=== PATIENT | male | born 1950 | race Caucasian/White ===

== ENCOUNTER 2019-04-26 11:48 | Inpatient (IN) | payer MEDICARE, SELFPAY ==
[2019-04-26] VITALS (19 sets, daily range): BP systolic 118–150; BP diastolic 65–88; PULSE 68–120; RESP 20–46; TEMP 36.3–36.8; O2SAT 95–100; BMI 23.3
--- NOTE | 2019-04-26 | ECHO_ITS ---
Patient Info Name: Gee Fan Age: 68 years : 1950 Gender: Male Ht: 71 in Wt: 170 lbs BSA: 1.97 m2 HR: 92 bpm BP: 138 / 82 mmHg Heart Rhythm: Sinus Rhythm Technical Quality: Good Exam Date: 04/26/2019 4:02 PM Exam Location: [facility] Patient Status: Inpatient Admit Date: 04/26/2019 Staff Ordering Physician: Wayne Miles MD Vinyl Hanger: Lavelle Faith RDCS Attending Provider: Erin Ibarra MD Exam Type: CA echo dop color flow w con Study Info Indications I50.9 - Heart failure, unspecified Complete two-dimensional, color flow and Doppler transthoracic echocardiogram is performed with contrast to opacify the left ventrical and to improve the deliniation of the left ventrical endocarial boarders. Contrast/Agitated Saline Contrast/Ag. Saline: Definity Amount: 2.00 ml Administered By: Nikki Orozco RN Existing IV Access: Yes History/Risk Factors Sepsis; ARF w/hypoxia, COPD exacerbation, SOB, PNA, elevated trops, CHF w/ BNP 5220. Summary 1. Left ventricular chamber dimension is severely enlarged. 2. Definity contrast administered improved wall motion interpretation. 3. Left ventricular systolic function is severely reduced, estimated at 15-20%. 4. There is mildly increased left ventricular wall thickness. 5. The left ventricular diastolic function is grade I diastolic dysfunction. 6. E/e' 8 is minimally elevated. 7. Left atrial chamber dimension is mildly enlarged. 8. There is trace mitral valve regurgitation. 9. Dilated inferior vena cava with >50% collapse upon inspiration consistent with elevated right atrial pressure, 10 mmHg. Left Ventricle E/e' 8 is minimally elevated. Definity contrast administered improved wall motion interpretation. Left ventricular chamber dimension is severely enlarged. Left ventricular systolic function is severely reduced, estimated at 15-20%. There is mildly increased left ventricular wall thickness. The left ventricular diastolic function is grade I diastolic dysfunction. Right Ventricle Right ventricular chamber dimension is not well visualized. Left Atria Left atrial chamber dimension is mildly enlarged. Right Atria Right atrial chamber dimension is normal. Aortic Valve The aortic valve is probable trileaflet. There is no aortic valve stenosis. There is no aortic valve regurgitation. Pulmonic Valve There is no pulmonic regurgitation. Mitral Valve There is no mitral valve stenosis. There is trace mitral valve regurgitation. Tricuspid Valve There is no tricuspid valve regurgitation. Pericardium/Pleural There is no pericardial effusion. Inferior Vena Cava Dilated inferior vena cava with >50% collapse upon inspiration consistent with elevated right atrial pressure, 10 mmHg. Aorta The aortic root size at the sinus of Valsalva is normal. Left Ventricular Outflow Tract Name Value Normal LVOT 2D LVOT Diameter 2.21 cm LVOT Doppler LVOT Peak Gradient 3 mmHg LVOT Mean Gradient 2 mmHg LVOT VTI
--- NOTE | ~2019-04-26 | XR_ITS ---
EXAMINATION: XR chest 1V portable DATE: 05/01/2019 05:51 INDICATION: Respiratory failure. TECHNIQUE: A single frontal view of the chest was obtained. COMPARISON: Chest single view 04/30/2019 FINDINGS: The lungs are hyperexpanded with a diffuse interstitial pattern, consistent with emphysema. No pleural effusion or pneumothorax. The heart size is normal. IMPRESSION: 1. Emphysema. Reviewed, dictated and finalized at location A. DUPLICATOR IMPRESSION: 1. Emphysema.
--- NOTE | ~2019-04-26 | XR_ITS ---
EXAMINATION: XR chest 1V portable DATE: 04/27/2019 05:27 INDICATION: Respiratory failure. TECHNIQUE: A single frontal view of the chest was obtained. COMPARISON: Chest single view 04/26/2019, chest 2 views 04/12/2015 FINDINGS: There is a diffuse reticulonodular pattern in the lungs. No pleural effusion or pneumothora x. The heart size is normal. IMPRESSION: 1. Stable diffuse reticulonodular pattern in the lungs, consistent with pulmonary edema versus pneumo gerson. Reviewed, dictated and finalized at location A. IVING CLERK IMPRESSION: 1. Stable diffuse reticulonodular pattern in the lungs, consistent with pulmona ry edema versus pneumonia.
--- NOTE | ~2019-04-26 | US_ITS ---
EXAMINATION: US arterial duplex LE RT DATE: 05/03/2019 14:15 INDICATION: Right inguinal bruit postcardiac catheterization TECHNIQUE: Multiple grayscale and Doppler ultrasound images of the region of concern at the right brittany in were obtained. COMPARISON: None FINDINGS: Multiphasic arterial waveforms in the right common femoral, superficial femoral and profunda femoral arteries. Normal venous waveforms in the right common femoral, profunda femoral and superficial femor al veins. No arterialization to suggest fistula formation. No hematoma or pseudoaneurysm. There is at herosclerotic plaque at the right common femoral artery with visually approximately 40% stenosis on g rayscale imaging. IMPRESSION: 1. No hematoma or pseudoaneurysm. The bruit may be related to atherosclerotic plaque with visually ap proximately 40% stenosis at the right common femoral artery. Reviewed, dictated and finalized at location A. STANT FINANCIAL ACCOUNTANT IMPRESSION: 1. No hematoma or pseudoaneurysm. The bruit may be related to atherosclerotic p laque with visually approximately 40% stenosis at the right common femoral ze ry.
--- NOTE | ~2019-04-26 | XR_ITS ---
EXAMINATION: XR chest 1V portable DATE: 04/28/2019 05:33 INDICATION: Respiratory failure. TECHNIQUE: A single frontal view of the chest was obtained on 2 radiographs. COMPARISON: Chest single view 04/27/2019 FINDINGS: There is a diffuse reticulonodular pattern in the lungs. No pleural effusion or pneumothora x. The heart size is normal. IMPRESSION: 1. Stable diffuse reticulonodular pattern in the lungs, consistent with pulmonary edema versus pneumo gerson. Reviewed, dictated and finalized at location A. ICATIONS TESTER IMPRESSION: 1. Stable diffuse reticulonodular pattern in the lungs, consistent with pulmona ry edema versus pneumonia.
--- NOTE | ~2019-04-26 | XR_ITS ---
EXAMINATION: XR chest 1V portable DATE: 04/29/2019 05:48 INDICATION: Respiratory failure. TECHNIQUE: A single frontal view of the chest was obtained on 2 radiographs. COMPARISON: Chest single view 04/28/2019 FINDINGS: There is a diffuse reticulonodular pattern in the lungs. No pleural effusion or pneumothora x. The heart size is normal. IMPRESSION: 1. Stable diffuse reticulonodular pattern in the lungs, consistent with pulmonary edema versus pneumo gerson. Reviewed, dictated and finalized at location A. ETING AUTOMATION MANAGER IMPRESSION: 1. Stable diffuse reticulonodular pattern in the lungs, consistent with pulmona ry edema versus pneumonia.
--- NOTE | ~2019-04-26 | CT_ITS ---
EXAMINATION: CTA chest PE protocol EXAM DATE: 05/04/2019 15:57 INDICATION: Hypoxia. TECHNIQUE: Spiral CTA of the chest (pulmonary arteries) was performed with 100 cc Omnipaque 350 intr avenous contrast injection. Images were acquired during the pulmonary arterial phase. Coronal maxi mum intensity projection 3D-reconstructions were created by the technologist on dedicated workstation . Axial, coronal and sagittal reformatted images were reviewed. The dose-length product (DLP) for t his examination was 328.44 mGy-cm. The exposure was tailored according to patient size (auto mA exp osure control), and iterative reconstruction (ASIR) was used as additional dose reduction technique. There is no prior study for comparison. FINDINGS: There are no pulmonary emboli in the 1st through 3rd order (central and interlobar) pulmon chetan arteries. Some loss of attenuation in the left basilar segmental pulmonary arteries due to respi ratory motion, but no intraluminal filling defects suspected. No thoracic aortic dissection. There is moderate emphysema. There is by basilar subsegmental atelectasis, more in the right lung base. Th ere are extensive punctate peripheral tree-in-bud distribution nodules likely infectious or postinfec tious. No confluent consolidation. There are no pleural or pericardial effusions. Tracheobronchial tree is patent. There is no mediastinal, hilar or axillary lymphadenopathy. There is no pneumoth orax. Heart normal in size. There is mild coronary arterial calcification, arterial sclerosis. 2 small left liver lobe cysts, measuring up to 9 mm. Left adrenal hyperplasia versus adenomas. There is mild to moderate thoracic spondylosis without osteoblastic or osteolytic lesions identified. IMPRESSION: 1. No pulmonary emboli suspected. 2. Extensive tree-in-bud distribution punctate nodules, likely infectious or postinfectious process. No confluent consolidation. 3. Bibasilar subsegmental atelectasis. 4. Moderate emphysema. Reviewed, dictated and finalized at location A. R PRODUCT CUTTING MACHINE OPERATOR IMPRESSION: 1. No pulmonary emboli suspected. 2. Extensive tree-in-bud distribution punctate nodules, likely infectious or p ostinfectious process. No confluent consolidation. 3. Bibasilar subsegmental atelectasis. 4. Moderate emphysema.
--- NOTE | ~2019-04-26 | XR_ITS ---
EXAMINATION: XR chest 2V 05/04/2019 14:19 INDICATION: Hypoxia. Pneumonia. Shortness of breath with cough. Fever. PROCEDURE: 2 view chest COMPARISON: Comparison to multiple prior studies sequentially, with oldest reviewed study dated 04/28. FINDINGS: The lungs are clear. The cardiomediastinal silhouette is within normal limits. There are no pleural effusions. There is no pneumothorax suspected. IMPRESSION: 1: NO ACUTE CARDIOPULMONARY DISEASE. Reviewed, dictated and finalized at location B. MOVER
--- NOTE | ~2019-04-26 | XR_ITS ---
EXAMINATION: XR chest 1V portable DATE: 04/30/2019 05:49 INDICATION: Respiratory failure. TECHNIQUE: A single frontal view of the chest was obtained on 2 radiographs. COMPARISON: Chest single view 04/29/2019 FINDINGS: There is mild atelectasis in the lower lung zones. No pleural effusion or pneumothorax. The heart size is normal. IMPRESSION: 1. Mild atelectasis in the lower lung zones. Reviewed, dictated and finalized at location A. SS MANAGER
--- NOTE | ~2019-04-26 | XR_ITS ---
EXAMINATION: XR chest 1V portable INDICATION: Shortness of breath TECHNIQUE: Portable AP chest at 1212 hours COMPARISON: 02/10/2016 FINDINGS: There are patchy bilateral reticular nodular and airspace opacities, left greater than righ t. No pleural effusion or pneumothorax is identified. The cardiomediastinal silhouette is normal for technique. IMPRESSION: 1. Patchy bilateral opacities, left greater than right, likely pneumonia. Reviewed, dictated and finalized at location A. IGURATION MANAGER
--- NOTE | 2019-04-26 11:54 | ECG_ITS ---
Measurements Intervals [place] Rate: 119 P: 71 OR: 138 QRS: -59 QRSD: 174 T: 120 QT: 363 QTc: 511 Interpretive Statements SINUS TACHYCARDIA LEFT ATRIAL ENLARGEMENT LEFT AXIS DEVIATION LEFT BUNDLE BRANCH BLOCK BASELINE ARTIFACT- V2, V5-V6 ABNORMAL ECG Electronically Signed On 04-26-2019 12:08:37 FOOD SERVICE ATTENDANT by Juan Villafana D.O.
--- NOTE | 2019-04-26 12:02 | ED.SOB ---
HPI - SOB/Dyspnea General Chief Complaint: Shortness of Breath/Dyspnea Stated Complaint: people up front know about it Time Seen by Provider: 04/26/19 11:58 Source: patient and family Mode of arrival: ambulatory Limitations: no limitations History of Present Illness HPI Narrative: A 68 y/o male pt presents to the ED, with c/o SOB that began Thursday (4 days ago) with a gradual onset and is worsening. Family at bedside states that pt was seen at his doctor's office this AM and his O2 SAT was 65% on RA. Pt has a Hx of COPD and has had pneumonia in the past and states that his Sx are similar to previous episodes. Family states that the pt had a subjective fever on Thursday and Thursday and has had a cough and congestion, but denies swelling to BLE, CP, heart palpitations, or N/V/D. Pt's O2 SAT is 100% on 15L of O2 via non-rebreather in the ED bed. MD elicited complaint: shortness of breath and cough Pertinent past history: COPD and pneumonia Onset (ago): day(s) (4) Timing: progressively worsening Severity: similar to previous episodes Known history of: COPD Associated symptoms: fever (subjective), cough and other (congestion) Related Data Home Medications Medication Instructions Recorded Confirmed No Home Medications 04/26/19 04/26/19 Allergies Allergy/AdvReac Type Severity Reaction Status Date / Time BEE STINGS Allergy Unknown TROUBLE Uncoded 04/26/19 12:23 BREATHING Review of Systems Review of Systems: All systems reviewed & are unremarkable except as noted in HPI and below Constitutional: Constitutional: Reports fever(s) (subjective) Cardiovascular: Cardiovascular: Denies chest pain, Denies pedal edema and Denies palpitations Respiratory: Respiratory: Reports chest congestion, Reports cough and Reports dyspnea Gastrointestinal: Gastrointestinal: Denies diarrhea, Denies nausea and Denies vomiting COUNT INCLUDES THE [facility] Past Medical History Medical History (Updated 04/26/19 @ 13:25 by Emiliano Romero MD) COPD (chronic obstructive pulmonary disease) Pneumonia Surgical History Surgical History (Updated 04/26/19 @ 12:51 by ERIC Mitchell) History of tonsillectomy Social History Social History (Updated 04/26/19 @ 12:52 by ERIC Mitchell) Smoking status: Smoker, status unknown Gender identity (if verbalized by the patient): Male Exam Const: General: in distress moderate, ill appearing acutely and other (Elderly) Nutritional Appearance: well nourished HENMT: Mouth: Yes lip normal and Yes moist mucous membranes Eyes: Conjunctivae: conjunctivae normal Pupils: Equal, round and reactive pupils present Resp: Effort & Inspection: tachypneic Auscultation: wheezes (diffuse) Cardio: Rate: tachycardic Rhythm: regular rhythm Heart sounds: no murmurs GI: GI Palp: Yes Soft to palpation and No Tenderness to palpation present (GI) Auscultation: normal bowel sounds Back/Spine/Pelvis: Other: Full ROM Skin: General skin exam: normal color, dry skin and other (warm) Neuro: General: patient oriented x3 (alert) Speech: normal speech Extrem: General: full ROM Psych: Mental Status: mental status grossly normal Affect: normal affect Course Consultations Consultation #1: Discussed case with Dr. Miles, the street openings inspector. Accepts transfer to ICU. Date: 04/26/19 Time: 12:55 Consultation #2: Discussed case with RAMSES Gambino for the hospitalist, Dr. Ibarra. Accepts admission. Date: 04/26/19 Time: 13:05 Vital Signs Vital signs: Vital Signs Temperature 36.4 C 04/26/19 12:14 Pulse Rate 118 H 04/26/19 12:14 Respiratory Rate 46 H 04/26/19 12:14 Blood Pressure 142/85 H 04/26/19 12:14 Pulse Oximetry 98 04/26/19 12:14 Temperature 36.4 C 04/26/19 12:14 Pulse Rate 113 H 04/26/19 12:37 Respiratory Rate 36 H 04/26/19 12:37 Blood Pressure 142/85 H 04/26/19 12:14 Pulse Oximetry 100 04/26/19 12:37 MDM - SOB/Dyspnea Differential Diagnosis Differential diagnosis: Like
[2019-04-26 12:21] LABS: Basophils Percent Auto 0.1 % (0.2-1.2); Hematocrit 46.6 % (42.0-52.0); Hemoglobin 15.4 g/dL (14.0-18.0); Immature Granulocyte Percent A 0.7 % (0-0.5); Lymphocytes Percent Auto 9.2 % (18.3-44.2); Mean Corpuscular Hemoglobin 31.2 pg (26-34); Mean Corpuscular Volume 94.5 fl (80-100); Mean Platelet Volume 10.9 fl (7.4-10.4); Monocytes Absolute Auto 2.3 K/mm3 (0.1-0.6); Monocytes Percent Auto 16.6 % (2.6-8.5); Neutrophils Absolute Auto 10.4 K/mm3 (1.3-6.7); Neutrophils Percent Auto 73.4 % (45.5-73.1); Platelet Count Result 390 k/mm3 (150-375); Red Blood Count 4.93 M/mm3 (4.6-6.20); Red Cell Distribution Width 12.4 % (11.5-14.5); White Blood Count 14.1 K/mm3 (4.5-10.0)
[2019-04-26] MEDS: IPRATROPIUM BR 0.02% INH SOLN 0.5 MG/2.5 ML VIAL INHALATION ×3 (12:21→20:37)
[2019-04-26] MEDS: ALBUTEROL SULFATE NEB 2.5 MG/0.5 ML INH 5 MG INHALATION ×3 (12:21→20:37)
[2019-04-26 12:29] LABS: Base Excess ABG 0.8 mEq/l (+/-2.0); Fractional Inspired Oxygen 100 %; HCO3 ABG 32.7 mEq/l (22.0-26.0); Oxygen Content ABG 21.8 %vol (16.0-22.0); Oxygen Saturation ABG 99.3 % (95.0-100.0); Oxyhemoglobin 95.9 % THb (90.0-100.0); PO2 ABG 242.1 mmHg (80.0-100.0); PO2 FiO2 Ratio Arterial Blood 2.42 %; Total Hemoglobin 15.8 g/dL (12.0-18.0)
[2019-04-26] MEDS: SODIUM CHLORIDE 0.9% IV 1,000 ML 999 ML IV CONT ×2 (12:29→14:23)
[2019-04-26 12:31] LABS: Device NON-REBREATHER MASK; Modified Allen's Test Pass; PCO2 ABG 90.9 mmHg (35.0-45.0); Site Drawn RIGHT RADIAL; pH ABG 7.174 (7.350-7.450)
[2019-04-26 12:32] LABS: INR 1.3; Prothrombin Time 15.4 Seconds (11.1-14.7)
[2019-04-26 12:33] LABS: Partial Thromboplastin Time 27.8 SECONDS (22.3-36.8)
[2019-04-26 12:35] LABS: Alanine Aminotransferase 38 U/L (4-50); Albumin Level 4.1 g/dL (3.5-5.1); Alkaline Phosphatase 77 U/L (38-126); Aspartate Amino Transferase 49 U/L (17-59); Bilirubin,Total 0.5 mg/dL (0.2-1.3); Blood Urea Nitrogen 19 mg/dL (9-20); Calcium 8.9 mg/dL (8.4-10.2); Carbon Dioxide 29 mmol/L (22-30); Chloride 90 mmol/L (98-107); Estimated CRCL calculation 91 ml/min; Estimated Glomerular Filt Rate > 60; Glucose 336 mg/dL (75-110); Sodium 137 mmol/L (137-145)
[2019-04-26 12:43] LABS: Lactic Acid Reflex 4.2 mmol/L (0.7-2.1)
[2019-04-26 12:48] LABS: NT Pro B Type Natriuretic Pept 5220 PG/ML (5-100); Troponin I 0.082 ng/mL (0.000-0.034)
--- NOTE | 2019-04-26 13:30 | PM.IMHP ---
H&P: HPI History of Present Illness Chief complaint: Shortness breath. Narrative: Gee Fan is a 68-year-old male smoker with COPD who presented to the emergency department earlier this afternoon via private vehicle from home for evaluation of shortness of breath. He notes a gradual onset of progressive dyspnea on lesser and lesser exertion since Thursday. He is also had a cough, but he goes on to state that he does typically have a smoker's cough, and has had some sinus congestion which is also not unusual for him. He reports a subjective fever and cold sweats for the last 2 days as well. This morning he was seen by Dr. Recinos and patient notes that his SPO2 at that time was 65% on room air and the hospital service was contacted to directly admit the patient for further treatment and evaluation. It was felt that the patient would be best served being evaluated through the emergency department, and on arrival his SPO2 ranged between 54 and 65% on room air. Chest x-ray showed findings of pneumonia and blood gas revealed CO2 retention with a PCO2 of 90.9. He has been started on BiPAP and reports feeling much improvement in his work of breathing. He denies headache, chest pain, pleuritic pain, palpitations, orthopnea, PND, lower extremity edema, nausea, vomiting, diarrhea, and history of heart disease. No dysphagia or concerns for aspiration. Review of Systems Review of Systems: All systems reviewed & are unremarkable except as noted in HPI and below PMFSH Past Medical History Medical History (Updated 04/26/19 @ 20:22 by Haley Navarro PA-C) COPD (chronic obstructive pulmonary disease) Tobacco dependence Surgical History Surgical History (Updated 04/26/19 @ 20:16 by Haley Navarro PA-C) Status post Mohs surgery Skin cancer from nose. Status post tonsillectomy and adenoidectomy Family History Family History Mother Myocardial infarct Cerebrovascular accident Dementia Father Myocardial infarct Diabetes mellitus Sibling Prostate carcinoma Social History Social History (Updated 04/26/19 @ 20:17 by Haley Navarro PA-C) Social History: The patient is and lives with his in [place]. They have 3 children. He designates his , Erica, as his surrogate decision maker and he wishes to be a full code. 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 He has smoked 1 pack of cigarettes per day for nearly 50 years, is now down to less than 0.5 pack a day. He denies alcohol and drug abuse. Smoking packs per day: 0.5 Smoking cigarettes per day: 10.0 Years smoked: 49 Smoking pack-years: 24.50 Smoking status: Current every day smoker Tobacco type: cigarettes Second hand tobacco smoke exposure: Yes Alcohol intake: never Substance use: never Gender identity (if verbalized by the patient): Male Spiritual care concerns: No Agree to blood products: Yes Meds Home Medications and Allergies Home Medications Medication Instructions Recorded Confirmed Type No Home Medications 04/26/19 04/26/19 History Allergies Allergy/AdvReac Type Severity Reaction Status Date / Time BEE STINGS Allergy Severe Anaphylaxis Uncoded 04/26/19 15:22 Vital Signs Vital Signs - 24 hr 04/26/19 12:14 04/26/19 12:24 04/26/19 12:35 Temperature 97.6 F Pulse Rate 118 H 120 H 107 H Respiratory Rate 46 H 40 H 36 H Blood Pressure 142/85 H Pulse Oximetry 98 04/26/19 12:37 04/26/19 13:49 Temperature Pulse Rate 113 H 105 H Respiratory Rate 36 H 39 H Blood Pressure Pulse Oximetry 100 Exam Narrative: Exam Narrative: General: Well-developed, well-nourished mildly ill-appearing male sitting up in bed on the BiPAP in no acute distress. He is able to speak. He is able to speak in 5 to 6 word sentences through the mask. Nontoxic in appearance. HEENT: Normocephalic, atraumatic. PERRL, EOMI. Sclerae anicteric
--- NOTE | 2019-04-26 13:40 | WPDCNINT ---
Assessment and Plan Assessment and plan (1) Acute respiratory failure with hypoxia and hypercapnia: Code(s): J96.01 - Acute respiratory failure with hypoxia; J96.02 - Acute respiratory failure with hypercapnia Status: Acute Assessment and Plan: patient has acute respiratory failure with hypoxia and hypercapnia secondary to acute exacerbation of COPD and community-acquired pneumonia rule out influenza patient placed on BiPAP for respiratory support. repeat ABG ordered if patient does not improve then he may need intubation and mechanical ventilation IV Solu-Medrol, DuoNebs (2) Sepsis due to pneumonia: Code(s): J18.9 - Pneumonia, unspecified organism; A41.9 - Sepsis, unspecified organism Status: Acute Assessment and Plan: patient was given 1 L saline bolus in the ER due to concerns of elevated BNP will give 1 more L of saline and then maintenance IV fluids monitor lactic acid level BP adequate at this time sputum and blood culture urine Legionella empiric broad-spectrum antibiotic check influenza (3) Community acquired bacterial pneumonia: Code(s): J15.9 - Unspecified bacterial pneumonia Status: Acute Assessment and Plan: see above (4) COPD exacerbation: Code(s): J44.1 - Chronic obstructive pulmonary disease with (acute) exacerbation Status: Acute Assessment and Plan: patient likely has undiagnosed COPD as evident from wheezing, long history of smoking and hyperinflated lungs on chest x-ray (5) Hyperglycemia: Code(s): R73.9 - Hyperglycemia, unspecified Status: Acute Assessment and Plan: undiagnosed diabetes mellitus versus stress response check HbA1c sliding scale insulin may need Lantus (6) Elevated brain natriuretic peptide (BNP) level: Code(s): R79.89 - Other specified abnormal findings of blood chemistry Status: Acute Assessment and Plan: BNP elevated patient not in any fluid overload. no edema. could be cor pulmonale check echo (7) Elevated troponin: Code(s): R79.89 - Other specified abnormal findings of blood chemistry Status: Acute Assessment and Plan: likely secondary to demand mediated ischemia from sepsis and respiratory failure EKG reviewed serial troponin aspirin echo Additional Plan DVT prophylaxis with Lovenox patient is full code which I confirmed with both patient and his Total Critical Care Time - 35 minutes Due to a high probability of clinically significant, life threatening deterioration, the patient required my highest level of preparedness to intervene emergently and I personally spent this critical care time directly and personally managing the patient. This critical care time included obtaining a history; examining the patient; pulse oximetry; ordering and review of studies; arranging urgent treatment with development of a management plan; evaluation of patient's response to treatment; frequent reassessment; and discussions with other providers. It was exclusive of separately billable procedures and treating other patients and teaching time. Please see Assessment and Plan section and the rest of the note for further information on patient assessment and treatment Automotive Upholsterer Consult Note Consult date: 04/26/19 Time Seen: 13:00 HPI: Gee Fan is a 68 year old male With past medical history of pneumonia was sent from his doctor's office to ER with chief complaint of shortness of breath. patient is on BiPAP and history was obtained from patient's . patient started feeling sick on Thursday with shortness of breath cough. patient's cough was associated with james sputum. shortness of breath was continuous. worse on exertion and no orthopnea or PND. patient had no sick contact. patient also reported fever. he denied any chest pain nausea or vomiting. At doctor's offices saturation was 65%. In ED patient was found to be in r
[2019-04-26 13:42] LABS: Alveolar/Arterial O2 Gradient 153.7 mmHg; Base Excess ABG 0.6 mEq/l (+/-2.0); Fractional Inspired Oxygen 50 %; HCO3 ABG 30.2 mEq/l (22.0-26.0); Oxygen Content ABG 19.8 %vol (16.0-22.0); Oxygen Saturation ABG 97.6 % (95.0-100.0); Oxyhemoglobin 94.9 % THb (90.0-100.0); PO2 ABG 121.1 mmHg (80.0-100.0); PO2 FiO2 Ratio Arterial Blood 2.42 %; Total Hemoglobin 14.7 g/dL (12.0-18.0)
[2019-04-26 13:43] LABS: Device NON-INVASIVE VENT; Modified Allen's Test Pass; Non-Invasive Expiratory Pressure 7 CMH2O; Non-Invasive Inspiratory Pressure 14 CMH2O; Non-Invasive Vent Rate 4 /MIN; PCO2 ABG 72.6 mmHg (35.0-45.0); Site Drawn RIGHT RADIAL; pH ABG 7.237 (7.350-7.450)
[2019-04-26] MEDS: methylPREDNISolone SOD SUCC 125 MG VIAL IV PUSH (14:01)
[2019-04-26] MEDS: ASPIRIN 325 MG TABLET PO (14:07)
[2019-04-26] MEDS: SODIUM CHLORIDE 0.9% IV 1,000 ML 125 ML IV CONT (15:21)
[2019-04-26 15:25] LABS: Reflex Lactic Acid Yes or No Add Lactic
[2019-04-26 15:27] LABS: Hematocrit 43.4 % (42.0-52.0); Hemoglobin 14.1 g/dL (14.0-18.0); Mean Corpuscular HGB Conc 32.5 g/dl (32-36); Mean Corpuscular Hemoglobin 30.8 pg (26-34); Mean Corpuscular Volume 94.8 fl (80-100); Mean Platelet Volume 10.2 fl (7.4-10.4); Platelet Count Result 298 k/mm3 (150-375); Red Blood Count 4.58 M/mm3 (4.6-6.20); Red Cell Distribution Width 12.4 % (11.5-14.5); White Blood Count 8.6 K/mm3 (4.5-10.0)
--- NOTE | 2019-04-26 15:37 | ADMGEN ---
This patient, Gee Fan, was admitted to Intensive Care Unit-3 on 04-26-2019 at 1450. Patient/family oriented to hospital policies and general routines including ID bracelet, bed and alarms, visiting hours, pain management, procedures, bathroom and other care routines, personal items, smoking policy, room service/diet, and visiting hours. Valuables list has been completed. Information on how to activate the Rapid Response Team has been discussed. Patient/Family are encouraged to report perceived risks to care and to ask questions if they do not understand what they are told or what they should do.
[2019-04-26 15:38] LABS: Lactic Acid 1.5 mmol/L (0.7-2.1)
[2019-04-26 15:52] LABS: Band Neutrophils Percent 39 % (0-6); Lymphocytes Absolute Manual 1.03 K/mm3 (1.1-4.5); Monocytes Absolute Manual 0.94 K/mm3 (0.1-0.90); Monocytes Percent Manual 11 % (3-9); Neutrophils Absolute Manual 6.62 K/mm3 (1.3-6.7); Neutrophils Percent Manual 38 % (46-73); Total Cells Counted 100
[2019-04-26 15:53] LABS: Platelet Estimate Adequate (Adequate); Troponin I 0.559 ng/mL (0.000-0.034)
[2019-04-26] MEDS: PERFLUTREN LIPID MICROSPHERES 1.5 ML VIAL DILUTED TO 10 ML TOTAL VOLUME IV PUSH (16:37)
[2019-04-26 17:36] LABS: Glucose Point of Care 175 (65-105)
[2019-04-26 22:32] LABS: Alveolar/Arterial O2 Gradient 94.6 mmHg; Base Excess ABG 4.4 mEq/l (+/-2.0); Carboxyhemoglobin 0.5 % THb (0-2.0); Fractional Inspired Oxygen 30 %; HCO3 ABG 31.5 mEq/l (22.0-26.0); Methemoglobin ABG 0.4 %THb (0-1.5); Oxyhemoglobin 85.8 % THb (90.0-100.0); PCO2 ABG 57.6 mmHg (35.0-45.0); PO2 ABG 51.6 mmHg (80.0-100.0); PO2 FiO2 Ratio Arterial Blood 1.72 %; Reduced Hemoglobin 13.3 %THb (0-5.0); Total Hemoglobin 14.1 g/dL (12.0-18.0)
[2019-04-26 22:38] LABS: Device NON-INVASIVE VENT; Modified Allen's Test Pass; Oxygen Saturation ABG 84.3 % (95.0-100.0); Site Drawn RIGHT RADIAL
[2019-04-26 22:39] LABS: Non-Invasive Expiratory Pressure 7 CMH2O; Non-Invasive Inspiratory Pressure 14 CMH2O; Non-Invasive Vent Rate 4 /MIN
[2019-04-26 23:03] LABS: Alveolar/Arterial O2 Gradient 73.9 mmHg; Carboxyhemoglobin 0.6 % THb (0-2.0); Fractional Inspired Oxygen 30 %; HCO3 ABG 29.1 mEq/l (22.0-26.0); Methemoglobin ABG 0.3 %THb (0-1.5); Oxygen Content ABG 19.1 %vol (16.0-22.0); Oxyhemoglobin 93.4 % THb (90.0-100.0); PCO2 ABG 55.4 mmHg (35.0-45.0); PO2 ABG 74.9 mmHg (80.0-100.0); Reduced Hemoglobin 5.7 %THb (0-5.0); Total Hemoglobin 14.5 g/dL (12.0-18.0); pH ABG 7.338 (7.350-7.450)
[2019-04-26 23:04] LABS: Device NON-INVASIVE VENT; Modified Allen's Test Pass; Non-Invasive Expiratory Pressure 7 CMH2O; Non-Invasive Inspiratory Pressure 14 CMH2O; Non-Invasive Vent Rate 4 /MIN; Site Drawn RIGHT RADIAL
--- NOTE | 2019-04-26 23:28 | PM.EVENT ---
Event Note Event Note Event Note: I received a phone call from the patient's nurse, Klarissa, I received a phone call from the patient's nurse, Klarissa, at 22:20 with reports of a critically high troponin. Troponin trend as follows: 0.082 --> 0.559 --> 4.080. EKG done arrival to the emergency department was reviewed which showed left axis deviation and left bundle branch block. Uncertain if the bundle branch block was new as we do not have any previous EKGs in our systems. The patient was not having any chest pain on presentation nor has he had any since admission. Repeat EKG this evening again demonstrates a left bundle branch block with T-wave inversions in inferior lateral leads. I came to reassess the patient, and he is very comfortable on BiPAP and is sleeping. We did discuss the echocardiogram findings showing ejection fraction of 15 to 20% as elevated troponin level and changes in EKG. Again, the patient reiterates that he has not had any chest pain whatsoever today nor continue remember time when he ever had exertional chest pain. He has not noticed lightheadedness, orthopnea, or lower extremity edema. No nausea, vomiting, or sweats. Discussed plans for cardiology consult and I updated the nurse on the plan of care. Will start Lovenox 1 milligram/kilogram and discontinue IV fluids.
--- NOTE | 2019-04-26 23:33 | PCRCNOTE ---
abgs drawn late not aware of order mixed sample so redrawn
[2019-04-27] VITALS (24 sets, daily range): BP systolic 102–133; BP diastolic 60–76; PULSE 58–107; RESP 18–34; TEMP 36.4–36.6; O2SAT 88–100
[2019-04-27 00:04] LABS: Glucose Point of Care 189 (65-105)
[2019-04-27] MEDS: ENOXAPARIN 80 MG/0.8 ML SYRINGE 75 MG SUB-Q ×2 (00:54→11:34)
[2019-04-27] MEDS: ALBUTEROL SULFATE NEB 2.5 MG/0.5 ML INH 5 MG INHALATION ×4 (02:16→20:13)
[2019-04-27] MEDS: IPRATROPIUM BR 0.02% INH SOLN 0.5 MG/2.5 ML VIAL INHALATION ×4 (02:16→20:13)
[2019-04-27 04:48] LABS: Basophils Absolute Auto 0.1 K/mm3 (0.0-0.1); Basophils Percent Auto 0.9 % (0.2-1.2); Hemoglobin 12.6 g/dL (14.0-18.0); Immature Granulocyte Absolute 0.07 K/mm3 (0.00-0.031); Immature Granulocyte Percent A 0.7 % (0-0.5); Lymphocytes Absolute Auto 1.32 K/mm3 (0.9-3.2); Lymphocytes Percent Auto 13.1 % (18.3-44.2); Mean Corpuscular HGB Conc 32.3 g/dl (32-36); Mean Corpuscular Hemoglobin 30.7 pg (26-34); Mean Corpuscular Volume 94.9 fl (80-100); Mean Platelet Volume 10.4 fl (7.4-10.4); Monocytes Absolute Auto 1.1 K/mm3 (0.1-0.6); Monocytes Percent Auto 10.9 % (2.6-8.5); Neutrophils Absolute Auto 7.5 K/mm3 (1.3-6.7); Neutrophils Percent Auto 74.4 % (45.5-73.1); Platelet Count Result 274 k/mm3 (150-375); Red Blood Count 4.11 M/mm3 (4.6-6.20); Red Cell Distribution Width 12.5 % (11.5-14.5); White Blood Count 10.1 K/mm3 (4.5-10.0)
[2019-04-27 05:03] LABS: Alanine Aminotransferase 46 U/L (4-50); Albumin Level 3.1 g/dL (3.5-5.1); Alkaline Phosphatase 62 U/L (38-126); Aspartate Amino Transferase 59 U/L (17-59); Bilirubin,Total 0.2 mg/dL (0.2-1.3); Blood Urea Nitrogen 16 mg/dL (9-20); Calcium 8.7 mg/dL (8.4-10.2); Carbon Dioxide 34 mmol/L (22-30); Chloride 95 mmol/L (98-107); Cholesterol 77 mg/dL (0-200); Estimated CRCL calculation 91 ml/min; Estimated Glomerular Filt Rate > 60; Glucose 187 mg/dL (75-110); HDL Direct 18 mg/dL; Magnesium 2.1 mg/dL (1.6-2.3); Potassium 4.2 mmol/L (3.4-5.0); Sodium 137 mmol/L (137-145); Triglycerides 74 mg/dL (<150)
[2019-04-27 05:04] LABS: Carboxyhemoglobin 0.4 % THb (0-2.0); Fractional Inspired Oxygen 40 %; HCO3 ABG 32.8 mEq/l (22.0-26.0); Methemoglobin ABG 0.3 %THb (0-1.5); Oxygen Content ABG 18.8 %vol (16.0-22.0); Oxygen Saturation ABG 96.2 % (95.0-100.0); Oxyhemoglobin 95.7 % THb (90.0-100.0); PO2 ABG 90.5 mmHg (80.0-100.0); PO2 FiO2 Ratio Arterial Blood 2.26 %; Reduced Hemoglobin 3.6 %THb (0-5.0); Total Hemoglobin 13.9 g/dL (12.0-18.0); pH ABG 7.333 (7.350-7.450)
[2019-04-27 05:05] LABS: Device NON-INVASIVE VENT; Modified Allen's Test Pass; PCO2 ABG 63.2 mmHg (35.0-45.0); Site Drawn RIGHT RADIAL
[2019-04-27 05:06] LABS: Non-Invasive Expiratory Pressure 7 CMH2O; Non-Invasive Inspiratory Pressure 14 CMH2O; Non-Invasive Vent Rate 4 /MIN
[2019-04-27 05:14] LABS: LDL Cholesterol Direct 44 mg/dL
[2019-04-27 06:07] LABS: Glucose Point of Care 130 (65-105)
[2019-04-27] MEDS: methylPREDNISolone SOD SUCC 125 MG VIAL 60 MG IV PUSH ×2 (06:11→18:07)
--- NOTE | 2019-04-27 07:45 | WPDINTPN ---
Progress Note: A&P Assessment and Plan (1) Acute respiratory failure with hypoxia and hypercapnia: Code(s): J96.01 - Acute respiratory failure with hypoxia; J96.02 - Acute respiratory failure with hypercapnia Status: Acute Assessment and Plan: patient has acute respiratory failure with hypoxia and hypercapnia secondary to acute exacerbation of COPD and community-acquired pneumonia negative influenza patient placed on BiPAP for respiratory support. repeat ABG reviewed will try to give him a break from BiPAP and monitor continue IV Solu-Medrol, DuoNebs (2) Sepsis due to pneumonia: Code(s): J18.9 - Pneumonia, unspecified organism; A41.9 - Sepsis, unspecified organism Status: Acute Assessment and Plan: patient was given 2 L saline bolus on admission Later IV fluid were discontinued due to concerns of CHF lactate has normalized and patient is hemodynamically stable sputum and blood culture sent and pending urine Legionella pending continue empiric broad-spectrum antibiotic negative influenza (3) Community acquired bacterial pneumonia: Code(s): J15.9 - Unspecified bacterial pneumonia Status: Acute Assessment and Plan: see above (4) COPD exacerbation: Code(s): J44.1 - Chronic obstructive pulmonary disease with (acute) exacerbation Status: Acute Assessment and Plan: patient likely has undiagnosed COPD as evident from wheezing, long history of smoking and hyperinflated lungs on chest x-ray continue steroid and DuoNeb (5) NSTEMI (non-ST elevated myocardial infarction): Code(s): I21.4 - Non-ST elevation (NSTEMI) myocardial infarction Status: Acute Assessment and Plan: troponin increased overnight likely secondary to demand mediated ischemia from sepsis and respiratory failure. Patient denies any chest pain EKG reviewed continue aspirin Lovenox started echo reviewed cardiology consulted (6) CHF (congestive heart failure): Code(s): I50.9 - Heart failure, unspecified Status: Acute Assessment and Plan: ECHO Showed Left ventricular chamber dimension is severely enlarged. Left ventricular systolic function is severely reduced, estimated at 15-20%. The left ventricular diastolic function is grade I diastolic dysfunction. Trace mitral valve regurgitation. Dilated inferior vena cava with >50% collapse upon inspiration consistent with elevated right atrial pressure, 10 mmHg. IV fluids discontinued and Lasix 40 mg IV x1 (7) Hyperglycemia: Code(s): R73.9 - Hyperglycemia, unspecified Status: Acute Assessment and Plan: undiagnosed diabetes mellitus versus stress response check HbA1c sliding scale insulin may need Lantus Additional Plan DVT prophylaxis with Lovenox patient is full code which I confirmed with both patient and his on admission Total Critical Care Time - 32 minutes Due to a high probability of clinically significant, life threatening deterioration, the patient required my highest level of preparedness to intervene emergently and I personally spent this critical care time directly and personally managing the patient. This critical care time included obtaining a history; examining the patient; pulse oximetry; ordering and review of studies; arranging urgent treatment with development of a management plan; evaluation of patient's response to treatment; frequent reassessment; and discussions with other providers. It was exclusive of separately billable procedures and treating other patients and teaching time. Please see Assessment and Plan section and the rest of the note for further information on patient assessment and treatment Subjective Date/time seen: 04/27/19 0745 Interval history: Date of Service: 04/27/2019. Admitted with acute respiratory failure, sepsis, pneumonia. Patient is awake on BiPAP. he feels much better today and slept we
[2019-04-27 07:46] LABS: pH ABG 7.356 (7.350-7.450)
[2019-04-27] MEDS: FUROSEMIDE INJ 40 MG/4 ML VIAL IV PUSH (07:54)
--- NOTE | 2019-04-27 07:56 | PM.IMPN ---
Progress Note: A&P Assessment and Plan (1) Acute respiratory failure with hypoxia and hypercapnia: Code(s): J96.01 - Acute respiratory failure with hypoxia; J96.02 - Acute respiratory failure with hypercapnia Status: Acute Assessment and Plan: Result of pneumonia and COPD exacerbation. Discussed with manager banquet this morning. Plan to wean off BiPAP as tolerates. Will continue IV azithromycin, ceftriaxone and vancomycin. Continue nebulizer treatments. Continue IV steroids and Symbicort. Will monitor closely. (2) Sepsis: Qualifiers: Sepsis type: sepsis due to unspecified organism Sepsis acute organ dysfunction status: with acute organ dysfunction Severe sepsis acute organ dysfunction type: acute respiratory failure Acute respiratory failure type: with hypoxia Severe sepsis shock status: without septic shock Qualified Code(s): A41.9 - Sepsis, unspecified organism; R65.20 - Severe sepsis without septic shock; J96.01 - Acute respiratory failure with hypoxia Code(s): A41.9 - Sepsis, unspecified organism Status: Acute Assessment and Plan: Criteria met on admission. Result of pneumonia. Will continue IV antibiotics as noted above. Blood cultures and MRSA nasal cultures pending. Continue to monitor. (3) Community acquired pneumonia: Qualifiers: Laterality: unspecified laterality Qualified Code(s): J18.9 - Pneumonia, unspecified organism Code(s): J18.9 - Pneumonia, unspecified organism Status: Acute Assessment and Plan: Imaging with diffuse reticulonodular pattern. Continue IV antibiotics and respiratory treatments as noted above. Influenza screen negative. (4) NSTEMI (non-ST elevated myocardial infarction): Code(s): I21.4 - Non-ST elevation (NSTEMI) myocardial infarction Status: Acute Assessment and Plan: Troponin level increased to peak of 4.0. Echocardiogram also obtained with EF 15-20% and grade 1 diastolic dysfunction. Cardiology consulted and appreciate input. IV Lasix today. Now on Coreg and Entresto. Coronary angiography during this hospitalization when respiratory status improved. Telemetry reviewed on 04/27/2019 with heart rate controlled at this time. On therapeutic Lovenox. (5) CHF (congestive heart failure): Qualifiers: Heart failure type: combined systolic and diastolic Heart failure chronicity: acute on chronic Qualified Code(s): I50.43 - Acute on chronic combined systolic (congestive) and diastolic (congestive) heart failure Code(s): I50.9 - Heart failure, unspecified Status: Acute Assessment and Plan: Echocardiogram results as noted above. Continue Coreg and Entresto. Will monitor. (6) COPD exacerbation: Code(s): J44.1 - Chronic obstructive pulmonary disease with (acute) exacerbation Status: Acute Assessment and Plan: Continue respiratory treatments as noted above. (7) Tobacco dependence: Code(s): F17.200 - Nicotine dependence, unspecified, uncomplicated Status: Acute Assessment and Plan: Counseled on smoking cessation by admitting provider. (8) DVT prophylaxis: Code(s): Z29.9 - Encounter for prophylactic measures, unspecified Status: Acute Assessment and Plan: Therapeutic Lovenox. Time Spent With Patient Time with patient: 15 - 25 minutes Subjective Date/time seen: 04/27/19 07:56 Interval history: Date of Service: 04/27/2019. Admitted with acute respiratory failure, sepsis, pneumonia. Patient is awake on BiPAP. No shortness of breath on BiPAP. No chest pain. Slight cough. No headache. No abdominal pain, nausea or vomiting. Review of Systems Constitutional: Constitutional: Denies chills and Denies fever(s) Cardiovascular: Cardiovascular: Denies chest pain Respiratory: Respiratory: Reports cough and Denies dyspnea Gastrointestinal: Gastrointestinal: Denies abdominal pain, Denies nausea and De
--- NOTE | 2019-04-27 08:11 | PCRCNOTE ---
UNABLE TO GIVE SYMBICORT AT THIS TIME. PT. IS ON CONT. BIPAP.
--- NOTE | 2019-04-27 09:10 | PM.CNCAR ---
Assessment and Plan Additional Plan 68-year-old patient with: Newly diagnosed severe left ventricular systolic dysfunction and left bundle branch block noted on echo. Troponin was elevated now to over 4.0 but no symptoms of chest pain. This is likely a type 2 myocardial infarction related to respiratory difficulty in a patient with underlying severe LV dysfunction that we are now 1st identifying. A given his smoking and diabetes the overwhelming probability is that this is an ischemic cardiomyopathy. 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 I will initiate treatment with low-dose carvedilol and Entresto along with the diuresis that has already been initiated by the ICU staff. Would favor adding spironolactone in the near future. During this hospitalization he should undergo coronary angiography to delineate his coronary anatomy and hopefully this can be done when his respiratory status is better than it is this morning. In addition to this he certainly has underlying COPD which appears to be significant by exam and by chest x-ray related to longstanding tobacco use. The Primary team will be of course initiating treatment for this as well. Prognosis is guarded given his severely depressed left ventricular function Bruce Rodriguez MD [facility] History of Present Illness History of Present Illness Consult date/time: Date of service: 04/27/19 09:10 Consult reason: congestive heart failure Reason For Visit: Shortness breath. Narrative: This is a 68-year-old patient that I am seeing at the request of the hospitalist because of severe shortness of breath prompting admission and echocardiographic evidence of severe cardiomyopathy. The patient apparently prior to this hospitalization did not really have much in the way of known medical problems and other than chronic smoking was in relatively good health at least he thought he was. He was developing symptoms of severe shortness of breath over the last couple of weeks and went to his family physician who found him to be in significant respiratory distress and had oxygen saturations below 70%. He was felt to be having a severe COPD exacerbation was brought to the emergency room evaluated treated and admitted to the hospital. Because of his respiratory difficulty see was admitted to the ICU and has been treated as a COPD exacerbation. His electrocardiogram demonstrates a sinus mechanism with left bundle branch block. There are no old ECGs available for comparison. An echocardiogram was done and was given to Dr. Villafana for interpretation and the report indicates the patient has significant left ventricular dilatation with severe systolic dysfunction with an ejection fraction of reported to be in the 20s. There was apparently no serious primary valvular disease. Because of these findings we have been asked to see him in consultation. He is currently in ICU room 3. Relatively comfortable according to what he tells me but is still on a BiPAP device and still has conversational dyspnea. He can't recall ever having any significant chest pain he denies any symptoms of palpitations syncope orthopnea PND or edema. The patient states that he smoked since he was in his 20s. He presented also with the respiratory distress and his blood glucose on admission was very high I think around 380. If the patient clearly has diabetes but he does not seem to want to accept that reality at least at the time of this discussion. Review of Systems Constitutional: Constitutional: Reports lethargy Eyes: Eyes: Reports no additional eye complaints ENT: Reports system reviewed and no additional complaints, except as documented Cardiovascular: Cardiovascular: Reports no additional cardiovascular complaints Respiratory: Respiratory: Reports as per HPI and Reports dyspnea Gastrointestinal: Gastr
[2019-04-27] MEDS: SACUBITRIL/VALSARTAN 24-26 MG TABLET 1 TAB PO ×2 (11:33→20:09)
[2019-04-27] MEDS: carvediloL 3.125 MG TABLET PO ×2 (11:33→20:09)
[2019-04-27] MEDS: ASPIRIN 325 MG TABLET PO (11:33)
[2019-04-27 11:40] LABS: Glucose Point of Care 184 (65-105)
[2019-04-27 17:12] LABS: Glucose Point of Care 139 (65-105)
[2019-04-28] VITALS (26 sets, daily range): BP systolic 85–144; BP diastolic 60–70; PULSE 52–103; RESP 14–28; TEMP 36.3–36.8; O2SAT 83–99
[2019-04-28] MEDS: ENOXAPARIN 80 MG/0.8 ML SYRINGE 75 MG SUB-Q ×2 (00:03→11:33)
[2019-04-28 00:11] LABS: Glucose Point of Care 168 (65-105)
[2019-04-28 02:01] LABS: Vancomycin Trough 10.3 ug/mL (10.0-20.0)
[2019-04-28] MEDS: ALBUTEROL SULFATE NEB 2.5 MG/0.5 ML INH 5 MG INHALATION ×4 (02:41→20:56)
[2019-04-28] MEDS: IPRATROPIUM BR 0.02% INH SOLN 0.5 MG/2.5 ML VIAL INHALATION ×4 (02:41→20:56)
[2019-04-28 04:11] LABS: Alveolar/Arterial O2 Gradient 84.3 mmHg; Base Excess ABG 7.8 mEq/l (+/-2.0); Carboxyhemoglobin 0.3 % THb (0-2.0); Fractional Inspired Oxygen 30 %; HCO3 ABG 33.8 mEq/l (22.0-26.0); Methemoglobin ABG 0.4 %THb (0-1.5); Oxygen Content ABG 19.9 %vol (16.0-22.0); Oxygen Saturation ABG 93.9 % (95.0-100.0); Oxyhemoglobin 92.6 % THb (90.0-100.0); PCO2 ABG 52.1 mmHg (35.0-45.0); PO2 ABG 68.4 mmHg (80.0-100.0); PO2 FiO2 Ratio Arterial Blood 2.28 %; Reduced Hemoglobin 6.7 %THb (0-5.0); Total Hemoglobin 15.3 g/dL (12.0-18.0)
[2019-04-28 04:12] LABS: Device NON-INVASIVE VENT; Modified Allen's Test Pass; Non-Invasive Inspiratory Pressure 14 CMH2O; Non-Invasive Vent Rate 4 /MIN; Site Drawn LEFT RADIAL
[2019-04-28 04:13] LABS: Non-Invasive Expiratory Pressure 7 CMH2O
[2019-04-28 04:56] LABS: Basophils Absolute Auto 0.1 K/mm3 (0.0-0.1); Basophils Percent Auto 0.4 % (0.2-1.2); Hematocrit 43.5 % (42.0-52.0); Hemoglobin 14.4 g/dL (14.0-18.0); Immature Granulocyte Absolute 0.23 K/mm3 (0.00-0.031); Immature Granulocyte Percent A 1.4 % (0-0.5); Lymphocytes Absolute Auto 2.24 K/mm3 (0.9-3.2); Lymphocytes Percent Auto 13.8 % (18.3-44.2); Mean Corpuscular HGB Conc 33.1 g/dl (32-36); Mean Corpuscular Hemoglobin 30.9 pg (26-34); Mean Corpuscular Volume 93.3 fl (80-100); Mean Platelet Volume 9.9 fl (7.4-10.4); Monocytes Absolute Auto 1.2 K/mm3 (0.1-0.6); Monocytes Percent Auto 7.4 % (2.6-8.5); Neutrophils Absolute Auto 12.5 K/mm3 (1.3-6.7); Platelet Count Result 381 k/mm3 (150-375); Red Blood Count 4.66 M/mm3 (4.6-6.20); Red Cell Distribution Width 12.3 % (11.5-14.5); White Blood Count 16.3 K/mm3 (4.5-10.0)
[2019-04-28 05:13] LABS: Alanine Aminotransferase 90 U/L (4-50); Alkaline Phosphatase 68 U/L (38-126); Aspartate Amino Transferase 64 U/L (17-59); Bilirubin,Total 0.3 mg/dL (0.2-1.3); Blood Urea Nitrogen 22 mg/dL (9-20); Calcium 8.3 mg/dL (8.4-10.2); Carbon Dioxide 37 mmol/L (22-30); Chloride 93 mmol/L (98-107); Estimated CRCL calculation 81 ml/min; Estimated Glomerular Filt Rate > 60; Glucose 175 mg/dL (75-110); Magnesium 2.3 mg/dL (1.6-2.3); Potassium 4.1 mmol/L (3.4-5.0); Sodium 136 mmol/L (137-145)
[2019-04-28] MEDS: methylPREDNISolone SOD SUCC 125 MG VIAL 60 MG IV PUSH ×2 (06:13→17:29)
--- NOTE | 2019-04-28 07:00 | WPDINTPN ---
Progress Note: A&P Assessment and Plan (1) Acute respiratory failure with hypoxia and hypercapnia: Code(s): J96.01 - Acute respiratory failure with hypoxia; J96.02 - Acute respiratory failure with hypercapnia Status: Acute Assessment and Plan: patient has acute respiratory failure with hypoxia and hypercapnia secondary to acute exacerbation of COPD and community-acquired pneumonia Negative influenza He tolerated nasal cannula all day yesterday without any distress Continue BiPAP for respiratory support at night and on p.r.n. basis. will decrease pressure to 10/ 5 to improve compliance. Repeat ABG reviewed continue IV Solu-Medrol, DuoNebs (2) Sepsis due to pneumonia: Code(s): J18.9 - Pneumonia, unspecified organism; A41.9 - Sepsis, unspecified organism Status: Acute Assessment and Plan: patient was given 2 L saline bolus on admission Later IV fluid were discontinued due to concerns of CHF lactate has normalized and patient is hemodynamically stable sputum and blood culture sent and negative till now urine Legionella pending continue empiric broad-spectrum antibiotic negative influenza (3) Community acquired bacterial pneumonia: Code(s): J15.9 - Unspecified bacterial pneumonia Status: Acute Assessment and Plan: see above (4) COPD exacerbation: Code(s): J44.1 - Chronic obstructive pulmonary disease with (acute) exacerbation Status: Acute Assessment and Plan: patient likely has undiagnosed COPD as evident from wheezing, long history of smoking and hyperinflated lungs on chest x-ray continue steroid and DuoNeb (5) NSTEMI (non-ST elevated myocardial infarction): Code(s): I21.4 - Non-ST elevation (NSTEMI) myocardial infarction Status: Acute Assessment and Plan: troponin increased overnight likely secondary to demand mediated ischemia from sepsis and respiratory failure. Patient denies any chest pain EKG reviewed, Continue aspirin, lovenox, Coreg, ARB echo reviewed cardiology consulted and plan for cardiac catheterization once respiratory status improved (6) CHF (congestive heart failure): Qualifiers: Heart failure type: combined systolic and diastolic Heart failure chronicity: acute on chronic Qualified Code(s): I50.43 - Acute on chronic combined systolic (congestive) and diastolic (congestive) heart failure Code(s): I50.9 - Heart failure, unspecified Status: Acute Assessment and Plan: ECHO Showed Left ventricular chamber dimension is severely enlarged. Left ventricular systolic function is severely reduced, estimated at 15-20%. The left ventricular diastolic function is grade I diastolic dysfunction. Trace mitral valve regurgitation. Dilated inferior vena cava with >50% collapse upon inspiration consistent with elevated right atrial pressure, 10 mmHg. today IV fluids discontinued and repeat Lasix 40 mg IV x1 (7) Hyperglycemia: Code(s): R73.9 - Hyperglycemia, unspecified Status: Acute Assessment and Plan: undiagnosed diabetes mellitus versus stress response HbA1c is 6 continue sliding scale insulin Additional Plan DVT prophylaxis with Lovenox patient is full code which I confirmed with both patient and his on admission patient is doing better from respiratory standpoint and has been hemodynamically stable. will transfer out of ICU today Subjective Date/time seen: 04/28/19 07:00 Interval history: Date of Service: 04/27/2019. Admitted with acute respiratory failure, sepsis, pneumonia. He feels much better today and didnt sleep well last night. [place] Bipap pressure was too high Continues to have cough but is dry Review of Systems Constitutional: Constitutional: Reports no additional constitutional complaints Eyes: Eyes: Reports no additional eye complaints ENT: Reports system reviewed and no additional complai
[2019-04-28] MEDS: ASPIRIN 325 MG TABLET PO (08:59)
[2019-04-28] MEDS: SACUBITRIL/VALSARTAN 24-26 MG TABLET 1 TAB PO ×2 (08:59→19:52)
[2019-04-28] MEDS: FUROSEMIDE INJ 40 MG/4 ML VIAL IV PUSH (08:59)
[2019-04-28] MEDS: carvediloL 3.125 MG TABLET PO ×2 (08:59→19:52)
--- NOTE | 2019-04-28 10:10 | PM.IMPN ---
Progress Note: A&P Assessment and Plan (1) Acute respiratory failure with hypoxia and hypercapnia: Code(s): J96.01 - Acute respiratory failure with hypoxia; J96.02 - Acute respiratory failure with hypercapnia Status: Acute Assessment and Plan: Result of pneumonia and COPD exacerbation. Only using BiPAP at night at this point. Will continue IV azithromycin, ceftriaxone and vancomycin. Continue nebulizer treatments. Will continue IV steroids and Symbicort. Will add Pulmozyme. will transfer to IMU as stable. (2) Sepsis: Qualifiers: Acute respiratory failure type: with hypoxia Sepsis acute organ dysfunction status: with acute organ dysfunction Sepsis type: sepsis due to unspecified organism Severe sepsis acute organ dysfunction type: acute respiratory failure Severe sepsis shock status: without septic shock Qualified Code(s): A41.9 - Sepsis, unspecified organism; R65.20 - Severe sepsis without septic shock; J96.01 - Acute respiratory failure with hypoxia Code(s): A41.9 - Sepsis, unspecified organism Status: Acute Assessment and Plan: Criteria met on admission. Result of pneumonia. Will continue IV antibiotics as noted above. Blood cultures negative thus far. MRSA nasal culture negative. Continue to monitor. (3) Community acquired pneumonia: Qualifiers: Laterality: unspecified laterality Qualified Code(s): J18.9 - Pneumonia, unspecified organism Code(s): J18.9 - Pneumonia, unspecified organism Status: Acute Assessment and Plan: Chest xray today with stable diffuse reticulonodular pattern. Continue IV antibiotics and respiratory treatments as noted above. Influenza screen negative. (4) NSTEMI (non-ST elevated myocardial infarction): Code(s): I21.4 - Non-ST elevation (NSTEMI) myocardial infarction Status: Acute Assessment and Plan: Troponin level increased to peak of 4.0. Echocardiogram also obtained with EF 15-20% and grade 1 diastolic dysfunction. Cardiology consulted and appreciate input. Received IV Lasix yesterday. Now on Coreg and Entresto. Coronary angiography during this hospitalization when respiratory status improved. Telemetry reviewed on 04/28/2019 with heart rate controlled at this time. Continue therapeutic Lovenox. (5) CHF (congestive heart failure): Qualifiers: Heart failure chronicity: acute on chronic Heart failure type: combined systolic and diastolic Qualified Code(s): I50.43 - Acute on chronic combined systolic (congestive) and diastolic (congestive) heart failure Code(s): I50.9 - Heart failure, unspecified Status: Acute Assessment and Plan: Echocardiogram results as noted above. Continue Coreg and Entresto. Will monitor. (6) COPD exacerbation: Code(s): J44.1 - Chronic obstructive pulmonary disease with (acute) exacerbation Status: Acute Assessment and Plan: Continue respiratory treatments as noted above. (7) Tobacco dependence: Code(s): F17.200 - Nicotine dependence, unspecified, uncomplicated Status: Acute Assessment and Plan: Counseled on smoking cessation by admitting provider. (8) DVT prophylaxis: Code(s): Z29.9 - Encounter for prophylactic measures, unspecified Status: Acute Assessment and Plan: Therapeutic Lovenox. Time Spent With Patient Time with patient: 15 - 25 minutes Subjective Date/time seen: 04/28/19 10:10 Interval history: Date of Service: 04/28/2019. Admitted with acute respiratory failure, sepsis, pneumonia. Still has cough. No shortness of breath at rest. No chest pain or chest pressure. No abdominal pain. No nausea or vomiting. Review of Systems Constitutional: Constitutional: Denies chills and Denies fever(s) ENT: Reports system reviewed and no additional complaints, except as documented Cardiovascular: Cardiovascular: Denies chest pain Respiratory: Respiratory: Rep
--- NOTE | 2019-04-28 11:25 | PM.PNCARD ---
Progress Note: A&P Assessment and Plan (1) NSTEMI (non-ST elevated myocardial infarction): Code(s): I21.4 - Non-ST elevation (NSTEMI) myocardial infarction Status: Acute Assessment and Plan: Possibly type 2 infarction. Continue aspirin, beta-malcom, Entresto, and enoxaparin. Will add atorvastatin 20 mg p.o. daily. Patient still the extensively wheezy. Possibly could perform coronary angiogram tomorrow but more likely early next week. (2) CHF (congestive heart failure): Qualifiers: Heart failure type: combined systolic and diastolic Heart failure chronicity: acute on chronic Qualified Code(s): I50.43 - Acute on chronic combined systolic (congestive) and diastolic (congestive) heart failure Code(s): I50.9 - Heart failure, unspecified Status: Acute Assessment and Plan: Continue furosemide, Entresto, beta-malcom. 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 (4) Acute respiratory failure with hypoxia and hypercapnia: Code(s): J96.01 - Acute respiratory failure with hypoxia; J96.02 - Acute respiratory failure with hypercapnia Status: Acute Assessment and Plan: On antibiotics and nebulizers/steroids (5) Cardiomyopathy: Code(s): I42.9 - Cardiomyopathy, unspecified Status: Acute Assessment and Plan: Ischemic versus left bundle branch block versus other Subjective Date/time seen: 04/28/19 11:25 Interval history: Reason for admission: Shortness of breath, positive troponins respiratory failure Date of service 04/28/2019: The patient is still short of breath. Still coughing. No chest pain, edema Review of Systems Constitutional: Constitutional: Reports lethargy Eyes: Eyes: Reports no additional eye complaints ENT: Reports system reviewed and no additional complaints, except as documented Cardiovascular: Cardiovascular: Reports no additional cardiovascular complaints and Reports dyspnea Respiratory: Respiratory: Reports as per HPI and Reports dyspnea Gastrointestinal: Gastrointestinal: Reports no additional gastrointestinal complaints Musculoskeletal: Musculoskeletal: Reports no additional musculoskeletal complaints Integumentary/Breasts: Skin/Breast: Reports system reviewed and no additional complaints, except as docu Neurologic: Reports system reviewed and no additional complaints, except as documented Psychiatric: Psychiatric: Denies anxiety Endocrine: Endocrine: Reports no additional endocrine complaints Hematologic/Lymphatic: Hematologic/Lymphatic: Denies easy bleeding Allergic/Immunologic: Allergic/Immunologic: Reports no additional allergic/immunologic complaints Exam Const: General: uncomfortable Other: White male appearing about his stated age is still has cough HENMT: Mouth: Yes dry mucous membranes Eyes: Sclera: sclerae normal Pupils: Equal, round and reactive pupils present Neck: Neck: supple Thyroid: thyroid normal Other: Carotid pulses are intact and are without bruits Resp: Auscultation: wheezes Other: Extensive expiratory wheezing is noted throughout both lung tucker Cardio: Rate: regular rate Rhythm: regular rhythm Heart sounds: Gallop heart sound present S3 gallop GI: Auscultation: normal bowel sounds Skin: General skin exam: normal color Neuro: Cranial nerves: Yes Equal, round and reactive pupils present Cognition (Neuro): normal cognition Extrem: General: normal to inspection Other: Patient has no perceptible peripheral edema Objective Data Vital Signs Vital Signs: Vital Signs - 24 hr 04/27/19 12:00 04/27/19 13:35 04/27/19 13:36 Temperature 36.5 C Pulse Rate 58 L 84 Respiratory Rate 26 H 34 H Blood Pressure 124/61 Pulse Oximetry 93 93 04/27/19 13:49 04/27/19 14:00 04/27
[2019-04-28 11:34] LABS: Glucose Point of Care 92 (65-105)
[2019-04-28] MEDS: ATORVASTATIN 20 MG TABLET PO (12:04)
[2019-04-28] MEDS: SPIRONOLACTONE 12.5 MG TABLET PO (12:04)
[2019-04-28 16:46] LABS: Legionella pneumophila Ag Ur Not Detected (Not Detected)
--- NOTE | 2019-04-28 17:25 | PC.NURSE ---
This patient, Gee Fan, was transferred to [facility] on 04/28/19 at 1712. Personal belongings sent with patient. Report given to Marlen OWEN. Appropriate documentation sent with patient.
--- NOTE | 2019-04-28 17:25 | PC.NURSE ---
This patient, Gee Fan, was received from [ ICU 3] on 04/28/19 at 1725. Personal belongings list checked and signed. Patient/family oriented to unit policies and routines
[2019-04-28 17:36] LABS: Glucose Point of Care 114 (65-105)
[2019-04-28 20:14] LABS: Glucose Point of Care 169 (65-105)
[2019-04-28] MEDS: DORNASE ALFA INH SOLN 1 MG/ML 2.5 ML AMP 2.5 MG INHALATION (20:56)
[2019-04-29] VITALS (30 sets, daily range): BP systolic 110–140; BP diastolic 58–86; PULSE 65–107; RESP 16–32; TEMP 35.9–36.4; O2SAT 84–100
[2019-04-29] MEDS: ENOXAPARIN 80 MG/0.8 ML SYRINGE 75 MG SUB-Q ×2 (01:02→11:22)
[2019-04-29] MEDS: IPRATROPIUM BR 0.02% INH SOLN 0.5 MG/2.5 ML VIAL INHALATION ×4 (02:05→20:35)
[2019-04-29] MEDS: ALBUTEROL SULFATE NEB 2.5 MG/0.5 ML INH 5 MG INHALATION ×4 (02:05→20:34)
[2019-04-29 04:53] LABS: Basophils Absolute Auto 0.1 K/mm3 (0.0-0.1); Basophils Percent Auto 0.6 % (0.2-1.2); Eosinophils Percent Auto 0.1 % (0-4.4); Hematocrit 47.4 % (42.0-52.0); Hemoglobin 15.6 g/dL (14.0-18.0); Immature Granulocyte Absolute 0.47 K/mm3 (0.00-0.031); Immature Granulocyte Percent A 2.7 % (0-0.5); Lymphocytes Absolute Auto 2.75 K/mm3 (0.9-3.2); Lymphocytes Percent Auto 15.7 % (18.3-44.2); Mean Corpuscular HGB Conc 32.9 g/dl (32-36); Mean Corpuscular Hemoglobin 30.6 pg (26-34); Mean Corpuscular Volume 93.1 fl (80-100); Monocytes Absolute Auto 1.1 K/mm3 (0.1-0.6); Monocytes Percent Auto 6.3 % (2.6-8.5); Neutrophils Absolute Auto 13.1 K/mm3 (1.3-6.7); Neutrophils Percent Auto 74.6 % (45.5-73.1); Platelet Count Result 439 k/mm3 (150-375); Red Blood Count 5.09 M/mm3 (4.6-6.20); Red Cell Distribution Width 12.3 % (11.5-14.5); White Blood Count 17.6 K/mm3 (4.5-10.0)
[2019-04-29] MEDS: methylPREDNISolone SOD SUCC 125 MG VIAL 60 MG IV PUSH ×2 (05:16→16:36)
[2019-04-29 05:20] LABS: Alanine Aminotransferase 80 U/L (4-50); Albumin Level 3.2 g/dL (3.5-5.1); Alkaline Phosphatase 74 U/L (38-126); Aspartate Amino Transferase 35 U/L (17-59); Bilirubin,Total 0.3 mg/dL (0.2-1.3); Blood Urea Nitrogen 25 mg/dL (9-20); Calcium 8.4 mg/dL (8.4-10.2); Carbon Dioxide > 40 mmol/L (22-30); Chloride 91 mmol/L (98-107); Estimated CRCL calculation 72 ml/min; Estimated Glomerular Filt Rate > 60; Glucose 171 mg/dL (75-110); Magnesium 2.4 mg/dL (1.6-2.3); Potassium 4.1 mmol/L (3.4-5.0); Sodium 137 mmol/L (137-145)
[2019-04-29] MEDS: SPIRONOLACTONE 12.5 MG TABLET PO (07:52)
[2019-04-29] MEDS: ATORVASTATIN 20 MG TABLET PO (07:52)
[2019-04-29] MEDS: ASPIRIN 325 MG TABLET PO (07:52)
[2019-04-29] MEDS: carvediloL 3.125 MG TABLET PO ×2 (07:52→21:11)
[2019-04-29] MEDS: SACUBITRIL/VALSARTAN 24-26 MG TABLET 1 TAB PO ×2 (07:52→21:11)
[2019-04-29] MEDS: DORNASE ALFA INH SOLN 1 MG/ML 2.5 ML AMP 2.5 MG INHALATION ×2 (08:49→20:35)
--- NOTE | 2019-04-29 10:32 | PM.IMPN ---
Progress Note: A&P Assessment and Plan (1) Acute respiratory failure with hypoxia and hypercapnia: Code(s): J96.01 - Acute respiratory failure with hypoxia; J96.02 - Acute respiratory failure with hypercapnia Status: Acute Assessment and Plan: Result of pneumonia and COPD exacerbation. Still using BiPAP at night. On oxygen by nasal cannula at 2 L this morning. Continue IV steroids, Pulmozyme, nebulizer treatments and Symbicort. Will also continue IV azithromycin and ceftriaxone. With MRSA nasal culture negative, will discontinue IV vancomycin. Will continue to monitor. (2) Sepsis: Qualifiers: Sepsis type: sepsis due to unspecified organism Sepsis acute organ dysfunction status: with acute organ dysfunction Severe sepsis acute organ dysfunction type: acute respiratory failure Acute respiratory failure type: with hypoxia Severe sepsis shock status: without septic shock Qualified Code(s): A41.9 - Sepsis, unspecified organism; R65.20 - Severe sepsis without septic shock; J96.01 - Acute respiratory failure with hypoxia Code(s): A41.9 - Sepsis, unspecified organism Status: Acute Assessment and Plan: Criteria met on admission. Result of pneumonia. Blood cultures remain negative. MRSA nasal culture negative. Adjustment IV antibiotics as noted above. Will monitor. (3) Community acquired pneumonia: Qualifiers: Laterality: unspecified laterality Qualified Code(s): J18.9 - Pneumonia, unspecified organism Code(s): J18.9 - Pneumonia, unspecified organism Status: Acute Assessment and Plan: Chest xray again today personally reviewed with stable diffuse reticulonodular pattern. Continue IV antibiotics and respiratory treatments as noted above. Influenza screen negative. (4) NSTEMI (non-ST elevated myocardial infarction): Code(s): I21.4 - Non-ST elevation (NSTEMI) myocardial infarction Status: Acute Assessment and Plan: Troponin level increased to peak of 4.0. Echocardiogram also obtained with EF 15-20% and grade 1 diastolic dysfunction. Cardiology consulted and appreciate input. Remains on Coreg, Entresto, ASA and therapeutic Lovenox. Now also on atorvastatin started on 04/28/2019. Telemetry reviewed on 04/29/2019 with heart rate remaining controlled. Plan for eventual coronary angiography during this hospitalization. Will continue to monitor. (5) CHF (congestive heart failure): Qualifiers: Heart failure type: combined systolic and diastolic Heart failure chronicity: acute on chronic Qualified Code(s): I50.43 - Acute on chronic combined systolic (congestive) and diastolic (congestive) heart failure Code(s): I50.9 - Heart failure, unspecified Status: Acute Assessment and Plan: Echocardiogram results as noted above. Received dose of IV Lasix on 04/27/2019. Will continue Coreg and Entresto. Now also on oral spironolactone. Electrolytes and kidney function remain stable. Will monitor. (6) COPD exacerbation: Code(s): J44.1 - Chronic obstructive pulmonary disease with (acute) exacerbation Status: Acute Assessment and Plan: Continue respiratory treatments as noted above. Will leave IV steroids in place today. Eventual transition to tapering prednisone. (7) Tobacco dependence: Code(s): F17.200 - Nicotine dependence, unspecified, uncomplicated Status: Acute Assessment and Plan: Counseled on smoking cessation by admitting provider. (8) DVT prophylaxis: Code(s): Z29.9 - Encounter for prophylactic measures, unspecified Status: Acute Assessment and Plan: Therapeutic Lovenox. Time Spent With Patient Time with patient: 15 - 25 minutes Subjective Date/time seen: 04/29/19 10:32 Interval history: Date of Service: 04/29/2019. Admitted with acute respiratory failure, sepsis, pneumonia. Sitting on side of bed. Cough still present. No shortness of
--- NOTE | 2019-04-29 13:45 | PM.PNCARD ---
Progress Note: A&P Assessment and Plan (1) NSTEMI (non-ST elevated myocardial infarction): Code(s): I21.4 - Non-ST elevation (NSTEMI) myocardial infarction Status: Acute Assessment and Plan: Possibly type 2 infarction. Possibly could perform angiography early next week. Explained that it is not emergent. Continue aspirin and atorvastatin (2) CHF (congestive heart failure): Qualifiers: Heart failure chronicity: acute on chronic Heart failure type: combined systolic and diastolic Qualified Code(s): I50.43 - Acute on chronic combined systolic (congestive) and diastolic (congestive) heart failure Code(s): I50.9 - Heart failure, unspecified Status: Acute Assessment and Plan: Echocardiogram demonstrated LV systolic function estimated 15-20%. Continue entresto, carvedilol and spironolactone. Monitor renal function and electrolytes daily while hospitalized. (3) Left bundle branch block: Code(s): I44.7 - Left bundle-branch block, unspecified Status: Acute Assessment and Plan: May eventually need resynchronization/[employer] D (4) Acute respiratory failure with hypoxia and hypercapnia: Code(s): J96.01 - Acute respiratory failure with hypoxia; J96.02 - Acute respiratory failure with hypercapnia Status: Acute Assessment and Plan: On antibiotics and nebulizers/steroids (5) Cardiomyopathy: Code(s): I42.9 - Cardiomyopathy, unspecified Status: Acute Assessment and Plan: Ischemic versus left bundle branch block versus other See above. Additional Plan Plan discussed with Dr. Jennifer Sheriff 04/29/2019 Subjective Date/time seen: 04/29/19 13:45 Interval history: Follow-up for: Shortness of breath, non-STEMI, CHF, cardiomyopathy, respiratory failure Date of service: 04/29/2019 Subjective: Denied chest discomfort. Only discomfort that he has was at his right wrist IV site during some type of infusion. Shortness of breath with exertional activity. Believes that his breathing is better. Continues to have cough that is nonproductive.. Review of Systems Constitutional: Constitutional: Reports lethargy Eyes: Eyes: Denies blurry vision ENT: Reports Normal hearing present Cardiovascular: Cardiovascular: Denies chest pain, Reports dyspnea on exertion and Reports orthopnea Respiratory: Respiratory: Reports cough and Reports dyspnea on exertion Gastrointestinal: Gastrointestinal: Denies nausea and Denies vomiting Musculoskeletal: Musculoskeletal: Denies arthralgias Integumentary/Breasts: Skin/Breast: Denies erythema and Denies rash Psychiatric: Psychiatric: Denies anxiety Endocrine: Endocrine: Reports no additional endocrine complaints Hematologic/Lymphatic: Hematologic/Lymphatic: Denies easy bleeding Allergic/Immunologic: Allergic/Immunologic: Reports no additional allergic/immunologic complaints Exam Const: General: cooperative and ill appearing Nutritional Appearance: average body habitus Orientation/consciousness: patient oriented x3 HENMT: Mouth: Yes moist mucous membranes Eyes: Sclera: sclerae normal Pupils: Equal, round and reactive pupils present Neck: Neck: supple Other: Carotid pulses are intact and are without bruits Resp: Auscultation: wheezes (Inspiratory and expiratory right worse than left) Cardio: Rate: regular rate Rhythm: regular rhythm Heart sounds: Gallop heart sound present S3 gallop GI: Auscultation: normal bowel sounds Skin: General skin exam: normal color Neuro: Cranial nerves: Yes Equal, round and reactive pupils present Cognition (Neuro): normal cognition Extrem: General: normal to inspection Right lower extremity: no cyanosis and no edema Left lower extremity: no cyanosis and no edema Objective Data Vital Signs Vital Signs: Vit
[2019-04-30] VITALS (30 sets, daily range): BP systolic 110–140; BP diastolic 59–74; PULSE 60–94; RESP 10–30; TEMP 35.3–36.4; O2SAT 85–97
[2019-04-30] MEDS: ENOXAPARIN 80 MG/0.8 ML SYRINGE 75 MG SUB-Q ×3 (00:49→20:02)
[2019-04-30] MEDS: IPRATROPIUM BR 0.02% INH SOLN 0.5 MG/2.5 ML VIAL INHALATION ×4 (01:51→19:36)
[2019-04-30] MEDS: ALBUTEROL SULFATE NEB 2.5 MG/0.5 ML INH 5 MG INHALATION ×4 (01:51→19:36)
[2019-04-30 05:25] LABS: Alanine Aminotransferase 57 U/L (4-50); Albumin Level 2.9 g/dL (3.5-5.1); Alkaline Phosphatase 63 U/L (38-126); Aspartate Amino Transferase 24 U/L (17-59); Bilirubin,Total 0.2 mg/dL (0.2-1.3); Blood Urea Nitrogen 22 mg/dL (9-20); Calcium 8.1 mg/dL (8.4-10.2); Carbon Dioxide 37 mmol/L (22-30); Chloride 95 mmol/L (98-107); Estimated CRCL calculation 81 ml/min; Estimated Glomerular Filt Rate > 60; Glucose 151 mg/dL (75-110); Magnesium 2.4 mg/dL (1.6-2.3); Potassium 4.2 mmol/L (3.4-5.0); Sodium 136 mmol/L (137-145)
[2019-04-30] MEDS: methylPREDNISolone SOD SUCC 125 MG VIAL 60 MG IV PUSH ×2 (06:47→17:41)
[2019-04-30] MEDS: DORNASE ALFA INH SOLN 1 MG/ML 2.5 ML AMP 2.5 MG INHALATION ×2 (08:24→19:36)
[2019-04-30] MEDS: SACUBITRIL/VALSARTAN 24-26 MG TABLET 1 TAB PO ×2 (08:30→20:02)
[2019-04-30] MEDS: SPIRONOLACTONE 12.5 MG TABLET PO (08:30)
[2019-04-30] MEDS: ATORVASTATIN 20 MG TABLET PO (08:31)
[2019-04-30] MEDS: carvediloL 3.125 MG TABLET PO ×2 (08:31→20:02)
[2019-04-30] MEDS: ASPIRIN 325 MG TABLET PO (08:32)
--- NOTE | 2019-04-30 10:00 | PM.PNCARD ---
Progress Note: A&P Additional Plan 68-year-old gentleman with history of relatively severe COPD with longstanding smoking and new diagnosis of severe systolic left ventricular dysfunction and left bundle branch block. Patient's COPD is considerably better than it was several days ago in terms of her physical exam and chest x-ray appearance. I believe it will likely be quite reasonable to proceed with coronary angiography on Thursday morning. This was discussed again in detail with the patient and he is in agreement. Subjective Date/time seen: Date of service: 04/30/19 10:00 Interval history: Follow-up visit for severe ischemic cardiomyopathy, left bundle branch block in patient with multiple risk factors for CAD Also with severe COPD Patient reports to be feeling better day by day. Shortness of breath seems to be significantly improved compared to several days ago upon admission. No chest pain Exam Const: General: comfortable and no acute distress HENMT: Mouth: Yes moist mucous membranes Eyes: Sclera: sclerae normal Pupils: Equal, round and reactive pupils present Neck: Neck: supple and no JVD Thyroid: thyroid normal Resp: Effort & Inspection: normal respiratory effort Other: Breath sounds are markedly diminished with some rhonchorous breath sounds but much better air movement then there was several days ago upon my 1st examination. Cardio: Rate: regular rate Rhythm: regular rhythm Other: PMI laterally displaced and enlarged GI: Auscultation: normal bowel sounds Skin: General skin exam: normal color Neuro: Cognition (Neuro): normal cognition Extrem: General: normal to inspection Objective Data Vital Signs Vital Signs: Vital Signs - 24 hr 04/29/19 10:11 04/29/19 12:00 04/29/19 12:22 Temperature 35.9 C L Pulse Rate 81 82 Respiratory Rate 20 Blood Pressure 111/58 L Pulse Oximetry 97 93 04/29/19 13:59 04/29/19 14:29 04/29/19 14:30 Temperature Pulse Rate 82 107 H Respiratory Rate 18 Blood Pressure Pulse Oximetry 97 04/29/19 16:00 04/29/19 16:52 04/29/19 18:00 Temperature 36.1 C L Pulse Rate 67 77 98 Respiratory Rate 20 Blood Pressure 114/67 Pulse Oximetry 94 04/29/19 19:26 04/29/19 20:00 04/29/19 20:35 Temperature 36.3 C L Pulse Rate 98 80 85 Respiratory Rate 22 H 18 Blood Pressure 140/86 Pulse Oximetry 90 04/29/19 20:42 04/29/19 20:45 04/29/19 21:11 Temperature Pulse Rate 75 87 Respiratory Rate 18 Blood Pressure Pulse Oximetry 93 04/29/19 22:00 04/29/19 22:30 04/30/19 00:00 Temperature Pulse Rate 93 65 60 Respiratory Rate 22 H Blood Pressure Pulse Oximetry 96 04/30/19 00:25 04/30/19 01:51 04/30/19 01:52 Temperature 36.1 C L Pulse Rate 87 66 69 Respiratory Rate 25 H 20 Blood Pressure 136/70 Pulse Oximetry 96 04/30/19 01:55 04/30/19 02:03 04/30/19 04:00 Temperature Pulse Rate 68 68 67 Respiratory Rate 21 H 18 Blood Pressure Pulse Oximetry 93 04/30/19 04:50 04/30/19 05:24 04/30/19 08:00 Temperature 36.2 C L 35.3 C L Pulse Rate 85 77 84 Respiratory Rate 24 H 16 Blood Pressure 124/73 115/59 L Pulse Oximetry 97 85 L 04/30/19 08:24 04/30/19 08:30 04/30/19 08:31 Temperature Pulse Rate 75 78 78 Respiratory Rate 20 20 Blood Pressure Pulse Oximetry 90 04/30/19 09:26 Temperature Pulse Rate 73 Respiratory Rate 10 L Blood Pressure Pulse Oximetry 96 Intake/Output Intake/Output: Intake & Output 04/27/19 04/28/19 04/29/19 04/30/19 23:59 23:59 23:59 23:59 Intake Total 2315 2120 1270 665 Output Total 2600 2550 575 400 Balance -285 -430 695 265 Meds/Results Medications: Active Medications Generic Name Dose Route Start Last Admin Trade Name Freq PRN Reason Stop Dose Admin Albuterol 5 mg 04/26/19 14:00 04/30/19 08:19 Albuterol Sulf Neb 2.5mg/0.5ml INHALATION 5 mg Q6HRT POLLY Administration Aspirin 325 mg 04/26/19 13:55
--- NOTE | 2019-04-30 18:06 | PM.IMPN ---
Progress Note: A&P Assessment and Plan (1) Acute respiratory failure with hypoxia and hypercapnia: Code(s): J96.01 - Acute respiratory failure with hypoxia; J96.02 - Acute respiratory failure with hypercapnia Status: Acute Assessment and Plan: Result of pneumonia and COPD exacerbation. Still using BiPAP at night. On oxygen by nasal cannula at 2 L this morning. Continue IV steroids, Pulmozyme, nebulizer treatments and Symbicort. Will also continue IV azithromycin and ceftriaxone. With MRSA nasal culture negative, will discontinue IV vancomycin. Will continue to monitor. 04/30/19 18:06 Patient is 78-year-old male history of his COPD and continuing smoking presented with shortness of breath is found to exacerbation of COPD is being treated with Solu-Medrol updraft and antibiotics, as well as patient has severe systolic dysfunction with ejection fraction of 15-20% his seen by Cardiology to further evaluate patient will cardiac catheterization on Thursday, at present time patient is feeling much better compared to when he arrived he denies any chest pain shortness of breath palpitation fever or chills (2) Sepsis: Qualifiers: Sepsis type: sepsis due to unspecified organism Sepsis acute organ dysfunction status: with acute organ dysfunction Severe sepsis acute organ dysfunction type: acute respiratory failure Acute respiratory failure type: with hypoxia Severe sepsis shock status: without septic shock Qualified Code(s): A41.9 - Sepsis, unspecified organism; R65.20 - Severe sepsis without septic shock; J96.01 - Acute respiratory failure with hypoxia Code(s): A41.9 - Sepsis, unspecified organism Status: Acute Assessment and Plan: Criteria met on admission. Result of pneumonia. Blood cultures remain negative. MRSA nasal culture negative. Adjustment IV antibiotics as noted above. Will monitor. (3) Community acquired pneumonia: Qualifiers: Laterality: unspecified laterality Qualified Code(s): J18.9 - Pneumonia, unspecified organism Code(s): J18.9 - Pneumonia, unspecified organism Status: Acute Assessment and Plan: Chest xray again today personally reviewed with stable diffuse reticulonodular pattern. Continue IV antibiotics and respiratory treatments as noted above. Influenza screen negative. (4) NSTEMI (non-ST elevated myocardial infarction): Code(s): I21.4 - Non-ST elevation (NSTEMI) myocardial infarction Status: Acute Assessment and Plan: Troponin level increased to peak of 4.0. Echocardiogram also obtained with EF 15-20% and grade 1 diastolic dysfunction. Cardiology consulted and appreciate input. Remains on Coreg, Entresto, ASA and therapeutic Lovenox. Now also on atorvastatin started on 04/28/2019. Telemetry reviewed on 04/29/2019 with heart rate remaining controlled. Plan for eventual coronary angiography during this hospitalization. Will continue to monitor. (5) CHF (congestive heart failure): Qualifiers: Heart failure type: combined systolic and diastolic Heart failure chronicity: acute on chronic Qualified Code(s): I50.43 - Acute on chronic combined systolic (congestive) and diastolic (congestive) heart failure Code(s): I50.9 - Heart failure, unspecified Status: Acute Assessment and Plan: Echocardiogram results as noted above. Received dose of IV Lasix on 04/27/2019. Will continue Coreg and Entresto. Now also on oral spironolactone. Electrolytes and kidney function remain stable. Will monitor. (6) COPD exacerbation: Code(s): J44.1 - Chronic obstructive pulmonary disease with (acute) exacerbation Status: Acute Assessment and Plan: Continue respiratory treatments as noted above. Will leave IV steroids in place today. Eventual transition to tapering prednisone. (7) Tobacco dependence: Code(s): F17.200 - Nicotine dependence, unspecified, uncomplicated Statu
[2019-05-01] VITALS (28 sets, daily range): BP systolic 100–122; BP diastolic 54–65; PULSE 66–95; RESP 16–20; TEMP 36.3–36.8; O2SAT 90–99
[2019-05-01] MEDS: IPRATROPIUM BR 0.02% INH SOLN 0.5 MG/2.5 ML VIAL INHALATION ×4 (02:51→20:57)
[2019-05-01] MEDS: ALBUTEROL SULFATE NEB 2.5 MG/0.5 ML INH 5 MG INHALATION ×4 (02:51→20:57)
[2019-05-01 05:36] LABS: Alanine Aminotransferase 59 U/L (4-50); Alkaline Phosphatase 66 U/L (38-126); Aspartate Amino Transferase 32 U/L (17-59); Bilirubin,Total 0.4 mg/dL (0.2-1.3); Blood Urea Nitrogen 21 mg/dL (9-20); Calcium 8.2 mg/dL (8.4-10.2); Carbon Dioxide 36 mmol/L (22-30); Chloride 93 mmol/L (98-107); Estimated CRCL calculation 81 ml/min; Estimated Glomerular Filt Rate > 60; Glucose 152 mg/dL (75-110); Magnesium 2.4 mg/dL (1.6-2.3); Potassium 4.5 mmol/L (3.4-5.0); Sodium 137 mmol/L (137-145)
[2019-05-01] MEDS: methylPREDNISolone SOD SUCC 125 MG VIAL 60 MG IV PUSH (06:13)
[2019-05-01] MEDS: SPIRONOLACTONE 12.5 MG TABLET PO (08:11)
[2019-05-01] MEDS: ENOXAPARIN 80 MG/0.8 ML SYRINGE 75 MG SUB-Q ×2 (08:12→20:32)
[2019-05-01] MEDS: carvediloL 3.125 MG TABLET PO ×2 (08:12→20:32)
[2019-05-01] MEDS: SACUBITRIL/VALSARTAN 24-26 MG TABLET 1 TAB PO ×2 (08:12→20:33)
[2019-05-01] MEDS: ASPIRIN 325 MG TABLET PO (08:12)
[2019-05-01] MEDS: ATORVASTATIN 20 MG TABLET PO (08:13)
[2019-05-01] MEDS: DORNASE ALFA INH SOLN 1 MG/ML 2.5 ML AMP 2.5 MG INHALATION ×2 (08:49→21:02)
--- NOTE | 2019-05-01 09:09 | PM.IMPN ---
Progress Note: A&P Assessment and Plan (1) Acute respiratory failure with hypoxia and hypercapnia: Code(s): J96.01 - Acute respiratory failure with hypoxia; J96.02 - Acute respiratory failure with hypercapnia Status: Acute Assessment and Plan: Result of pneumonia and COPD exacerbation. Clinically improving. Using BiPAP at night. 4 L of oxygen by nasal cannula. Will continue nebulizer treatments, Pulmozyme and Symbicort. On oxygen by nasal cannula at 2 L this morning. Continue IV steroids, Pulmozyme, nebulizer treatments and Symbicort. Transition to oral tapering prednisone in a.m.. Continue IV azithromycin and ceftriaxone today but will discontinue IV azithromycin after today's dose. Will continue to monitor. (2) Sepsis: Qualifiers: Sepsis type: sepsis due to unspecified organism Sepsis acute organ dysfunction status: with acute organ dysfunction Severe sepsis acute organ dysfunction type: acute respiratory failure Acute respiratory failure type: with hypoxia Severe sepsis shock status: without septic shock Qualified Code(s): A41.9 - Sepsis, unspecified organism; R65.20 - Severe sepsis without septic shock; J96.01 - Acute respiratory failure with hypoxia Code(s): A41.9 - Sepsis, unspecified organism Status: Acute Assessment and Plan: Criteria met on admission. Result of pneumonia. Blood cultures remain negative. MRSA nasal culture negative. Continue IV antibiotics as noted above. Anticipate transition to oral antibiotics. (3) Community acquired pneumonia: Qualifiers: Laterality: unspecified laterality Qualified Code(s): J18.9 - Pneumonia, unspecified organism Code(s): J18.9 - Pneumonia, unspecified organism Status: Acute Assessment and Plan: Chest xray today personally reviewed with diffuse interstitial pattern consistent with emphysema. Will continue IV antibiotics as noted above. Continue other respiratory treatments as noted. (4) NSTEMI (non-ST elevated myocardial infarction): Code(s): I21.4 - Non-ST elevation (NSTEMI) myocardial infarction Status: Acute Assessment and Plan: Troponin level increased to peak of 4.0. Echocardiogram also obtained with EF 15-20% and grade 1 diastolic dysfunction. Cardiology consulted and appreciate input. Remains on Coreg, Entresto, ASA and therapeutic Lovenox. Also remains on atorvastatin. Telemetry reviewed on 05/01/2019 with heart rate controlled. Plan for probable cardiac catheterization tomorrow. Will continue to monitor. (5) CHF (congestive heart failure): Qualifiers: Heart failure type: combined systolic and diastolic Heart failure chronicity: acute on chronic Qualified Code(s): I50.43 - Acute on chronic combined systolic (congestive) and diastolic (congestive) heart failure Code(s): I50.9 - Heart failure, unspecified Status: Acute Assessment and Plan: Echocardiogram results as noted above. Received dose of IV Lasix on 04/27/2019. Will continue Coreg, Entresto and spironolactone. Electrolytes and kidney function remains stable. Will monitor. (6) COPD exacerbation: Code(s): J44.1 - Chronic obstructive pulmonary disease with (acute) exacerbation Status: Acute Assessment and Plan: Continue respiratory treatments as noted above. Improved. Transition to tapering prednisone tomorrow. (7) Tobacco dependence: Code(s): F17.200 - Nicotine dependence, unspecified, uncomplicated Status: Acute Assessment and Plan: Counseled on smoking cessation by admitting provider. (8) DVT prophylaxis: Code(s): Z29.9 - Encounter for prophylactic measures, unspecified Status: Acute Assessment and Plan: Therapeutic Lovenox. Time Spent With Patient Time with patient: 15 - 25 minutes Subjective Date/time seen: 05/01/19 09:09 Interval history: Date of Service: 05/01/2019. Admitted with acute respirato
--- NOTE | 2019-05-01 10:20 | PM.PNCARD ---
Progress Note: A&P Additional Plan 68-year-old gentleman with Newly recognized systolic dysfunction and left bundle branch block earlier in this hospitalization as detailed in previous notes. The COPD exacerbation is improving day by day. Patient now appears to be a reasonable candidate for angiography. Will plan on coronary angiogram tomorrow. Further recommendations of course to be forthcoming after those results Time Spent With Patient Time with patient: 15 - 25 minutes Subjective Date/time seen: Date of service: 05/01/19 10:20 Interval history: Follow-up visit for significant left ventricular dysfunction, left bundle branch block. Patient with shortness of breath and severe COPD as well. Evidence of non ST elevation NM on admission Patient appears to be comfortable this morning lying flat in bed with nasal cannula oxygen in place. Recurrent discussion about plans for coronary angiography tomorrow patient understands and is agreeable Exam Const: General: comfortable and no acute distress HENMT: Mouth: Yes moist mucous membranes Eyes: Sclera: sclerae normal Pupils: Equal, round and reactive pupils present Neck: Neck: supple and no JVD Thyroid: thyroid normal Resp: Effort & Inspection: normal respiratory effort Auscultation: diminished lung sounds Cardio: Rate: regular rate Rhythm: regular rhythm GI: Auscultation: normal bowel sounds Skin: General skin exam: normal color Neuro: Cognition (Neuro): normal cognition Extrem: General: normal to inspection Objective Data Vital Signs Vital Signs: Vital Signs - 24 hr 04/30/19 12:00 04/30/19 12:59 04/30/19 13:31 Temperature 36.3 C L Pulse Rate 76 88 Respiratory Rate 20 20 Blood Pressure 113/59 L Pulse Oximetry 89 L 89 L 04/30/19 13:46 04/30/19 14:38 04/30/19 16:00 Temperature 36.4 C L Pulse Rate 86 71 80 Respiratory Rate 20 16 Blood Pressure 122/61 Pulse Oximetry 91 04/30/19 18:00 04/30/19 19:37 04/30/19 19:55 Temperature 36.1 C L Pulse Rate 88 82 77 Respiratory Rate 18 18 Blood Pressure 140/72 Pulse Oximetry 91 04/30/19 19:58 04/30/19 20:00 04/30/19 20:02 Temperature Pulse Rate 83 83 71 Respiratory Rate 20 Blood Pressure Pulse Oximetry 04/30/19 21:39 04/30/19 23:19 04/30/19 23:31 Temperature 36.1 C L Pulse Rate 79 70 73 Respiratory Rate 18 30 H Blood Pressure 110/74 Pulse Oximetry 92 93 05/01/19 00:00 05/01/19 01:43 05/01/19 02:52 Temperature Pulse Rate 73 66 78 Respiratory Rate 18 Blood Pressure Pulse Oximetry 05/01/19 02:57 05/01/19 02:58 05/01/19 03:01 Temperature Pulse Rate 77 79 Respiratory Rate 18 18 Blood Pressure Pulse Oximetry 93 92 05/01/19 04:00 05/01/19 04:20 05/01/19 05:52 Temperature 36.6 C Pulse Rate 66 73 74 Respiratory Rate 16 Blood Pressure 115/65 Pulse Oximetry 94 05/01/19 08:00 05/01/19 08:12 05/01/19 10:01 Temperature 36.4 C L Pulse Rate 85 83 72 Respiratory Rate 16 Blood Pressure 117/55 L Pulse Oximetry 94 Intake/Output Intake/Output: Intake & Output 04/28/19 04/29/19 04/30/19 05/01/19 23:59 23:59 23:59 23:59 Intake Total 2120 1270 2015 807 Output Total 2550 575 400 Balance -131 665 2953 807 Meds/Results Medications: Active Medications Generic Name Dose Route Start Last Admin Trade Name Freq PRN Reason Stop Dose Admin Albuterol 5 mg 04/26/19 14:00 05/01/19 08:47 Albuterol Sulf Neb 2.5mg/0.5ml INHALATION 5 mg Q6HRT POLLY Administration Aspirin 325 mg 04/26/19 13:55 05/01/19 08:12 Aspirin PO 325 mg DAILY@0800 POLLY Administration Atorvastatin Calcium 20 mg 04/28/19 09:00 05/01/19 08:13 Lipitor PO 20 mg DAILY POLLY Administration Budesonide/Formoterol Fumarate 2 puff 04/26/19 20:00 05/01/19 08:48 Symbicort 160-4.5 Mcg (*Sp) Inhaler INHALATION 2 puff Q12HRT POLLY Administration Carvedilol 3.125 mg 04/27/19 09:10 05/01/19 08:12 C
[2019-05-02] VITALS (38 sets, daily range): BP systolic 90–138; BP diastolic 46–76; PULSE 61–94; RESP 12–26; TEMP 36.1–37.3; O2SAT 90–99
[2019-05-02] MEDS: ALBUTEROL SULFATE NEB 2.5 MG/0.5 ML INH 5 MG INHALATION ×3 (03:11→21:23)
[2019-05-02] MEDS: IPRATROPIUM BR 0.02% INH SOLN 0.5 MG/2.5 ML VIAL INHALATION ×3 (03:11→21:23)
[2019-05-02 05:03] LABS: Hematocrit 45.6 % (42.0-52.0); Hemoglobin 14.9 g/dL (14.0-18.0); Mean Corpuscular HGB Conc 32.7 g/dl (32-36); Mean Corpuscular Hemoglobin 30.6 pg (26-34); Mean Corpuscular Volume 93.6 fl (80-100); Mean Platelet Volume 9.5 fl (7.4-10.4); Platelet Count Result 360 k/mm3 (150-375); Red Blood Count 4.87 M/mm3 (4.6-6.20); Red Cell Distribution Width 12.4 % (11.5-14.5); White Blood Count 13.2 K/mm3 (4.5-10.0)
[2019-05-02 05:21] LABS: Blood Urea Nitrogen 20 mg/dL (9-20); Carbon Dioxide 37 mmol/L (22-30); Chloride 97 mmol/L (98-107); Estimated CRCL calculation 72 ml/min; Estimated Glomerular Filt Rate > 60; Glucose 99 mg/dL (75-110); Potassium 4.2 mmol/L (3.4-5.0); Sodium 135 mmol/L (137-145)
--- NOTE | 2019-05-02 09:44 | P.SEDATION_ITS ---
Moderate Sedation Note-Pt Data Patient Data Diagnosis: Left ventricular systolic dysfunction, left bundle branch block COPD Present Complaint: coughing, shortness of breath Procedure to be performed/Plan: coronary angiography Allergies Allergy/AdvReac Type Severity Reaction Status Date / Time BEE STINGS Allergy Severe Anaphylaxis Uncoded 04/26/19 15:22 Home Medications Medication Instructions Recorded Confirmed Type No Home Medications 04/26/19 04/26/19 History Current Medications: Active Medications Albuterol (Albuterol Sulf Neb 2.5mg/0.5ml) 5 mg INHALATION Q6HRT [facility] Last Admin: 05/02/19 09:08 Dose: Not Given Documented by: Aspirin (Aspirin) 325 mg PO DAILY@0800 [facility] Last Admin: 05/01/19 08:12 Dose: 325 mg Documented by: Atorvastatin Calcium (Lipitor) 20 mg PO DAILY [facility] Last Admin: 05/01/19 08:13 Dose: 20 mg Documented by: Budesonide/Formoterol Fumarate (Symbicort 160-4.5 Mcg (*Sp) Inhaler) 2 puff INHALATION Q12HRT [facility] Last Admin: 05/02/19 09:08 Dose: Not Given Documented by: Carvedilol (Coreg) 3.125 mg PO Q12HR [facility] Last Admin: 05/01/19 20:32 Dose: 3.125 mg Documented by: Dornase Suman (Pulmozyme) 2.5 mg INHALATION Q12HRT [facility] Last Admin: 05/02/19 09:09 Dose: Not Given Documented by: Enoxaparin Sodium (Lovenox) 75 mg SUB-Q Q12HR [facility] Last Admin: 05/01/19 20:32 Dose: 75 mg Documented by: Guaifenesin (Mucinex 12 Hr Tab) 1,200 mg PO Q12HR [facility] Last Admin: 05/01/19 20:33 Dose: 1,200 mg Documented by: Ceftriaxone Sodium/Dextrose (Rocephin 1 Gm/D5w 50 Ml) 1 gm in 50 mls @ 100 mls/hr IVPB Q24H [facility] Last Infusion: 05/01/19 12:29 Dose: Infused Documented by: Ipratropium [place] (Atrovent Neb) 0.5 mg INHALATION Q6HRT [facility] Last Admin: 05/02/19 09:09 Dose: Not Given Documented by: Prednisone (Prednisone) 40 mg PO DAILY [facility]; Taper Stop: 05/14/19 08:59 Sacubitril/Valsartan (Entresto 24 Mg-26 Mg Tablet) 1 tab PO Q12HR [facility] Last Admin: 05/01/19 20:33 Dose: 1 tab Documented by: Spironolactone (Aldactone) 12.5 mg PO QAM [facility] Last Admin: 05/01/19 08:11 Dose: 12.5 mg Documented by: Sedation/Anesthesia: No previous sedation/anesthesia problems (including family history). [facility] Past Medical History Medical History (Updated 04/28/19 @ 11:27 by Nils Florian MD) Cardiomyopathy COPD (chronic obstructive pulmonary disease) Left bundle branch block Tobacco dependence Surgical History Surgical History (Updated 04/26/19 @ 20:16 by Haley Navarro PA-C) Status post Mohs surgery Skin cancer from nose. Status post tonsillectomy and adenoidectomy Family History Family History Mother Myocardial infarct Cerebrovascular accident Dementia Father Myocardial infarct Diabetes mellitus Sibling Prostate carcinoma Social History Social History (Updated 04/26/19 @ 20:17 by Haley Navarro PA-C) Social History: The patient is and lives with his in [place]. They have 3 children. He designates his , Erica, as his surrogate de cision maker and he wishes to be a full code. 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 He has smoked 1 pack of cigarettes per day for nearly 50 years, is now down to less than 0.5 pack a day. He denies alcohol and drug abuse. Smoking packs per day: 0.5 Smoking cigarettes per day: 10.0
--- NOTE | 2019-05-02 09:44 | WPDMODSED ---
Moderate Sedation Note-Pt Data Patient Data Diagnosis: Left ventricular systolic dysfunction, left bundle branch block COPD Present Complaint: coughing, shortness of breath Procedure to be performed/Plan: coronary angiography Allergies Allergy/AdvReac Type Severity Reaction Status Date / Time BEE STINGS Allergy Severe Anaphylaxis Uncoded 04/26/19 15:22 Home Medications Medication Instructions Recorded Confirmed Type No Home Medications 04/26/19 04/26/19 History Current Medications: Active Medications Albuterol (Albuterol Sulf Neb 2.5mg/0.5ml) 5 mg INHALATION Q6HRT [facility] Last Admin: 05/02/19 09:08 Dose: Not Given Documented by: Aspirin (Aspirin) 325 mg PO DAILY@0800 [facility] Last Admin: 05/01/19 08:12 Dose: 325 mg Documented by: Atorvastatin Calcium (Lipitor) 20 mg PO DAILY [facility] Last Admin: 05/01/19 08:13 Dose: 20 mg Documented by: Budesonide/Formoterol Fumarate (Symbicort 160-4.5 Mcg (*Sp) Inhaler) 2 puff INHALATION Q12HRT [facility] Last Admin: 05/02/19 09:08 Dose: Not Given Documented by: Carvedilol (Coreg) 3.125 mg PO Q12HR [facility] Last Admin: 05/01/19 20:32 Dose: 3.125 mg Documented by: Dornase Suman (Pulmozyme) 2.5 mg INHALATION Q12HRT [facility] Last Admin: 05/02/19 09:09 Dose: Not Given Documented by: Enoxaparin Sodium (Lovenox) 75 mg SUB-Q Q12HR [facility] Last Admin: 05/01/19 20:32 Dose: 75 mg Documented by: Guaifenesin (Mucinex 12 Hr Tab) 1,200 mg PO Q12HR [facility] Last Admin: 05/01/19 20:33 Dose: 1,200 mg Documented by: Ceftriaxone Sodium/Dextrose (Rocephin 1 Gm/D5w 50 Ml) 1 gm in 50 mls @ 100 mls/hr IVPB Q24H [facility] Last Infusion: 05/01/19 12:29 Dose: Infused Documented by: Ipratropium [place] (Atrovent Neb) 0.5 mg INHALATION Q6HRT [facility] Last Admin: 05/02/19 09:09 Dose: Not Given Documented by: Prednisone (Prednisone) 40 mg PO DAILY [facility]; Taper Stop: 05/14/19 08:59 Sacubitril/Valsartan (Entresto 24 Mg-26 Mg Tablet) 1 tab PO Q12HR [facility] Last Admin: 05/01/19 20:33 Dose: 1 tab Documented by: Spironolactone (Aldactone) 12.5 mg PO QAM [facility] Last Admin: 05/01/19 08:11 Dose: 12.5 mg Documented by: Sedation/Anesthesia: No previous sedation/anesthesia problems (including family history). [facility] Past Medical History Medical History (Updated 04/28/19 @ 11:27 by Nils Florian MD) Cardiomyopathy COPD (chronic obstructive pulmonary disease) Left bundle branch block Tobacco dependence Surgical History Surgical History (Updated 04/26/19 @ 20:16 by Haley Navarro PA-C) Status post Mohs surgery Skin cancer from nose. Status post tonsillectomy and adenoidectomy Family History Family History Mother Myocardial infarct Cerebrovascular accident Dementia Father Myocardial infarct Diabetes mellitus Sibling Prostate carcinoma Social History Social History (Updated 04/26/19 @ 20:17 by Haley Navarro PA-C) Social History: The patient is and lives with his in [place]. They have 3 children. He designates his , Erica, as his surrogate decision maker and he wishes to be a full code. 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 He has smoked 1 pack of cigarettes per day for nearly 50 years, is now down to less than 0.5 pack a day. He denies alcohol and drug abuse. Smoking packs per day: 0.5 Smoking cigarettes per day: 10.0 Years smoked: 49 Smoking pack-years: 24.50 Smoking status: Current every day smoker Tobacco type: cigarettes Second hand tobacco smoke exposure: Yes Alcohol intake: never Substance use: never Gender identity (if verbalized by the patient): Male Spiritual care concerns: No Agree to blood products: Yes Mod Sed Physical Exam Physical Exam Pre Procedural Exam: Normal: Neck, Throat, Airway, Heart Rate, Heart Rhythm, Neuro Exam and Extremities and Variation: Appearance ( ill-appearing gentleman with coughing), Lungs ( central rhonchi and diminished b
--- NOTE | 2019-05-02 09:45 | PM.IMPN ---
Progress Note: A&P Assessment and Plan (1) Acute respiratory failure with hypoxia and hypercapnia: Code(s): J96.01 - Acute respiratory failure with hypoxia; J96.02 - Acute respiratory failure with hypercapnia Status: Acute Assessment and Plan: Result of pneumonia and COPD exacerbation. Still using BiPAP at night. Still requiring 4 L of oxygen by nasal cannula during the day. Lung exam has improved. Will continue nebulizer treatments including Pulmozyme as well as Symbicort. Transitioned to oral tapering prednisone today. Has now completed course of IV azithromycin. Will transition from IV ceftriaxone (has completed 5 days) to oral cefdinir. Continue to monitor. Wean oxygen as tolerated. May need home oxygen evaluation if unable to wean off oxygen by discharge. (2) Sepsis: Qualifiers: Acute respiratory failure type: with hypoxia Sepsis acute organ dysfunction status: with acute organ dysfunction Sepsis type: sepsis due to unspecified organism Severe sepsis acute organ dysfunction type: acute respiratory failure Severe sepsis shock status: without septic shock Qualified Code(s): A41.9 - Sepsis, unspecified organism; R65.20 - Severe sepsis without septic shock; J96.01 - Acute respiratory failure with hypoxia Code(s): A41.9 - Sepsis, unspecified organism Status: Acute Assessment and Plan: Criteria met on admission. Result of pneumonia. Blood cultures remain negative. MRSA nasal culture negative. Has completed IV azithromycin as noted. Transition to oral cefdinir as noted above. (3) Community acquired pneumonia: Qualifiers: Laterality: unspecified laterality Qualified Code(s): J18.9 - Pneumonia, unspecified organism Code(s): J18.9 - Pneumonia, unspecified organism Status: Acute Assessment and Plan: Chest xray on 05/01/2019 reviewed with diffuse interstitial pattern consistent with emphysema. WBC down to 13.2. Still requiring oxygen as noted above. Transitioning to oral cefdinir as noted. (4) NSTEMI (non-ST elevated myocardial infarction): Code(s): I21.4 - Non-ST elevation (NSTEMI) myocardial infarction Status: Acute Assessment and Plan: Troponin level increased to peak of 4.0. Echocardiogram also obtained with EF 15-20% and grade 1 diastolic dysfunction. Cardiology consulted and appreciate input. Remains on Coreg, Entresto, ASA and therapeutic Lovenox. Also remains on atorvastatin. Telemetry reviewed on 05/02/2019 with heart rate controlled. Plan for cardiac catheterization this morning. Await further recommendations from Cardiology. Will continue to monitor. (5) CHF (congestive heart failure): Qualifiers: Heart failure chronicity: acute on chronic Heart failure type: combined systolic and diastolic Qualified Code(s): I50.43 - Acute on chronic combined systolic (congestive) and diastolic (congestive) heart failure Code(s): I50.9 - Heart failure, unspecified Status: Acute Assessment and Plan: Echocardiogram results as noted above. Received dose of IV Lasix on 04/27/2019. Will continue Coreg, Entresto and spironolactone. Electrolytes and kidney function remains stable. Will monitor. (6) COPD exacerbation: Code(s): J44.1 - Chronic obstructive pulmonary disease with (acute) exacerbation Status: Acute Assessment and Plan: Continue respiratory treatments as noted above. Improved. Now on tapering prednisone. May need oxygen at home when ready for discharge. (7) Tobacco dependence: Code(s): F17.200 - Nicotine dependence, unspecified, uncomplicated Status: Acute Assessment and Plan: Counseled on smoking cessation by admitting provider. (8) DVT prophylaxis: Code(s): Z29.9 - Encounter for prophylactic measures, unspecified Status: Acute Assessment and Plan: Therapeutic Lovenox. Time Spent With Patient Time with patient: 15 - 25 m
--- NOTE | 2019-05-02 10:05 | P.PCNCC_ITS ---
Cardiac Cath Procedure Note Date of procedure:: 05/02/19 Performing physician:: Bruce Rodriguez MD Indication:: newly diagnosed cardiomyopathy with left bundle-branch block Brief clinical history:: this is a 68-year-old patient who presented last week with shortness of breath appear to be having a COPD exacerbation. Patient was found to have left bundle branch block and an echocardiogram was done demonstra ting evidence of severe left ventricular systolic dysfunction. Catheterization was recommended for further workup of his newly diagnosed cardiomyopathy. Procedure Procedure performed:: Coronary angiography left ventriculography Sedation/Medication given:: patient received no sedation because of marginal respiratory status Access site:: right femoral artery Estimated blood loss:: 15-20 cc Procedure note:: patient was brought to the cardiac catheterization lab in the postabsorptive state he is on face mask oxygen and the right femoral triangle was prepared and draped in the usual fashion. Anesthesia was provided with 1% lidocaine infiltrated locally. Using the modified Seldinger technique a 5 [place] sheath was placed into the right femoral artery after this left heart catheterization took place. A 5 [place] FR4 catheter was used to engage inject the right coronary artery. A 5 [place] JL4 catheter was used to engage and inject the left coronary artery. A 5 [place] angle pigtail catheter was used to perform left ventriculography in the [place] projection and to demonstrate left- sided hemodynamics. Following this the case was terminated. He was taken to the holding area for manual sheath removal there were no signs of any procedural complications. 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 Findings:: Central aortic pressure was 104/54 left ventricle 104 over 7 end- diastolic pressure of 15 there was no gradient on pullback across the aortic valve. The left ventricle is severely dilated there is global systolic dysfunction in all segments with an estimated ejection fraction of 25% the left main coronary artery is medium in caliber and widely patent the LAD is a medium caliber vessel extending down to around the apex the LAD its septal and diagonal branches are a smooth and angiographically normal circumflex is a medium caliber vessel giving rise to the marginal branches which is free of significant disease. There is minimal atherosclerotic plaquing representing no more than 20-30% stenosis in the mid circumflex. Right coronary artery is medium in caliber and dominant to the posterior circulation the RCA is smooth and angiographically normal in appearance Conclusion:: right coronary dominant circulation with no significant coronary artery disease left ventricular dilation with severe global systolic dysfunction obviously a nonischemic process based on these findings
--- NOTE | 2019-05-02 10:24 | SUR.PHASEII ---
1015-pt presents to the [facility] after an LHC. Pt is on BiPAP after found to be SOB and having low O2 SAT on the floor. Appears much better at this point, breathing much less labored. 5F sheath in place. Groin soft and non-tender. No evidence of bleeding or hematoma noted. Will continue to monitor.
--- NOTE | 2019-05-02 10:41 | SUR.PHASEII ---
1027-Sheath pulled intact by Hazel Montez RN. Hard pressure remains in place. Will continue to monitor.
--- NOTE | 2019-05-02 11:48 | SUR.PHASEII ---
1145 REPORT CALLED TO LEXIE MATHIS IN IMU.
[2019-05-02] MEDS: carvediloL 3.125 MG TABLET PO ×2 (12:35→20:36)
[2019-05-02] MEDS: ATORVASTATIN 20 MG TABLET PO (12:36)
[2019-05-02] MEDS: SACUBITRIL/VALSARTAN 24-26 MG TABLET 1 TAB PO ×2 (12:36→20:37)
[2019-05-02] MEDS: predniSONE 10 MG TABLET 30 MG PO (12:37)
--- NOTE | 2019-05-02 13:59 | SUR.PHASEII ---
1200 Report called to LEXIE Chapa in IMU. Pt taken back on stretcher.
--- NOTE | 2019-05-02 14:13 | PCPTNOTE ---
The PT treatment was unable to be completed today. Patient on bedrest until 17:00 following procedure. Will continue per Plan of Care frequency and duration.
[2019-05-02] MEDS: CEFDINIR 300 MG CAPSULE PO ×2 (15:08→20:36)
[2019-05-02] MEDS: ASPIRIN 325 MG TABLET PO (15:08)
[2019-05-02] MEDS: SPIRONOLACTONE 12.5 MG TABLET PO (15:08)
[2019-05-02] MEDS: SODIUM CHLORIDE 0.9% IV 1,000 ML 125 ML IV CONT (15:15)
[2019-05-02] MEDS: ENOXAPARIN 80 MG/0.8 ML SYRINGE 75 MG SUB-Q (20:36)
[2019-05-02] MEDS: DORNASE ALFA INH SOLN 1 MG/ML 2.5 ML AMP 2.5 MG INHALATION (21:23)
[2019-05-03] VITALS (27 sets, daily range): BP systolic 105–118; BP diastolic 46–64; PULSE 61–90; RESP 16–24; TEMP 35.8–36.8; O2SAT 91–98
[2019-05-03] MEDS: ALBUTEROL SULFATE NEB 2.5 MG/0.5 ML INH 5 MG INHALATION ×4 (01:54→20:53)
[2019-05-03] MEDS: IPRATROPIUM BR 0.02% INH SOLN 0.5 MG/2.5 ML VIAL INHALATION ×4 (01:54→20:54)
[2019-05-03 04:57] LABS: Hemoglobin 14.2 g/dL (14.0-18.0); Mean Corpuscular Hemoglobin 30.9 pg (26-34); Mean Corpuscular Volume 93.5 fl (80-100); Mean Platelet Volume 9.7 fl (7.4-10.4); Platelet Count Result 336 k/mm3 (150-375); Red Cell Distribution Width 12.5 % (11.5-14.5); White Blood Count 13.2 K/mm3 (4.5-10.0)
[2019-05-03 05:19] LABS: Blood Urea Nitrogen 19 mg/dL (9-20); Calcium 7.6 mg/dL (8.4-10.2); Carbon Dioxide 33 mmol/L (22-30); Chloride 94 mmol/L (98-107); Estimated CRCL calculation 81 ml/min; Estimated Glomerular Filt Rate > 60; Glucose 118 mg/dL (75-110); Magnesium 2.3 mg/dL (1.6-2.3); Potassium 4.3 mmol/L (3.4-5.0); Sodium 134 mmol/L (137-145)
[2019-05-03] MEDS: SPIRONOLACTONE 12.5 MG TABLET PO (08:37)
[2019-05-03] MEDS: CEFDINIR 300 MG CAPSULE PO ×2 (08:37→20:41)
[2019-05-03] MEDS: predniSONE 10 MG TABLET 30 MG PO (08:37)
[2019-05-03] MEDS: carvediloL 3.125 MG TABLET PO ×2 (08:37→20:41)
[2019-05-03] MEDS: ASPIRIN 325 MG TABLET PO (08:37)
[2019-05-03] MEDS: SACUBITRIL/VALSARTAN 24-26 MG TABLET 1 TAB PO ×2 (08:37→20:41)
[2019-05-03] MEDS: ATORVASTATIN 20 MG TABLET PO (08:38)
[2019-05-03] MEDS: ENOXAPARIN 80 MG/0.8 ML SYRINGE 75 MG SUB-Q (08:40)
--- NOTE | 2019-05-03 13:16 | PM.PNCARD ---
Progress Note: A&P Assessment and Plan (1) NSTEMI (non-ST elevated myocardial infarction): Code(s): I21.4 - Non-ST elevation (NSTEMI) myocardial infarction Status: Acute Assessment and Plan: Possibly type 2 infarction. Cardiac catheterization 05/02/2019 with the findings of no coronary artery disease. Aspirin and atorvastatin discontinued. (2) CHF (congestive heart failure): Qualifiers: Heart failure chronicity: acute on chronic Heart failure type: combined systolic and diastolic Qualified Code(s): I50.43 - Acute on chronic combined systolic (congestive) and diastolic (congestive) heart failure Code(s): I50.9 - Heart failure, unspecified Status: Acute Assessment and Plan: Echocardiogram demonstrated LV systolic function estimated 15-20%. EF on cardiac catheterization 25%. Dr Rodriguez feels that this is chronic. Greater than 30 minutes and in counseling during this visit. Long discussion regarding what cardiomyopathy is, findings on his cardiac catheterization, treatment for cardiomyopathy including Entresto, carvedilol and spironolactone. Continue entresto, carvedilol and spironolactone. Monitor renal function and electrolytes daily while hospitalized. Will monitor renal function and electrolytes an outpatient. (3) Left bundle branch block: Code(s): I44.7 - Left bundle-branch block, unspecified Status: Acute Assessment and Plan: May eventually need resynchronization/CRM MARKETING MANAGER D (4) Acute respiratory failure with hypoxia and hypercapnia: Code(s): J96.01 - Acute respiratory failure with hypoxia; J96.02 - Acute respiratory failure with hypercapnia Status: Acute Assessment and Plan: On antibiotics and nebulizers/steroids Treatment per hospitalist. (5) Cardiomyopathy: Code(s): I42.9 - Cardiomyopathy, unspecified Status: Acute Assessment and Plan: Nonischemic. Additional Plan Right femoral bruit post cardiac catheterization. No pseudoaneurysm on ultrasound. From a cardiac perspective can be discharged. See discharge instructions for follow-up. Plan discussed with Dr. Rodriguez 1445 05/03/2019 Subjective Date/time seen: 05/03/19 13:16 Interval history: Follow-up for: Cardiomyopathy. Elevated troponin with no coronary artery disease found on cardiac catheterization 05/02/2019 Date of service: 05/03/2019 Subjective: No complaints of any chest discomfort. Short of breath with exertional activities continues to improve. Has not been able to sleep very well with the CPAP as the mask does not fit properly. No lightheadedness or palpitations. Review of Systems Constitutional: Constitutional: Denies chills and Denies fever(s) Eyes: Eyes: Denies blurry vision ENT: Reports Normal hearing present Cardiovascular: Cardiovascular: Denies chest pain, Reports dyspnea on exertion (Improving) and Reports orthopnea (Improved) Respiratory: Respiratory: Reports cough and Reports dyspnea on exertion (Improved) Gastrointestinal: Gastrointestinal: Denies nausea and Denies vomiting Musculoskeletal: Musculoskeletal: Denies arthralgias Integumentary/Breasts: Skin/Breast: Denies erythema and Denies rash Neurologic: Reports Normal hearing present Psychiatric: Psychiatric: Denies anxiety Endocrine: Endocrine: Reports no additional endocrine complaints Hematologic/Lymphatic: Hematologic/Lymphatic: Denies easy bleeding Allergic/Immunologic: Allergic/Immunologic: Reports no additional allergic/immunologic complaints Exam Const: General: cooperative, comfortable, no acute distress and ill appearing Nutritional Appearance: average body habitus Orientation/consciousness: patient oriented x3 HENMT: Mouth: Yes moist mucous membranes Eyes: Sclera: sclerae normal Pupils: Equal, round an
--- NOTE | 2019-05-03 13:40 | PCDIET ---
Nutrition LOS screen complete: Pt current nutrition is Heart Healthy . Nutrition recommendation: Agree Last recorded weight is 76.1 kg. Bowel Motility: No BM noted Labs Reviewed:Na 134, Ca 7.6, Glucose 118 Meds Noted:Albuterol, Omnicef, Prednisone Additional Notes: Seeing pt today due to LOS. He is eating 100% of all meals. Cardiac cath yesterday. Pt on Bipap at night. Pt states he is getting enough food off trays, feels full, and finding foods he enjoys. He did not have any questions or desire education regarding the heart healthy diet today. We will continue to monitor every seven days.
--- NOTE | 2019-05-03 17:30 | PM.IMPN ---
Progress Note: A&P Assessment and Plan (1) Acute respiratory failure with hypoxia and hypercapnia: Code(s): J96.01 - Acute respiratory failure with hypoxia; J96.02 - Acute respiratory failure with hypercapnia Status: Acute Assessment and Plan: Result of pneumonia and COPD exacerbation. Still using BiPAP at night. Down to 2L O2 nasal cannula during the day. Continue nebulizer treatments including Pulmozyme as well as Symbicort. Transitioned to oral tapering prednisone to oral cefdinir. Continue to monitor. Wean oxygen as tolerated. May need home oxygen evaluation if unable to wean off oxygen by discharge. Add CPT. Home O2 evelautation tomorrow. (2) Sepsis: Qualifiers: Acute respiratory failure type: with hypoxia Sepsis acute organ dysfunction status: with acute organ dysfunction Sepsis type: sepsis due to unspecified organism Severe sepsis acute organ dysfunction type: acute respiratory failure Severe sepsis shock status: without septic shock Qualified Code(s): A41.9 - Sepsis, unspecified organism; R65.20 - Severe sepsis without septic shock; J96.01 - Acute respiratory failure with hypoxia Code(s): A41.9 - Sepsis, unspecified organism Status: Acute Assessment and Plan: Criteria met on admission. Result of pneumonia. Blood cultures remain negative. MRSA nasal culture negative. Has completed IV azithromycin as noted. Transition to oral cefdinir as noted above. (3) Community acquired pneumonia: Qualifiers: Laterality: unspecified laterality Qualified Code(s): J18.9 - Pneumonia, unspecified organism Code(s): J18.9 - Pneumonia, unspecified organism Status: Acute Assessment and Plan: Chest xray on 05/01/2019 reviewed with diffuse interstitial pattern consistent with emphysema. WBC stable at 13. Still requiring oxygen as noted above. Transitioned to oral cefdinir as noted. (4) NSTEMI (non-ST elevated myocardial infarction): Code(s): I21.4 - Non-ST elevation (NSTEMI) myocardial infarction Status: Acute Assessment and Plan: Troponin level peaked of 4.0. Echo with EF 15-20% and grade 1 diastolic dysfunction. LHC showing clean coronaries with EF 25%. Suspect Type II PR related to the sever NICMP. Continue Coreg, Entresto, and spironolactone. ASA and Lipitor stopped. Therapeutic Lovenox stopped as well. (5) CHF (congestive heart failure): Qualifiers: Heart failure chronicity: acute on chronic Heart failure type: combined systolic and diastolic Qualified Code(s): I50.43 - Acute on chronic combined systolic (congestive) and diastolic (congestive) heart failure Code(s): I50.9 - Heart failure, unspecified Status: Acute Assessment and Plan: Echo with EF 15-20% and Grade 1 diastolic dysfunction. Received dose of IV Lasix on 04/27/2019 with excellent UOP for 2 days. Will continue Coreg, Entresto and spironolactone. Electrolytes and kidney function remains stable. Will monitor. (6) Cardiomyopathy: Qualifiers: Cardiomyopathy type: unspecified Qualified Code(s): I42.9 - Cardiomyopathy, unspecified Code(s): I42.9 - Cardiomyopathy, unspecified Status: Acute Assessment and Plan: Nonischemic CMP. (7) COPD exacerbation: Code(s): J44.1 - Chronic obstructive pulmonary disease with (acute) exacerbation Status: Acute Assessment and Plan: Stable. Continue respiratory treatments as noted above. Continue tapering prednisone. May need oxygen at home when ready for discharge. (8) Tobacco dependence: Code(s): F17.200 - Nicotine dependence, unspecified, uncomplicated Status: Acute Assessment and Plan: Counseled on smoking cessation by admitting provider. (9) DVT prophylaxis: Code(s): Z29.9 - Encounter for prophylactic measures, unspecified Status: Acute Assessment and Plan: Therapeutic
[2019-05-03] MEDS: DORNASE ALFA INH SOLN 1 MG/ML 2.5 ML AMP 2.5 MG INHALATION (20:54)
[2019-05-04] VITALS (32 sets, daily range): BP systolic 97–110; BP diastolic 54–65; PULSE 66–108; RESP 16–22; TEMP 36–36.8; O2SAT 84–97
[2019-05-04] MEDS: ALBUTEROL SULFATE NEB 2.5 MG/0.5 ML INH 5 MG INHALATION ×4 (02:52→20:46)
[2019-05-04] MEDS: IPRATROPIUM BR 0.02% INH SOLN 0.5 MG/2.5 ML VIAL INHALATION ×4 (02:52→20:47)
[2019-05-04] MEDS: DORNASE ALFA INH SOLN 1 MG/ML 2.5 ML AMP 2.5 MG INHALATION ×2 (08:29→20:58)
[2019-05-04] MEDS: SACUBITRIL/VALSARTAN 24-26 MG TABLET 1 TAB PO ×2 (09:08→21:35)
[2019-05-04] MEDS: predniSONE 10 MG TABLET 30 MG PO (09:09)
[2019-05-04] MEDS: carvediloL 3.125 MG TABLET PO ×2 (09:09→21:35)
[2019-05-04] MEDS: CEFDINIR 300 MG CAPSULE PO ×2 (09:09→21:35)
[2019-05-04] MEDS: SPIRONOLACTONE 12.5 MG TABLET PO (09:10)
--- NOTE | 2019-05-04 10:40 | HOMEO2EVAL ---
Home Oxygen Evaluation RC: Home Oxygen (O2) Evaluation Start: 05/03/19 22:58 Freq: ONCE Status: Active Protocol: RPE Activity Type Activity Date Activity User E-Sign Co-Sign Detail Recorded Client Recorded Date Recorded By Document 05/04/19 09:30 [email or web address] [email or web address] 05/04/19 10:39 DJO Document 05/04/19 09:35 [email or web address] [email or web address] 05/04/19 10:39 DJO Document 05/04/19 09:40 [email or web address] [email or web address] 05/04/19 10:39 DJO Document 05/04/19 09:45 [email or web address] [email or web address] 05/04/19 10:39 DJO Document 05/04/19 09:50 [email or web address] [email or web address] 05/04/19 10:39 DJO Document 05/04/19 09:55 [email or web address] [email or web address] 05/04/19 10:39 DJO Document 05/04/19 10:00 [email or web address] [email or web address] 05/04/19 10:39 DJO Document 05/04/19 10:05 [email or web address] [email or web address] 05/04/19 10:39 DJO Document 05/04/19 10:15 [email or web address] [email or web address] 05/04/19 10:39 DJO 05/04/19 05/04/19 05/04/19 09:30 09:35 09:40 Home O2 Evaluation Test Phase Resting Resting Exercise Oxygen Delivery Room Air Nasal Cannula Nasal Cannula Oxygen Flow Rate (L/min) 1 2 Pulse Oximetry (90-100 %) 84 L 85 L 86 L Pulse Rate (60-100 beats/min) 82 81 84 Rating of Perceived Dyspnea (PD) Ambulation Distance (feet) Treatment Charges 05/04/19 05/04/19 05/04/19 09:45 09:50 09:55 Home O2 Evaluation Test Phase Exercise Resting Exercise Oxygen Delivery Nasal Cannula Nasal Cannula Nasal Cannula Oxygen Flow Rate (L/min) 3 4 4 Pulse Oximetry (90-100 %) 87 L 90 86 L Pulse Rate (60-100 beats/min) 80 79 104 H Rating of Perceived Dyspnea (PD) Ambulation Distance (feet) Treatment Charges 05/04/19 05/04/19 05/04/19 10:00 10:05 10:15 Home O2 Evaluation Test Phase Exercise Exercise Resting Oxygen Delivery Nasal Cannula Nasal Cannula Nasal Cannula Oxygen Flow Rate (L/min) 5 6 4 Pulse Oximetry (90-100 %) 87 L 90 90 Pulse Rate (60-100 beats/min) 106 H 108 H 80 Rating of Perceived Dyspnea (PD) +2 Mild, Some Difficulty, Noticeable to the Observer Ambulation Distance (feet) 1,000 Treatment Charges O2 Evaluation
--- NOTE | 2019-05-04 15:11 | PM.PNCARD ---
Progress Note: A&P Assessment and Plan (1) NSTEMI (non-ST elevated myocardial infarction): Code(s): I21.4 - Non-ST elevation (NSTEMI) myocardial infarction Status: Acute Assessment and Plan: Possibly type 2 infarction. Cardiac catheterization 05/02/2019 with the findings of no coronary artery disease. Bruit noted on exam yesterday. No pseudoaneurysm right femoral artery. (2) CHF (congestive heart failure): Qualifiers: Heart failure type: combined systolic and diastolic Heart failure chronicity: acute on chronic Qualified Code(s): I50.43 - Acute on chronic combined systolic (congestive) and diastolic (congestive) heart failure Code(s): I50.9 - Heart failure, unspecified Status: Acute Assessment and Plan: Echocardiogram demonstrated LV systolic function estimated 15-20%. EF on cardiac catheterization 25%. Dr Rodriguez feels that this is chronic. Another 20 minutes in counseling during this visit. Questions regarding trying to understand what ejection fraction is and how medications help that. Continue entresto, carvedilol and spironolactone. Monitor renal function and electrolytes daily while hospitalized. Will monitor renal function and electrolytes an outpatient. 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 (5) Cardiomyopathy: Qualifiers: Cardiomyopathy type: unspecified Qualified Code(s): I42.9 - Cardiomyopathy, unspecified Code(s): I42.9 - Cardiomyopathy, unspecified Status: Acute Assessment and Plan: Nonischemic. Additional Plan Home O2 eval with need for 4 L of oxygen at rest and 6 L with ambulation. Repeat chest x-ray no acute cardiopulmonary disease. Further diagnostic testing per Dr Prabhakar No further cardiac recommendations Plan discussed with Dr Rodriguez 1515 05/04/2019 Subjective Date/time seen: 05/04/19 15:11 Interval history: Follow-up for: Cardiomyopathy. Elevated troponin with no coronary artery disease found on cardiac catheterization 05/02/2019 Date of service: 05/04/2019 Subjective: No chest discomfort. Short of breath with exertional activities but does not feel that he is gasping for air. Slept better with just oxygen per nasal cannula. Able to lay more flat last night. But no abdominal bloating. No lightheadedness. Review of Systems Constitutional: Constitutional: Denies chills and Denies fever(s) Eyes: Eyes: Denies blurry vision ENT: Reports Normal hearing present Cardiovascular: Cardiovascular: Denies chest pain, Reports dyspnea on exertion (Improved) and Denies orthopnea Respiratory: Respiratory: Reports cough and Reports dyspnea on exertion (Improved) Gastrointestinal: Gastrointestinal: Denies nausea and Denies vomiting Musculoskeletal: Musculoskeletal: Denies arthralgias Integumentary/Breasts: Skin/Breast: Denies erythema and Denies rash Neurologic: Reports Normal hearing present Psychiatric: Psychiatric: Denies anxiety Endocrine: Endocrine: Reports no additional endocrine complaints Hematologic/Lymphatic: Hematologic/Lymphatic: Denies easy bleeding Allergic/Immunologic: Allergic/Immunologic: Reports no additional allergic/immunologic complaints Exam Const: General: cooperative, comfortable, no acute distress and ill appearing Nutritional Appearance: average body habitus Orientation/cons
--- NOTE | 2019-05-04 15:23 | PM.IMPN ---
Progress Note: A&P Assessment and Plan (1) Acute respiratory failure with hypoxia and hypercapnia: Code(s): J96.01 - Acute respiratory failure with hypoxia; J96.02 - Acute respiratory failure with hypercapnia Status: Acute Assessment and Plan: Result of pneumonia and COPD exacerbation. Refused BiPAP last night. Down to 2L O2 nasal cannula during the day yesterday ut now on 4L. Currently on nebulizer treatments, Pulmozyme and Symbicort. Transitioned to oral tapering prednisone and to cefdinir. CTA showing no PE but moderate emphysema and extensive tree-in-bud distribution punctate nodules most likely infectious. Wean oxygen as tolerated. Home tomorrow with home oxygen. (2) Sepsis: Qualifiers: Acute respiratory failure type: with hypoxia Sepsis acute organ dysfunction status: with acute organ dysfunction Sepsis type: sepsis due to unspecified organism Severe sepsis acute organ dysfunction type: acute respiratory failure Severe sepsis shock status: without septic shock Qualified Code(s): A41.9 - Sepsis, unspecified organism; R65.20 - Severe sepsis without septic shock; J96.01 - Acute respiratory failure with hypoxia Code(s): A41.9 - Sepsis, unspecified organism Status: Acute Assessment and Plan: Criteria met on admission. Result of pneumonia. Blood cultures negative. MRSA nasal culture negative. Has completed IV azithromycin as noted. Transition to oral cefdinir as noted above. (3) Community acquired pneumonia: Qualifiers: Laterality: unspecified laterality Qualified Code(s): J18.9 - Pneumonia, unspecified organism Code(s): J18.9 - Pneumonia, unspecified organism Status: Acute Assessment and Plan: Chest xray on 05/01/2019 reviewed with diffuse interstitial pattern consistent with emphysema. Still requiring oxygen as noted above. Repeat CXR is clear today. Transitioned to oral cefdinir as noted. (4) NSTEMI (non-ST elevated myocardial infarction): Code(s): I21.4 - Non-ST elevation (NSTEMI) myocardial infarction Status: Acute Assessment and Plan: Troponin level peaked of 4.0. Echo with EF 15-20% and grade 1 diastolic dysfunction. LHC showing clean coronaries with EF 25%. Suspect Type II PA related to the sever NICMP. Continue Coreg, Entresto, and spironolactone. ASA and Lipitor stopped. Therapeutic Lovenox stopped as well. Appreciate cardiology input. (5) CHF (congestive heart failure): Qualifiers: Heart failure chronicity: acute on chronic Heart failure type: combined systolic and diastolic Qualified Code(s): I50.43 - Acute on chronic combined systolic (congestive) and diastolic (congestive) heart failure Code(s): I50.9 - Heart failure, unspecified Status: Acute Assessment and Plan: Echo with EF 15-20% and Grade 1 diastolic dysfunction. Received dose of IV Lasix on 04/27/2019 with excellent UOP for 2 days. CX clear today. Will continue Coreg, Entresto and spironolactone. Electrolytes and kidney function remains stable. Will monitor. (6) Cardiomyopathy: Qualifiers: Cardiomyopathy type: unspecified Qualified Code(s): I42.9 - Cardiomyopathy, unspecified Code(s): I42.9 - Cardiomyopathy, unspecified Status: Acute Assessment and Plan: Nonischemic CMP. As above. (7) COPD exacerbation: Code(s): J44.1 - Chronic obstructive pulmonary disease with (acute) exacerbation Status: Acute Assessment and Plan: Stable. Continue respiratory treatments as noted above. Continue tapering prednisone. Needs home oxygen. (8) Tobacco dependence: Code(s): F17.200 - Nicotine dependence, unspecified, uncomplicated Status: Acute Assessment and Plan: Counseled on smoking cessation by admitting provider. (9) DVT prophylaxis: Code(s): Z29.9 - Encounter for prophylactic measures, unspecified
[2019-05-05] VITALS (15 sets, daily range): BP systolic 101–121; BP diastolic 51–61; PULSE 65–98; RESP 18–20; TEMP 36.2–36.5; O2SAT 93–100
[2019-05-05] MEDS: ALBUTEROL SULFATE NEB 2.5 MG/0.5 ML INH 5 MG INHALATION ×2 (03:16→08:28)
[2019-05-05] MEDS: IPRATROPIUM BR 0.02% INH SOLN 0.5 MG/2.5 ML VIAL INHALATION ×2 (03:16→08:28)
[2019-05-05] MEDS: CEFDINIR 300 MG CAPSULE PO (08:37)
[2019-05-05] MEDS: SACUBITRIL/VALSARTAN 24-26 MG TABLET 1 TAB PO (08:37)
[2019-05-05] MEDS: carvediloL 3.125 MG TABLET PO (08:37)
[2019-05-05] MEDS: SPIRONOLACTONE 12.5 MG TABLET PO (08:37)
[2019-05-05] MEDS: DORNASE ALFA INH SOLN 1 MG/ML 2.5 ML AMP 2.5 MG INHALATION (08:39)
--- NOTE | 2019-05-05 11:45 | PM.DS ---
DS: Diagnosis Admitting Diagnosis Admitting Diagnosis: Acute respiratory failure with hypoxia Discharge Diagnosis (1) Acute respiratory failure with hypoxia and hypercapnia: Code(s): J96.01 - Acute respiratory failure with hypoxia; J96.02 - Acute respiratory failure with hypercapnia Status: Acute Assessment and Plan: Result of pneumonia and COPD exacerbation. Wore BiPAP at night but now refusing BiPAP. Treated with nebulizer treatments, Pulmozyme and Symbicort. Transitioned to oral tapering prednisone and to cefdinir. Patient qualifies for home O2. Home with home oxygen. (2) Sepsis: Qualifiers: Acute respiratory failure type: with hypoxia Sepsis acute organ dysfunction status: with acute organ dysfunction Sepsis type: sepsis due to unspecified organism Severe sepsis acute organ dysfunction type: acute respiratory failure Severe sepsis shock status: without septic shock Qualified Code(s): A41.9 - Sepsis, unspecified organism; R65.20 - Severe sepsis without septic shock; J96.01 - Acute respiratory failure with hypoxia Code(s): A41.9 - Sepsis, unspecified organism Status: Acute Assessment and Plan: Criteria met on admission. Result of pneumonia. Blood cultures negative. MRSA nasal culture negative. Has completed IV azithromycin as noted. Transition to oral cefdinir. (3) Community acquired pneumonia: Qualifiers: Laterality: unspecified laterality Qualified Code(s): J18.9 - Pneumonia, unspecified organism Code(s): J18.9 - Pneumonia, unspecified organism Status: Acute Assessment and Plan: Chest xray on 05/01/2019 reviewed with diffuse interstitial pattern consistent with emphysema. Still requiring oxygen as noted above. CTA 05/04/19 showing extensive tree-in-bud distribution punctate nodules, likely infectious or postinfectious process. Transitioned to oral cefdinir. (4) NSTEMI (non-ST elevated myocardial infarction): Code(s): I21.4 - Non-ST elevation (NSTEMI) myocardial infarction Status: Acute Assessment and Plan: Troponin level peaked of 4.0. Echo with EF 15-20% and grade 1 diastolic dysfunction. LHC showing clean coronaries with EF 25%. Suspect Type II [place] related to the severe NICMP. Treated with coreg, Entresto, and spironolactone. ASA and Lipitor stopped. Therapeutic Lovenox stopped as well. Appreciate cardiology input. (5) CHF (congestive heart failure): Qualifiers: Heart failure chronicity: acute on chronic Heart failure type: combined systolic and diastolic Qualified Code(s): I50.43 - Acute on chronic combined systolic (congestive) and diastolic (congestive) heart failure Code(s): I50.9 - Heart failure, unspecified Status: Acute Assessment and Plan: Echo with EF 15-20% and Grade 1 diastolic dysfunction. Received dose of IV Lasix on 04/27/19 with excellent UOP for 2 days. CX clear on 05/04/19. Treated with Coreg, Entresto and spironolactone. Electrolytes and kidney function remained stable. (6) Cardiomyopathy: Qualifiers: Cardiomyopathy type: unspecified Qualified Code(s): I42.9 - Cardiomyopathy, unspecified Code(s): I42.9 - Cardiomyopathy, unspecified Status: Acute Assessment and Plan: Nonischemic CMP. As above. (7) COPD exacerbation: Code(s): J44.1 - Chronic obstructive pulmonary disease with (acute) exacerbation Status: Acute Assessment and Plan: Stable. Treated with respiratory treatments, abx and steroids. Home with home O2. (8) Tobacco dependence: Code(s): F17.200 - Nicotine dependence, unspecified, uncomplicated Status: Acute Assessment and Plan: Patietn was ounseled on smoking cessation. Educated about risks of smoking around open oxygen DS: Summary Hospital Course Reason for hospitalization: 68yo male here for SOB and cough. Please see HnP for details. Mao
--- NOTE | 2019-05-05 12:53 | PM.PNCARD ---
Progress Note: A&P Assessment and Plan (1) NSTEMI (non-ST elevated myocardial infarction): Code(s): I21.4 - Non-ST elevation (NSTEMI) myocardial infarction Status: Acute Assessment and Plan: Possibly type 2 infarction. Cardiac catheterization 05/02/2019 with the findings of no coronary artery disease. (2) CHF (congestive heart failure): Qualifiers: Heart failure type: combined systolic and diastolic Heart failure chronicity: acute on chronic Qualified Code(s): I50.43 - Acute on chronic combined systolic (congestive) and diastolic (congestive) heart failure Code(s): I50.9 - Heart failure, unspecified Status: Acute Assessment and Plan: Echocardiogram demonstrated LV systolic function estimated 15-20%. EF on cardiac catheterization 25%. Dr Rodriguez feels that this is chronic. Continue entresto, carvedilol and spironolactone. Renal function has been stable on current dose. Renal function and electrolytes will be monitored as an outpatient when his medications can be up titrated. 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 (5) Cardiomyopathy: Qualifiers: Cardiomyopathy type: unspecified Qualified Code(s): I42.9 - Cardiomyopathy, unspecified Code(s): I42.9 - Cardiomyopathy, unspecified Status: Acute Assessment and Plan: Nonischemic. Additional Plan OK to discharge from cardiac standpoint See discharge instructions for follow-up Plan discussed with Dr Sheila Renee 05/05/2019 Subjective Date/time seen: 05/05/19 12:53 Interval history: Follow-up for: Cardiomyopathy. Elevated troponin with no coronary artery disease found on cardiac catheterization 05/02/2019 Date of service: 05/05/2019 Subjective: No chest discomfort. Denied shortness of breath with the minimal amount of exertional activities that he is doing. Slept better again last night with just the oxygen. No lightheadedness or palpitations. Review of Systems Constitutional: Constitutional: Denies chills and Denies fever(s) Eyes: Eyes: Denies blurry vision ENT: Reports Normal hearing present Cardiovascular: Cardiovascular: Denies chest pain, Denies dyspnea on exertion and Denies orthopnea Respiratory: Respiratory: Reports cough and Denies dyspnea on exertion Gastrointestinal: Gastrointestinal: Denies nausea and Denies vomiting Musculoskeletal: Musculoskeletal: Denies arthralgias Integumentary/Breasts: Skin/Breast: Denies erythema and Denies rash Neurologic: Reports Normal hearing present Psychiatric: Psychiatric: Denies anxiety Endocrine: Endocrine: Reports no additional endocrine complaints Hematologic/Lymphatic: Hematologic/Lymphatic: Denies easy bleeding Allergic/Immunologic: Allergic/Immunologic: Reports no additional allergic/immunologic complaints Exam Const: General: cooperative, comfortable, no acute distress and ill appearing Nutritional Appearance: average body habitus Orientation/consciousness: patient oriented x3 HENMT: Mouth: Yes moist mucous membranes Eyes: Sclera: sclerae normal Pupils: Equal, round and reactive pupils present Neck: Neck: supple and no JVD Thyroid: thyroid normal Resp: Effort & Inspection: normal respiratory effort and able to speak in complete sentences Auscultation: crackles bilateral at the base and no wheezes Cardio: Rate: regula
== END 2019-05-05 14:38 | disposition home or self-care (01) | DRG 871 ==
LOC: ANHED 13:25 → ANHICU 13:57 → ANHIMU 04-28 21:28 → ANHICU 05-06 08:30 → ANHIMU 05-06 08:30
PROVIDERS: Emergency Medicine; Hospitalist; Internal Medicine; Physician Assistant; Specialist; Admitting Provider Family Medicine; Emergency Provider Emergency Medicine; PCP Family Medicine Adolescent Medicine; Visit Provider Family Medicine
PROC: 4A023N7 Measurement of Cardiac Sampling and Pressure, Left Heart, Percutaneous Approach (ICD-10-PCS; CPT 93452; principal; 2019-05-02 09:00)
DX: A41.9 Sepsis, unspecified organism (principal); J18.9 Pneumonia, unspecified organism; J96.01 Acute respiratory failure with hypoxia; J96.02 Acute respiratory failure with hypercapnia; I50.43 Acute on chronic combined systolic (congestive) and diastolic (congestive) heart failure; I21.A1 Myocardial infarction type 2; J44.1 Chronic obstructive pulmonary disease with (acute) exacerbation; J44.0 Chronic obstructive pulmonary disease with (acute) lower respiratory infection; I42.8 Other cardiomyopathies; R65.20 Severe sepsis without septic shock; E11.65 Type 2 diabetes mellitus with hyperglycemia; I44.7 Left bundle-branch block, unspecified; Z85.828 Personal history of other malignant neoplasm of skin; Z87.891 Personal history of nicotine dependence
CPT/HCPCS: 36415; 36600; 71045; 71046; 71275; 80048; 80053; 80061; 80202; 82375; 82805; 83036; 83050; 83605; 83735; 83880; 84484; 85025; 85027; 85610; 85730; 87040; 87081; 87449; 87804; 93005; 93458; 93926; 94003; 94618; 94640; 94667; 96365; 96366; 96368; 96375; 97110; 97116; 97161; 99291; A9270; C1887; C1894; C8929; J0456; J0696; J1644; J1650; J1940; J2250; J2930; J3010; J3370; J7030; J7040; J7512; Q9957; Q9967

== ENCOUNTER 2019-12-08 07:30 | Outpatient (RCR) | payer MEDICARE, SELFPAY ==
--- NOTE | 2019-09-16 09:27 | PCCPR ---
Ellis had an emergency admit for respiratory failure in Apr. He had a very elevated CO2 in 90 s and PO2 in the 50's. He continues to smoke and seemed SOB panting type breaths today during his orientation wearing a mask. 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
[2019-09-16 09:31] VITALS: BP 120/72; PULSE 65; RESP 20; TEMP 36.7; O2SAT 97
== END 2019-12-08 18:42 | disposition home or self-care (01) ==
LOC: ANHCPREHAB 07:30
PROVIDERS: PCP Family Medicine Adolescent Medicine; Visit Provider Specialist
DX: I50.89 Other heart failure (principal)
CPT/HCPCS: 93798

== ENCOUNTER 2020-12-28 13:33 | Outpatient (CLI) | payer MEDICARE, SELFPAY ==
--- NOTE | ~2020-12-28 | XR_ITS ---
EXAMINATION: XR chest 2V 12/28/2020 14:01 INDICATION: Shortness of breath PROCEDURE: 2 view chest COMPARISON: 05/04/2019 FINDINGS: The lungs are clear. The lungs are hyperinflated which is consistent with, but not diagnost ic of chronic obstructive pulmonary disease. The cardiomediastinal silhouette is within normal limit s. There are no pleural effusions. There is no pneumothorax suspected. IMPRESSION: 1: NO ACUTE CARDIOPULMONARY DISEASE. Reviewed, dictated and finalized at location A.
[2020-12-28 14:13] LABS: Basophils Absolute Auto 0.1 K/mm3 (0.0-0.1); Basophils Percent Auto 0.7 % (0.2-1.2); Eosinophils Absolute Auto 0.4 K/mm3 (0-0.3); Hemoglobin 15.6 g/dL (14.0-18.0); Immature Granulocyte Absolute 0.02 K/mm3 (0.00-0.031); Immature Granulocyte Percent A 0.2 % (0-0.5); Lymphocytes Absolute Auto 2.05 K/mm3 (0.9-3.2); Lymphocytes Percent Auto 19.7 % (18.3-44.2); Mean Corpuscular HGB Conc 33.2 g/dl (32-36); Mean Corpuscular Hemoglobin 31.1 pg (26-34); Mean Corpuscular Volume 93.6 fl (80-100); Mean Platelet Volume 10.3 fl (7.4-10.4); Monocytes Absolute Auto 0.8 K/mm3 (0.1-0.6); Monocytes Percent Auto 7.4 % (2.6-8.5); Neutrophils Absolute Auto 7.1 K/mm3 (1.3-6.7); Platelet Count Result 301 k/mm3 (150-375); Red Blood Count 5.02 M/mm3 (4.6-6.20); Red Cell Distribution Width 11.9 % (11.5-14.5); White Blood Count 10.4 K/mm3 (4.5-10.0)
[2020-12-28 16:57] LABS: Alanine Aminotransferase 14 U/L (4-50); Albumin Level 4.2 g/dL (3.5-5.1); Alkaline Phosphatase 64 U/L (38-126); Anion Gap 5 mmol/L (8-16); Aspartate Amino Transferase 24 U/L (17-59); Bilirubin,Total 0.4 mg/dL (0.2-1.3); Blood Urea Nitrogen 20 mg/dL (9-20); Calcium 9.2 mg/dL (8.4-10.2); Carbon Dioxide 36 mmol/L (22-30); Chloride 100 mmol/L (98-107); Estimated Glomerular Filt Rate > 60; Glucose 93 mg/dL (65-110); Potassium 4.5 mmol/L (3.4-5.0); Sodium 141 mmol/L (137-145)
[2020-12-28 17:06] LABS: NT Pro B Type Natriuretic Pept 97 pg/mL (5-100)
== END 2020-12-28 13:34 | disposition home or self-care (01) ==
PROVIDERS: PCP Family Medicine Adolescent Medicine; Visit Provider Nurse Practitioner Adult Health
DX: R06.02 Shortness of breath (principal)
CPT/HCPCS: 36415; 71046; 80053; 83880; 85025

== ENCOUNTER 2021-02-07 05:48 | Inpatient (IN) | payer MEDICARE, SELFPAY ==
[2021-02-07] VITALS (23 sets, daily range): BP systolic 100–158; BP diastolic 52–90; PULSE 74–110; RESP 12–24; TEMP 36.1–36.9; O2SAT 85–99; BMI 24.0
--- NOTE | ~2021-02-07 | CT_ITS ---
EXAMINATION: CTA chest PE protocol DATE: 02/08/2021 00:35 INDICATION: Hypoxia. TECHNIQUE: Computed tomography angiography (CTA) of the chest was performed with 100 mL Omnipaque-350 intravenous contrast timed to evaluate the pulmonary arteries. Coronal maximum intensity projection 3D-reconstructions were created by the technologist. Automated exposure control and iterative reconst ruction technique were employed. The dose-length product was 482.28 mGy-cm. COMPARISON: Chest CT 05/04/2019 FINDINGS: There is moderate emphysema. There is bronchial wall thickening and mild bronchiectasis in the inferior lungs. There are airspace opacities with volume loss in the lower lobes, right worse magdiel n left. There are small centrilobular nodules in the upper lobes and lower lobes. No pleural effusion . The heart size is normal. There are coronary artery calcifications. No pericardial effusion. There is mild bilateral hilar lymphadenopathy. There is no pulmonary embolus. There is chronic thickening o f the adrenal glands, likely benign. There are cysts in the liver measuring up to 9 mm. There is jann re thoracic spondylosis. IMPRESSION: 1. No pulmonary embolus. 2. Moderate emphysema. 3. Centrilobular nodules in the upper lobes and lower lobes, consistent with chronic versus recurrent infection. 4. Mild bilateral hilar lymphadenopathy, likely reactive. Reviewed, dictated and finalized at location A. TMENT MAINTENANCE WORKER IMPRESSION: 1. No pulmonary embolus. 2. Moderate emphysema. 3. Centrilobular nodules in the upper lobes and lower lobes, consistent with ch ronic versus recurrent infection. 4. Mild bilateral hilar lymphadenopathy, likely reactive.
--- NOTE | ~2021-02-07 | XR_ITS ---
EXAMINATION: XR chest 1V portable DATE: 02/07/2021 06:46 INDICATION: Shortness of breath. Hypoxia. TECHNIQUE: A single frontal view of the chest was obtained. COMPARISON: Chest 2 views 12/28/2020, chest CT 05/04/2019 FINDINGS: The lungs are hyperexpanded with lucencies, consistent with emphysema. There is mild scarri ng at the lung apices. There is mild atelectasis in the lower lung zones. No pleural effusion or pneu mothorax. The heart size is normal. IMPRESSION: 1. Mild scarring at the lung apices and mild atelectasis in the lower lung zones. 2. Emphysema. Reviewed, dictated and finalized at location A. TERER SPRAY GUN IMPRESSION: 1. Mild scarring at the lung apices and mild atelectasis in the lower lung zone s. 2. Emphysema.
--- NOTE | 2021-02-07 06:15 | ECG_ITS ---
Measurements Intervals Carrier Rate: 94 P: 82 TX: 140 QRS: -12 QRSD: 158 T: 105 QT: 403 QTc: 506 Interpretive Statements SINUS RHYTHM LEFT BUNDLE BRANCH BLOCK BASELINE ARTIFACT- V4-V6 ABNORMAL ECG Electronically Signed On 02-07-2021 8:23:36 INFORMATION SECURITY OFFICER by Juan Villafana D.O.
--- NOTE | 2021-02-07 06:33 | ED.SOB ---
HPI - SOB/Dyspnea General Chief Complaint: Shortness of Breath/Dyspnea Stated Complaint: dyspnea Time Seen by Provider: 02/07/21 05:55 Source: patient and EMS Mode of arrival: EMS Limitations: no limitations History of Present Illness HPI Narrative: This is a 70 year old male with history of CHF, hypertension, and COPD who presents for evaluation of shortness of breath. He has been having shortness of breath for 1 month. He was evaluated by his demand manager and his primary care provider. He states he was told everything was okay. His PCP started him on a new inhaler for COPD but he states this has not helped. His shortness of breath got worse this morning. He states he feels like he can not get full breath. EMS found patient to have oxygen saturation of 91% on room air and he was found to be 88% on room air in ER. He reports minimal cough and he denies chest pain, fever, chills, nausea, vomiting or diarrhea. He has been having runny nose and congestion. EMS gave patient and breathing treatment. He has not received COVID vaccination. Stunt Performer is Dr. Rodriguez and his primary care provider is Dr. Recinos. Related Data Home Medications Medication Instructions Recorded Confirmed carvedilol [Coreg] 6.25 mg PO Q12HR 09/16/19 09/16/19 [id number] 1 inh INHALATION DAILY 09/16/19 09/16/19 [Trelegy Ellipta] Allergies Allergy/AdvReac Type Severity Reaction Status Date / Time BEE STINGS Allergy Severe Anaphylaxis Uncoded 04/26/19 15:22 Review of Systems Review of Systems: All systems reviewed & are unremarkable except as noted in HPI and below Constitutional: Constitutional: Denies chills and Denies fever(s) Cardiovascular: Cardiovascular: Denies chest pain Respiratory: Respiratory: Reports cough, Reports dyspnea and Reports wheezing Gastrointestinal: Gastrointestinal: Denies abdominal pain, Denies diarrhea, Denies nausea and Denies vomiting PMFSH Past Medical History Medical History Cardiomyopathy COPD (chronic obstructive pulmonary disease) Left bundle branch block Tobacco dependence Surgical History Surgical History (Updated 04/26/19 @ 20:16 by Haley Navarro PA-C) Status post Mohs surgery Skin cancer from nose. Status post tonsillectomy and adenoidectomy Family History Family History Mother Myocardial infarct Cerebrovascular accident Dementia Father Myocardial infarct Diabetes mellitus Sibling Prostate carcinoma Social History Social History (Updated 04/26/19 @ 20:17 by Haley Navarro PA-C) Social History: The patient is and lives with his in [place]. They have 3 children. He designates his , Erica, as his surrogate decision maker and he wishes to be a full code. 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 He has smoked 1 pack of cigarettes per day for nearly 50 years, is now down to less than 0.5 pack a day. He denies alcohol and drug abuse. Smoking packs per day: 1 Smoking cigarettes per day: 20.0 Years smoked: 49 Smoking pack-years: 49.00 Smoking status: Heavy tobacco smoker Tobacco type: cigarettes Second hand tobacco smoke exposure: Yes Alcohol intake: never Substance use: never Gender identity (if verbalized by the patient): Male Spiritual care concerns: No Agree to blood products: Yes Exam Const: General: alert and ill appearing Orientation/consciousness: patient oriented x3 Eyes: EOM: EOMs intact bilaterally Chest: Chest palpation & inspection: normal inspection of the chest Resp: Effort & Inspection: tachypneic (mild) Auscultation: crackles diffuse and rhonchi Cardio: Rate: regular rate Rhythm: regular rhythm Heart sounds: no murmurs GI: GI Palp: Yes Soft to palpation, No Tenderness to palpation present (GI) and No Guarding due to palpation present (GI
[2021-02-07 06:45] LABS: Alveolar/Arterial O2 Gradient 136.1 mmHg; Base Excess ABG 4.8 mEq/l (+/-2.0); Carboxyhemoglobin 0.8 % THb (0-2.0); Fractional Inspired Oxygen 36 %; HCO3 ABG 31.6 mEq/l (22.0-26.0); Methemoglobin ABG 0.3 %THb (0-1.5); Oxygen Content ABG 19.7 %vol (16.0-22.0); Oxygen Saturation ABG 88.5 % (95.0-100.0); PCO2 ABG 54.9 mmHg (35.0-45.0); PO2 ABG 56.9 mmHg (80.0-100.0); PO2 FiO2 Ratio Arterial Blood 1.58 %; Reduced Hemoglobin 11.2 %THb (0-5.0); pH ABG 7.378 (7.350-7.450)
[2021-02-07 06:47] LABS: Device NASAL CANNULA; Modified Allen's Test Pass; Oxyhemoglobin 87.7 % THb (90.0-100.0); Site Drawn RIGHT RADIAL
[2021-02-07 06:53] LABS: Alanine Aminotransferase 16 U/L (4-50); Alkaline Phosphatase 66 U/L (38-126); Anion Gap 8 mmol/L (8-16); Aspartate Amino Transferase 23 U/L (17-59); Bilirubin,Total 0.5 mg/dL (0.2-1.3); Blood Urea Nitrogen 14 mg/dL (9-20); Calcium 8.6 mg/dL (8.4-10.2); Carbon Dioxide 33 mmol/L (22-30); Chloride 100 mmol/L (98-107); Estimated CRCL calculation 79 ml/min; Estimated Glomerular Filt Rate > 60; Glucose 118 mg/dL (65-110); Potassium 4.2 mmol/L (3.4-5.0); Sodium 141 mmol/L (137-145)
[2021-02-07 06:54] LABS: Prothrombin Time 13.1 Seconds (11.1-14.7)
[2021-02-07] MEDS: methylPREDNISolone SOD SUCC 125 MG VIAL IV PUSH (07:01)
[2021-02-07 07:05] LABS: NT Pro B Type Natriuretic Pept 122 pg/mL (5-100); Troponin I < 0.012 ng/mL (0.000-0.034)
[2021-02-07 07:07] LABS: Basophils Absolute Auto 0.1 K/mm3 (0.0-0.1); Basophils Percent Auto 0.5 % (0.2-1.2); Eosinophils Absolute Auto 0.4 K/mm3 (0-0.3); Eosinophils Percent Auto 3.8 % (0-4.4); Hematocrit 47.9 % (42.0-52.0); Hemoglobin 15.8 g/dL (14.0-18.0); Immature Granulocyte Absolute 0.02 K/mm3 (0.00-0.031); Immature Granulocyte Percent A 0.2 % (0-0.5); Lymphocytes Absolute Auto 1.47 K/mm3 (0.9-3.2); Lymphocytes Percent Auto 13.9 % (18.3-44.2); Mean Corpuscular Hemoglobin 31.5 pg (26-34); Mean Corpuscular Volume 95.6 fl (80-100); Mean Platelet Volume 11.1 fl (7.4-10.4); Monocytes Absolute Auto 0.9 K/mm3 (0.1-0.6); Monocytes Percent Auto 8.5 % (2.6-8.5); Neutrophils Absolute Auto 7.7 K/mm3 (1.3-6.7); Neutrophils Percent Auto 73.1 % (45.5-73.1); Platelet Count Result 215 k/mm3 (150-375); Red Blood Count 5.01 M/mm3 (4.6-6.20); Red Cell Distribution Width 12.4 % (11.5-14.5); White Blood Count 10.6 K/mm3 (4.5-10.0)
[2021-02-07] MEDS: IPRATROPIUM BR 0.02% INH SOLN 0.5 MG/2.5 ML VIAL 1 MG INHALATION (07:28)
[2021-02-07] MEDS: ALBUTEROL SULFATE NEB 2.5 MG/0.5 ML INH 10 MG INHALATION (07:28)
--- NOTE | 2021-02-07 10:14 | PCRCNOTE ---
patient had a 1 hour continuous nebulizer treatment at 0730
[2021-02-07 10:40] LABS: EDCOVIDSCREEN Negative (Negative)
[2021-02-07] MEDS: methylPREDNISolone SOD SUCC 125 MG VIAL 60 MG IV PUSH ×3 (12:28→23:02)
--- NOTE | 2021-02-07 12:37 | PC.NURSE ---
ordered lunch tray
[2021-02-07] MEDS: ALBUTEROL SULFATE NEB 2.5 MG/0.5 ML INH 5 MG INHALATION ×2 (12:38→21:40)
[2021-02-07] MEDS: IPRATROPIUM BR 0.02% INH SOLN 0.5 MG/2.5 ML VIAL INHALATION ×2 (12:39→21:40)
--- NOTE | 2021-02-07 14:45 | PM.IMHP ---
H&P: HPI History of Present Illness Date/Time: 02/07/21 14:45 Chief Complaint: Shortness of breath. Narrative: This is a 70-year-old male with history of tobacco abuse (quit in September 2020), chronic obstructive pulmonary disease, and nonischemic cardiomyopathy with an EF of 15-20% on echocardiogram in 04/2019 and a estimated EF of 25% on cardiac catheterization in May 2019 who presented to the emergency department earlier today via EMS from home for evaluation of shortness of breath. The patient is known to myself and the hospitalist service with admission in April 2019 at which time he presented with respiratory failure and sepsis secondary to pneumonia. At that time he was also diagnosed with the cardiomyopathy as detailed above and he was discharged home on oxygen, 4 L at rest and 6 L with exertion. He weaned himself off of oxygen within several months though he remains diligent about checking his SpO2 daily. It is not unusual for him to wake with oxygen saturations in the mid to upper 80s though that improves quite easily with deep breaths and he is able to go about his day. Per patient report, he is able to do chores about the home although he does admit that he gets winded easily and has to take frequent breaks. Over the last month or so he seems to be more short of breath and he was apparently evaluated by his primary care provider and broadloom weaver and he was told his labs and imaging were okay. He was started on a new inhaler for his COPD however that reportedly has not helped much. When he woke this morning he was much more short of breath than usual and his called 911 as he seemed to be using accessory muscles to help him breathe. At the time my evaluation he is on 15 L high-flow with SpO2 in the upper 90s and he reports feeling much better. Aside from a cough rarely productive of clear phlegm and slight rhinorrhea, he has no other complaints. He specifically denies fever, chills, sweats, nausea, vomiting, diarrhea, pleuritic pain, and sick contacts. He also denies orthopnea, PND, and lower extremity edema. Review of Systems Review of Systems: Twelve systems were reviewed. He does not think he has gained much weight. Appetite has been okay. No anosmia or dysgeusia. Except as documented, all other systems were reviewed and are negative. [facility] Past Medical History Medical History (Updated 02/07/21 @ 21:06 by Haley Navarro PA-C) Benign prostatic hyperplasia Left bundle branch block Nonischemic cardiomyopathy Ejection fraction visually estimated 25% on cardiac catheterization in May 2019. Tobacco dependence Quit in September 2020. Surgical History Surgical History (Updated 02/07/21 @ 20:58 by Haley Navarro PA-C) History of cardiac catheterization (05/2019) Status post Mohs surgery Skin cancer from nose. Status post tonsillectomy and adenoidectomy Family History Family History Mother Myocardial infarct Cerebrovascular accident Dementia Father Myocardial infarct Diabetes mellitus Sibling Prostate carcinoma Social History Social History (Updated 02/07/21 @ 20:59 by Haley Navarro PA-C) Social History: The patient is and lives with his in [place]. They have 3 children. 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 He smoked a pack of cigarettes a day for 50+ years and quit in September 2020. No alcohol or illicit substance abuse. He designates his , Erica, as his surrogate decision maker and he wishes to be a full code. Meds Home Medications and Allergies Home Medications Medication Instructions Recorded Confirmed Type spironolactone 12.5 mg PO QAM #30 tablet 05/03/19 02/07/21 Rx nebulizers #1 each 05/05/19 02/07/21 Rx carvedilol [Coreg] 6.25 mg PO Q12HR 09/16/19 02/07/21 History fcrdabkdt-SMF-AC-acetaminophen ea PO 02/07/21 History [Vicks NyQuil] sacubitril-valsartan [Entresto] 0.5 tablet PO Q12HR 02/07/21
--- NOTE | 2021-02-07 18:06 | ADMGEN ---
This patient, Gee Fan, was admitted to 3 [facility] Surg Room 331-01. Patient/family oriented to hospital policies and general routines including ID bracelet, bed and alarms, visiting hours, pain management, procedures, bathroom and other care routines, personal items, smoking policy, room service/diet, and visiting hours. Information on how to activate the Rapid Response Team has been discussed. Patient/Family are encouraged to report perceived risks to care and to ask questions if they do not understand what they are told or what they should do.
[2021-02-07] MEDS: SACUBITRIL/VALSARTAN 12-13 MG TABLET 1 TAB PO (23:01)
[2021-02-07] MEDS: carvediloL 6.25 MG TABLET PO (23:01)
[2021-02-08] VITALS (21 sets, daily range): BP systolic 123–130; BP diastolic 62–69; PULSE 71–94; RESP 16–22; TEMP 35.9–36.5; O2SAT 91–95
[2021-02-08] MEDS: IPRATROPIUM BR 0.02% INH SOLN 0.5 MG/2.5 ML VIAL INHALATION ×3 (03:02→14:44)
[2021-02-08] MEDS: ALBUTEROL SULFATE NEB 2.5 MG/0.5 ML INH 5 MG INHALATION (03:02)
[2021-02-08] MEDS: methylPREDNISolone SOD SUCC 125 MG VIAL 60 MG IV PUSH (05:48)
[2021-02-08] MEDS: ALBUTEROL SULFATE NEB 2.5 MG/0.5 ML INH INHALATION ×2 (08:55→14:44)
[2021-02-08] MEDS: ENOXAPARIN 40 MG/0.4 ML SYRINGE SUB-Q (09:13)
[2021-02-08] MEDS: SPIRONOLACTONE 12.5 MG TABLET PO (09:13)
[2021-02-08] MEDS: carvediloL 6.25 MG TABLET PO ×2 (09:13→21:49)
[2021-02-08] MEDS: SACUBITRIL/VALSARTAN 12-13 MG TABLET 1 TAB PO ×2 (09:13→21:49)
--- NOTE | 2021-02-08 10:52 | PM.CNPUL ---
Assessment and Plan Assessment and plan (1) COPD exacerbation: Code(s): J44.1 - Chronic obstructive pulmonary disease with (acute) exacerbation Status: Acute Assessment and Plan: 70-year-old male with a history of tobacco use (quit 09/2020), COPD with apical predominant centrilobular emphysema on CT scan from 05/04/2019, no PFTs available, hypoxemic respiratory failure requiring 4 L nasal cannula oxygen at rest and 6 L with ambulation in 05/20/19 after an admission which he had acute hypercarbic and hypoxemic respiratory failure from COPD exacerbation, pneumonia and fluid overload requiring BiPAP in the hospital. Of note patient refused BiPAP at the end of his hospitalization. patient has had no hospitalizations since 05/2019. Patient tells me he self weaned himself from his supplemental oxygen and he states that when he wakes up he checks his pulse oximeter and it ranges 85-90%. He then performs his grooming does not albuterol nebulizer and his saturations imprecise to 93-95% on room air. Currently the patient has worsening hypoxemia with increased cough and no change in his for phlegm production. There is some mild bibasilar infiltrates on a CT scan with a white blood cell count of 10.6. He has no evidence of congestive heart failure fluid overload, no PE, negative influenza and COVID tests. I will treat him for COPD exacerbation With Solu-Medrol 40 mg IV q.6 hours, albuterol and ipratropium nebulizers q.6 standing and given bibasilar infiltrates on CT scan will treat for community-acquired pneumonia and will restart his ceftriaxone and azithromycin for now. Discussed with Helene Contreras. Will follow with you (2) Respiratory failure with hypoxia: Code(s): J96.91 - Respiratory failure, unspecified with hypoxia Status: Acute Assessment and Plan: Patient with a history of hypoxemic respiratory failure requiring 4 L at rest and 6 with ambulation in May of 2019. He has some evidence of hypoxemia at home when he measures his own pulse oximeter. I will continue supplemental oxygen at this time with a goal of sat saturation 90-94%. Once he is more stable I will repeat a blood gas to determine if he has continued hypercarbic respiratory failure. Of note he was familiar with BiPAP and said that he had a very difficult time with BiPAP when he was admitted to the hospital in May of 2019. He said he would be willing to try CPAP or BiPAP mask in the future. History of Present Illness History of Present Illness Consult date: 02/08/21 Requesting physician: Helene Contreras PA-C Reason for consult: COPD and hypoxemia Chief complaint: copd exacerbation,acute respiratory failure with h Narrative: 02/08/2021: This is a new pulmonary consult for COPD exacerbation and hypoxemia 70-year-old male with a history of tobacco use (quit 09/2020), COPD with apical predominant centrilobular emphysema on CT scan from 05/04/2019, nonischemic cardiomyopathy with an EF of 15-25%, hypoxemic respiratory failure requiring 4 L nasal cannula oxygen at rest and 6 L with ambulation in 05/20/19 after an admission which he had acute hypercarbic and hypoxemic respiratory failure from COPD exacerbation, pneumonia and fluid overload requiring BiPAP in the hospital. Of note patient refused BiPAP at the end of his hospitalization. patient has had no hospitalizations since 05/2019. at baseline patient states he has good days and bad days and on a good day he states he can walk 2-3 blocks. On a bad day he says he can walk 1/2 a block. he is able to do dishes, vac his house but is difficult for him to carry laundry up and down the steps. He can no longer cut his grass with a push mower and uses a riding mower. He does get shortness of breath with dressing and dressing. He had never has rest shortness of breath. Patient smoked cigarettes from [id number] and then from 2011 to September of 2020 for total of 40 pack years. Mirna
[2021-02-08] MEDS: methylPREDNISolone SOD SUCC 40 MG VIAL IV PUSH ×2 (11:57→17:04)
--- NOTE | 2021-02-08 15:27 | PM.IMPN ---
Progress Note: A&P Assessment and Plan (1) Acute respiratory failure with hypoxia: Code(s): J96.01 - Acute respiratory failure with hypoxia Status: Acute Assessment and Plan: Likely due to acute COPD exacerbation and chronic heart failure -patient required oxygen in the wean himself off and has not had it in about a year and a half -will need home O2 evaluation at discharge -he has tried oral antibiotics outpatient. No further antibiotics needed. Will continue IV steroids at this time -CTA of the chest showed no PE, moderate emphysema and central lobular nodules with mild bilateral hilar lymphadenopathy -will check echo, BNP is normal. No signs of acute CHF exacerbation -pulmonology consulted, I spoke with him about the plan of care (2) COPD exacerbation: Code(s): J44.1 - Chronic obstructive pulmonary disease with (acute) exacerbation Status: Acute Assessment and Plan: Continue scheduled nebulizers and Solu-Medrol -patient takes trilogy at home (3) Person under investigation for COVID-19: Code(s): Z20.822 - Contact with and (suspected) exposure to COVID-19 Status: Acute Assessment and Plan: Point of care is negative, PCR still pending. I do not suspect COVID at this time (4) Nonischemic cardiomyopathy: Code(s): I42.8 - Other cardiomyopathies Status: Acute Assessment and Plan: He appears clinically compensated at this time -Continue carvedilol and Entresto -echo ordered -[facility] Time Spent With Patient Time with patient: 25 - 35 minutes Subjective Date/time seen: 02/08/21 15:27 Interval history: Pt is a 70-year-old male here for COPD exacerbation. Patient was seen today and states he feels so much better compared to yesterday but still not great. He said he has been feeling short of breath on and off for weeks. He does not have much of a cough. He has no shortness of breath at rest currently and he is able to walk to the bathroom without issue. No chest pain. He is eating and drinking well with no nausea or vomiting. Review of Systems Review of Systems: All systems reviewed & are unremarkable except as noted in HPI and below Exam Narrative: General: Well developed well nourished patient in NAD HEENT: normocephalic Neck: supple Neuro: Alert and oriented x4 CV:RRR with mildly decreased heart sounds. tele shows PVC no further abnormalities Resp:decreased breath sounds bilaterally, no wheezing, crackles or conversational dyspnea. on high flow Abd: Soft, non distended. No pain to palpation. Positive bowel sounds Extremities: No swelling, erythema, or pain to palpation. Objective Data Vital Signs Vital Signs: Vital Signs - 24 hr 02/07/21 16:40 02/07/21 17:39 02/07/21 18:11 Temperature Pulse Rate 101 H 91 110 H Respiratory Rate 12 12 Blood Pressure 115/63 100/75 Pulse Oximetry 98 98 94 02/07/21 20:00 02/07/21 21:39 02/07/21 22:00 Temperature 96.9 F L Pulse Rate 88 84 86 Respiratory Rate 22 H 18 Blood Pressure 103/61 Pulse Oximetry 94 94 02/07/21 23:01 02/08/21 00:00 02/08/21 03:03 Temperature Pulse Rate 74 74 80 Respiratory Rate 22 H Blood Pressure Pulse Oximetry 02/08/21 03:14 02/08/21 04:00 02/08/21 06:00 Temperature 96.7 F L Pulse Rate 84 83 82 Respiratory Rate 18 Blood Pressure 123/63 Pulse Oximetry 95 02/08/21 07:50 02/08/21 07:57 02/08/21 08:00 Temperature Pulse Rate 80 Respiratory Rate Blood Pressure Pulse Oximetry 94 93 94 02/08/21 09:11 02/08/21 09:13 02/08/21 09:20 Temperature Pulse Rate 75 83 Respiratory Rate 20 Blood Pressure Pulse Oximetry 94 02/08/21 09:25 02/08/21 12:00 02/08/21 14:40 Temperature Pulse Rate 88 76 71 Respiratory Rate 20 Blood Pressure Pulse Oximetry 02/08/21 14:49 Temperature Pulse Rate 74 Respiratory Rate Blood Pressure Pulse O
[2021-02-08 19:26] LABS: SARS-CoV-2 RNA PCR Negative
--- NOTE | 2021-02-08 23:27 | PCRCNOTE ---
therapist in code yellow ed
[2021-02-09] VITALS (17 sets, daily range): BP systolic 109–126; BP diastolic 52–71; PULSE 63–78; RESP 18–20; TEMP 36.5–37.6; O2SAT 90–95
[2021-02-09] MEDS: IPRATROPIUM BR 0.02% INH SOLN 0.5 MG/2.5 ML VIAL INHALATION ×2 (02:37→15:34)
[2021-02-09] MEDS: ALBUTEROL SULFATE NEB 2.5 MG/0.5 ML INH INHALATION ×2 (02:37→15:34)
[2021-02-09] MEDS: methylPREDNISolone SOD SUCC 40 MG VIAL IV PUSH (04:59)
[2021-02-09 07:34] LABS: Hematocrit 45.4 % (42.0-52.0); Hemoglobin 15.2 g/dL (14.0-18.0); Mean Corpuscular HGB Conc 33.5 g/dl (32-36); Mean Corpuscular Hemoglobin 31.1 pg (26-34); Mean Corpuscular Volume 92.8 fl (80-100); Mean Platelet Volume 10.7 fl (7.4-10.4); Platelet Count Result 253 k/mm3 (150-375); Red Blood Count 4.89 M/mm3 (4.6-6.20); Red Cell Distribution Width 12.5 % (11.5-14.5); White Blood Count 15.9 K/mm3 (4.5-10.0)
--- NOTE | 2021-02-09 07:38 | PM.PNPUL ---
Progress Note: A&P Assessment and Plan (1) COPD exacerbation: Code(s): J44.1 - Chronic obstructive pulmonary disease with (acute) exacerbation Status: Acute Assessment and Plan: 70-year-old male with a history of tobacco use (quit 09/2020), COPD with apical predominant centrilobular emphysema on CT scan from 05/04/2019, no PFTs available, hypoxemic respiratory failure requiring 4 L nasal cannula oxygen at rest and 6 L with ambulation in 05/20/19 after an admission which he had acute hypercarbic and hypoxemic respiratory failure from COPD exacerbation, pneumonia and fluid overload requiring BiPAP in the hospital. Of note patient refused BiPAP at the end of his hospitalization. patient has had no hospitalizations since 05/2019. Patient tells me he self weaned himself from his supplemental oxygen and he states that when he wakes up he checks his pulse oximeter and it ranges 85-90%. He then performs his grooming does not albuterol nebulizer and his saturations imprecise to 93-95% on room air. 02/08 Currently the patient has worsening hypoxemia with increased cough and no change in his for phlegm production. There is some mild bibasilar infiltrates on a CT scan with a white blood cell count of 10.6. He has no evidence of congestive heart failure fluid overload, no PE, negative influenza and COVID tests. I will treat him for COPD exacerbation With Solu-Medrol 40 mg IV q.6 hours, albuterol and ipratropium nebulizers q.6 standing and given bibasilar infiltrates on CT scan will treat for community-acquired pneumonia and will restart his ceftriaxone and azithromycin for now. 02/09/2021. Patient tells me he continues to improve. He says his breathing is better. He denies phlegm production or hemoptysis. No wheezes on exam. White blood cell count 15.9, he is afebrile. I will switch him to prednisone 40 mg p.o. q.day. If he continues to improve anticipate DC on 02/10 on these pulmonary medications. levofloxacin 750 mg p.o. q.day times 5 days Prednisone 40 mg PO X 4 days Trelegy 200/62.5.25 at 1 puff q.day rescue albuterol inhaler and nebulizers q.4 hours p.r.n. shortness of breath and wheezing oxygen per formal home O2 study done on 02/10 oxygen at night per overnight oximetry. Will follow with you (2) Respiratory failure with hypoxia: Code(s): J96.91 - Respiratory failure, unspecified with hypoxia Status: Acute Assessment and Plan: Patient with a history of hypoxemic respiratory failure requiring 4 L at rest and 6 with ambulation in May of 2019. He has some evidence of hypoxemia at home when he measures his own pulse oximeter. I will continue supplemental oxygen at this time with a goal of sat saturation 90-94%. Once he is more stable I will repeat a blood gas to determine if he has continued hypercarbic respiratory failure. Of note he was familiar with BiPAP and said that he had a very difficult time with BiPAP when he was admitted to the hospital in May of 2019. He said he would be willing to try CPAP or BiPAP mask in the future. 02/09 patient's oxygenation has improved and although the computer says 8 L high-flow nasal cannula he is currently on 7 L high-flow nasal cannula with saturation 95%. Will order an overnight oximetry on 6 L to night to determine if this is adequate. He will need a formal home O2 assessment prior to discharge to determine his oxygen requirements at rest and with ambulation. (3) Multiple nodules of lung: Code(s): R91.8 - Other nonspecific abnormal finding of lung field Status: Acute Assessment and Plan: Patient with multiple small centrilobular nodules throughout both lungs that were present on 05/04/2019. He has no complaints of connective tissue disease such as arthritis, pleurisy, swollen joints or rashes. He has no night sweats or chronic weight loss or hemoptysis. He has no recent exposure to new pets such as birds. He has no chr
[2021-02-09 07:49] LABS: Anion Gap 4 mmol/L (8-16); Blood Urea Nitrogen 19 mg/dL (9-20); Calcium 8.8 mg/dL (8.4-10.2); Carbon Dioxide 35 mmol/L (22-30); Chloride 96 mmol/L (98-107); Estimated CRCL calculation 102 ml/min; Estimated Glomerular Filt Rate > 60; Glucose 136 mg/dL (65-110); Potassium 4.3 mmol/L (3.4-5.0); Sodium 135 mmol/L (137-145)
[2021-02-09] MEDS: ENOXAPARIN 40 MG/0.4 ML SYRINGE SUB-Q (09:07)
[2021-02-09] MEDS: SPIRONOLACTONE 12.5 MG TABLET PO (09:08)
[2021-02-09] MEDS: SACUBITRIL/VALSARTAN 12-13 MG TABLET 1 TAB PO ×2 (09:08→21:22)
[2021-02-09] MEDS: carvediloL 6.25 MG TABLET PO ×2 (09:09→21:22)
[2021-02-09] MEDS: predniSONE 20 MG TABLET 40 MG PO (09:19)
[2021-02-09 10:08] LABS: Rheumatoid Factor 18.8 IU/ML (<12)
--- NOTE | 2021-02-09 10:42 | PCRCNOTE ---
Window of time for administration has passed. See next scheduled administration.
--- NOTE | 2021-02-09 12:23 | PM.IMPN ---
Progress Note: A&P Assessment and Plan (1) Acute respiratory failure with hypoxia: Code(s): J96.01 - Acute respiratory failure with hypoxia Status: Acute Assessment and Plan: Likely due to acute COPD exacerbation and chronic heart failure -patient required oxygen in the past but weaned himself off and has not had it in about a year and a half -will need home O2 evaluation at discharge -he has tried oral antibiotics outpatient. No further antibiotics needed. Will continue steroids at this time -CTA of the chest showed no PE, moderate emphysema and central lobular nodules with mild bilateral hilar lymphadenopathy -await echo, BNP is normal. No signs of acute CHF exacerbation -pulmonology consulted (2) COPD exacerbation: Code(s): J44.1 - Chronic obstructive pulmonary disease with (acute) exacerbation Status: Acute Assessment and Plan: Continue scheduled nebulizers and prednisone -patient takes trilogy at home (3) Nonischemic cardiomyopathy: Code(s): I42.8 - Other cardiomyopathies Status: Acute Assessment and Plan: He appears clinically compensated at this time -Continue carvedilol and Entresto -echo ordered -[facility] Subjective Date/time seen: 02/09/21 12:23 Interval history: Pt is a 70-year-old male here for COPD exacerbation. Patient was seen today and states he feels okay. He continues to have SOB and slight cough but this is dry. he denies hemoptysis, chest pain, nausea, vomiting, fevers, chills, or abdominal pain. Exam Narrative: General: Well developed well nourished patient in NAD HEENT: normocephalic Neck: supple Neuro: Alert and oriented x4 CV:RRR with mildly decreased heart sounds. tele shows PVC no further abnormalities Resp:decreased breath sounds bilaterally, no wheezing, crackles or conversational dyspnea. on 10L and transitioned to 8L while I was in the room. Abd: Soft, non distended. No pain to palpation. Positive bowel sounds Extremities: No swelling, erythema, or pain to palpation. Objective Data Vital Signs Vital Signs: Vital Signs - 24 hr 02/08/21 14:00 02/08/21 14:40 02/08/21 14:49 Temperature 97.1 F L Pulse Rate 79 71 74 Respiratory Rate 16 20 Blood Pressure 130/62 Pulse Oximetry 94 02/08/21 15:35 02/08/21 16:00 02/08/21 20:00 Temperature Pulse Rate 81 89 Respiratory Rate Blood Pressure Pulse Oximetry 94 94 02/08/21 21:49 02/08/21 22:00 02/09/21 00:00 Temperature 97.7 F Pulse Rate 94 84 72 Respiratory Rate 18 Blood Pressure 130/69 Pulse Oximetry 91 95 02/09/21 02:40 02/09/21 02:41 02/09/21 02:48 Temperature Pulse Rate 75 78 Respiratory Rate 18 18 Blood Pressure Pulse Oximetry 92 02/09/21 04:00 02/09/21 05:45 02/09/21 08:00 Temperature 98.1 F Pulse Rate 63 65 Respiratory Rate 18 Blood Pressure 126/52 L Pulse Oximetry 95 95 92 02/09/21 09:09 Temperature Pulse Rate 67 Respiratory Rate Blood Pressure Pulse Oximetry Intake/Output Intake/Output: Intake & Output 02/06/21 02/07/21 02/08/21 02/09/21 23:59 23:59 23:59 23:59 Intake Total 300 1636 240 Output Total 0 Balance 300 1636 240 Meds/Results Medications: Active Medications Generic Name Dose Route Start Last Admin Trade Name Freq PRN Reason Stop Dose Admin Acetaminophen 650 mg 02/07/21 21:14 Acetaminophen 325 Mg Tablet PO Q6H PRN Mild Pain (1-3) or Fever Albuterol 2.5 mg 02/08/21 08:00 02/09/21 10:42 Albuterol Sulfate Neb 2.5 Mg/0.5 Ml Inh INHALATION Not Given Q6HRT POLLY Carvedilol 6.25 mg 02/07/21 21:00 02/09/21 09:09 Carvedilol 6.25 Mg Tablet PO 6.25 mg Q12HR POLLY Administration Enoxaparin Sodium 40 mg 02/08/21 09:00 02/09/21 09:07 Enoxaparin 40 Mg/0.4 Ml Syringe SUB-Q 40 mg DAILY POLLY Administration Azithromycin 250 mg/ Dextrose 250 mls @ 250 mls/hr 02/08/21 12:00 02/08/21
--- NOTE | 2021-02-09 21:11 | ECHO_ITS ---
Patient Info Name: Gee Fan Age: 70 years : 1950 Gender: Male Ht: 71 in Wt: 168 lbs BSA: 1.96 m2 HR: 89 bpm Heart Rhythm: Sinus Rhythm Technical Quality: Poor Exam Date: 02/09/2021 9:42 AM Exam Location: [facility] Pul[facility] Patient Status: Inpatient Admit Date: 02/08/2021 Staff Ordering Physician: Haley Navarro PA-C Sharepoint Application Architect: Mahogany Melendez RDCS Attending Provider: Helene Contreras PA-C Referring Physician: Melanie GALVAN; Exam Type: CA echo dop color flow w con Study Info Indications R06.00 - Dyspnea, unspecified R06.02 - Shortness of breath Complete two-dimensional, color flow and Doppler transthoracic echocardiogram is performed with contrast to opacify the left ventricle and to improve the deliniation of the left ventricle endocardial borders. Contrast/Agitated Saline Contrast/Ag. Saline: Definity Amount: 4.00 ml Summary 1. Definity contrast injected to improve visualization. 2. Mild left ventricular hypertrophy normal systolic function and septal wall motion abnormality due to bundle branch block. 3. No significant valvular abnormality. 4. Compared to echo from last year there has been dramatic improvement in LV systolic function. Left Ventricle Left ventricular systolic function is normal, estimated at 55-60%. There is mild concentric increased left ventricular wall thickness. Left ventricular septal wall motion is abnormal with septal motion related to bundle branch block. The left ventricular diastolic function is grade I diastolic dysfunction. Right Ventricle Right ventricular chamber dimension is normal. Left Atria Left atrial chamber dimension is mildly enlarged. Right Atria Right atrial chamber dimension is normal. Aortic Valve The aortic valve is trileaflet. There is mild aortic valve sclerosis. Pulmonic Valve The pulmonic valve is not well visualized. Mitral Valve The mitral valve has normal leaflets. Tricuspid Valve The tricuspid valve leaflets are normal. Pericardium/Pleural The pericardium appears normal. Aorta The aortic root size at the sinus of Valsalva is normal. Left Ventricular Outflow Tract Name Value Normal LVOT 2D LVOT Diameter 2.12 cm LVOT Doppler LVOT Peak Gradient 7 mmHg LVOT Mean Gradient 3 mmHg LVOT VTI 23.34 cm LVOT VTI/AV VTI Ratio 0.99 LVOT Stroke Volume 82.71 ml LVOT CO 7.22 l/min LVOT CI 3.69 L/min/m2 Pulmonic Valve Name Value Normal PV Doppler PV Peak Gradient 3 mmHg Mitral Valve Name Value N
--- NOTE | 2021-02-09 22:54 | PCRCNOTE ---
Window of time for administration has passed. See next scheduled administration.
[2021-02-10] VITALS (10 sets, daily range): BP systolic 113–119; BP diastolic 62–68; PULSE 65–85; RESP 16–20; TEMP 36.4–36.9; O2SAT 90–95
[2021-02-10 07:28] LABS: Hematocrit 42.1 % (42.0-52.0); Hemoglobin 14.1 g/dL (14.0-18.0); Mean Corpuscular HGB Conc 33.5 g/dl (32-36); Mean Corpuscular Hemoglobin 30.9 pg (26-34); Mean Corpuscular Volume 92.3 fl (80-100); Mean Platelet Volume 10.7 fl (7.4-10.4); Platelet Count Result 236 k/mm3 (150-375); Red Blood Count 4.56 M/mm3 (4.6-6.20); Red Cell Distribution Width 12.4 % (11.5-14.5); White Blood Count 11.1 K/mm3 (4.5-10.0)
[2021-02-10 07:46] LABS: Anion Gap 2 mmol/L (8-16); Blood Urea Nitrogen 18 mg/dL (9-20); CRP < 0.5 mg/dL (<1.0); Calcium 8.5 mg/dL (8.4-10.2); Carbon Dioxide 34 mmol/L (22-30); Chloride 94 mmol/L (98-107); Estimated CRCL calculation 102 ml/min; Estimated Glomerular Filt Rate > 60; Glucose 104 mg/dL (65-110); Potassium 3.9 mmol/L (3.4-5.0); Sodium 130 mmol/L (137-145)
[2021-02-10] MEDS: carvediloL 6.25 MG TABLET PO ×2 (09:20→22:07)
[2021-02-10] MEDS: SPIRONOLACTONE 12.5 MG TABLET PO (09:20)
[2021-02-10] MEDS: predniSONE 20 MG TABLET 40 MG PO (09:20)
[2021-02-10] MEDS: SACUBITRIL/VALSARTAN 12-13 MG TABLET 1 TAB PO ×2 (09:20→22:08)
[2021-02-10] MEDS: ENOXAPARIN 40 MG/0.4 ML SYRINGE SUB-Q (09:21)
[2021-02-10] MEDS: IPRATROPIUM BR 0.02% INH SOLN 0.5 MG/2.5 ML VIAL INHALATION ×2 (09:32→16:21)
[2021-02-10] MEDS: ALBUTEROL SULFATE NEB 2.5 MG/0.5 ML INH INHALATION ×2 (09:32→16:20)
--- NOTE | 2021-02-10 12:57 | PM.PNPUL ---
Progress Note: A&P Assessment and Plan (1) COPD exacerbation: Code(s): J44.1 - Chronic obstructive pulmonary disease with (acute) exacerbation Status: Acute Assessment and Plan: 70-year-old male with a history of tobacco use (quit 09/2020), COPD with apical predominant centrilobular emphysema on CT scan from 05/04/2019, no PFTs available, hypoxemic respiratory failure requiring 4 L nasal cannula oxygen at rest and 6 L with ambulation in 05/20/19 after an admission which he had acute hypercarbic and hypoxemic respiratory failure from COPD exacerbation, pneumonia and fluid overload requiring BiPAP in the hospital. Of note patient refused BiPAP at the end of his hospitalization. patient has had no hospitalizations since 05/2019. Patient tells me he self weaned himself from his supplemental oxygen and he states that when he wakes up he checks his pulse oximeter and it ranges 85-90%. He then performs his grooming does not albuterol nebulizer and his saturations imprecise to 93-95% on room air. 02/08 Currently the patient has worsening hypoxemia with increased cough and no change in his for phlegm production. There is some mild bibasilar infiltrates on a CT scan with a white blood cell count of 10.6. He has no evidence of congestive heart failure fluid overload, no PE, negative influenza and COVID tests. I will treat him for COPD exacerbation With Solu-Medrol 40 mg IV q.6 hours, albuterol and ipratropium nebulizers q.6 standing and given bibasilar infiltrates on CT scan will treat for community-acquired pneumonia and will restart his ceftriaxone and azithromycin for now. 02/09/2021. Patient tells me he continues to improve. He says his breathing is better. He denies phlegm production or hemoptysis. No wheezes on exam. White blood cell count 15.9, he is afebrile. I will switch him to prednisone 40 mg p.o. q.day. If he continues to improve anticipate DC on 02/10 on these pulmonary medications. 02/09/2021. Patient tells me he has continues to improve and is ready for discharge. He had an overnight oximetry on 7 L high-flow nasal cannula with average saturation 95%, lowest saturation 83%, time with saturation less than or equal to 88% was 7 minutes or 2% of the monitored time. Currently on 5 L nasal cannula oxygen with saturations 92%. Luis 875-125 BID for total of 7 days antibiotics Prednisone 40 mg PO X 4 days Belinda 200/62.5.25 at 1 puff q.day rescue albuterol inhaler and nebulizers q.4 hours p.r.n. shortness of breath and wheezing oxygen per formal home O2 study done on 02/10 7 L NC oxygen at night. Follow up in Pulmonary Clinic in 4 weeks. I gave the patient our business card. I informed our joint filler. Discussed with Helene Contreras (2) Respiratory failure with hypoxia: Code(s): J96.91 - Respiratory failure, unspecified with hypoxia Status: Acute Assessment and Plan: Patient with a history of hypoxemic respiratory failure requiring 4 L at rest and 6 with ambulation in May of 2019. He has some evidence of hypoxemia at home when he measures his own pulse oximeter. I will continue supplemental oxygen at this time with a goal of sat saturation 90-94%. Once he is more stable I will repeat a blood gas to determine if he has continued hypercarbic respiratory failure. Of note he was familiar with BiPAP and said that he had a very difficult time with BiPAP when he was admitted to the hospital in May of 2019. He said he would be willing to try CPAP or BiPAP mask in the future. 02/09 patient's oxygenation has improved and although the computer says 8 L high-flow nasal cannula he is currently on 7 L high-flow nasal cannula with saturation 95%. Will order an overnight oximetry on 6 L to night to determine if this is adequate. He will need a formal home O2 assessment prior to discharge to determine his oxygen requirements at rest and with ambulation. 02/10 Currently on 5 L n
--- NOTE | 2021-02-10 13:00 | PM.IMPN ---
Progress Note: A&P Assessment and Plan (1) Discharge planning issues: Code(s): Z02.9 - Encounter for administrative examinations, unspecified Status: Acute Assessment and Plan: discharge delay due to inability to perform home oxygen evaluation. he will be discharged 02/11/2021 after this is complete. (2) Acute respiratory failure with hypoxia: Code(s): J96.01 - Acute respiratory failure with hypoxia Status: Acute Assessment and Plan: Likely due to acute COPD exacerbation and chronic heart failure -patient required oxygen in the past but weaned himself off and has not had it in about a year and a half - await home O2 eval - will go home on Augmentin -CTA of the chest showed no PE, moderate emphysema and central lobular nodules with mild bilateral hilar lymphadenopathy -await echo, BNP is normal. No signs of acute CHF exacerbation -pulmonology consulted (3) COPD exacerbation: Code(s): J44.1 - Chronic obstructive pulmonary disease with (acute) exacerbation Status: Acute Assessment and Plan: Continue scheduled nebulizers and prednisone -patient takes trilogy at home (4) Nonischemic cardiomyopathy: Code(s): I42.8 - Other cardiomyopathies Status: Acute Assessment and Plan: He appears clinically compensated at this time -Continue carvedilol and Entresto -echo shows improvement of his EF at 55% -[facility] (5) Rheumatoid factor positive: Code(s): R76.8 - Other specified abnormal immunological findings in serum Status: Acute Assessment and Plan: will need to follow up with Rheumatology. I do not suspect this is the cause of his lung disease but will need to have a further workup by grain blender Subjective Date/time seen: late entry 02/10/21 1300 Interval history: Pt is a 70-year-old male here for COPD exacerbation. Patient was seen today and states he feels ready to go home. He continues to have SOB and slight cough but this is dry. He denies hemoptysis, chest pain, nausea, vomiting, fevers, chills, or abdominal pain. Exam Narrative: General: Well developed well nourished patient in NAD HEENT: normocephalic Neck: supple Neuro: Alert and oriented x4 CV:RRR with mildly decreased heart sounds. Resp:decreased breath sounds bilaterally, no wheezing, crackles or conversational dyspnea. on 10L and transitioned to 5L while I was in the room. Abd: Soft, non distended. No pain to palpation. Positive bowel sounds Extremities: No swelling, erythema, or pain to palpation. Objective Data Vital Signs Vital Signs: Vital Signs - 24 hr 02/10/21 08:00 02/10/21 09:20 02/10/21 09:32 Temperature Pulse Rate 82 82 Respiratory Rate 18 Blood Pressure Pulse Oximetry 91 02/10/21 09:42 02/10/21 14:00 02/10/21 20:00 Temperature 97.5 F L Pulse Rate 85 77 Respiratory Rate 18 20 Blood Pressure 113/62 Pulse Oximetry 91 95 02/10/21 21:37 02/10/21 22:07 02/11/21 02:12 Temperature 98.5 F Pulse Rate 74 74 65 Respiratory Rate 18 Blood Pressure 119/64 Pulse Oximetry 90 92 02/11/21 02:19 02/11/21 05:53 Temperature 97.0 F L Pulse Rate 67 70 Respiratory Rate 18 Blood Pressure 132/72 Pulse Oximetry 94 Intake/Output Intake/Output: Intake & Output 02/08/21 02/09/21 02/10/21 02/11/21 23:59 23:59 23:59 23:59 Intake Total 1636 2130 2270 750 Output Total 0 1200 600 Balance 1636 2130 1070 150 Meds/Results Medications: Active Medications Generic Name Dose Route Start Last Admin Trade Name Freq PRN Reason Stop Dose Admin Acetaminophen 650 mg 02/07/21 21:14 Acetaminophen 325 Mg Tablet PO Q6H PRN Mild Pain (1-3) or Fever Albuterol 2.5 mg 02/08/21 08:00 02/11/21 02:17 Albuterol Sulfate Neb 2.5 Mg/0.5 Ml Inh INHALATION Not Given Q6HRT [facility] Carvedilol 6.25 mg 02/07/21 21:00 02/10/21 22:07 Carvedilol 6.25
--- NOTE | 2021-02-10 15:36 | PCRCNOTE ---
UNABLE TO DO HOME OXYGEN EVALUATION DR. COLBERT AWARE. WILL BE DONE TOMORROW A.M.
--- NOTE | 2021-02-10 16:21 | PCRCNOTE ---
Window of time for administration has passed. See next scheduled administration.
[2021-02-11] VITALS (18 sets, daily range): BP systolic 110–132; BP diastolic 62–72; PULSE 65–92; RESP 18–24; TEMP 36.1–36.3; O2SAT 85–99
[2021-02-11] MEDS: ALBUTEROL SULFATE NEB 2.5 MG/0.5 ML INH INHALATION ×4 (02:11→13:19)
[2021-02-11] MEDS: IPRATROPIUM BR 0.02% INH SOLN 0.5 MG/2.5 ML VIAL INHALATION ×3 (02:11→13:18)
[2021-02-11 07:02] LABS: Anion Gap 2 mmol/L (8-16); Blood Urea Nitrogen 17 mg/dL (9-20); Calcium 8.6 mg/dL (8.4-10.2); Carbon Dioxide 38 mmol/L (22-30); Chloride 95 mmol/L (98-107); Estimated CRCL calculation 76 ml/min; Estimated Glomerular Filt Rate > 60; Glucose 96 mg/dL (65-110); Potassium 4.5 mmol/L (3.4-5.0); Sodium 135 mmol/L (137-145)
[2021-02-11] MEDS: ENOXAPARIN 40 MG/0.4 ML SYRINGE SUB-Q (08:33)
[2021-02-11] MEDS: predniSONE 20 MG TABLET 40 MG PO (08:33)
[2021-02-11] MEDS: SACUBITRIL/VALSARTAN 12-13 MG TABLET 1 TAB PO (08:33)
[2021-02-11] MEDS: SPIRONOLACTONE 12.5 MG TABLET PO (08:33)
[2021-02-11] MEDS: carvediloL 6.25 MG TABLET PO (08:33)
--- NOTE | 2021-02-11 12:01 | PM.DS ---
DS: Admitting Diagnosis Discharge Date 02/11/21 Admitting Diagnosis copd exacerbation DS: Discharge Diagnosis Discharge Diagnosis (1) Discharge planning issues: Code(s): Z02.9 - Encounter for administrative examinations, unspecified Status: Acute Assessment and Plan: discharge was delayed one day due to inability to perform home oxygen evaluation and obtain equipment. (2) Acute respiratory failure with hypoxia: Code(s): J96.01 - Acute respiratory failure with hypoxia Status: Acute Assessment and Plan: Likely due to acute COPD exacerbation and chronic heart failure -patient required oxygen in the past but weaned himself off and has not had it in about a year and a half -home o2 shows he needs 5L at rest and with acitivty and 7 at night -sent home on Augmentin for possible bacterial cause -CTA of the chest showed no PE, moderate emphysema and central lobular nodules with mild bilateral hilar lymphadenopathy -echo shows improvement of his EF now 55-60%. No signs of acute CHF exacerbation -pulmonology consulted and helped with plan of care. f/u outpt (3) COPD exacerbation: Code(s): J44.1 - Chronic obstructive pulmonary disease with (acute) exacerbation Status: Acute Assessment and Plan: Continue scheduled nebulizers and prednisone -patient takes trilogy at home (4) Nonischemic cardiomyopathy: Code(s): I42.8 - Other cardiomyopathies Status: Acute Assessment and Plan: He appears clinically compensated at this time -Continue carvedilol and Entresto -echo shows improvement of his EF at 55% -[facility] sees [facility] (5) Rheumatoid factor positive: Code(s): R76.8 - Other specified abnormal immunological findings in serum Status: Acute Assessment and Plan: will need to follow up with Rheumatology. I do not suspect this is the cause of his lung disease but will need to have a further workup by rivet passer. Further w/u from pulm still pending (ANCA, KAMRAN etc) DS: Summary Hospital Course Hospital Course: DOS 02/11/21 Patient is a 70-year-old male who presented emergency room on 02/08/2020 wine for shortness of breath that was ongoing for awhile. Vitals in the ER was temp 98.5, pulse 97, RR 24, bp 158/90, pulse ox 88 on RA. WBC 10.6, hgb 15.8, hct 47.9, platelets 215. bmp relatively normal. Influenza negative. CXR showed mild scarring of the lung apices with emphysema. Patient was placed on oxygen, steroids and antibiotics and admitted to the hospitalist service. Further workup was done which showed a negative CRP and CTA with no PE, moderate emphysema, centrilobular nodules in the upper lobes and lower lobes consistent with chronic versus recurrent infection and mild bilateral hilar lymphadenopathy. Pulmonology was consulted and adjusted his medications. It is unclear if the patient was acutely infected as this might be a more chronic process. His CRP was normal but he did improve with antibiotics and steroids. Echo was performed to assess heart function which showed a normal EF of 55% which is a big improvement since his last 1. The patient was was to be on chronic oxygen but had weaned himself off of it. Pulmonology did a small autoimmune workup in his rheumatoid factor was positive and other labs were still pending. I recommended that he see a rivet passer and follow-up with the metal machine operator outpatient for such. Home oxygen evaluation showed the patient needed 5 L of oxygen with rest and activity and 7 L with sleep. Overall, the patient was feeling much better and ready to go home. He was educated about the worrisome signs and symptoms to come back to emergency room for and was discharged in stable condition to follow-up with Rheumatology and pulmonology. Status at Discharge Functional status at discharge: independent ambulation Overall status at discharge: patient is progressing back to baseline Time Spent
--- NOTE | 2021-02-11 12:11 | HOMEO2EVAL ---
Evaluation was performed at [facility] Home Oxygen Evaluation RC: Home Oxygen (O2) Evaluation Start: 02/10/21 09:00 Freq: ONCE Status: Active Protocol: RPE Activity Type Activity Date Activity User E-Sign Co-Sign Detail Recorded Client Recorded Date Recorded By Document 02/11/21 11:00 [email or web address] [email or web address] 02/11/21 12:08 OLY Document 02/11/21 11:01 OLY [email or web address] 02/11/21 12:08 OLY Document 02/11/21 11:02 OLY [email or web address] 02/11/21 12:08 OLY Document 02/11/21 11:03 OLY [email or web address] 02/11/21 12:08 OLY Document 02/11/21 11:04 OLY [email or web address] 02/11/21 12:08 OLY Document 02/11/21 11:05 OLY [email or web address] 02/11/21 12:08 OLY Document 02/11/21 11:20 OLY [email or web address] 02/11/21 12:08 OLY 02/11/21 02/11/21 02/11/21 11:00 11:01 11:02 Home O2 Evaluation Test Phase Resting Resting Resting Oxygen Delivery Room Air High Flow Nasal High Flow Nasal Cannula Cannula Oxygen Flow Rate (L/min) 2 3 Pulse Oximetry (90-100 %) 85 L 86 L 86 L Home Oxygen Evaluation Comments Treatment Charges O2 Evaluation - Inpatient 02/11/21 02/11/21 02/11/21 11:03 11:04 11:05 Home O2 Evaluation Test Phase Resting Resting Exercise Oxygen Delivery High Flow Nasal High Flow Nasal Oxymizer Cannula Cannula Oxygen Flow Rate (L/min) 4 5 5 Pulse Oximetry (90-100 %) 87 L 90 89 L Home Oxygen Evaluation Comments PT REQUIRES 5 L HIGH FLOW CANNULA AT REST AND SWITCH TO OXYMIXER AT 5 L WITH ACTIVITY Treatment Charges 02/11/21 11:20 Home O2 Evaluation Test Phase Resting Oxygen Delivery High Flow Nasal Cannula Oxygen Flow Rate (L/min) 5 Pulse Oximetry (90-100 %) 92 Home Oxygen Evaluation Comments Treatment Charges
--- NOTE | 2021-02-11 13:46 | PCRCNOTE ---
HOME O2 SET UP COMPLETE. [facility], CONTACT NAME JENNI. PHONE # [phone]. WILL BE HERE WITH TANK D/C HOME AT APPROX 1430. 5L HFNC REST 5L OXYMIZER ACTIVITY 7L HFNC WITH SLEEP.
[2021-02-13 23:02] LABS: ANCA Screen Negative (Negative)
[2021-02-14 08:00] LABS: ANA Cascade Screen Negative (Negative)
== END 2021-02-11 14:54 | disposition home or self-care (01) | DRG 190 ==
LOC: ANHED 07:46 → ANH3MEDSUR 08:48
PROVIDERS: Internal Medicine Pulmonary Disease; Physician Assistant; Admitting Provider Internal Medicine; Emergency Provider General Practice; PCP Family Medicine Adolescent Medicine; Visit Provider Family Medicine
DX: J43.9 Emphysema, unspecified (principal); J96.01 Acute respiratory failure with hypoxia; I42.8 Other cardiomyopathies; Z20.822 Contact with and (suspected) exposure to COVID-19; I11.0 Hypertensive heart disease with heart failure; I50.9 Heart failure, unspecified; R76.8 Other specified abnormal immunological findings in serum; N40.0 Benign prostatic hyperplasia without lower urinary tract symptoms; R91.8 Other nonspecific abnormal finding of lung field; I44.7 Left bundle-branch block, unspecified; Z87.891 Personal history of nicotine dependence; Z85.828 Personal history of other malignant neoplasm of skin
CPT/HCPCS: 36415; 36600; 71045; 71275; 80048; 80053; 82375; 82805; 83050; 83880; 84484; 85025; 85027; 85610; 85730; 86021; 86038; 86140; 86200; 86331; 86430; 86606; 86609; 87040; 87426; 87804; 93005; 94618; 94640; 94762; 96365; 96368; 96372; 96375; 96376; 99285; A9270; C8929; C9803; G0378; J0456; J0696; J1650; J2920; J2930; J7060; J7512; Q9957; Q9967; U0003; U0005

== ENCOUNTER 2021-04-11 15:41 | Outpatient (CLI) | payer MEDICARE, SELFPAY ==
[2021-04-15 14:17] LABS: NIL 0.02 IU/mL; Quantiferon TB Plus, 1T NEGATIVE (NEGATIVE); TB1-NIL 0.01 IU/mL; TB2-NIL 0.01 IU/mL
[2021-04-16 12:10] LABS: Anti Cyclic Citrullinated Pept <16 Units (<20)
== END 2021-04-11 15:42 | disposition home or self-care (01) ==
LOC: ANHLAB 15:46
PROVIDERS: PCP Family Medicine Adolescent Medicine; Visit Provider Internal Medicine Pulmonary Disease
DX: R76.8 Other specified abnormal immunological findings in serum (principal); R91.8 Other nonspecific abnormal finding of lung field
CPT/HCPCS: 36415; 86200; 86480

== ENCOUNTER 2021-04-29 07:59 | Outpatient (CLI) | payer MEDICARE, SELFPAY ==
[2021-04-29 08:38] VITALS: PULSE 74; O2SAT 94
[2021-04-29 08:40] VITALS: PULSE 72; O2SAT 92
[2021-04-29 08:42] VITALS: PULSE 76; O2SAT 87
[2021-04-29 08:44] VITALS: PULSE 78; O2SAT 89
[2021-04-29 08:46] VITALS: PULSE 78; O2SAT 92
--- NOTE | 2021-04-29 10:13 | HOMEO2EVAL ---
Evaluation was performed at [facility] Home Oxygen Evaluation RC: Home Oxygen (O2) Evaluation Start: 04/29/21 10:10 Freq: Status: Active Protocol: RPE Activity Type Activity Date Activity User E-Sign Co-Sign Detail Recorded Client Recorded Date Recorded By Document 04/29/21 08:38 KRM [email or web address] 04/29/21 10:12 KRM Document 04/29/21 08:40 KRM [email or web address] 04/29/21 10:12 KRM Document 04/29/21 08:42 KRM [email or web address] 04/29/21 10:12 KRM Document 04/29/21 08:44 KRM [email or web address] 04/29/21 10:12 KRM Document 04/29/21 08:46 KRM [email or web address] 04/29/21 10:12 KRM 04/29/21 04/29/21 04/29/21 08:38 08:40 08:42 Home O2 Evaluation Test Phase Resting Exercise Exercise Oxygen Delivery Room Air Room Air Room Air Oxygen Flow Rate (L/min) Pulse Oximetry (90-100 %) 94 92 87 L Pulse Rate (60-100 beats/min) 74 72 76 Activity Tolerance Good Good Ambulation Distance (feet) Ambulation Distance (meters) Treatment Charges 04/29/21 04/29/21 08:44 08:46 Home O2 Evaluation Test Phase Exercise Exercise Oxygen Delivery Nasal Cannula Nasal Cannula Oxygen Flow Rate (L/min) 1 2 Pulse Oximetry (90-100 %) 89 L 92 Pulse Rate (60-100 beats/min) 78 78 Activity Tolerance Good Good Ambulation Distance (feet) 500 Ambulation Distance (meters) 152.39 Treatment Charges O2 Evaluation - Outpatient
--- NOTE | 2021-04-29 13:16 | P.PCNPFT_ITS ---
PFT Procedure Performed PFT Procedure Performed Spirometry with Pre/Post Bronchodilator Plethysmography (Lung Vol) Diffusing Cap (DLCO) Flow Vol Loop PFT Interpretation Lung volumes were measured with the body plethysmography method. The elevated FRC and RV are indicative of air trapping. Spirometry showed diminished exp iratory flow rates and a diminished FEV1 to FVC ratio 46%, indicative of obstructive airway disease. Following administration of a bronchodilator there was significant increase in the forced vital capacity. Lung diffusion capacity is severely reduced at 46% predicted. The flow volume loop is consistent with emphysema. Impression: Severe obstructive airway disease with significant response to bronchodilators on this testing, and evidence of air trapping. Severely reduced lung diffusion capacity.
== END 2021-04-29 08:00 | disposition home or self-care (01) ==
PROVIDERS: PCP Family Medicine Adolescent Medicine; Visit Provider Internal Medicine Pulmonary Disease
DX: J44.9 Chronic obstructive pulmonary disease, unspecified (principal); R06.00 Dyspnea, unspecified; R94.2 Abnormal results of pulmonary function studies
CPT/HCPCS: 94060; 94618; 94726; 94729

== ENCOUNTER 2021-08-09 07:28 | Outpatient (CLI) | payer MEDICARE, SELFPAY ==
--- NOTE | ~2021-08-09 | CT_ITS ---
EXAMINATION: CT diagnostic chest wo con DATE: 08/09/2021 07:44 INDICATION: Pulmonary nodule follow-up. Shortness of breath. COPD. TECHNIQUE: Computed tomography (CT) of the chest was performed without intravenous contrast. The dose -length product was 89.48 mGy-cm. Automated exposure control and iterative reconstruction technique w ere employed. COMPARISON: CT dated 02/08/2021 and 05/04/2019 FINDINGS: Heart size is normal. No significant pleural or pericardial effusion. There is nonspecific thickening of the adrenal glands, likely adrenal hyperplasia. No thoracic lymphadenopathy. There is e mphysema. No endobronchial lesions. There are improved areas of reticular nodularity and interlobular septal thickening, likely resolving infectious/inflammatory process. There are several tiny nodules of the mid and upper lungs measuring 2 mm or less, likely postinfectious. Stable 7 mm left fissural n odule, likely lymph node. Stable right upper lobe scarring. Moderate thoracic spondylosis. There is a therosclerosis of the aorta and coronary arteries. IMPRESSION: 1. No significant change to small bilateral nodules measuring 2 mm or less. Improved interstitial den sities bilaterally, likely resolving infectious process. 2: Emphysema Reviewed, dictated and finalized at location D. IMPRESSION: 1. No significant change to small bilateral nodules measuring 2 mm or less. Imp roved interstitial densities bilaterally, likely resolving infectious process. 2: Emphysema
== END 2021-08-09 07:29 | disposition home or self-care (01) ==
PROVIDERS: PCP Family Medicine Adolescent Medicine; Visit Provider Internal Medicine Pulmonary Disease
DX: R91.8 Other nonspecific abnormal finding of lung field (principal); J43.9 Emphysema, unspecified
CPT/HCPCS: 71250

== ENCOUNTER 2022-02-04 19:13 | Inpatient (IN) | payer MEDICARE, SELFPAY ==
[2022-02-04] VITALS (9 sets, daily range): BP systolic 124; BP diastolic 60; PULSE 75–90; RESP 18–24; TEMP 37; O2SAT 85–95
--- NOTE | ~2022-02-04 | XR_ITS ---
EXAMINATION: XR chest 2V Exam Date/Time: 02/04/2022 19:58 PRODUCT INSPECTION SUPERVISOR HISTORY: SOB Comparison: 02/07/2021 and CTPA 02/08/2021. RESULT: Lines, tubes, and devices: None. Lungs and pleura: Worsening diffuse reticulonodular and likely tree-in-bud opacities. Senescent and emphysematous change. No lobar consolidation. Chronic costophrenic angle blunting. Cardiomediastinal silhouette: Stable. Other: No acute osseous or upper abdominal finding. IMPRESSION: Pulmonary opacities may represent bronchiolitis, as can be seen with atypical infection, asthma, aspi ration, and small airways disease. Reviewed, dictated and finalized at location K. UCT INSPECTION SUPERVISOR IMPRESSION: Pulmonary opacities may represent bronchiolitis, as can be seen with atypical i nfection, asthma, aspiration, and small airways disease.
--- NOTE | ~2022-02-04 | XR_ITS ---
XR chest 1V portable 02/07/2022 10:46 Indication: Covid pneumonia Procedure: AP portable chest Comparison: Comparison to multiple prior studies sequentially, with oldest reviewed study dated 10/2020. Findings: Bilateral infiltrates of the mid and lower lungs are unchanged. No pleural effusion. No pne umothorax. No acute osseous abnormality. There is atherosclerosis of the aorta. No acute osseous abno rmality. Impression: 1: Bilateral infiltrates of the mid and lower lungs, compatible with pneumonia, stable. Reviewed, dictated and finalized at location A. COM ASSISTANT Impression: 1: Bilateral infiltrates of the mid and lower lungs, compatible with pneumonia, stable.
--- NOTE | ~2022-02-04 | XR_ITS ---
EXAMINATION: XR chest 1V portable DATE: 02/17/2022 11:41 INDICATION: Pneumonia. TECHNIQUE: A single frontal view of the chest was obtained. COMPARISON: Chest view 02/10/2022, chest CT 02/06/2022 FINDINGS: There is a reticulonodular pattern in the lower lung zones. There are lucencies in the lung s, consistent with emphysema. No pleural effusion or pneumothorax. The heart size is normal. IMPRESSION: 1. Stable reticular nodular pattern in the lower lung zones, consistent with pneumonia. 2. Emphysema. Reviewed, dictated and finalized at location A. GHT SEPARATOR IMPRESSION: 1. Stable reticular nodular pattern in the lower lung zones, consistent with pn eumonia. 2. Emphysema.
--- NOTE | ~2022-02-04 | CT_ITS ---
EXAMINATION: CTA chest PE protocol DATE: 02/06/2022 17:17 AIR BRUSH OPERATOR INDICATION: Suspect pulmonary embolism. Covid positive. TECHNIQUE: Computed tomographic angiography (CTA) of the chest was performed with 100 mL Omnipaque-35 0 intravenous contrast. The dose-length product was 320.30 mGy-cm. Maximum intensity projection 3D-re constructions of the aorta and other arteries were constructed by the technologist on a separate work station. Automated exposure control and iterative reconstruction technique were employed. COMPARISON: CT dated 08/09/2021 FINDINGS: There is mediastinal and bilateral hilar lymphadenopathy. Heart size is normal. No signific ant pleural or pericardial effusion. Study is technically adequate without evidence for pulmonary emb olism. There is mild atherosclerosis of the aorta. No evidence for aortic aneurysm or dissection. The re is nodular bilateral adrenal thickening. There is a small low-density lesion left hepatic lobe halle suring 1 cm, compatible with a cyst. Gallbladder is present. There is widespread groundglass opacification as well as diffuse reticulonodular densities more preva lent in the lower lobes, consistent with pneumonia. There is emphysema. There is bronchiectasis with bronchial wall thickening in the lower lobes. IMPRESSION: 1. Patchy interlobular septal thickening, reticular nodularity with areas of tree-in-bud configuratio n and areas of groundglass opacification. There is bronchial wall thickening and mild bronchiectasis in the lower lobes with areas of mucous plugging, consistent with bronchitis with pneumonia. 2: No evidence for pulmonary embolism. 3: Mediastinal and bilateral hilar lymphadenopathy, likely reactive. Reviewed, dictated and finalized at location A. BRUSH OPERATOR IMPRESSION: 1. Patchy interlobular septal thickening, reticular nodularity with areas of tr ee-in-bud configuration and areas of groundglass opacification. There is bronch ial wall thickening and mild bronchiectasis in the lower lobes with areas of mu cous plugging, consistent with bronchitis with pneumonia. 2: No evidence for pulmonary embolism. 3: Mediastinal and bilateral hilar lymphadenopathy, likely reactive.
--- NOTE | ~2022-02-04 | XR_ITS ---
EXAMINATION: XR chest 1V portable DATE: 02/10/2022 06:38 INDICATION: COVID-19 pneumonia. TECHNIQUE: A single frontal view of the chest was obtained on 2 radiographs. COMPARISON: Chest single view 02/07/2022, chest CT 02/06/2022 FINDINGS: There is a diffuse reticulonodular pattern in the lungs. No pleural effusion or pneumothora x. The heart size is normal. IMPRESSION: 1. Stable diffuse reticulonodular pattern in the lungs, consistent with pneumonia. Reviewed, dictated and finalized at location A. CONSULTANT IMPRESSION: 1. Stable diffuse reticulonodular pattern in the lungs, consistent with pneumon ia.
--- NOTE | 2022-02-04 19:36 | ECG_ITS ---
Measurements Intervals [place] Rate: 88 P: 82 NM: 156 QRS: -43 QRSD: 149 T: 111 QT: 405 QTc: 491 Interpretive Statements SINUS RHYTHM LEFT BUNDLE BRANCH BLOCK [120+ ms QRS DURATION, 80+ ms Q/S IN V1/V2, 85+ ms R IN I/aVL/V5/V6] COMPARED TO ECG 02/07/2021 06:06:35 NO SIGNIFICANT CHANGES Electronically Signed On 02-05-2022 14:56:56 MEDICAL OFFICE WORKER by Lou Morrison M.D.
[2022-02-04 20:10] LABS: Basophils Absolute Auto 0.1 K/mm3 (0.0-0.1); Basophils Percent Auto 0.5 % (0.2-1.2); Eosinophils Percent Auto 0.2 % (0-4.4); Hematocrit 41.3 % (42.0-52.0); Hemoglobin 13.8 g/dL (14.0-18.0); Immature Granulocyte Absolute 0.05 K/mm3 (0.00-0.031); Immature Granulocyte Percent A 0.4 % (0-0.5); Lymphocytes Absolute Auto 0.79 K/mm3 (0.9-3.2); Lymphocytes Percent Auto 6.5 % (18.3-44.2); Mean Corpuscular HGB Conc 33.4 g/dl (32-36); Mean Corpuscular Hemoglobin 30.9 pg (26-34); Mean Corpuscular Volume 92.6 fl (80-100); Mean Platelet Volume 9.9 fl (7.4-10.4); Monocytes Absolute Auto 1.6 K/mm3 (0.1-0.6); Neutrophils Absolute Auto 9.6 K/mm3 (1.3-6.7); Neutrophils Percent Auto 79.4 % (45.5-73.1); Platelet Count Result 379 k/mm3 (150-375); Red Blood Count 4.46 M/mm3 (4.6-6.20); Red Cell Distribution Width 12.3 % (11.5-14.5); White Blood Count 12.1 K/mm3 (4.5-10.0)
[2022-02-04 20:16] LABS: Alanine Aminotransferase 37 U/L (6-50); Albumin Level 3.7 g/dL (3.5-5.1); Alkaline Phosphatase 81 U/L (38-126); Anion Gap 5 mmol/L (8-16); Aspartate Amino Transferase 32 U/L (17-59); Bilirubin,Total 0.7 mg/dL (0.2-1.3); Blood Urea Nitrogen 23 mg/dL (9-20); Calcium 8.1 mg/dL (8.4-10.2); Carbon Dioxide 32 mmol/L (22-30); Chloride 102 mmol/L (98-107); Estimated Glomerular Filt Rate > 60; Glucose 159 mg/dL (65-110); Potassium 3.8 mmol/L (3.4-5.0); Sodium 139 mmol/L (137-145)
[2022-02-04] MEDS: methylPREDNISolone SOD SUCC 125 MG VIAL IV PUSH (20:21)
[2022-02-04 20:23] LABS: Magnesium 2.1 mg/dL (1.6-2.3)
[2022-02-04] MEDS: IPRATROPIUM BR 0.02% INH SOLN 0.5 MG/2.5 ML VIAL INHALATION (20:26)
[2022-02-04] MEDS: ALBUTEROL SULFATE NEB 2.5 MG/3 ML INH 5 MG INHALATION (20:26)
[2022-02-04 20:35] LABS: NT Pro B Type Natriuretic Pept 267 pg/mL (5-100); Troponin I < 0.012 ng/mL (0.000-0.034)
[2022-02-04 20:51] LABS: Lactic Acid Reflex 1.3 mmol/L (0.7-2.0)
[2022-02-04 21:00] LABS: INR 1.3; Partial Thromboplastin Time 33.7 SECONDS (22.3-36.8); Prothrombin Time 15.7 Seconds (11.1-14.7)
[2022-02-04 21:19] LABS: Influenza A QL RT-PCR Negative (Negative); Influenza B QL RT-PCR Negative (Negative); RSV RNA, RT-PCR Negative (Negative); SARS-CoV-2 RNA PCR Positive
[2022-02-04 21:33] LABS: Procalcitonin 0.2 ng/mL
--- NOTE | 2022-02-04 21:47 | ED.GENADULT ---
HPI - General Adult General Chief complaint: Shortness of Breath/Dyspnea Stated complaint: cough, sob Time Seen by Provider: 02/04/22 19:55 History of Present Illness HPI narrative: Patient 59-year-old gentleman who presents emerged from with chief complaint of shortness of breath. The patient reports he has history of COPD and wears 2 L of oxygen at night on an as-needed basis. Patient reports over the last several days has been having increasing shortness of breath and has had to use his oxygen during the daytime instead of just at night. Patient denies fever reports has had a nonproductive cough Related Data Home Medications Medication Instructions Recorded Confirmed carvedilol 3.125 mg tablet (Coreg) 6.25 mg PO Q12HR 09/16/19 01/13/22 sacubitril 24 mg-valsartan 26 mg 0.5 tablet PO Q12HR 02/07/21 01/13/22 tablet (Entresto) Allergies Allergy/AdvReac Type Severity Reaction Status Date / Time BEE STINGS Allergy Severe Anaphylaxis Uncoded 02/04/22 20:00 Review of Systems Review of Systems: A 10 system review of systems was completed on the patient and is negative except for what is stated in the HPI. Nursing and ancillary documentation was reviewed. [facility] Past Medical History Medical History Acute respiratory failure with hypoxia Benign prostatic hyperplasia Community acquired pneumonia COPD exacerbation Elevated troponin Left bundle branch block Nonischemic cardiomyopathy Ejection fraction visually estimated 25% on cardiac catheterization in May 2019, improved to 55-60% 2020. Sepsis Tobacco dependence Quit in September 2020. Surgical History Surgical History History of cardiac catheterization (05/2019) Status post Mohs surgery Skin cancer from nose. Status post tonsillectomy and adenoidectomy Family History Family History Mother Myocardial infarct Cerebrovascular accident Dementia Father Myocardial infarct Diabetes mellitus Sibling Prostate carcinoma Social History Social History Social History: The patient is and lives with his in [place]. They have 3 children. 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 He smoked a pack of cigarettes a day for 50+ years and quit in September 2020. No alcohol or illicit substance abuse. He designates his , Erica, as his surrogate decision maker and he wishes to be a full code. Smoking status: Current every day smoker Exam Narrative: GENERAL: Well-appearing, well-nourished, and in no acute distress. HEAD: Normocephalic, atraumatic. EYES: PERRLA and EOMI. ENT: Nares clear, no rhinorrhea or epistaxis. Mucous membranes moist. NECK: Supple. CHEST: Clear to auscultation. Increased respiratory drive. HEART: Regular rate and rhythm. No murmur heard. Normal peripheral pulses. ABDOMEN: Soft, nontender, nondistended, normal active bowel sounds. EXTREMITIES: Normal range of motion. No edema. SKIN: Warm, dry, no rash. NEURO: No focal deficits. Alert and oriented x3. PSYCH: Normal mood and affect. Course Vital Signs Vital signs: Vital Signs Temperature 37.0 C 02/04/22 19:21 Pulse Rate 90 02/04/22 19:21 Respiratory Rate 20 02/04/22 19:21 Blood Pressure 124/60 02/04/22 19:21 Pulse Oximetry 85 L 02/04/22 19:21 Oxygen Delivery Nasal Cannula 02/04/22 19:21 Oxygen Flow Rate 2 02/04/22 19:21 Temperature 37.0 C 02/04/22 19:21 Pulse Rate 88 02/04/22 20:50 Respiratory Rate 24 H 02/04/22 20:50 Blood Pressure 124/60 02/04/22 19:21 Pulse Oximetry 92 02/04/22 20:37 Oxygen Delivery Nasal Cannula 02/04/22 20:37 Oxygen Flow Rate 6 02/04/22 20:37 Medical Decision Making Vital Signs Vital Signs: Vital Signs Temperature 37.0 C 02/04/22 19:21 Pul
--- NOTE | 2022-02-04 22:45 | PM.IMHP ---
H&P: HPI History of Present Illness Date/Time: 02/04/22 22:45 Chief Complaint: shortness of breath Narrative: This is a 71-year-old male with past medical history significant for COPD/emphysema, nonischemic cardiomyopathy, tobacco dependence,Obstructive sleep apnea on oxygen 2 L by nasal cannula. Presents to the emergency room after 4 days of worsening shortness of breath that forced him to wear his oxygen during the daytime, having spells of dry cough, poor appetite, no fevers, no rigors, no chills, no body aches or pains, decreased stamina, No nausea, no vomiting, no diarrhea, no abdominal pain, No chest pain, no leg swelling, no lightheadedness, no syncope or near syncope. patient require supplemental oxygen the emergency room by nasal cannulae after found to have an oxygen saturation 91% on room air. patient states that he felt almost immediate relieve with prednisone after getting Solu-Medrol IV. Preliminary workup was significant for patient tested positive for COVID. A chest x-ray was reported as; IMPRESSION: Pulmonary opacities may represent bronchiolitis, as can be seen with atypical infection, asthma, aspiration, and small airways disease. Review of Systems Review of Systems: worsening shortness of breath, poor appetite Constitutional: Constitutional: Denies body ache(s), Denies chills, Reports fatigue, Denies fever(s), Reports lethargy, Reports malaise, Denies night sweats, Reports poor appetite and Reports weakness Eyes: Eyes: Denies change in vision ENT: Denies dysphagia, Reports nasal congestion, Reports nasal discharge and Denies odynophagia Cardiovascular: Cardiovascular: Denies chest pain, Denies leg edema, Denies lightheadedness and Denies palpitations Respiratory: Respiratory: Reports chest congestion, Reports cough, Reports dyspnea and Reports dyspnea on exertion Gastrointestinal: Gastrointestinal: Denies abdominal pain, Denies dyspepsia, Denies heartburn, Denies nausea and Denies vomiting Genitourinary: Genitourinary: Denies dysuria Musculoskeletal: Musculoskeletal: Denies abnormal gait, Denies back pain, Denies myalgias, Denies joint swelling and Reports muscle weakness Integumentary/Breasts: Skin/Breast: Denies rash Neurologic: Denies focal weakness and Denies Sensory deficit (Neuro) Psychiatric: Psychiatric: Reports no additional psychiatric complaints and Reports as per HPI Endocrine: Endocrine: Denies cold intolerance, Denies flushing, Denies heat intolerance, Denies polyphagia, Denies polydipsia and Denies palpitations Hematologic/Lymphatic: Hematologic/Lymphatic: Reports no additional hematologic/lymphatic complaints and Reports as per HPI Allergic/Immunologic: Allergic/Immunologic: Reports no additional allergic/immunologic complaints and Reports as per HPI PMFSH Past Medical History Medical History Acute respiratory failure with hypoxia Benign prostatic hyperplasia Community acquired pneumonia COPD exacerbation Elevated troponin Left bundle branch block Nonischemic cardiomyopathy Ejection fraction visually estimated 25% on cardiac catheterization in May 2019, improved to 55-60% 2020. Sepsis Tobacco dependence Quit in September 2020. Surgical History Surgical History History of cardiac catheterization (05/2019) Status post Mohs surgery Skin cancer from nose. Status post tonsillectomy and adenoidectomy Family History Family History Mother Myocardial infarct Cerebrovascular accident Dementia Father Myocardial infarct Diabetes mellitus Sibling Prostate carcinoma Social History Social History Social History: The patient is and lives with his in [place]. They have 3 children. 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
[2022-02-04 23:44] LABS: Troponin I < 0.012 ng/mL (0.000-0.034)
[2022-02-05] VITALS (54 sets, daily range): BP systolic 94–134; BP diastolic 44–86; PULSE 57–97; RESP 16–35; TEMP 36.4–36.7; O2SAT 82–100; BMI 23.2
--- NOTE | 2022-02-05 | ECHO_ITS ---
Patient Info Name: Gee Fan Age: 71 years : 1950 Gender: Male Ht: 70 in Wt: 164 lbs BSA: 1.92 m2 HR: 70 bpm BP: 115 / 51 mmHg Heart Rhythm: Sinus Rhythm Exam Date: 02/05/2022 4:45 PM Exam Location: [facility] Patient Status: Inpatient Admit Date: 02/04/2022 Staff Ordering Physician: Arnaldo Angel Tractor Expert: Esequiel Nicole RDCS Attending Provider: Moon Brown MD Referring Physician: Stanley SAUCEDO; Exam Type: CA echo dop color flow w con Study Info Indications R06.02 - Shortness of breath Complete two-dimensional, color flow and Doppler transthoracic echocardiogram is performed with contrast to opacify the left ventricle and to improve the deliniation of the left ventricle endocardial borders. Contrast/Agitated Saline Contrast/Ag. Saline: Definity Amount: 2.00 ml Administered By: Esequiel Nicole RDCS Existing IV Access: Yes IV Access Condition: patent with no signs of infiltration Summary 1. Technically difficult study with limited views despite definity echo contrast enhancement. Regional wall motion assessment limited due to poor endomyocardial border definition in several views. 2. Left ventricular chamber dimension is normal. 3. Left ventricular systolic function is normal, estimated at 65-70%. 4. There is mildly increased left ventricular wall thickness. 5. The left ventricular diastolic function is grade I diastolic dysfunction. Left Ventricle Left ventricular chamber dimension is normal. Left ventricular systolic function is normal, estimated at 65-70%. There is mildly increased left ventricular wall thickness. The left ventricular diastolic function is grade I diastolic dysfunction. Technically difficult study with limited views despite definity echo contrast enhancement. Regional wall motion assessment limited due to poor endomyocardial border definition in several views. Right Ventricle Right ventricular chamber dimension is not well visualized. Right ventricular systolic function is normal based upon TAPSE 2.0. Left Atria Left atrial chamber dimension is not well visualized. Right Atria Right atrial chamber dimension is not well visualized. Aortic Valve The aortic valve is not well visualized. Pulmonic Valve The pulmonic valve is not well visualized. Mitral Valve The mitral valve has normal leaflets. There is no mitral valve regurgitation. Tricuspid Valve The tricuspid valve leaflets are not well visualized. Unable to estimate PA systolic pressure due to poor spectral resolution of tricuspid regurgitant jet velocity. Pericardium/Pleural The pericardium appears not well visualized. There is trivial pericardial effusion. Inferior Vena Cava Normal inferior vena cava with >50% collapse upon inspiration consistent with normal right atrial pressure, 5 mmHg. Aorta The aortic root size at the sinus of Valsalva is normal. There is mild aortic atherosclerosis. Left Ventricular Outflow Tract Name Value Normal LVOT 2D LVOT Diameter 1.99 cm Mitral Valve Name Value Nor
[2022-02-05 00:13] LABS: INR 1.2; Prothrombin Time 15.1 Seconds (11.1-14.7)
[2022-02-05 00:23] LABS: Alanine Aminotransferase 35 U/L (6-50); Estimated Glomerular Filt Rate > 60
[2022-02-05] MEDS: REMDESIVIR 200 MG/NS 250 ML 200 MG/250 ML BAG 250 MG IVPB (00:52)
[2022-02-05] MEDS: ALBUTEROL SULFATE NEB 2.5 MG/3 ML INH 5 MG INHALATION ×3 (02:05→15:18)
[2022-02-05] MEDS: IPRATROPIUM BR 0.02% INH SOLN 0.5 MG/2.5 ML VIAL INHALATION ×3 (02:05→15:18)
[2022-02-05 05:59] LABS: Alanine Aminotransferase 34 U/L (6-50); Estimated Glomerular Filt Rate > 60
[2022-02-05 06:01] LABS: INR 1.2; Prothrombin Time 15.1 Seconds (11.1-14.7)
[2022-02-05 06:18] LABS: Appearance Urine Cloudy (Clear); Bilirubin Urine 1+ (Negative); Blood Urine 2+ (Negative); Color Urine Amber (Yellow); Glucose Urine UA Negative (Negative); Ketones Urine Negative (Negative); Leukocyte Esterase Ur Negative LEU/UL (Negative); Nitrate Urine Negative (Negative); Protein Urine 2+ mg/dL (Negative); Specific Grav Ur >= 1.030 (1.001-1.035); pH Urine 5.5 (5.0-9.0)
[2022-02-05 06:31] LABS: Bacteria Urine Trace /hpf; Mucus Urine Heavy /lpf; RBC Urine 21-50 /hpf (0-2)
[2022-02-05 06:32] LABS: Add Urine Microscopic? YES
--- NOTE | 2022-02-05 07:10 | PC.NURSE ---
Report given To LEXIE Milner.
--- NOTE | 2022-02-05 07:33 | PC.NURSE ---
Pt moved in to hospital bed
--- NOTE | 2022-02-05 07:43 | PC.NURSE ---
breakfast tray ordered
--- NOTE | 2022-02-05 08:00 | PC.NURSE ---
pt received breakfast tray
--- NOTE | 2022-02-05 10:05 | PC.NURSE ---
This patient, Gee Fan, was admitted to [facility] Surg Room 326-01. Patient/family oriented to hospital policies and general routines including ID bracelet, bed and alarms, visiting hours, pain management, procedures, bathroom and other care routines, personal items, smoking policy, room service/diet, and visiting hours. Information on how to activate the Rapid Response Team has been discussed. Patient/Family are encouraged to report perceived risks to care and to ask questions if they do not understand what they are told or what they should do.
[2022-02-05] MEDS: SPIRONOLACTONE 12.5 MG TABLET PO (10:12)
--- NOTE | 2022-02-05 11:15 | PM.IMPN ---
Progress Note: A&P Assessment and Plan (1) COVID-19: Code(s): U07.1 - COVID-19 Status: Acute Assessment and Plan: COVID positive as of 02/04/2022 Not vaccinated Continue remdesivir and dexamethasone Trend inflammatory markers including CRP, ferritin, and D-dimer Chest x-ray shows pulmonary opacities possible atypical infection, asthma, aspiration Neb treatments BNP 267 consider pulmonology if not improvements noted Add azithromycin and ceftriaxone for possible atypical PNA Consider CTA Echo doppler Give one time Tocilizumab (2) Acute exacerbation of chronic obstructive pulmonary disease: Code(s): J44.1 - Chronic obstructive pulmonary disease with (acute) exacerbation Status: Acute Assessment and Plan: scheduled breathing treatments systemic steroids Supplemental oxygen to maintain saturation >90% Could be in acute exacerbation with increased wheezes, shortness of breath Continue to trend respiratory status this is secondary to covid (3) Chronic respiratory failure with hypoxia: Code(s): J96.11 - Chronic respiratory failure with hypoxia Status: Acute Assessment and Plan: continue supplemental oxygen by nasal cannula (4) Acute and chronic respiratory failure: Code(s): J96.20 - Acute and chronic respiratory failure, unspecified whether with hypoxia or hypercapnia Status: Acute Assessment and Plan: Normally on 2 L at night Came in due to shortness of breath, tripoding, unable to complete sentences with worsening shortness of breath Currently on 10 L high-flow cannula, got to the floor on 13 L high-flow cannula Continue trend saturation Maintain saturation above 90% (5) Heart failure: Code(s): I50.9 - Heart failure, unspecified Status: Acute Assessment and Plan: Less echo of 2019 showed an EF of 55-60% Appears to be heart failure with preserved EF Chronic diastolic heart failure not in acute exacerbation Daily weights Strict I&Os Stable at this time Time Spent With Patient Time with patient: Greater than 35 minutes Subjective Date/time seen: 02/05/22 11:15 Interval history: 02/05/22 1115 patient is laying in bed reading the paper. He was on 13L of oxygen. Saturations were roughly around 93-94%. Oxygen was weaned down to 10L NC. He does have a significant cough. He denies any chest pain, nausea, vomiting, diarrhea, constipation. He is not sure that he would be able to get get and walk to the bathroom. He did also stated that he feels that his appetite has returned. He was given IS and cornet, with proper education. He does have a pretty significant cough, but seems to be non productive. 02/04/22? 22:45 ?This is a 71-year-old male with past medical history significant for COPD/emphysema, nonischemic cardiomyopathy, tobacco dependence,Obstructive sleep apnea on oxygen 2 L by nasal cannula.? Presents to the emergency room after 4 days of worsening shortness of breath that forced him to wear his oxygen during the daytime, having spells of dry cough, poor appetite, no fevers, no rigors, no chills, no body aches or pains, decreased stamina,? No nausea, no vomiting, no diarrhea, no abdominal pain,? No chest pain, no leg swelling, no? lightheadedness, no syncope or near syncope. patient require supplemental oxygen the emergency room by nasal cannulae after found to have an oxygen saturation 91% on room air. patient states that he felt almost immediate relieve with prednisone ? after getting Solu-Medrol IV. Preliminary workup was significant for patient tested positive for COVID. Review of Systems Review of Systems: All systems reviewed & are unremarkable except as noted in HPI and below Exam Narrative: General: well-nourished, well-appearing 71-year-old male, laying in bed, comfortable, NARD Neuro: awake, alert and oriente
--- NOTE | 2022-02-05 11:15 | P.PNIM_ITS ---
Progress Note: A&P Assessment and Plan (1) COVID-19: Code(s): U07.1 - COVID-19 Status: Acute Assessment and Plan: * COVID positive as of 02/04/2022 * Not vaccinated * Continue remdesivir and dexamethasone * Trend inflammatory markers including CRP, ferritin, and D-dimer * Chest x-ray shows pulmonary opacities possible atypical infection, asthma, aspiration * Neb treatments * BNP 267 * consider pulmonology if not improvements noted * Add azithromycin and ceftriaxone for possible atypical PNA * Consider CTA * Echo doppler * Give one time Tocilizumab (2) Acute exacerbation of chronic obstructive pulmonary disease: Code(s): J44.1 - Chronic obstructive pulmonary disease with (acute) exacerbation Status: Acute Assessment and Plan: * scheduled breathing treatments * systemic steroids * Supplemental oxygen to maintain saturation >90% * Could be in acute exacerbation with increased wheezes, shortness of breath * Continue to trend respiratory status * this is secondary to covid (3) Chronic respiratory failure with hypoxia: Code(s): J96.11 - Chronic respiratory failure with hypoxia Status: Acute Assessment and Plan: continue supplemental oxygen by nasal cannula (4) Acute and chronic respiratory failure: Code(s): J96.20 - Acute and chronic respiratory failure, unspecified whether with hypoxia or hypercapnia Status: Acute Assessment and Plan: * Normally on 2 L at night * Came in due to shortness of breath, tripoding, unable to complete sentences with worsening shortness of breath * Currently on 10 L high-flow cannula, got to the floor on 13 L high-flow cannula * Continue trend saturation * Maintain saturation above 90% (5) Heart failure: Code(s): I50.9 - Heart failure, unspecified Status: Acute Assessment and Plan: * Less echo of 2019 showed an EF of 55-60% * Appears to be heart failure with preserved EF * Chronic diastolic heart failure not in acute exacerbation * Daily weights * Strict I&Os * Stable at this time Time Spent With Patient Time with patient: Greater than 35 minutes Subjective Date/time seen: 02/05/22 11:15 Interval history: 02/05/22 1115 patient is laying in bed reading the paper. He was on 13L of oxygen. Saturations were roughly around 93-94%. Oxygen was weaned down to 10L NC. He does have a significant cough. He denies any chest pain, nausea, vomiting, diarrhea, constipation. He is not sure that he would be able to get get and walk to the bathroom. He did also stated that he feels that his appetite has returned. He was given IS and cornet, with proper education. He does have a pretty significant cough, but seems to be non productive. 02/04/22? 22:45 ?This is a 71-year-old male with past medical history significant for COPD/emphysema, nonischemic cardiomyopathy, tobacco dependence,Obstructive sleep apnea on oxygen 2 L by nasal cannula.? Presents to the emergency room after 4 days of worsening shortness of breath that forced him to wear his oxygen during the daytime, having spells of dry cough, poor appetite, no fevers, no rigors, no chills, no body aches or pains, decreased stamina,? No nausea, no vomiting, no diarrhea, no abdominal pain,? No chest pain, no leg swelling, no? lightheadedness, no syncope or near syncope. patient require supplemental oxygen the emergency r
[2022-02-05] MEDS: carvediloL 6.25 MG TABLET PO ×2 (14:09→21:01)
[2022-02-05] MEDS: ENOXAPARIN 40 MG/0.4 ML SYRINGE SUB-Q (14:10)
[2022-02-05] MEDS: WATER FOR IRRIGATION, STERILE 1,000 ML BOTTLE 1000 ML (14:10)
[2022-02-05] MEDS: SACUBITRIL/VALSARTAN 12-13 MG TABLET 1 TAB PO ×2 (14:11→21:01)
[2022-02-05] MEDS: PERFLUTREN LIPID MICROSPHERES 1.5 ML VIAL DILUTED TO 10 ML TOTAL VOLUME IV PUSH (16:54)
--- NOTE | 2022-02-05 16:54 | IVDEFINITY ---
Prior to administration of IV Definity the patient was educated on the risks and benefits of the imaging enhancing agent including potential adverse side effects. The patient verbalized understanding. Allergies were verified. No exclusion criteria were identified and at least one of the following inclusion criteria were met: 1) physician request, 2) patient technically difficult to image (per the [place] [employer] guidelines of two or more segments not discernable within the apical view), or 3) questionable left ventricular function. ?
[2022-02-05] MEDS: REMDESIVIR 100 MG/NS 250 ML 100 MG/250 ML BAG 250 MG IVPB (21:04)
[2022-02-06] VITALS (17 sets, daily range): BP systolic 95–130; BP diastolic 38–60; PULSE 63–88; RESP 14–24; TEMP 36.3–37; O2SAT 90–99
--- NOTE | 2022-02-06 00:02 | PCRCNOTE ---
window of time for administration has passed. see next available administration.
[2022-02-06] MEDS: ALBUTEROL SULFATE NEB 2.5 MG/3 ML INH 5 MG INHALATION ×4 (02:05→20:55)
[2022-02-06] MEDS: IPRATROPIUM BR 0.02% INH SOLN 0.5 MG/2.5 ML VIAL INHALATION ×4 (02:05→20:55)
[2022-02-06 07:08] LABS: Alanine Aminotransferase 31 U/L (6-50); Albumin Level 3.1 g/dL (3.5-5.1); Alkaline Phosphatase 57 U/L (38-126); Anion Gap 1 mmol/L (8-16); Aspartate Amino Transferase 23 U/L (17-59); Bilirubin,Total 0.3 mg/dL (0.2-1.3); Blood Urea Nitrogen 24 mg/dL (9-20); Carbon Dioxide 37 mmol/L (22-30); Chloride 100 mmol/L (98-107); Estimated CRCL calculation 76 ml/min; Estimated Glomerular Filt Rate > 60; Glucose 133 mg/dL (65-110); Magnesium 2.3 mg/dL (1.6-2.3); Potassium 4.2 mmol/L (3.4-5.0); Sodium 138 mmol/L (137-145)
[2022-02-06 07:10] LABS: INR 1.3; Prothrombin Time 15.5 Seconds (11.1-14.7)
[2022-02-06 07:11] LABS: Basophils Percent Auto 0.2 % (0.2-1.2); Hematocrit 40.1 % (42.0-52.0); Hemoglobin 13.1 g/dL (14.0-18.0); Immature Granulocyte Absolute 0.05 K/mm3 (0.00-0.031); Immature Granulocyte Percent A 0.6 % (0-0.5); Lymphocytes Absolute Auto 1.47 K/mm3 (0.9-3.2); Lymphocytes Percent Auto 16.3 % (18.3-44.2); Mean Corpuscular HGB Conc 32.7 g/dl (32-36); Mean Corpuscular Hemoglobin 30.3 pg (26-34); Mean Corpuscular Volume 92.8 fl (80-100); Monocytes Absolute Auto 1.4 K/mm3 (0.1-0.6); Monocytes Percent Auto 15.6 % (2.6-8.5); Neutrophils Absolute Auto 6.1 K/mm3 (1.3-6.7); Neutrophils Percent Auto 67.3 % (45.5-73.1); Platelet Count Result 376 k/mm3 (150-375); Red Blood Count 4.32 M/mm3 (4.6-6.20); Red Cell Distribution Width 12.3 % (11.5-14.5)
[2022-02-06] MEDS: SACUBITRIL/VALSARTAN 12-13 MG TABLET 1 TAB PO ×2 (08:51→20:58)
[2022-02-06] MEDS: carvediloL 6.25 MG TABLET PO ×2 (08:51→20:58)
[2022-02-06] MEDS: SPIRONOLACTONE 12.5 MG TABLET PO (08:51)
[2022-02-06] MEDS: ENOXAPARIN 40 MG/0.4 ML SYRINGE SUB-Q (08:52)
[2022-02-06] MEDS: UMECLIDINIUM/VILANTEROL 62.5-25 MCG ELLIPTA 1 PUFF INHALATION (10:26)
--- NOTE | 2022-02-06 14:00 | P.PNIM_ITS ---
Progress Note: A&P Assessment and Plan (1) COVID-19: Code(s): U07.1 - COVID-19 Status: Acute Assessment and Plan: * COVID positive as of 02/04/2022 * Not vaccinated * Continue remdesivir and dexamethasone * Trend inflammatory markers including CRP, ferritin, and D-dimer * Chest x-ray shows pulmonary opacities possible atypical infection, asthma, aspiration * Neb treatments * BNP 267 * consider pulmonology if not improvements noted * Add azithromycin and ceftriaxone for possible atypical PNA * Consider CTA * Echo doppler * Give one time Tocilizumab 02/06/2022 interval history: patient with COVID-19 being treated with remdesivir 05/04 and dexamethasone 05/09 patient is sitting in the bed, He was on 13L of oxygen. requiring 13 L per nasal cannula states gets short-winded with any exertion, He does have a significant cough. He denies any chest pain, nausea, vomiting, diarrhea, constipation. He is not sure that he would be able to get get and walk to the bathroom. He did also stated that he feels that his appetite has returned. He was given IS and cornet, with proper education. He does have a pretty significant cough, but seems to be non productive. patient had a cardiac echo showed preserved LV function with EF 65-70 and grade 1 diastolic dysfunction. will gently diurese the patient Lasix 40 mg IV q.day, today will increase Rocephin to 2 g q.day will do CTA of the chest to rule out pulmonary emboli will continue to monitor, (2) Acute exacerbation of chronic obstructive pulmonary disease: Code(s): J44.1 - Chronic obstructive pulmonary disease with (acute) exacerbation Status: Acute Assessment and Plan: * scheduled breathing treatments * systemic steroids * Supplemental oxygen to maintain saturation >90% * Could be in acute exacerbation with increased wheezes, shortness of breath * Continue to trend respiratory status * this is secondary to covid (3) Chronic respiratory failure with hypoxia: Code(s): J96.11 - Chronic respiratory failure with hypoxia Status: Acute Assessment and Plan: continue supplemental oxygen by nasal cannula (4) Acute and chronic respiratory failure: Code(s): J96.20 - Acute and chronic respiratory failure, unspecified whether with hypoxia or hypercapnia Status: Acute Assessment and Plan: * Normally on 2 L at night * Came in due to shortness of breath, tripoding, unable to complete sentences with worsening shortness of breath * Currently on 10 L high-flow cannula, got to the floor on 13 L high-flow cannula * Continue trend saturation * Maintain saturation above 90% (5) Heart failure: Code(s): I50.9 - Heart failure, unspecified Status: Acute Assessment and Plan: * Less echo of 2019 showed an EF of 55-60% * Appears to be heart failure with preserved EF * Chronic diastolic heart failure not in acute exacerbation * Daily weights * Strict I&Os * Stable at this time Subjective Date/time seen: 02/06/22 14:00 Interval history: 02/06/22 1115 02/06/2022 interval history: patient with COVID-19 being treated with remdesivir 05/04 and dexamethasone 05/09 patient is sitting in the bed, He was on 13L of oxygen. requiring 13 L per nasal cannula states gets short-winded with any exertion, He does have a significant cough. He denies any chest pain, nausea, vomiting, diarrhea, constipation. He is not sure that he would be able to get
--- NOTE | 2022-02-06 14:00 | PM.IMPN ---
Progress Note: A&P Assessment and Plan (1) COVID-19: Code(s): U07.1 - COVID-19 Status: Acute Assessment and Plan: COVID positive as of 02/04/2022 Not vaccinated Continue remdesivir and dexamethasone Trend inflammatory markers including CRP, ferritin, and D-dimer Chest x-ray shows pulmonary opacities possible atypical infection, asthma, aspiration Neb treatments BNP 267 consider pulmonology if not improvements noted Add azithromycin and ceftriaxone for possible atypical PNA Consider CTA Echo doppler Give one time Tocilizumab 02/06/2022 interval history: patient with COVID-19 being treated with remdesivir 05/04 and dexamethasone 05/09 patient is sitting in the bed, He was on 13L of oxygen. requiring 13 L per nasal cannula states gets short-winded with any exertion, He does have a significant cough. He denies any chest pain, nausea, vomiting, diarrhea, constipation. He is not sure that he would be able to get get and walk to the bathroom. He did also stated that he feels that his appetite has returned. He was given IS and cornet, with proper education. He does have a pretty significant cough, but seems to be non productive. patient had a cardiac echo showed preserved LV function with EF 65-70 and grade 1 diastolic dysfunction. will gently diurese the patient Lasix 40 mg IV q.day, today will increase Rocephin to 2 g q.day will do CTA of the chest to rule out pulmonary emboli will continue to monitor, (2) Acute exacerbation of chronic obstructive pulmonary disease: Code(s): J44.1 - Chronic obstructive pulmonary disease with (acute) exacerbation Status: Acute Assessment and Plan: scheduled breathing treatments systemic steroids Supplemental oxygen to maintain saturation >90% Could be in acute exacerbation with increased wheezes, shortness of breath Continue to trend respiratory status this is secondary to covid (3) Chronic respiratory failure with hypoxia: Code(s): J96.11 - Chronic respiratory failure with hypoxia Status: Acute Assessment and Plan: continue supplemental oxygen by nasal cannula (4) Acute and chronic respiratory failure: Code(s): J96.20 - Acute and chronic respiratory failure, unspecified whether with hypoxia or hypercapnia Status: Acute Assessment and Plan: Normally on 2 L at night Came in due to shortness of breath, tripoding, unable to complete sentences with worsening shortness of breath Currently on 10 L high-flow cannula, got to the floor on 13 L high-flow cannula Continue trend saturation Maintain saturation above 90% (5) Heart failure: Code(s): I50.9 - Heart failure, unspecified Status: Acute Assessment and Plan: Less echo of 2019 showed an EF of 55-60% Appears to be heart failure with preserved EF Chronic diastolic heart failure not in acute exacerbation Daily weights Strict I&Os Stable at this time Subjective Date/time seen: 02/06/22 14:00 Interval history: 02/06/22 1115 02/06/2022 interval history: patient with COVID-19 being treated with remdesivir 05/04 and dexamethasone 05/09 patient is sitting in the bed, He was on 13L of oxygen. requiring 13 L per nasal cannula states gets short-winded with any exertion, He does have a significant cough. He denies any chest pain, nausea, vomiting, diarrhea, constipation. He is not sure that he would be able to get get and walk to the bathroom. He did also stated that he feels that his appetite has returned. He was given IS and cornet, with proper education. He does have a pretty significant cough, but seems to be non productive. patient had a cardiac echo showed preserved LV function with EF 65-70 and grade 1 diastolic dysfunction. will gently diurese the patient Lasix 40 mg IV q.day, today will increase Rocephin to 2 g q.day will do CTA of the chest to rule out pulmonary embol
[2022-02-06] MEDS: cefTRIAXone 2 GM in SODIUM CHLORIDE 0.9% IV 100 ML 200 ML IVPB (16:30)
[2022-02-06] MEDS: REMDESIVIR 100 MG/NS 250 ML 100 MG/250 ML BAG 250 MG IVPB (20:58)
[2022-02-07] VITALS (20 sets, daily range): BP systolic 119–137; BP diastolic 57–73; PULSE 57–94; RESP 16–33; TEMP 35.8–37; O2SAT 85–99
[2022-02-07] MEDS: IPRATROPIUM BR 0.02% INH SOLN 0.5 MG/2.5 ML VIAL INHALATION ×3 (03:34→20:53)
[2022-02-07] MEDS: ALBUTEROL SULFATE NEB 2.5 MG/3 ML INH 5 MG INHALATION (03:34)
[2022-02-07 07:15] LABS: INR 1.3; Prothrombin Time 15.6 Seconds (11.1-14.7)
[2022-02-07 07:19] LABS: Alanine Aminotransferase 28 U/L (6-50); Estimated CRCL calculation 86 ml/min; Estimated Glomerular Filt Rate > 60
[2022-02-07] MEDS: SACUBITRIL/VALSARTAN 12-13 MG TABLET 1 TAB PO ×2 (08:14→21:45)
[2022-02-07] MEDS: ENOXAPARIN 40 MG/0.4 ML SYRINGE SUB-Q (08:14)
[2022-02-07] MEDS: SPIRONOLACTONE 12.5 MG TABLET PO (08:15)
[2022-02-07 08:37] LABS: Alveolar/Arterial O2 Gradient 511.9 mmHg; Base Excess ABG 11.8 mEq/l (+/-2.0); Fractional Inspired Oxygen 95 %; HCO3 ABG 39.7 mEq/l (22.0-26.0); Oxygen Content ABG 19.8 %vol (16.0-22.0); Oxygen Saturation ABG 97.3 % (95.0-100.0); Oxyhemoglobin 96.5 % THb (90.0-100.0); PO2 ABG 99.1 mmHg (80.0-100.0); PO2 FiO2 Ratio Arterial Blood 1.04 %; Total Hemoglobin 14.5 g/dL (12.0-18.0)
[2022-02-07 08:40] LABS: Device HIGH FLOW THERAPY; PCO2 ABG 65.5 mmHg (35.0-45.0); Site Drawn LEFT BRACHIAL
--- NOTE | 2022-02-07 10:24 | PCRCNOTE ---
Window of time for administration has passed. See next scheduled administration.
--- NOTE | 2022-02-07 10:38 | PM.CNPUL ---
Assessment and Plan Assessment and plan (1) COVID-19: Code(s): U07.1 - COVID-19 Status: Acute Assessment and Plan: Patient tested positive for COVID-19 on 02/04/2022 and started on remdesivir, dexamethasone on 02/04 and given tocilizumab on 02/05. Emperically started on ceftriaxone and azithromycin on 02/05. Negative influenza and RSV RT-PCR studies. Remdesivir for 10 days unless he should recover and baseline home O2 requirements with rest and ambulation and while sleeping. - Dexamethasone 6 mg IV for 10 days - Continuous pulse oximetry - Prone positioning as tolerated. - Avoid any fluid overload. - emperic azihtromycin and ceftraixone for CAP. - Albuterol and ipratroprium nebs Q 4 for now, no wheezes. Keep saturations are 90-94% with Airvo high flow nasal cannula. If fails Airvo then NIV with AVAPS mode and if fails NIV then intubation. Will follow with you Discussed with Dr. Ibarra. (2) Acute on chronic respiratory failure with hypoxia and hypercapnia: Code(s): J96.21 - Acute and chronic respiratory failure with hypoxia; J96.22 - Acute and chronic respiratory failure with hypercapnia Status: Acute Assessment and Plan: Etiology of acute hypoxic respiratory failure is likely COVID pneumonia. of note he does have COPD with chronic hypoxemic respiratory failure his last home O2 assessment on 04/29/2021 demonstrated he needed no oxygen with rest and [address] angiogram is negative for PE. He had a history of nonischemic cardiomyopathy but this had improved on echocardiogram previously and his current echocardiogram shows an EF of 60-70%, grade 1 diastolic dysfunction and normal RV function. Unable to obtain a PASP. 02/04 20:30 6 L NC with sats 92%. 02/05 08:00 6 L NC with sats 90%. 02/05 10:15 13 L NC with sats 91%. 02/05 20:00 13 L NC with sats 94% 02/06 08:00 Airvo 60 L 80% sats 94% (3) COPD (chronic obstructive pulmonary disease): Code(s): J44.9 - Chronic obstructive pulmonary disease, unspecified Status: Acute Assessment and Plan: History of 40 pack years tobacco use, quit on 01/30/2022, currently exposed to secondhand smoke from his who smokes mostly outside until recently,PFTs 04/29/2021 demonstrated a severe obstructive abnormality (FEV1 1.36 L, 42% predicted), with a bronchodilator response, air trapping, hyperinflation and moderately decreased DLCO. CT angiogram on 02/06/2022 demonstrates severe apical predominant centrilobular emphysema. Last home O2 assessment M and on 04/29/2021 was rest room air, 2 L with activity and he wears 2 L at night. his M MRC grade was 0, his CAT score was 8 and he is maintained on Anoro Ellipta. He did have chronic hypercarbic respiratory failure but was unable to tolerate BiPAP in the hospital on 02/07/2021.? he had been unwilling to receive COVID or influenza vaccines. 02/07/2022 The current hospitalization appears to be related to COVID pneumonia rather than a COPD exacerbation. Nonetheless he is receiving dexamethasone 6 mg IV q.day. I will continue albuterol 2.5 mg nebs q.4 hours and ipratropium 0.5 mg nebs q.4 hours. He has no wheezing on exam today. History of Present Illness History of Present Illness Consult date: 02/07/22 Chief complaint: COVID 19,Hypoxia,COPD Narrative: 02/07/2022: This is a new pulmonary consult for gold grade 3 group C COPD with chronic hypoxemic and hypercarbic respiratory failure now with COVID pneumonia. 71-year-old man with a history of COPD and nonischemic cardiomyopathy with improved EF to 55-60% on last Echcardiogram 02/09/2021 who i s followed in pulmoanry clinic and last seen 01/13/2022. History of 40 pack years tobacco use, quit on 01/30/2022, currently exposed to secondhand smoke from his who smokes mostly outside until recently,PFTs 04/29/2021 demonstrated a severe obstructive abnormality (FEV1 1.36 L, 42% predicted), with a bronchodilator response, air trapping, hyperinflatio
--- NOTE | 2022-02-07 11:29 | PC.NURSE ---
During AM rounds, patient O2 saturations found to be in the 70s/80s on 13L HFNC. Pt. stated they had just returned from the bedside commode. After 5 mins. patient recovered to 90%. Due to prolonged recovery time and patient work of breathing, provider notified. Provider and primary RN in agreement that due to prolonged recovery time and increasing oxygen needs, that the patient be transferred to a higher level of care. Respiratory notified and patient was placed on Airvo 60L 90%. An ABG was then obtained and FiO2 on Airvo decreased to 80%. Consulting crm campaign manager came to bedside and recommended BiPAP (settings in note). Pt. to be transferred once bed is available.
--- NOTE | 2022-02-07 12:25 | PC.NURSE ---
This patient, Gee Fan, was received from [facility] on 02/07/22 at 1225. Patient/family oriented to unit policies and routines.
[2022-02-07] MEDS: ALBUTEROL SULFATE NEB 2.5 MG/3 ML INH INHALATION ×2 (13:00→20:53)
--- NOTE | 2022-02-07 13:14 | PC.NURSE ---
This patient, Gee Fan, was transferred to [facility] on 02/07/22 at 1245. Personal belongings sent with patient. Report given to LEXIE Strange. Appropriate documentation sent with patient.
[2022-02-07 14:10] LABS: NT Pro B Type Natriuretic Pept 143 pg/mL (5-100)
--- NOTE | 2022-02-07 17:36 | P.PNIM_ITS ---
Progress Note: A&P Assessment and Plan (1) COVID-19: Code(s): U07.1 - COVID-19 Status: Acute Assessment and Plan: * COVID positive as of 02/04/2022 * Not vaccinated * Continue remdesivir and dexamethasone * Trend inflammatory markers including CRP, ferritin, and D-dimer * Chest x-ray shows pulmonary opacities possible atypical infection, asthma, aspiration * Neb treatments * BNP 267 * consider pulmonology if not improvements noted * Add azithromycin and ceftriaxone for possible atypical PNA * Consider CTA * Echo doppler * Give one time Tocilizumab 02/07/2022 interval history: patient with COVID-19 being treated with remdesivir 06/04 and dexamethasone 06/09 today patient became more hypoxic and requiring 13 L of oxygen, patient was seen by pulmonology and agreed with plan is started the patient on BiPAP, in the past patient had difficulty with the BiPAP currently is tolerating, patient is sitting in the bed, He was on 13L of oxygen. requiring 13 L per nasal cannula states gets short-winded with any exertion, He does have a significant cough. He denies any chest pain, nausea, vomiting, diarrhea, constipation. He is not sure that he would be able to get get and walk to the bathroom. He did also stated that he feels that his appetite has returned. He was given IS and cornet, with proper education. He does have a pretty significant cough, but seems to be non productive. patient had a cardiac echo showed preserved LV function with EF 65-70 and grade 1 diastolic dysfunction. patient is on Entresto, on 02/06 increased Rocephin to 2 g q.day, CTA of the chest is negative for pulmonary emboli, will continue to monitor, (2) Acute exacerbation of chronic obstructive pulmonary disease: Code(s): J44.1 - Chronic obstructive pulmonary disease with (acute) exacerbation Status: Acute Assessment and Plan: * scheduled breathing treatments * systemic steroids * Supplemental oxygen to maintain saturation >90% * Could be in acute exacerbation with increased wheezes, shortness of breath * Continue to trend respiratory status * this is secondary to covid (3) Chronic respiratory failure with hypoxia: Code(s): J96.11 - Chronic respiratory failure with hypoxia Status: Acute Assessment and Plan: continue supplemental oxygen by nasal cannula (4) Acute and chronic respiratory failure: Code(s): J96.20 - Acute and chronic respiratory failure, unspecified whether with hypoxia or hypercapnia Status: Acute Assessment and Plan: * Normally on 2 L at night * Came in due to shortness of breath, tripoding, unable to complete sentences with worsening shortness of breath * Currently on 10 L high-flow cannula, got to the floor on 13 L high-flow cannula * Continue trend saturation * Maintain saturation above 90% (5) Heart failure: Code(s): I50.9 - Heart failure, unspecified Status: Acute Assessment and Plan: * Less echo of 2019 showed an EF of 55-60% * Appears to be heart failure with preserved EF * Chronic diastolic heart failure not in acute exacerbation * Daily weights * Strict I&Os * Stable at this time Subjective Date/time seen: 02/07/22 17:36 Interval history: 02/07/22 1115 02/07/2022 interval history: patient with COVID-19 being treated with remdesivir 4/5 and dexamethasone 4/10 today patient became more hypoxic and requiring 13 L of oxygen, patient was seen b
--- NOTE | 2022-02-07 17:36 | PM.IMPN ---
Progress Note: A&P Assessment and Plan (1) COVID-19: Code(s): U07.1 - COVID-19 Status: Acute Assessment and Plan: COVID positive as of 02/04/2022 Not vaccinated Continue remdesivir and dexamethasone Trend inflammatory markers including CRP, ferritin, and D-dimer Chest x-ray shows pulmonary opacities possible atypical infection, asthma, aspiration Neb treatments BNP 267 consider pulmonology if not improvements noted Add azithromycin and ceftriaxone for possible atypical PNA Consider CTA Echo doppler Give one time Tocilizumab 02/07/2022 interval history: patient with COVID-19 being treated with remdesivir 06/04 and dexamethasone 06/09 today patient became more hypoxic and requiring 13 L of oxygen, patient was seen by pulmonology and agreed with plan is started the patient on BiPAP, in the past patient had difficulty with the BiPAP currently is tolerating, patient is sitting in the bed, He was on 13L of oxygen. requiring 13 L per nasal cannula states gets short-winded with any exertion, He does have a significant cough. He denies any chest pain, nausea, vomiting, diarrhea, constipation. He is not sure that he would be able to get get and walk to the bathroom. He did also stated that he feels that his appetite has returned. He was given IS and cornet, with proper education. He does have a pretty significant cough, but seems to be non productive. patient had a cardiac echo showed preserved LV function with EF 65-70 and grade 1 diastolic dysfunction. patient is on Entresto, on 02/06 increased Rocephin to 2 g q.day, CTA of the chest is negative for pulmonary emboli, will continue to monitor, (2) Acute exacerbation of chronic obstructive pulmonary disease: Code(s): J44.1 - Chronic obstructive pulmonary disease with (acute) exacerbation Status: Acute Assessment and Plan: scheduled breathing treatments systemic steroids Supplemental oxygen to maintain saturation >90% Could be in acute exacerbation with increased wheezes, shortness of breath Continue to trend respiratory status this is secondary to covid (3) Chronic respiratory failure with hypoxia: Code(s): J96.11 - Chronic respiratory failure with hypoxia Status: Acute Assessment and Plan: continue supplemental oxygen by nasal cannula (4) Acute and chronic respiratory failure: Code(s): J96.20 - Acute and chronic respiratory failure, unspecified whether with hypoxia or hypercapnia Status: Acute Assessment and Plan: Normally on 2 L at night Came in due to shortness of breath, tripoding, unable to complete sentences with worsening shortness of breath Currently on 10 L high-flow cannula, got to the floor on 13 L high-flow cannula Continue trend saturation Maintain saturation above 90% (5) Heart failure: Code(s): I50.9 - Heart failure, unspecified Status: Acute Assessment and Plan: Less echo of 2019 showed an EF of 55-60% Appears to be heart failure with preserved EF Chronic diastolic heart failure not in acute exacerbation Daily weights Strict I&Os Stable at this time Subjective Date/time seen: 02/07/22 17:36 Interval history: 02/07/22 1115 02/07/2022 interval history: patient with COVID-19 being treated with remdesivir 06/04 and dexamethasone 06/09 today patient became more hypoxic and requiring 13 L of oxygen, patient was seen by pulmonology and agreed with plan is started the patient on BiPAP, in the past patient had difficulty with the BiPAP currently is tolerating, patient is sitting in the bed, He was on 13L of oxygen. requiring 13 L per nasal cannula states gets short-winded with any exertion, He does have a significant cough. He denies any chest pain, nausea, vomiting, diarrhea, constipation. He is not sure that he would be able to get get and walk to the bathroom. He did also stated that
[2022-02-07] MEDS: carvediloL 6.25 MG TABLET PO (21:45)
[2022-02-07] MEDS: REMDESIVIR 100 MG/NS 250 ML 100 MG/250 ML BAG 250 MG IVPB (23:20)
[2022-02-08] VITALS (24 sets, daily range): BP systolic 100–120; BP diastolic 55–59; PULSE 60–94; RESP 16–33; TEMP 36.3–37.3; O2SAT 91–97
[2022-02-08 05:35] LABS: INR 1.3; Prothrombin Time 15.6 Seconds (11.1-14.7)
[2022-02-08 05:36] LABS: Alanine Aminotransferase 29 U/L (6-50); Estimated CRCL calculation 76 ml/min; Estimated Glomerular Filt Rate > 60
--- NOTE | 2022-02-08 06:39 | PCRTNOTE ---
WINDOW OF TIME FOR TX . 0400 TX OMITTED
[2022-02-08] MEDS: SACUBITRIL/VALSARTAN 12-13 MG TABLET 1 TAB PO ×2 (08:19→21:26)
[2022-02-08] MEDS: carvediloL 6.25 MG TABLET PO ×2 (08:19→21:26)
[2022-02-08] MEDS: SPIRONOLACTONE 12.5 MG TABLET PO (08:19)
[2022-02-08] MEDS: ENOXAPARIN 40 MG/0.4 ML SYRINGE SUB-Q (08:20)
[2022-02-08] MEDS: ALBUTEROL SULFATE NEB 2.5 MG/3 ML INH INHALATION ×5 (08:57→22:59)
[2022-02-08] MEDS: IPRATROPIUM BR 0.02% INH SOLN 0.5 MG/2.5 ML VIAL INHALATION ×5 (08:58→22:59)
[2022-02-08 11:12] LABS: Hematocrit 43.2 % (42.0-52.0); Hemoglobin 13.7 g/dL (14.0-18.0); Mean Corpuscular HGB Conc 31.7 g/dl (32-36); Mean Corpuscular Hemoglobin 31.5 pg (26-34); Mean Corpuscular Volume 99.3 fl (80-100); Mean Platelet Volume 10.5 fl (7.4-10.4); Platelet Count Result 398 k/mm3 (150-375); Red Blood Count 4.35 M/mm3 (4.6-6.20); Red Cell Distribution Width 12.7 % (11.5-14.5); White Blood Count 10.5 K/mm3 (4.5-10.0)
[2022-02-08 11:21] LABS: Alanine Aminotransferase 31 U/L (6-50); Albumin Level 2.9 g/dL (3.5-5.1); Alkaline Phosphatase 60 U/L (38-126); Anion Gap 3 mmol/L (8-16); Aspartate Amino Transferase 27 U/L (17-59); Bilirubin,Total 0.2 mg/dL (0.2-1.3); Blood Urea Nitrogen 17 mg/dL (9-20); Carbon Dioxide 39 mmol/L (22-30); Chloride 98 mmol/L (98-107); Estimated CRCL calculation 76 ml/min; Estimated Glomerular Filt Rate > 60; Glucose 100 mg/dL (65-110); Magnesium 2.1 mg/dL (1.6-2.3); Potassium 4.4 mmol/L (3.4-5.0); Sodium 140 mmol/L (137-145)
--- NOTE | 2022-02-08 14:59 | P.PNIM_ITS ---
Progress Note: A&P Assessment and Plan (1) COVID-19: Code(s): U07.1 - COVID-19 Status: Acute Assessment and Plan: * COVID positive as of 02/04/2022 * Not vaccinated * Continue remdesivir and dexamethasone * Trend inflammatory markers including CRP, ferritin, and D-dimer * Chest x-ray shows pulmonary opacities possible atypical infection, asthma, aspiration * Neb treatments * BNP 267 * consider pulmonology if not improvements noted * Add azithromycin and ceftriaxone for possible atypical PNA * Consider CTA * Echo doppler * Give one time Tocilizumab 02/08/2022 interval history: patient with COVID-19 being treated with remdesivir 5/5 and dexamethasone 5/10 on 02/07 patient became more hypoxic and requiring 13 L of oxygen, patient was seen by pulmonology and agreed with plan is started the patient on BiPAP, in the past patient had difficulty with the BiPAP today he is tolerating, patient has completed 5 day course of remdesivir will extended another 5 days and continue dexamethasone, He does have a significant cough. He denies any chest pain, nausea, vomiting, diarrhea, constipation. He is not sure that he would be able to get get and walk to the bathroom. He did also stated that he feels that his appetite has returned. He was given IS and cornet, with proper education. He does have a pretty significant cough, but seems to be non productive. patient had a cardiac echo showed preserved LV function with EF 65-70 and grade 1 diastolic dysfunction. patient is on Entresto, on 02/06 increased Rocephin to 2 g q.day, CTA of the chest is negative for pulmonary emboli, will continue to monitor, (2) Acute exacerbation of chronic obstructive pulmonary disease: Code(s): J44.1 - Chronic obstructive pulmonary disease with (acute) exacerbation Status: Acute Assessment and Plan: * scheduled breathing treatments * systemic steroids * Supplemental oxygen to maintain saturation >90% * Could be in acute exacerbation with increased wheezes, shortness of breath * Continue to trend respiratory status * this is secondary to covid (3) Chronic respiratory failure with hypoxia: Code(s): J96.11 - Chronic respiratory failure with hypoxia Status: Acute Assessment and Plan: continue supplemental oxygen by nasal cannula (4) Acute and chronic respiratory failure: Code(s): J96.20 - Acute and chronic respiratory failure, unspecified whether with hypoxia or hypercapnia Status: Acute Assessment and Plan: * Normally on 2 L at night * Came in due to shortness of breath, tripoding, unable to complete sentences with worsening shortness of breath * Currently on 10 L high-flow cannula, got to the floor on 13 L high-flow cannula * Continue trend saturation * Maintain saturation above 90% (5) Heart failure: Code(s): I50.9 - Heart failure, unspecified Status: Acute Assessment and Plan: * Less echo of 2019 showed an EF of 55-60% * Appears to be heart failure with preserved EF * Chronic diastolic heart failure not in acute exacerbation * Daily weights * Strict I&Os * Stable at this time Subjective Date/time seen: 02/08/22 14:59 Interval history: 02/08/22 1115 02/08/2022 interval history: patient with COVID-19 being treated with remdesivir 5/5 and dexamethasone 5/10 on 02/07 patient became more hypoxic and requiring 13 L of oxygen, patient was seen by pulmonology and
--- NOTE | 2022-02-08 14:59 | PM.IMPN ---
Progress Note: A&P Assessment and Plan (1) COVID-19: Code(s): U07.1 - COVID-19 Status: Acute Assessment and Plan: COVID positive as of 02/04/2022 Not vaccinated Continue remdesivir and dexamethasone Trend inflammatory markers including CRP, ferritin, and D-dimer Chest x-ray shows pulmonary opacities possible atypical infection, asthma, aspiration Neb treatments BNP 267 consider pulmonology if not improvements noted Add azithromycin and ceftriaxone for possible atypical PNA Consider CTA Echo doppler Give one time Tocilizumab 02/08/2022 interval history: patient with COVID-19 being treated with remdesivir 5/5 and dexamethasone 5/10 on 02/07 patient became more hypoxic and requiring 13 L of oxygen, patient was seen by pulmonology and agreed with plan is started the patient on BiPAP, in the past patient had difficulty with the BiPAP today he is tolerating, patient has completed 5 day course of remdesivir will extended another 5 days and continue dexamethasone, He does have a significant cough. He denies any chest pain, nausea, vomiting, diarrhea, constipation. He is not sure that he would be able to get get and walk to the bathroom. He did also stated that he feels that his appetite has returned. He was given IS and cornet, with proper education. He does have a pretty significant cough, but seems to be non productive. patient had a cardiac echo showed preserved LV function with EF 65-70 and grade 1 diastolic dysfunction. patient is on Entresto, on 02/06 increased Rocephin to 2 g q.day, CTA of the chest is negative for pulmonary emboli, will continue to monitor, (2) Acute exacerbation of chronic obstructive pulmonary disease: Code(s): J44.1 - Chronic obstructive pulmonary disease with (acute) exacerbation Status: Acute Assessment and Plan: scheduled breathing treatments systemic steroids Supplemental oxygen to maintain saturation >90% Could be in acute exacerbation with increased wheezes, shortness of breath Continue to trend respiratory status this is secondary to covid (3) Chronic respiratory failure with hypoxia: Code(s): J96.11 - Chronic respiratory failure with hypoxia Status: Acute Assessment and Plan: continue supplemental oxygen by nasal cannula (4) Acute and chronic respiratory failure: Code(s): J96.20 - Acute and chronic respiratory failure, unspecified whether with hypoxia or hypercapnia Status: Acute Assessment and Plan: Normally on 2 L at night Came in due to shortness of breath, tripoding, unable to complete sentences with worsening shortness of breath Currently on 10 L high-flow cannula, got to the floor on 13 L high-flow cannula Continue trend saturation Maintain saturation above 90% (5) Heart failure: Code(s): I50.9 - Heart failure, unspecified Status: Acute Assessment and Plan: Less echo of 2019 showed an EF of 55-60% Appears to be heart failure with preserved EF Chronic diastolic heart failure not in acute exacerbation Daily weights Strict I&Os Stable at this time Subjective Date/time seen: 02/08/22 14:59 Interval history: 02/08/22 1115 02/08/2022 interval history: patient with COVID-19 being treated with remdesivir 5/5 and dexamethasone 5/10 on 02/07 patient became more hypoxic and requiring 13 L of oxygen, patient was seen by pulmonology and agreed with plan is started the patient on BiPAP, in the past patient had difficulty with the BiPAP today he is tolerating, patient has completed 5 day course of remdesivir will extended another 5 days and continue dexamethasone, He does have a significant cough. He denies any chest pain, nausea, vomiting, diarrhea, constipation. He is not sure that he would be able to get get and walk to the bathroom. He did also stated that he feels that his appetite has returned. He
--- NOTE | 2022-02-08 15:31 | PM.PNPUL ---
Progress Note: A&P Assessment and Plan (1) COVID-19: Code(s): U07.1 - COVID-19 Status: Acute Assessment and Plan: He tested positive for COVID-19 on 02/04/2022, started on remdesivir, dexamethasone on 02/04; tocilizumab on 02/05 as well as empiric ceftriaxone and azithromycin on 02/05. Negative influenza and RSV RT-PCR studies. Remdesivir for 10 days unless he should recover and baseline home O2 requirements with rest and ambulation and while sleeping. - Dexamethasone 6 mg IV for 10 days - Continuous pulse oximetry - Prone positioning as tolerated. - Avoid any fluid overload. - empiric azithromycin and ceftriaxone for CAP. ? - Albuterol and ipratropium nebs Q 4 for now. Keep saturations are 90-94% with Airvo high flow nasal cannula. If fails Airvo then NIV with AVAPS mode and if fails NIV then intubation. Overall, he may be turning the corner, needing lower O2. Things can fluctuate with COVID. (2) Acute on chronic respiratory failure with hypoxia and hypercapnia: Code(s): J96.21 - Acute and chronic respiratory failure with hypoxia; J96.22 - Acute and chronic respiratory failure with hypercapnia Status: Acute Assessment and Plan: Etiology of acute hypoxic respiratory failure is likely COVID pneumonia.? of note he does have COPD with chronic hypoxemic respiratory failure his last home O2 assessment on 04/29/2021 demonstrated he needed no oxygen with rest and 2 L with activity. ? CT angiogram is negative for PE.? He had a history of nonischemic cardiomyopathy but this had improved on echocardiogram previously and his current echocardiogram shows an EF of 60-70%, grade 1 diastolic dysfunction and normal RV function.? Unable to obtain a PASP. 02/04 20:30 6 L NC with sats 92%. 02/05 08:00 6 L NC with sats 90%. 02/05 10:15 13 L NC with sats 91%. 02/05 20:00 13 L NC with sats 94% 02/06 08:00 Airvo 60 L 80% sats 94% 02/08 Airvo 55 L with 69% FiO2, sat 93% (3) COPD (chronic obstructive pulmonary disease): Code(s): J44.9 - Chronic obstructive pulmonary disease, unspecified Status: Acute Assessment and Plan: History of 40 pack years tobacco use, quit on 01/30/2022, currently exposed to secondhand smoke from his who smokes mostly outside until recently,PFTs 04/29/2021 demonstrated a severe obstructive abnormality (FEV1 1.36 L, 42% predicted), with a bronchodilator response, air trapping, hyperinflation and moderately decreased DLCO.? CT angiogram on 02/06/2022 demonstrates severe apical predominant centrilobular emphysema.? Last home O2 assessment M and on 04/29/2021 was rest room air, 2 L with activity and he wears 2 L at night.? His M MRC grade was 0, his CAT score was 8 and he is maintained on Anoro Ellipta. He did have chronic hypercarbic respiratory failure but was unable to tolerate BiPAP in the hospital on 02/07/2021.? He had been unwilling to receive COVID or influenza vaccines. 02/07/2022? The current hospitalization appears to be related to COVID pneumonia rather than a COPD exacerbation.? Nonetheless he is receiving dexamethasone 6 mg IV q.day.? Continue albuterol 2.5 mg nebs q.4 hours and ipratropium 0.5 mg nebs q.4 hours.? He has no wheezing on exam 02/08/2022 He has some wheezing today, overall feels better. Subjective Date/time seen: 02/08/22 15:31 Interval history: Hospital Follow up : Initial visit was Feb 07 for Gold grade 3 group C COPD with chronic hypoxemic and hypercarbic respiratory failure?with COVID pneumonia. 71-year-old man with a history of COPD and nonischemic cardiomyopathy with improved EF to 55-60% on last Echocardiogram 02/09/2021 who is followed in pulmoanry clinic and last seen 01/13/2022. History of 40 pack years tobacco use, quit on 01/30/2022, currently exposed to secondha
[2022-02-08] MEDS: REMDESIVIR 100 MG/NS 250 ML 100 MG/250 ML BAG 250 MG IVPB (21:26)
[2022-02-09] VITALS (30 sets, daily range): BP systolic 101–123; BP diastolic 49–65; PULSE 7–86; RESP 16–38; TEMP 35.9–36.8; O2SAT 92–99
[2022-02-09] MEDS: IPRATROPIUM BR 0.02% INH SOLN 0.5 MG/2.5 ML VIAL INHALATION ×7 (02:05→23:59)
[2022-02-09] MEDS: ALBUTEROL SULFATE NEB 2.5 MG/3 ML INH INHALATION ×7 (02:05→23:59)
[2022-02-09 06:28] LABS: Hematocrit 41.9 % (42.0-52.0); Hemoglobin 13.3 g/dL (14.0-18.0); Mean Corpuscular HGB Conc 31.7 g/dl (32-36); Mean Corpuscular Hemoglobin 30.9 pg (26-34); Mean Corpuscular Volume 97.2 fl (80-100); Platelet Count Result 380 k/mm3 (150-375); Red Blood Count 4.31 M/mm3 (4.6-6.20); Red Cell Distribution Width 12.4 % (11.5-14.5); White Blood Count 11.4 K/mm3 (4.5-10.0)
[2022-02-09 06:53] LABS: Alanine Aminotransferase 32 U/L (6-50); Alkaline Phosphatase 62 U/L (38-126); Anion Gap 2 mmol/L (8-16); Aspartate Amino Transferase 27 U/L (17-59); Bilirubin,Total 0.2 mg/dL (0.2-1.3); Blood Urea Nitrogen 16 mg/dL (9-20); Calcium 7.9 mg/dL (8.4-10.2); Carbon Dioxide 39 mmol/L (22-30); Chloride 96 mmol/L (98-107); Estimated CRCL calculation 76 ml/min; Estimated Glomerular Filt Rate > 60; Glucose 95 mg/dL (65-110); Magnesium 2.3 mg/dL (1.6-2.3); Potassium 4.2 mmol/L (3.4-5.0); Sodium 137 mmol/L (137-145)
[2022-02-09] MEDS: ENOXAPARIN 40 MG/0.4 ML SYRINGE SUB-Q (09:08)
[2022-02-09] MEDS: carvediloL 6.25 MG TABLET PO ×2 (09:09→21:00)
[2022-02-09] MEDS: SPIRONOLACTONE 12.5 MG TABLET PO (09:09)
[2022-02-09] MEDS: SACUBITRIL/VALSARTAN 12-13 MG TABLET 1 TAB PO ×2 (09:09→21:00)
[2022-02-09 14:15] LABS: Alveolar/Arterial O2 Gradient 362.5 mmHg; Base Excess ABG 9.7 mEq/l (+/-2.0); Fractional Inspired Oxygen 70 %; Oxygen Content ABG 19.4 %vol (16.0-22.0); Oxygen Saturation ABG 93.8 % (95.0-100.0); PO2 ABG 70.7 mmHg (80.0-100.0); PO2 FiO2 Ratio Arterial Blood 1.01 %; Total Hemoglobin 14.8 g/dL (12.0-18.0); pH ABG 7.399 (7.350-7.450)
[2022-02-09 14:17] LABS: PCO2 ABG 61.3 mmHg (35.0-45.0)
[2022-02-09 14:18] LABS: Modified Allen's Test Pass; Site Drawn RIGHT RADIAL
[2022-02-09 14:19] LABS: Device HIGH FLOW THERAPY
--- NOTE | 2022-02-09 15:13 | PM.IMPN ---
Progress Note: A&P Assessment and Plan (1) COVID-19: Code(s): U07.1 - COVID-19 Status: Acute Assessment and Plan: COVID positive as of 02/04/2022 Not vaccinated Continue remdesivir and dexamethasone Trend inflammatory markers including CRP, ferritin, and D-dimer Chest x-ray shows pulmonary opacities possible atypical infection, asthma, aspiration Neb treatments BNP 267 consider pulmonology if not improvements noted Add azithromycin and ceftriaxone for possible atypical PNA Consider CTA Echo doppler Give one time Tocilizumab 02/09/2022 interval history: patient with COVID-19 being treated with remdesivir 5/5 and dexamethasone 5/10 on 02/07 patient became more hypoxic and requiring 13 L of oxygen, patient was seen by pulmonology and agreed with plan is started the patient on BiPAP, in the past patient had difficulty with the BiPAP today he is tolerating, patient has completed 5 day course of remdesivir on 02/09 extended another 5 days and continue dexamethasone, currently patient in on AIRVO, a repeat ABG today showed, slight improvement in CO2 He does have a significant cough. He denies any chest pain, nausea, vomiting, diarrhea, constipation. He is not sure that he would be able to get get and walk to the bathroom. He did also stated that he feels that his appetite has returned. He was given IS and cornet, with proper education. He does have a pretty significant cough, but seems to be non productive. patient had a cardiac echo showed preserved LV function with EF 65-70 and grade 1 diastolic dysfunction. patient is on Entresto, on 02/06 increased Rocephin to 2 g q.day, CTA of the chest is negative for pulmonary emboli, will continue to monitor, (2) Acute exacerbation of chronic obstructive pulmonary disease: Code(s): J44.1 - Chronic obstructive pulmonary disease with (acute) exacerbation Status: Acute Assessment and Plan: scheduled breathing treatments systemic steroids Supplemental oxygen to maintain saturation >90% Could be in acute exacerbation with increased wheezes, shortness of breath Continue to trend respiratory status this is secondary to covid (3) Chronic respiratory failure with hypoxia: Code(s): J96.11 - Chronic respiratory failure with hypoxia Status: Acute Assessment and Plan: continue supplemental oxygen by nasal cannula (4) Acute and chronic respiratory failure: Code(s): J96.20 - Acute and chronic respiratory failure, unspecified whether with hypoxia or hypercapnia Status: Acute Assessment and Plan: Normally on 2 L at night Came in due to shortness of breath, tripoding, unable to complete sentences with worsening shortness of breath Currently on 10 L high-flow cannula, got to the floor on 13 L high-flow cannula Continue trend saturation Maintain saturation above 90% (5) Heart failure: Code(s): I50.9 - Heart failure, unspecified Status: Acute Assessment and Plan: Less echo of 2019 showed an EF of 55-60% Appears to be heart failure with preserved EF Chronic diastolic heart failure not in acute exacerbation Daily weights Strict I&Os Stable at this time Subjective Date/time seen: 02/09/22 15:13 Interval history: 02/08/22 1115 02/09/2022 interval history: patient with COVID-19 being treated with remdesivir 5/5 and dexamethasone 5/10 on 02/07 patient became more hypoxic and requiring 13 L of oxygen, patient was seen by pulmonology and agreed with plan is started the patient on BiPAP, in the past patient had difficulty with the BiPAP today he is tolerating, patient has completed 5 day course of remdesivir on 02/09 extended another 5 days and continue dexamethasone, currently patient in on AIRVO, a repeat ABG today showed, slight improvement in CO2 He does have a significant cough. He denies any chest pain, nausea,
--- NOTE | 2022-02-09 16:26 | PM.PNPUL ---
Progress Note: A&P Assessment and Plan (1) COVID-19: Code(s): U07.1 - COVID-19 Status: Acute Assessment and Plan: He tested positive for COVID-19 on 02/04/2022, started on remdesivir, dexamethasone on 02/04; tocilizumab on 02/05 as well as empiric ceftriaxone and azithromycin on 02/05. Negative influenza and RSV RT-PCR studies. Remdesivir for 10 days unless he should recover and baseline home O2 requirements with rest and ambulation and while sleeping. - Dexamethasone 6 mg IV for 10 days - Continuous pulse oximetry - Prone positioning as tolerated. - Avoid any fluid overload. - empiric azithromycin day #5 and ceftriaxone day # 3 for CAP. ? - Albuterol and ipratropium nebs Q 4 for now. Keep saturations are 90-94% with Airvo high flow nasal cannula.Alternate between Airvo and NIV with AVAPS mode. May be able to get through this without being intubated. Overall, he may be turning the corner, needing lower O2. Things can fluctuate with COVID. will check portable chest x-ray, ferritin and CRP February 10 (2) Acute on chronic respiratory failure with hypoxia and hypercapnia: Code(s): J96.21 - Acute and chronic respiratory failure with hypoxia; J96.22 - Acute and chronic respiratory failure with hypercapnia Status: Acute Assessment and Plan: Etiology of acute hypoxic respiratory failure is likely COVID pneumonia.? of note he does have COPD with chronic hypoxemic respiratory failure his last home O2 assessment on 04/29/2021 demonstrated he needed no oxygen with rest and 2 L with activity. ? CT angiogram is negative for PE.? He had a history of nonischemic cardiomyopathy but this had improved on echocardiogram previously and his current echocardiogram shows an EF of 60-70%, grade 1 diastolic dysfunction and normal RV function.? Unable to obtain a PASP. 02/04 20:30 6 L NC with sats 92%. 02/05 08:00 6 L NC with sats 90%. 02/05 10:15 13 L NC with sats 91%. 02/05 20:00 13 L NC with sats 94% 02/06 08:00 Airvo 60 L 80% sats 94% 02/08 Airvo 55 L with 69% FiO2, sat 93% 02/09 Airvo 50 L with 60% with sats 92%; this moment he is on neb treatment with higher O2 flow, sat 100% (3) COPD (chronic obstructive pulmonary disease): Code(s): J44.9 - Chronic obstructive pulmonary disease, unspecified Status: Acute Assessment and Plan: History of 40 pack years tobacco use, quit on 01/30/2022, currently exposed to secondhand smoke from his who smokes mostly outside until recently,PFTs 04/29/2021 demonstrated a severe obstructive abnormality (FEV1 1.36 L, 42% predicted), with a bronchodilator response, air trapping, hyperinflation and moderately decreased DLCO.? CT angiogram on 02/06/2022 demonstrates severe apical predominant centrilobular emphysema.? Last home O2 assessment M and on 04/29/2021 was rest room air, 2 L with activity and he wears 2 L at night.? His M MRC grade was 0, his CAT score was 8 and he is maintained on Anoro Ellipta. He did have chronic hypercarbic respiratory failure but was unable to tolerate BiPAP in the hospital on 02/07/2021.? He had been unwilling to receive COVID or influenza vaccines. 02/07/2022? The current hospitalization appears to be related to COVID pneumonia rather than a COPD exacerbation.? Nonetheless he is receiving dexamethasone 6 mg IV q.day.? Continue albuterol 2.5 mg nebs q.4 hours and ipratropium 0.5 mg nebs q.4 hours.? He has no wheezing on exam 02/08/2022 He has some wheezing today, overall feels better. 02/09/2022 Still lots of wheezing, about the same today Subjective Date/time seen: 02/09/22 16:26 Interval history: Hospital Follow up : Initial visit was Feb 07 for Gold grade 3 group C COPD with chronic hypoxemic and hypercarbic respiratory failure?with COVID pneumonia. 71
[2022-02-09] MEDS: REMDESIVIR 100 MG/NS 250 ML 100 MG/250 ML BAG 250 MG IVPB (21:00)
[2022-02-10] VITALS (26 sets, daily range): BP systolic 101–136; BP diastolic 53–84; PULSE 59–94; RESP 20–25; TEMP 36.1–37.1; O2SAT 90–98
[2022-02-10] MEDS: IPRATROPIUM BR 0.02% INH SOLN 0.5 MG/2.5 ML VIAL INHALATION ×4 (03:40→20:55)
[2022-02-10] MEDS: ALBUTEROL SULFATE NEB 2.5 MG/3 ML INH INHALATION ×4 (03:40→20:54)
[2022-02-10 05:48] LABS: Hematocrit 43.1 % (42.0-52.0); Hemoglobin 13.7 g/dL (14.0-18.0); Mean Corpuscular HGB Conc 31.8 g/dl (32-36); Mean Corpuscular Hemoglobin 30.9 pg (26-34); Mean Corpuscular Volume 97.1 fl (80-100); Mean Platelet Volume 10.1 fl (7.4-10.4); Platelet Count Result 400 k/mm3 (150-375); Red Blood Count 4.44 M/mm3 (4.6-6.20); Red Cell Distribution Width 12.4 % (11.5-14.5); White Blood Count 12.2 K/mm3 (4.5-10.0)
[2022-02-10 05:56] LABS: Alanine Aminotransferase 32 U/L (6-50); Albumin Level 3.2 g/dL (3.5-5.1); Alkaline Phosphatase 56 U/L (38-126); Aspartate Amino Transferase 26 U/L (17-59); Bilirubin,Total 0.2 mg/dL (0.2-1.3); Blood Urea Nitrogen 18 mg/dL (9-20); CRP 2.6 mg/dL (<1.0); Calcium 8.2 mg/dL (8.4-10.2); Carbon Dioxide > 40 mmol/L (22-30); Chloride 92 mmol/L (98-107); Estimated CRCL calculation 76 ml/min; Estimated Glomerular Filt Rate > 60; Glucose 113 mg/dL (65-110); Magnesium 2.4 mg/dL (1.6-2.3); Potassium 4.4 mmol/L (3.4-5.0); Sodium 133 mmol/L (137-145)
[2022-02-10] MEDS: ENOXAPARIN 40 MG/0.4 ML SYRINGE SUB-Q (08:16)
[2022-02-10] MEDS: polyethylene glycoL 3350 17 GM POWD.PACK PO (08:17)
[2022-02-10] MEDS: SPIRONOLACTONE 12.5 MG TABLET PO (08:17)
[2022-02-10] MEDS: DOCUSATE SODIUM 100 MG CAPSULE PO (08:17)
[2022-02-10] MEDS: carvediloL 6.25 MG TABLET PO ×2 (08:19→20:48)
[2022-02-10] MEDS: SACUBITRIL/VALSARTAN 12-13 MG TABLET 1 TAB PO ×2 (08:19→20:49)
--- NOTE | 2022-02-10 11:10 | PM.PNPUL ---
Progress Note: A&P Assessment and Plan (1) COVID-19: Code(s): U07.1 - COVID-19 Status: Acute Assessment and Plan: He tested positive for COVID-19 on 02/04/2022, started on remdesivir, dexamethasone on 02/04; tocilizumab on 02/05 as well as empiric ceftriaxone and azithromycin on 02/05. Negative influenza and RSV RT-PCR studies. Remdesivir for 10 days unless he should recover and baseline home O2 requirements with rest and ambulation and while sleeping. - Dexamethasone 6 mg IV for 10 days - Continuous pulse oximetry - Prone positioning as tolerated. - Avoid any fluid overload. - empiric azithromycin day #5 and ceftriaxone day # 3 for CAP. ? - Albuterol and ipratropium nebs Q 4 for now. Keep saturations are 90-94% with Airvo high flow nasal cannula. 02/09 Alternate between Airvo and NIV with AVAPS mode. May be able to get through this without being intubated. Overall, he may be turning the corner, needing lower O2. Things can fluctuate with COVID. 02/10 Patient states he is slightly better, his dyspnea on exertion is the same, he has no phlegm production. He is currently on air bow 40 L, 74% with saturations 93%. White blood cell count 12.2, creatinine 0.8, chest x-ray with unchanged bibasilar interstitial alveolar infiltrates. Sputum is growing normal jeremy. CRP is 2.6. Day 7 Remdesivir, dexamethasone, day 6 ceftriaxone and azithromycin, will DC azithromycin today. (2) Acute on chronic respiratory failure with hypoxia and hypercapnia: Code(s): J96.21 - Acute and chronic respiratory failure with hypoxia; J96.22 - Acute and chronic respiratory failure with hypercapnia Status: Acute Assessment and Plan: Etiology of acute hypoxic respiratory failure is likely COVID pneumonia.? of note he does have COPD with chronic hypoxemic respiratory failure his last home O2 assessment on 04/29/2021 demonstrated he needed no oxygen with rest and 2 L with activity. ? CT angiogram is negative for PE.? He had a history of nonischemic cardiomyopathy but this had improved on echocardiogram previously and his current echocardiogram shows an EF of 60-70%, grade 1 diastolic dysfunction and normal RV function.? Unable to obtain a PASP. 02/05 20:30 6 L NC with sats 92%. 02/06 08:00 6 L NC with sats 90%. 02/06 10:15 13 L NC with sats 91%. 02/06 20:00 13 L NC with sats 94% 02/07 08:00 Airvo 60 L 80% sats 94% 02/07 20:00 Airvo 55 L 70%, sats 92%, AVAPS 80 to 60% overnight 02/08 08:00 AVAPS 50% 02/08 16:00 Airvo 55 L 66%, sats 95%, AVAPS 50% overnight 02/09 08:00 Airvo 55 L 70%, sats 92% 02/09 20:00 Airvo 45 L 60%, sats 94%, AVAPS 50% overnight 02/10 08:00 Airvo 45 L 70%, sats 91% Goal saturation 90-94%. (3) COPD (chronic obstructive pulmonary disease): Code(s): J44.9 - Chronic obstructive pulmonary disease, unspecified Status: Acute Assessment and Plan: History of 40 pack years tobacco use, quit on 01/30/2022, currently exposed to secondhand smoke from his who smokes mostly outside until recently,PFTs 04/29/2021 demonstrated a severe obstructive abnormality (FEV1 1.36 L, 42% predicted), with a bronchodilator response, air trapping, hyperinflation and moderately decreased DLCO.? CT angiogram on 02/06/2022 demonstrates severe apical predominant centrilobular emphysema.? Last home O2 assessment M and on 04/29/2021 was rest room air, 2 L with activity and he wears 2 L at night.? His M MRC grade was 0, his CAT score was 8 and he is maintained on Anoro Ellipta. He did have chronic hypercarbic respiratory failure but was unable to tolerate BiPAP in the hospital on 02/07/2021.? He had been unwilling to receive COVID or influenza vaccines. 02/07/2022? The current hospitalization appears to be related to COVID pneumonia rather than a COPD exacerbation.? Nonetheless he is receiving dexamethasone 6 mg IV q.day.? Continue albuterol 2.5 mg nebs q.4 hours and ipratropium 0.5
--- NOTE | 2022-02-10 17:14 | P.PNIM_ITS ---
Progress Note: A&P Assessment and Plan (1) COVID-19: Code(s): U07.1 - COVID-19 Status: Acute Assessment and Plan: * COVID positive as of 02/04/2022 * Not vaccinated * Continue remdesivir and dexamethasone * Trend inflammatory markers including CRP, ferritin, and D-dimer * Chest x-ray shows pulmonary opacities possible atypical infection, asthma, aspiration * Neb treatments * BNP 267 * consider pulmonology if not improvements noted * Add azithromycin and ceftriaxone for possible atypical PNA * Consider CTA * Echo doppler * Give one time Tocilizumab 02/10/2022 interval history: patient with COVID-19 being treated with remdesivir 5/5 and dexamethasone 5/10 on 02/07 patient became more hypoxic and requiring 13 L of oxygen, patient was seen by pulmonology and agreed with plan is started the patient on BiPAP, in the past patient had difficulty with the BiPAP whoever he is tolerating, patient had completed 5 day course of remdesivir on 02/09 patient remains hypoxic extended another 5 days and continue dexamethasone, currently patient in on AIRVO, a repeat ABG on 02/09 showed, slight improvement in CO2 He does have a significant cough. He denies any chest pain, nausea, vomiting, diarrhea, constipation. He is not sure that he would be able to get get and walk to the bathroom. He did also stated that he feels that his appetite has returned. He was given IS and cornet, with proper education. He does have a pretty significant cough, but seems to be non productive. patient had a cardiac echo showed preserved LV function with EF 65- 70 and grade 1 diastolic dysfunction. 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 sonographer further recommendations to follow, wi ll continue to monitor, (2) Acute exacerbation of chronic obstructive pulmonary disease: Code(s): J44.1 - Chronic obstructive pulmonary disease with (acute) exacerbation Status: Acute Assessment and Plan: * scheduled breathing treatments * systemic steroids * Supplemental oxygen to maintain saturation >90% * Could be in acute exacerbation with increased wheezes, shortness of breath * Continue to trend respiratory status * this is secondary to covid (3) Chronic respiratory failure with hypoxia: Code(s): J96.11 - Chronic respiratory failure with hypoxia Status: Acute Assessment and Plan: continue supplemental oxygen by nasal cannula (4) Acute and chronic respiratory failure: Code(s): J96.20 - Acute and chronic respiratory failure, unspecified whether with hypoxia or hypercapnia Status: Acute Assessment and Plan: * Normally on 2 L at night * Came in due to shortness of breath, tripoding, unable to complete sentences with worsening shortness of breath * Currently on 10 L high-flow cannula, got to the floor on 13 L high-flow cannula * Continue trend saturation * Maintain saturation above 90% (5) Heart failure: Code(s): I50.9 - Heart failure, unspecified Status: Acute Assessment and Plan: * Less echo of 2019 showed an EF of 55-60% * Appears to be heart failure with preserved EF * Chronic diastolic heart failure not in acute exacerbation * Daily weights * Strict I&Os * Stable at this time Subjective Date/time seen: 02/10/22 17:14 02/10/2022 interval history: patient with COVID-19 being treated with remdesiv
--- NOTE | 2022-02-10 17:14 | PM.IMPN ---
Progress Note: A&P Assessment and Plan (1) COVID-19: Code(s): U07.1 - COVID-19 Status: Acute Assessment and Plan: COVID positive as of 02/04/2022 Not vaccinated Continue remdesivir and dexamethasone Trend inflammatory markers including CRP, ferritin, and D-dimer Chest x-ray shows pulmonary opacities possible atypical infection, asthma, aspiration Neb treatments BNP 267 consider pulmonology if not improvements noted Add azithromycin and ceftriaxone for possible atypical PNA Consider CTA Echo doppler Give one time Tocilizumab 02/10/2022 interval history: patient with COVID-19 being treated with remdesivir 5/5 and dexamethasone 5/10 on 02/07 patient became more hypoxic and requiring 13 L of oxygen, patient was seen by pulmonology and agreed with plan is started the patient on BiPAP, in the past patient had difficulty with the BiPAP whoever he is tolerating, patient had completed 5 day course of remdesivir on 02/09 patient remains hypoxic extended another 5 days and continue dexamethasone, currently patient in on AIRVO, a repeat ABG on 02/09 showed, slight improvement in CO2 He does have a significant cough. He denies any chest pain, nausea, vomiting, diarrhea, constipation. He is not sure that he would be able to get get and walk to the bathroom. He did also stated that he feels that his appetite has returned. He was given IS and cornet, with proper education. He does have a pretty significant cough, but seems to be non productive. patient had a cardiac echo showed preserved LV function with EF 65-70 and grade 1 diastolic dysfunction. 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 digital media buyer further recommendations to follow, will continue to monitor, (2) Acute exacerbation of chronic obstructive pulmonary disease: Code(s): J44.1 - Chronic obstructive pulmonary disease with (acute) exacerbation Status: Acute Assessment and Plan: scheduled breathing treatments systemic steroids Supplemental oxygen to maintain saturation >90% Could be in acute exacerbation with increased wheezes, shortness of breath Continue to trend respiratory status this is secondary to covid (3) Chronic respiratory failure with hypoxia: Code(s): J96.11 - Chronic respiratory failure with hypoxia Status: Acute Assessment and Plan: continue supplemental oxygen by nasal cannula (4) Acute and chronic respiratory failure: Code(s): J96.20 - Acute and chronic respiratory failure, unspecified whether with hypoxia or hypercapnia Status: Acute Assessment and Plan: Normally on 2 L at night Came in due to shortness of breath, tripoding, unable to complete sentences with worsening shortness of breath Currently on 10 L high-flow cannula, got to the floor on 13 L high-flow cannula Continue trend saturation Maintain saturation above 90% (5) Heart failure: Code(s): I50.9 - Heart failure, unspecified Status: Acute Assessment and Plan: Less echo of 2019 showed an EF of 55-60% Appears to be heart failure with preserved EF Chronic diastolic heart failure not in acute exacerbation Daily weights Strict I&Os Stable at this time Subjective Date/time seen: 02/10/22 17:14 02/10/2022 interval history: patient with COVID-19 being treated with remdesivir 5/5 and dexamethasone 5/10 on 02/07 patient became more hypoxic and requiring 13 L of oxygen, patient was seen by pulmonology and agreed with plan is started the patient on BiPAP, in the past patient had difficulty with the BiPAP whoever he is tolerating, patient had completed 5 day course of remdesivir on 02/09 patient remains hypoxic extended another 5 days and continue dexamethasone, currently patient in on AIRVO, a repeat ABG on 02/09 showed, slight
[2022-02-10] MEDS: REMDESIVIR 100 MG/NS 250 ML 100 MG/250 ML BAG 250 MG IVPB (20:49)
[2022-02-11] VITALS (27 sets, daily range): BP systolic 105–120; BP diastolic 54–63; PULSE 59–89; RESP 18–29; TEMP 36.3–36.7; O2SAT 88–100
[2022-02-11] MEDS: ALBUTEROL SULFATE NEB 2.5 MG/3 ML INH INHALATION ×6 (00:05→21:05)
[2022-02-11] MEDS: IPRATROPIUM BR 0.02% INH SOLN 0.5 MG/2.5 ML VIAL INHALATION ×6 (00:05→21:05)
[2022-02-11 05:33] LABS: Hematocrit 43.2 % (42.0-52.0); Hemoglobin 13.7 g/dL (14.0-18.0); Mean Corpuscular HGB Conc 31.7 g/dl (32-36); Mean Corpuscular Hemoglobin 29.9 pg (26-34); Mean Corpuscular Volume 94.3 fl (80-100); Mean Platelet Volume 9.8 fl (7.4-10.4); Platelet Count Result 381 k/mm3 (150-375); Red Blood Count 4.58 M/mm3 (4.6-6.20); Red Cell Distribution Width 12.3 % (11.5-14.5); White Blood Count 11.5 K/mm3 (4.5-10.0)
[2022-02-11 05:40] LABS: INR 1.2; Prothrombin Time 14.5 Seconds (11.1-14.7)
[2022-02-11 06:04] LABS: Alanine Aminotransferase 38 U/L (6-50); Albumin Level 3.2 g/dL (3.5-5.1); Alkaline Phosphatase 56 U/L (38-126); Anion Gap 3 mmol/L (8-16); Aspartate Amino Transferase 31 U/L (17-59); Bilirubin,Total 0.4 mg/dL (0.2-1.3); Blood Urea Nitrogen 21 mg/dL (9-20); Calcium 8.1 mg/dL (8.4-10.2); Carbon Dioxide 38 mmol/L (22-30); Chloride 96 mmol/L (98-107); Estimated CRCL calculation 86 ml/min; Estimated Glomerular Filt Rate > 60; Glucose 103 mg/dL (65-110); Magnesium 2.2 mg/dL (1.6-2.3); Potassium 4.4 mmol/L (3.4-5.0); Sodium 137 mmol/L (137-145)
--- NOTE | 2022-02-11 08:37 | PM.PNPUL ---
Progress Note: A&P Assessment and Plan (1) COVID-19: Code(s): U07.1 - COVID-19 Status: Acute Assessment and Plan: He tested positive for COVID-19 on 02/04/2022, started on remdesivir, dexamethasone on 02/04; tocilizumab on 02/05 as well as empiric ceftriaxone and azithromycin on 02/05. Negative influenza and RSV RT-PCR studies. Remdesivir for 10 days unless he should recover and baseline home O2 requirements with rest and ambulation and while sleeping. - Dexamethasone 6 mg IV for 10 days - Continuous pulse oximetry - Prone positioning as tolerated. - Avoid any fluid overload. - empiric azithromycin day #5 and ceftriaxone day # 3 for CAP. ? - Albuterol and ipratropium nebs Q 4 for now. Keep saturations are 90-94% with Airvo high flow nasal cannula. 02/09 Alternate between Airvo and NIV with AVAPS mode. May be able to get through this without being intubated. Overall, he may be turning the corner, needing lower O2. Things can fluctuate with COVID. 02/10 Patient states he is slightly better, his dyspnea on exertion is the same, he has no phlegm production. He is currently on air bow 40 L, 74% with saturations 93%. White blood cell count 12.2, creatinine 0.8, chest x-ray with unchanged bibasilar interstitial alveolar infiltrates. Sputum is growing normal jeremy. CRP is 2.6. Day 7 Remdesivir, dexamethasone, day 6 ceftriaxone and azithromycin, will DC azithromycin today. 02/11 patient is minimally better. He did walk for the 1st time yesterday in the room. He remains with a dry cough and dyspnea on exertion. No phlegm no hemoptysis. He is afebrile. White blood cell count 11.5, creatinine 0.7. Currently he is on airvo 45 L 60% FiO2 with saturations 90%. day 8 Remdesivir and dexamethasone. Day 7 ceftriaxone and will discontinue after today's dose. (2) Acute on chronic respiratory failure with hypoxia and hypercapnia: Code(s): J96.21 - Acute and chronic respiratory failure with hypoxia; J96.22 - Acute and chronic respiratory failure with hypercapnia Status: Acute Assessment and Plan: Etiology of acute hypoxic respiratory failure is likely COVID pneumonia.? of note he does have COPD with chronic hypoxemic respiratory failure his last home O2 assessment on 04/29/2021 demonstrated he needed no oxygen with rest and 2 L with activity. ? CT angiogram is negative for PE.? He had a history of nonischemic cardiomyopathy but this had improved on echocardiogram previously and his current echocardiogram shows an EF of 60-70%, grade 1 diastolic dysfunction and normal RV function.? Unable to obtain a PASP. 02/05 20:30 6 L NC with sats 92%. 02/06 08:00 6 L NC with sats 90%. 02/06 10:15 13 L NC with sats 91%. 02/06 20:00 13 L NC with sats 94% 02/07 08:00 Airvo 60 L 80% sats 94% 02/07 20:00 Airvo 55 L 70%, sats 92%, AVAPS 80 to 60% overnight 02/08 08:00 AVAPS 50% most of day 02/08 16:00 Airvo 55 L 66%, sats 95%, AVAPS 50% overnight 02/09 08:00 Airvo 55 L 70%, sats 92% 02/09 20:00 Airvo 45 L 60%, sats 94%, AVAPS 50% overnight 02/10 08:00 Airvo 45 L 70%, sats 91% 02/10 21:00 Airvo 40 L 60%, sats 94%, AVAPS 50% overnight 02/11 08:00 Airvo 45 L 60%, sats 90%, attempt high flow NC today and 40% AVAPS tonight Goal saturation 90-94%. (3) COPD (chronic obstructive pulmonary disease): Code(s): J44.9 - Chronic obstructive pulmonary disease, unspecified Status: Acute Assessment and Plan: History of 40 pack years tobacco use, quit on 01/30/2022, currently exposed to secondhand smoke from his who smokes mostly outside until recently,PFTs 04/29/2021 demonstrated a severe obstructive abnormality (FEV1 1.36 L, 42% predicted), with a bronchodilator response, air trapping, hyperinflation and moderately decreased DLCO.? CT angiogram on 02/06/2022 demonstrates severe apical predominant centrilobular emphysema.? Last home O2 assessment M and on 04/29/2021 was rest r
[2022-02-11] MEDS: carvediloL 6.25 MG TABLET PO ×2 (08:50→20:37)
[2022-02-11] MEDS: SPIRONOLACTONE 12.5 MG TABLET PO (08:50)
[2022-02-11] MEDS: SACUBITRIL/VALSARTAN 12-13 MG TABLET 1 TAB PO ×2 (08:50→20:38)
[2022-02-11] MEDS: ENOXAPARIN 40 MG/0.4 ML SYRINGE SUB-Q (08:51)
--- NOTE | 2022-02-11 09:27 | PCRCNOTE ---
Per Dr. Garcia pt trialed on 15L HFNC at 0910, pt maintaining SpO2 between 94-95%. Pt will be monitored closely.
--- NOTE | 2022-02-11 10:56 | PCNWS ---
Weekly nutritional screen. Patient is tolerating current heart healthy diet with adequate intake at 100% of meals. No weight loss reported. No nutritional needs at this time.
--- NOTE | 2022-02-11 18:02 | PM.IMPN ---
Progress Note: A&P Assessment and Plan (1) COVID-19: Code(s): U07.1 - COVID-19 Status: Acute Assessment and Plan: COVID positive as of 02/04/2022 Not vaccinated Continue remdesivir and dexamethasone Trend inflammatory markers including CRP, ferritin, and D-dimer Chest x-ray shows pulmonary opacities possible atypical infection, asthma, aspiration Neb treatments BNP 267 consider pulmonology if not improvements noted Add azithromycin and ceftriaxone for possible atypical PNA Consider CTA Echo doppler Give one time Tocilizumab 02/1111/02/2022 interval history: patient with COVID-19 being treated with remdesivir 5/5 and dexamethasone 5/10 on 02/07 patient became more hypoxic and requiring 13 L of oxygen, patient was seen by pulmonology and agreed with plan is started the patient on BiPAP, in the past patient had difficulty with the BiPAP whoever he is tolerating, patient had completed 5 day course of remdesivir on 02/09 patient remains hypoxic extended another 5 days and continue dexamethasone, currently patient in on AIRVO, a repeat ABG on 02/09 showed, slight improvement in CO2 He does have a significant cough. He denies any chest pain, nausea, vomiting, diarrhea, constipation. He is not sure that he would be able to get get and walk to the bathroom. He did also stated that he feels that his appetite has returned. He was given IS and cornet, with proper education. He does have a pretty significant cough, but seems to be non productive. patient had a cardiac echo showed preserved LV function with EF 65-70 and grade 1 diastolic dysfunction. 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 BiPAP setting are adjusted patient clinical symptoms are improving and further recommendation to follow (2) Acute exacerbation of chronic obstructive pulmonary disease: Code(s): J44.1 - Chronic obstructive pulmonary disease with (acute) exacerbation Status: Acute Assessment and Plan: scheduled breathing treatments systemic steroids Supplemental oxygen to maintain saturation >90% Could be in acute exacerbation with increased wheezes, shortness of breath Continue to trend respiratory status this is secondary to covid (3) Chronic respiratory failure with hypoxia: Code(s): J96.11 - Chronic respiratory failure with hypoxia Status: Acute Assessment and Plan: continue supplemental oxygen by nasal cannula (4) Acute and chronic respiratory failure: Code(s): J96.20 - Acute and chronic respiratory failure, unspecified whether with hypoxia or hypercapnia Status: Acute Assessment and Plan: Normally on 2 L at night Came in due to shortness of breath, tripoding, unable to complete sentences with worsening shortness of breath Currently on 10 L high-flow cannula, got to the floor on 13 L high-flow cannula Continue trend saturation Maintain saturation above 90% (5) Heart failure: Code(s): I50.9 - Heart failure, unspecified Status: Acute Assessment and Plan: Less echo of 2019 showed an EF of 55-60% Appears to be heart failure with preserved EF Chronic diastolic heart failure not in acute exacerbation Daily weights Strict I&Os Stable at this time Subjective Date/time seen: 18:02 02/12/1211/02/2022 interval history: patient with COVID-19 being treated with remdesivir 5/5 and dexamethasone 5/10 on 02/07 patient became more hypoxic and requiring 13 L of oxygen, patient was seen by pulmonology and agreed with plan is started the patient on BiPAP, in the past patient had difficulty with the BiPAP whoever he is tolerating, patient had completed 5 day course of remdesivir on 02/09 patient remains hypoxic extended another 5 days and continue dexamethasone, currently patient in on A
[2022-02-11] MEDS: REMDESIVIR 100 MG/NS 250 ML 100 MG/250 ML BAG 250 MG IVPB (20:38)
[2022-02-12] VITALS (26 sets, daily range): BP systolic 105–117; BP diastolic 49–64; PULSE 61–97; RESP 18–28; TEMP 36.1–37.2; O2SAT 91–98
[2022-02-12] MEDS: ALBUTEROL SULFATE NEB 2.5 MG/3 ML INH INHALATION ×5 (00:45→15:38)
[2022-02-12] MEDS: IPRATROPIUM BR 0.02% INH SOLN 0.5 MG/2.5 ML VIAL INHALATION ×5 (00:45→15:38)
[2022-02-12 05:35] LABS: Hematocrit 43.5 % (42.0-52.0); Hemoglobin 13.9 g/dL (14.0-18.0); Mean Corpuscular Hemoglobin 30.6 pg (26-34); Mean Corpuscular Volume 95.8 fl (80-100); Mean Platelet Volume 9.7 fl (7.4-10.4); Platelet Count Result 330 k/mm3 (150-375); Red Blood Count 4.54 M/mm3 (4.6-6.20); Red Cell Distribution Width 12.5 % (11.5-14.5); White Blood Count 11.1 K/mm3 (4.5-10.0)
[2022-02-12 05:43] LABS: INR 1.1; Prothrombin Time 14.2 Seconds (11.1-14.7)
[2022-02-12 06:17] LABS: Alanine Aminotransferase 51 U/L (6-50); Albumin Level 3.2 g/dL (3.5-5.1); Alkaline Phosphatase 53 U/L (38-126); Aspartate Amino Transferase 40 U/L (17-59); Bilirubin,Total 0.4 mg/dL (0.2-1.3); Blood Urea Nitrogen 20 mg/dL (9-20); Calcium 7.9 mg/dL (8.4-10.2); Carbon Dioxide > 40 mmol/L (22-30); Chloride 92 mmol/L (98-107); Estimated CRCL calculation 76 ml/min; Estimated Glomerular Filt Rate > 60; Glucose 100 mg/dL (65-110); Magnesium 2.2 mg/dL (1.6-2.3); Potassium 4.5 mmol/L (3.4-5.0); Sodium 133 mmol/L (137-145)
[2022-02-12] MEDS: carvediloL 6.25 MG TABLET PO ×2 (09:05→21:21)
[2022-02-12] MEDS: SPIRONOLACTONE 12.5 MG TABLET PO (09:05)
[2022-02-12] MEDS: SACUBITRIL/VALSARTAN 12-13 MG TABLET 1 TAB PO ×2 (09:05→21:21)
[2022-02-12] MEDS: ENOXAPARIN 40 MG/0.4 ML SYRINGE SUB-Q (09:06)
--- NOTE | 2022-02-12 09:28 | PM.PNPUL ---
Progress Note: A&P Assessment and Plan (1) COVID-19: Code(s): U07.1 - COVID-19 Status: Acute Assessment and Plan: He tested positive for COVID-19 on 02/04/2022, started on remdesivir, dexamethasone on 02/04; tocilizumab on 02/05 as well as empiric ceftriaxone and azithromycin on 02/05. Negative influenza and RSV RT-PCR studies. Remdesivir for 10 days unless he should recover and baseline home O2 requirements with rest and ambulation and while sleeping. - Dexamethasone 6 mg IV for 10 days - Continuous pulse oximetry - Prone positioning as tolerated. - Avoid any fluid overload. - empiric azithromycin and ceftriaxone day. ? - Albuterol and ipratropium nebs Q 4 for now. Keep saturations are 90-94% with Airvo high flow nasal cannula. 02/09 Alternate between Airvo and NIV with AVAPS mode. May be able to get through this without being intubated. Overall, he may be turning the corner, needing lower O2. Things can fluctuate with COVID. 02/10 Patient states he is slightly better, his dyspnea on exertion is the same, he has no phlegm production. He is currently on air bow 40 L, 74% with saturations 93%. White blood cell count 12.2, creatinine 0.8, chest x-ray with unchanged bibasilar interstitial alveolar infiltrates. Sputum is growing normal jeremy. CRP is 2.6. Day 7 Remdesivir, dexamethasone, day 6 ceftriaxone and azithromycin, will DC azithromycin today. 02/11 patient is minimally better. He did walk for the 1st time yesterday in the room. He remains with a dry cough and dyspnea on exertion. No phlegm no hemoptysis. He is afebrile. White blood cell count 11.5, creatinine 0.7. Currently he is on airvo 45 L 60% FiO2 with saturations 90%. day 8 Remdesivir and dexamethasone. Day 7 ceftriaxone and will discontinue after today's dose. 02/12 Patient states that he is slowly improving. He has dyspnea on exertion that is mildly improved since his admission. White blood cell count 11.1, creatinine 0.8. Tolerated hospital noninvasive ventilator last night on 40% FiO2. Currently is on 10 L nasal cannula saturations 95%. day 9. remdesivir and dexamethasone (2) Acute on chronic respiratory failure with hypoxia and hypercapnia: Code(s): J96.21 - Acute and chronic respiratory failure with hypoxia; J96.22 - Acute and chronic respiratory failure with hypercapnia Status: Acute Assessment and Plan: Etiology of acute hypoxic respiratory failure is likely COVID pneumonia.? of note he does have COPD with chronic hypoxemic respiratory failure his last home O2 assessment on 04/29/2021 demonstrated he needed no oxygen with rest and 2 L with activity. ? CT angiogram is negative for PE.? He had a history of nonischemic cardiomyopathy but this had improved on echocardiogram previously and his current echocardiogram shows an EF of 60-70%, grade 1 diastolic dysfunction and normal RV function.? Unable to obtain a PASP. Patient has tolerated noninvasive ventilation with the AVAPS mode a rate of 20, tidal volume 500, EPAP 4, minimal inspiratory pressure 5, maximal inspiratory pressure 25, inspiratory time 1.2 seconds, rise of 5 which is our slowest 02/05 20:30 6 L NC with sats 92%. 02/06 08:00 6 L NC with sats 90%. 02/06 10:15 13 L NC with sats 91%. 02/06 20:00 13 L NC with sats 94% 02/07 08:00 Airvo 60 L 80% sats 94% 02/07 20:00 Airvo 55 L 70%, sats 92%, AVAPS 80 to 60% overnight 02/08 08:00 AVAPS 50% most of day 02/08 16:00 Airvo 55 L 66%, sats 95%, AVAPS 50% overnight 02/09 08:00 Airvo 55 L 70%, sats 92% 02/09 20:00 Airvo 45 L 60%, sats 94%, AVAPS 50% overnight 02/10 08:00 Airvo 45 L 70%, sats 91% 02/10 21:00 Airvo 40 L 60%, sats 94%, AVAPS 50% overnight 02/11 08:00 Airvo 45 L 60%, sats 90%, attempt high flow NC today and 40% AVAPS tonight 02/11 21:30 10 L NC, sats 100%, AVAPS 40% overnight 02/12 09:00 10 L NC, sats 92% Goal saturation 90-94%. (3) COPD (chronic obstructiv
--- NOTE | 2022-02-12 16:33 | P.PNIM_ITS ---
Progress Note: A&P Assessment and Plan (1) COVID-19: Code(s): U07.1 - COVID-19 Status: Acute Assessment and Plan: * COVID positive as of 02/04/2022 * Not vaccinated * Continue remdesivir and dexamethasone * Trend inflammatory markers including CRP, ferritin, and D-dimer * Chest x-ray shows pulmonary opacities possible atypical infection, asthma, aspiration * Neb treatments * BNP 267 * consider pulmonology if not improvements noted * Add azithromycin and ceftriaxone for possible atypical PNA * Consider CTA * Echo doppler * Give one time Tocilizumab 02/1111/02/2022 interval history: patient with COVID-19 being treated with remdesivir 5/5 and dexamethasone 5/10 on 02/07 patient became more hypoxic and requiring 13 L of oxygen, patient was seen by pulmonology and agreed with plan is started the patient on BiPAP, in the past patient had difficulty with the BiPAP whoever he is tolerating, patient had completed 5 day course of remdesivir on 02/09 patient remains hypoxic extended another 5 days and continue dexamethasone, currently patient in on AIRVO, a repeat ABG on 02/09 showed, slight improvement in CO2 He does have a significant cough. He denies any chest pain, nausea, vomiting, diarrhea, constipation. He is not sure that he would be able to get get and walk to the bathroom. He did also stated that he feels that his appetite has returned. He was given IS and cornet, with proper education. He does have a pretty significant cough, but seems to be non productive. patient had a cardiac echo showed preserved LV function with EF 65- 70 and grade 1 diastolic dysfunction. 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 BiPAP setting are adjusted patient cli nical symptoms are improving and further recommendation to follow (2) Acute exacerbation of chronic obstructive pulmonary disease: Code(s): J44.1 - Chronic obstructive pulmonary disease with (acute) exacerbation Status: Acute Assessment and Plan: * scheduled breathing treatments * systemic steroids * Supplemental oxygen to maintain saturation >90% * Could be in acute exacerbation with increased wheezes, shortness of breath * Continue to trend respiratory status * this is secondary to covid (3) Chronic respiratory failure with hypoxia: Code(s): J96.11 - Chronic respiratory failure with hypoxia Status: Acute Assessment and Plan: continue supplemental oxygen by nasal cannula (4) Acute and chronic respiratory failure: Code(s): J96.20 - Acute and chronic respiratory failure, unspecified whether with hypoxia or hypercapnia Status: Acute Assessment and Plan: * Normally on 2 L at night * Came in due to shortness of breath, tripoding, unable to complete sentences with worsening shortness of breath * Currently on 10 L high-flow cannula, got to the floor on 13 L high-flow cannula * Continue trend saturation * Maintain saturation above 90% (5) Heart failure: Code(s): I50.9 - Heart failure, unspecified Status: Acute Assessment and Plan: * Less echo of 2019 showed an EF of 55-60% * Appears to be heart failure with preserved EF * Chronic diastolic heart failure not in acute exacerbation * Daily weights * Strict I&Os * Stable at this time Subjective Date/time seen: 02/12/22 16:33 Interval history: 02/12/2022 f
--- NOTE | 2022-02-12 16:33 | PM.IMPN ---
Progress Note: A&P Assessment and Plan (1) COVID-19: Code(s): U07.1 - COVID-19 Status: Acute Assessment and Plan: COVID positive as of 02/04/2022 Not vaccinated Continue remdesivir and dexamethasone Trend inflammatory markers including CRP, ferritin, and D-dimer Chest x-ray shows pulmonary opacities possible atypical infection, asthma, aspiration Neb treatments BNP 267 consider pulmonology if not improvements noted Add azithromycin and ceftriaxone for possible atypical PNA Consider CTA Echo doppler Give one time Tocilizumab 02/1111/02/2022 interval history: patient with COVID-19 being treated with remdesivir 5/5 and dexamethasone 5/10 on 02/07 patient became more hypoxic and requiring 13 L of oxygen, patient was seen by pulmonology and agreed with plan is started the patient on BiPAP, in the past patient had difficulty with the BiPAP whoever he is tolerating, patient had completed 5 day course of remdesivir on 02/09 patient remains hypoxic extended another 5 days and continue dexamethasone, currently patient in on AIRVO, a repeat ABG on 02/09 showed, slight improvement in CO2 He does have a significant cough. He denies any chest pain, nausea, vomiting, diarrhea, constipation. He is not sure that he would be able to get get and walk to the bathroom. He did also stated that he feels that his appetite has returned. He was given IS and cornet, with proper education. He does have a pretty significant cough, but seems to be non productive. patient had a cardiac echo showed preserved LV function with EF 65-70 and grade 1 diastolic dysfunction. 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 BiPAP setting are adjusted patient clinical symptoms are improving and further recommendation to follow (2) Acute exacerbation of chronic obstructive pulmonary disease: Code(s): J44.1 - Chronic obstructive pulmonary disease with (acute) exacerbation Status: Acute Assessment and Plan: scheduled breathing treatments systemic steroids Supplemental oxygen to maintain saturation >90% Could be in acute exacerbation with increased wheezes, shortness of breath Continue to trend respiratory status this is secondary to covid (3) Chronic respiratory failure with hypoxia: Code(s): J96.11 - Chronic respiratory failure with hypoxia Status: Acute Assessment and Plan: continue supplemental oxygen by nasal cannula (4) Acute and chronic respiratory failure: Code(s): J96.20 - Acute and chronic respiratory failure, unspecified whether with hypoxia or hypercapnia Status: Acute Assessment and Plan: Normally on 2 L at night Came in due to shortness of breath, tripoding, unable to complete sentences with worsening shortness of breath Currently on 10 L high-flow cannula, got to the floor on 13 L high-flow cannula Continue trend saturation Maintain saturation above 90% (5) Heart failure: Code(s): I50.9 - Heart failure, unspecified Status: Acute Assessment and Plan: Less echo of 2019 showed an EF of 55-60% Appears to be heart failure with preserved EF Chronic diastolic heart failure not in acute exacerbation Daily weights Strict I&Os Stable at this time Subjective Date/time seen: 02/12/22 16:33 Interval history: 02/12/2022 feels about the same placed on nasal cannula high-flow this a.m.. Shortness of breath on exertion denies any chest very minimal cough. No leg swelling. Review of Systems Review of Systems: All systems reviewed & are unremarkable except as noted in HPI and below Exam Narrative: Patient is comfortable, NAD HEENT: eyes are clear and none icteric high-flow nasal cannula in place LUNGS: normal respiratory effort diminished breath sound bilaterally ABD: not
[2022-02-12] MEDS: REMDESIVIR 100 MG/NS 250 ML 100 MG/250 ML BAG 250 MG IVPB (21:21)
[2022-02-12] MEDS: DOCUSATE SODIUM 100 MG CAPSULE PO (21:21)
[2022-02-13] VITALS (20 sets, daily range): BP systolic 107–124; BP diastolic 52–63; PULSE 60–124; RESP 18–28; TEMP 36–37.1; O2SAT 92–100
--- NOTE | 2022-02-13 01:14 | PCRCNOTE ---
Window of time for administration has passed. See next scheduled administration.
[2022-02-13] MEDS: IPRATROPIUM BR 0.02% INH SOLN 0.5 MG/2.5 ML VIAL INHALATION ×2 (02:10→10:18)
[2022-02-13] MEDS: ALBUTEROL SULFATE NEB 2.5 MG/3 ML INH INHALATION ×2 (02:10→10:17)
[2022-02-13] MEDS: carvediloL 6.25 MG TABLET PO ×2 (09:16→21:10)
[2022-02-13] MEDS: ENOXAPARIN 40 MG/0.4 ML SYRINGE SUB-Q (09:16)
[2022-02-13] MEDS: SACUBITRIL/VALSARTAN 12-13 MG TABLET 1 TAB PO ×2 (09:16→21:09)
[2022-02-13] MEDS: SPIRONOLACTONE 12.5 MG TABLET PO (09:16)
[2022-02-13 10:38] LABS: Hematocrit 42.9 % (42.0-52.0); Mean Corpuscular HGB Conc 32.6 g/dl (32-36); Mean Corpuscular Hemoglobin 30.9 pg (26-34); Mean Corpuscular Volume 94.7 fl (80-100); Mean Platelet Volume 9.7 fl (7.4-10.4); Platelet Count Result 299 k/mm3 (150-375); Red Blood Count 4.53 M/mm3 (4.6-6.20); Red Cell Distribution Width 12.4 % (11.5-14.5); White Blood Count 10.4 K/mm3 (4.5-10.0)
[2022-02-13 10:49] LABS: Alanine Aminotransferase 48 U/L (6-50); Albumin Level 3.3 g/dL (3.5-5.1); Alkaline Phosphatase 51 U/L (38-126); Anion Gap 3 mmol/L (8-16); Aspartate Amino Transferase 40 U/L (17-59); Bilirubin,Total 0.4 mg/dL (0.2-1.3); Blood Urea Nitrogen 20 mg/dL (9-20); Calcium 8.1 mg/dL (8.4-10.2); Carbon Dioxide 38 mmol/L (22-30); Chloride 91 mmol/L (98-107); Estimated CRCL calculation 76 ml/min; Estimated Glomerular Filt Rate > 60; Glucose 195 mg/dL (65-110); Magnesium 2.1 mg/dL (1.6-2.3); Potassium 4.1 mmol/L (3.4-5.0); Sodium 132 mmol/L (137-145)
[2022-02-13 11:08] LABS: INR 1.2; Prothrombin Time 15.2 Seconds (11.1-14.7)
--- NOTE | 2022-02-13 11:49 | PM.PNPUL ---
Progress Note: A&P Assessment and Plan (1) COVID-19: Code(s): U07.1 - COVID-19 Status: Acute Assessment and Plan: He tested positive for COVID-19 on 02/04/2022, started on remdesivir, dexamethasone on 02/04; tocilizumab on 02/05 as well as empiric ceftriaxone and azithromycin on 02/05. Negative influenza and RSV RT-PCR studies. Remdesivir for 10 days unless he should recover and baseline home O2 requirements with rest and ambulation and while sleeping. - Dexamethasone 6 mg IV for 10 days - Continuous pulse oximetry - Prone positioning as tolerated. - Avoid any fluid overload. - empiric azithromycin and ceftriaxone day. ? - Albuterol and ipratropium nebs Q 4 for now. Keep saturations are 90-94% with Airvo high flow nasal cannula. 02/09 Alternate between Airvo and NIV with AVAPS mode. May be able to get through this without being intubated. Overall, he may be turning the corner, needing lower O2. Things can fluctuate with COVID. 02/10 Patient states he is slightly better, his dyspnea on exertion is the same, he has no phlegm production. He is currently on air bow 40 L, 74% with saturations 93%. White blood cell count 12.2, creatinine 0.8, chest x-ray with unchanged bibasilar interstitial alveolar infiltrates. Sputum is growing normal jeremy. CRP is 2.6. Day 7 Remdesivir, dexamethasone, day 6 ceftriaxone and azithromycin, will DC azithromycin today. 02/11 patient is minimally better. He did walk for the 1st time yesterday in the room. He remains with a dry cough and dyspnea on exertion. No phlegm no hemoptysis. He is afebrile. White blood cell count 11.5, creatinine 0.7. Currently he is on airvo 45 L 60% FiO2 with saturations 90%. day 8 Remdesivir and dexamethasone. Day 7 ceftriaxone and will discontinue after today's dose. 02/12 Patient states that he is slowly improving. He has dyspnea on exertion that is mildly improved since his admission. White blood cell count 11.1, creatinine 0.8. Tolerated hospital noninvasive ventilator last night on 40% FiO2. Currently is on 10 L nasal cannula saturations 95%. day 9. remdesivir and dexamethasone. 02/13 patient continues to slowly improve. He wore the hospital noninvasive ventilator with 40% last night. He is currently on 10 L nasal canula with saturation 92%. Today is day 10 of Remdesivir and dexamethasone, last day. (2) Acute on chronic respiratory failure with hypoxia and hypercapnia: Code(s): J96.21 - Acute and chronic respiratory failure with hypoxia; J96.22 - Acute and chronic respiratory failure with hypercapnia Status: Acute Assessment and Plan: Etiology of acute hypoxic respiratory failure is likely COVID pneumonia.? of note he does have COPD with chronic hypoxemic respiratory failure his last home O2 assessment on 04/29/2021 demonstrated he needed no oxygen with rest and 2 L with activity. ? CT angiogram is negative for PE.? He had a history of nonischemic cardiomyopathy but this had improved on echocardiogram previously and his current echocardiogram shows an EF of 60-70%, grade 1 diastolic dysfunction and normal RV function.? Unable to obtain a PASP. Patient has tolerated noninvasive ventilation with the AVAPS mode a rate of 20, tidal volume 500, EPAP 4, minimal inspiratory pressure 5, maximal inspiratory pressure 25, inspiratory time 1.2 seconds, rise of 5 which is our slowest 02/05 20:30 6 L NC with sats 92%. 02/06 08:00 6 L NC with sats 90%. 02/06 10:15 13 L NC with sats 91%. 02/06 20:00 13 L NC with sats 94% 02/07 08:00 Airvo 60 L 80% sats 94% 02/07 20:00 Airvo 55 L 70%, sats 92%, AVAPS 80 to 60% overnight 02/08 08:00 AVAPS 50% most of day 02/08 16:00 Airvo 55 L 66%, sats 95%, AVAPS 50% overnight 02/09 08:00 Airvo 55 L 70%, sats 92% 02/09 20:00 Airvo 45 L 60%, sats 94%, AVAPS 50% overnight 02/10 08:00 Airvo 45 L 70%, sats 91% 02/10 21:00 Airvo 40 L 60%, sats 94%, AVAPS 50% ove
--- NOTE | 2022-02-13 16:29 | PM.IMPN ---
Progress Note: A&P Assessment and Plan (1) COVID-19: Code(s): U07.1 - COVID-19 Status: Acute Assessment and Plan: patient with COVID-19 being treated with remdesivir 5/5 and dexamethasone /10 on 02/07 patient became more hypoxic and requiring 13 L of oxygen, patient was seen by pulmonology and agreed with plan is started the patient on BiPAP, in the past patient had difficulty with the BiPAP whoever he is tolerating, patient had completed 5 day course of remdesivir on 02/09 patient remains hypoxic extended another 5 days and continue dexamethasone, currently patient in on AIRVO, a repeat ABG on 02/09 showed, slight improvement in CO2 He does have a significant cough. He denies any chest pain, nausea, vomiting, diarrhea, constipation. He is not sure that he would be able to get get and walk to the bathroom. He did also stated that he feels that his appetite has returned. He was given IS and cornet, with proper education. He does have a pretty significant cough, but seems to be non productive. patient had a cardiac echo showed preserved LV function with EF 65-70 and grade 1 diastolic dysfunction. patient is on Entresto, on 02/06 increased Rocephin to 2 g q.day, CTA of the chest is negative for pulmonary emboli, patient is seen by his it systems analyst BiPAP setting are adjusted. NIV for discharge has been ordered. Still need high-level oxygen. Will wean oxygen as tolerated. PT OT to see. (2) Acute exacerbation of chronic obstructive pulmonary disease: Code(s): J44.1 - Chronic obstructive pulmonary disease with (acute) exacerbation Status: Acute Assessment and Plan: scheduled breathing treatments systemic steroids Supplemental oxygen to maintain saturation >90% Could be in acute exacerbation with increased wheezes, shortness of breath Continue to trend respiratory status this is secondary to covid (3) Chronic respiratory failure with hypoxia: Code(s): J96.11 - Chronic respiratory failure with hypoxia Status: Acute Assessment and Plan: continue supplemental oxygen by nasal cannula (4) Acute and chronic respiratory failure: Code(s): J96.20 - Acute and chronic respiratory failure, unspecified whether with hypoxia or hypercapnia Status: Acute Assessment and Plan: Normally on 2 L at night Came in due to shortness of breath, tripoding, unable to complete sentences with worsening shortness of breath Currently on 10 L high-flow cannula, got to the floor on 13 L high-flow cannula Continue trend saturation Maintain saturation above 90% (5) Heart failure: Code(s): I50.9 - Heart failure, unspecified Status: Acute Assessment and Plan: Less echo of 2019 showed an EF of 55-60% Appears to be heart failure with preserved EF Chronic diastolic heart failure not in acute exacerbation Daily weights Strict I&Os Stable at this time Subjective Date/time seen: 02/13/22 16:29 Interval history: 02/12/2022 feels about the same placed on nasal cannula high-flow this a.m.. Shortness of breath on exertion denies any chest very minimal cough. No leg swelling. 02/13/2022: Feels about the same. Oxygen requirement by the same. Does not ambulate much. Shortness of breath on exertion. Minimal cough. Denies any leg swelling. Discussed with the it systems analyst Review of Systems Review of Systems: All systems reviewed & are unremarkable except as noted in HPI and below Exam Narrative: Patient is comfortable, NAD HEENT: eyes are clear and none icteric high-flow nasal cannula in place LUNGS: normal respiratory effort diminished breath sound bilaterally ABD: not distended soft nontender Lower extremities: no edema no cyanosis clubbing SKIN: nonjaundiced Neuro: grossly intact. Objective Data Vital Signs Vital Signs: Vital Signs - 24 hr 02/12/22 18:00 02/12/22 20:14
[2022-02-13] MEDS: REMDESIVIR 100 MG/NS 250 ML 100 MG/250 ML BAG 250 MG IVPB (21:09)
[2022-02-14] VITALS (19 sets, daily range): BP systolic 92–111; BP diastolic 54–62; PULSE 61–87; RESP 20–24; TEMP 36–37.3; O2SAT 90–100
[2022-02-14 05:06] LABS: Hematocrit 41.9 % (42.0-52.0); Hemoglobin 13.9 g/dL (14.0-18.0); Mean Corpuscular HGB Conc 33.2 g/dl (32-36); Mean Corpuscular Hemoglobin 30.5 pg (26-34); Mean Corpuscular Volume 92.1 fl (80-100); Platelet Count Result 280 k/mm3 (150-375); Red Blood Count 4.55 M/mm3 (4.6-6.20); Red Cell Distribution Width 12.6 % (11.5-14.5); White Blood Count 12.1 K/mm3 (4.5-10.0)
[2022-02-14 05:17] LABS: Alanine Aminotransferase 58 U/L (6-50); Albumin Level 3.3 g/dL (3.5-5.1); Alkaline Phosphatase 56 U/L (38-126); Anion Gap 1 mmol/L (8-16); Aspartate Amino Transferase 37 U/L (17-59); Bilirubin,Total 0.5 mg/dL (0.2-1.3); Blood Urea Nitrogen 24 mg/dL (9-20); Carbon Dioxide 37 mmol/L (22-30); Chloride 92 mmol/L (98-107); Estimated CRCL calculation 86 ml/min; Estimated Glomerular Filt Rate > 60; Glucose 119 mg/dL (65-110); Magnesium 2.2 mg/dL (1.6-2.3); Potassium 4.5 mmol/L (3.4-5.0); Sodium 130 mmol/L (137-145)
[2022-02-14 05:27] LABS: Alveolar/Arterial O2 Gradient 116.9 mmHg; Base Excess ABG 8.9 mEq/l (+/-2.0); Fractional Inspired Oxygen 36 %; HCO3 ABG 35.1 mEq/l (22.0-26.0); Oxygen Content ABG 19.9 %vol (16.0-22.0); Oxygen Saturation ABG 95.6 % (95.0-100.0); Oxyhemoglobin 94.8 % THb (90.0-100.0); PCO2 ABG 53.8 mmHg (35.0-45.0); PO2 ABG 77.4 mmHg (80.0-100.0); PO2 FiO2 Ratio Arterial Blood 2.15 %; Total Hemoglobin 14.9 g/dL (12.0-18.0); pH ABG 7.433 (7.350-7.450)
[2022-02-14 05:28] LABS: Device NON-INVASIVE VENT; Modified Allen's Test Pass; Site Drawn RIGHT RADIAL
[2022-02-14 05:29] LABS: Non-Invasive Vent Rate 20 /MIN
[2022-02-14 05:30] LABS: Non-Invasive Expiratory Pressure 4 CMH2O
[2022-02-14] MEDS: UMECLIDINIUM/VILANTEROL 62.5-25 MCG ELLIPTA 1 PUFF INHALATION (08:06)
[2022-02-14] MEDS: DOCUSATE SODIUM 100 MG CAPSULE PO ×2 (11:03→21:40)
[2022-02-14] MEDS: ENOXAPARIN 40 MG/0.4 ML SYRINGE SUB-Q (11:04)
[2022-02-14] MEDS: carvediloL 6.25 MG TABLET PO ×2 (11:07→21:40)
[2022-02-14] MEDS: SACUBITRIL/VALSARTAN 12-13 MG TABLET 1 TAB PO ×2 (11:07→21:40)
[2022-02-14] MEDS: SPIRONOLACTONE 12.5 MG TABLET PO (11:07)
[2022-02-14] MEDS: polyethylene glycoL 3350 17 GM POWD.PACK PO (11:07)
--- NOTE | 2022-02-14 11:54 | PM.PNPUL ---
Progress Note: A&P Assessment and Plan (1) COVID-19: Code(s): U07.1 - COVID-19 Status: Acute Assessment and Plan: He tested positive for COVID-19 on 02/04/2022, started on remdesivir, dexamethasone on 02/04; tocilizumab on 02/05 as well as empiric ceftriaxone and azithromycin on 02/05. Negative influenza and RSV RT-PCR studies. Patient with COPD and hypoxic respiratory failure and at baseline required no oxygen at rest and 2 L with ambulation. Remdesivir for 10 days unless he should recover and baseline home O2 requirements with rest and ambulation and while sleeping. - Dexamethasone 6 mg IV for 10 days - Continuous pulse oximetry - Prone positioning as tolerated. - Avoid any fluid overload. - empiric azithromycin and ceftriaxone. ? - Albuterol and ipratropium nebs Q 4 for now. Keep saturations are 90-94% with Airvo high flow nasal cannula. 02/09 Alternate between Airvo and NIV with AVAPS mode. May be able to get through this without being intubated. Overall, he may be turning the corner, needing lower O2. Things can fluctuate with COVID. 02/10 Patient states he is slightly better, his dyspnea on exertion is the same, he has no phlegm production. He is currently on air bow 40 L, 74% with saturations 93%. White blood cell count 12.2, creatinine 0.8, chest x-ray with unchanged bibasilar interstitial alveolar infiltrates. Sputum is growing normal jeremy. CRP is 2.6. Day 7 Remdesivir, dexamethasone, day 6 ceftriaxone and azithromycin, will DC azithromycin today. 02/11 patient is minimally better. He did walk for the 1st time yesterday in the room. He remains with a dry cough and dyspnea on exertion. No phlegm no hemoptysis. He is afebrile. White blood cell count 11.5, creatinine 0.7. Currently he is on airvo 45 L 60% FiO2 with saturations 90%. day 8 Remdesivir and dexamethasone. Day 7 ceftriaxone and will discontinue after today's dose. 02/12 Patient states that he is slowly improving. He has dyspnea on exertion that is mildly improved since his admission. White blood cell count 11.1, creatinine 0.8. Tolerated hospital noninvasive ventilator last night on 40% FiO2. Currently is on 10 L nasal cannula saturations 95%. day 9. remdesivir and dexamethasone. 02/13 patient continues to slowly improve. He wore the hospital noninvasive ventilator with 40% last night. He is currently on 10 L nasal canula with saturation 92%. Day 10 remdesivir, last day. 02/14 patient states he continues to slowly improve. I stood him up at the bedside today. He is very weak. Currently he is wearing 10 L nasal cannula with saturations 93%. Day 10 dexamethasone, last dose (2) Acute on chronic respiratory failure with hypoxia and hypercapnia: Code(s): J96.21 - Acute and chronic respiratory failure with hypoxia; J96.22 - Acute and chronic respiratory failure with hypercapnia Status: Acute Assessment and Plan: Etiology of acute hypoxic respiratory failure is likely COVID pneumonia.? of note he does have COPD with chronic hypoxemic respiratory failure his last home O2 assessment on 04/29/2021 demonstrated he needed no oxygen with rest and 2 L with activity. ? CT angiogram is negative for PE.? He had a history of nonischemic cardiomyopathy but this had improved on echocardiogram previously and his current echocardiogram shows an EF of 60-70%, grade 1 diastolic dysfunction and normal RV function.? Unable to obtain a PASP. Patient has tolerated noninvasive ventilation with the AVAPS mode a rate of 20, tidal volume 500, EPAP 4, minimal inspiratory pressure 5, maximal inspiratory pressure 25, inspiratory time 1.2 seconds, rise of 5 which is our slowest 02/05 20:30 6 L NC with sats 92%. 02/06 08:00 6 L NC with sats 90%. 02/06 10:15 13 L NC with sats 91%. 02/06 20:00 13 L NC with sats 94% 02/07 08:00 Airvo 60 L 80% sats 94% 02/07 20:00 Airvo 55 L 70%, sats 92%, AVAPS
--- NOTE | 2022-02-14 18:11 | PM.IMPN ---
Progress Note: A&P Assessment and Plan (1) COVID-19: Code(s): U07.1 - COVID-19 Status: Acute Assessment and Plan: patient with COVID-19 being treated with remdesivir 5/5 and dexamethasone /10 on 02/07 patient became more hypoxic and requiring 13 L of oxygen, patient was seen by pulmonology and agreed with plan is started the patient on BiPAP, in the past patient had difficulty with the BiPAP whoever he is tolerating, patient had completed 5 day course of remdesivir on 02/09 patient remains hypoxic extended another 5 days and continue dexamethasone, currently patient in on AIRVO, a repeat ABG on 02/09 showed, slight improvement in CO2 He does have a significant cough. He denies any chest pain, nausea, vomiting, diarrhea, constipation. He is not sure that he would be able to get get and walk to the bathroom. He did also stated that he feels that his appetite has returned. He was given IS and cornet, with proper education. He does have a pretty significant cough, but seems to be non productive. patient had a cardiac echo showed preserved LV function with EF 65-70 and grade 1 diastolic dysfunction. patient is on Entresto, on 02/06 increased Rocephin to 2 g q.day, CTA of the chest is negative for pulmonary emboli, patient is seen by his county bailiff BiPAP setting are adjusted. NIV for discharge has been ordered. Still need high-level oxygen. Will wean oxygen as tolerated. PT OT to see. (2) Acute exacerbation of chronic obstructive pulmonary disease: Code(s): J44.1 - Chronic obstructive pulmonary disease with (acute) exacerbation Status: Acute Assessment and Plan: scheduled breathing treatments systemic steroids Supplemental oxygen to maintain saturation >90% Could be in acute exacerbation with increased wheezes, shortness of breath Continue to trend respiratory status this is secondary to covid (3) Chronic respiratory failure with hypoxia: Code(s): J96.11 - Chronic respiratory failure with hypoxia Status: Acute Assessment and Plan: continue supplemental oxygen by nasal cannula (4) Acute and chronic respiratory failure: Code(s): J96.20 - Acute and chronic respiratory failure, unspecified whether with hypoxia or hypercapnia Status: Acute Assessment and Plan: Normally on 2 L at night Came in due to shortness of breath, tripoding, unable to complete sentences with worsening shortness of breath Currently on 10 L high-flow cannula, got to the floor on 13 L high-flow cannula Continue trend saturation Maintain saturation above 90% (5) Heart failure: Code(s): I50.9 - Heart failure, unspecified Status: Acute Assessment and Plan: Less echo of 2019 showed an EF of 55-60% Appears to be heart failure with preserved EF Chronic diastolic heart failure not in acute exacerbation Daily weights Strict I&Os Stable at this time Subjective Date/time seen: 02/14/22 18:11 Interval history: 02/12/2022 feels about the same placed on nasal cannula high-flow this a.m.. Shortness of breath on exertion denies any chest very minimal cough. No leg swelling. 02/13/2022: Feels about the same. Oxygen requirement by the same. Does not ambulate much. Shortness of breath on exertion. Minimal cough. Denies any leg swelling. Discussed with the county bailiff 02/14/2022: Feels well. Shortness of breath on exertion. Continues to require less oxygen down to 8 later this a.m.. Lowered it further down during the visit to 7 he work with therapy earlier today Review of Systems Review of Systems: All systems reviewed & are unremarkable except as noted in HPI and below Exam Narrative: Patient is comfortable, NAD HEENT: eyes are clear and none icteric high-flow nasal cannula in place LUNGS: normal respiratory effort diminished breath sound bilaterally ABD: not distended soft nontender
[2022-02-15] VITALS (20 sets, daily range): BP systolic 86–114; BP diastolic 53–62; PULSE 58–97; RESP 16–28; TEMP 36.3–37.3; O2SAT 89–95
[2022-02-15 06:12] LABS: Hematocrit 42.9 % (42.0-52.0); Mean Corpuscular HGB Conc 32.6 g/dl (32-36); Mean Corpuscular Hemoglobin 29.9 pg (26-34); Mean Corpuscular Volume 91.7 fl (80-100); Mean Platelet Volume 10.2 fl (7.4-10.4); Platelet Count Result 268 k/mm3 (150-375); Red Blood Count 4.68 M/mm3 (4.6-6.20); Red Cell Distribution Width 12.2 % (11.5-14.5); White Blood Count 10.5 K/mm3 (4.5-10.0)
[2022-02-15 06:22] LABS: Alanine Aminotransferase 66 U/L (6-50); Albumin Level 3.4 g/dL (3.5-5.1); Alkaline Phosphatase 57 U/L (38-126); Anion Gap 3 mmol/L (8-16); Aspartate Amino Transferase 36 U/L (17-59); Bilirubin,Total 0.8 mg/dL (0.2-1.3); Blood Urea Nitrogen 25 mg/dL (9-20); Calcium 8.1 mg/dL (8.4-10.2); Carbon Dioxide 36 mmol/L (22-30); Chloride 95 mmol/L (98-107); Estimated CRCL calculation 76 ml/min; Estimated Glomerular Filt Rate > 60; Glucose 106 mg/dL (65-110); Magnesium 2.3 mg/dL (1.6-2.3); Potassium 4.4 mmol/L (3.4-5.0); Sodium 134 mmol/L (137-145)
[2022-02-15] MEDS: UMECLIDINIUM/VILANTEROL 62.5-25 MCG ELLIPTA 1 PUFF INHALATION (08:12)
[2022-02-15] MEDS: polyethylene glycoL 3350 17 GM POWD.PACK PO (09:49)
[2022-02-15] MEDS: carvediloL 6.25 MG TABLET PO ×2 (09:49→20:42)
[2022-02-15] MEDS: SPIRONOLACTONE 12.5 MG TABLET PO (09:49)
[2022-02-15] MEDS: DOCUSATE SODIUM 100 MG CAPSULE PO ×2 (09:49→20:42)
[2022-02-15] MEDS: SACUBITRIL/VALSARTAN 12-13 MG TABLET 1 TAB PO ×2 (09:49→20:42)
[2022-02-15] MEDS: ENOXAPARIN 40 MG/0.4 ML SYRINGE SUB-Q (09:50)
--- NOTE | 2022-02-15 09:55 | PM.PNPUL ---
Progress Note: A&P Assessment and Plan (1) COVID-19: Code(s): U07.1 - COVID-19 Status: Acute Assessment and Plan: He tested positive for COVID-19 on 02/04/2022, started on remdesivir, dexamethasone on 02/04; tocilizumab on 02/05 as well as empiric ceftriaxone and azithromycin on 02/05. Negative influenza and RSV RT-PCR studies. Patient with COPD and hypoxic respiratory failure and at baseline required no oxygen at rest and 2 L with ambulation. Remdesivir for 10 days unless he should recover and baseline home O2 requirements with rest and ambulation and while sleeping. - Dexamethasone 6 mg IV for 10 days - Continuous pulse oximetry - Prone positioning as tolerated. - Avoid any fluid overload. - empiric azithromycin and ceftriaxone. ? - Albuterol and ipratropium nebs Q 4 for now. Keep saturations are 90-94% with Airvo high flow nasal cannula. 02/09 Alternate between Airvo and NIV with AVAPS mode. May be able to get through this without being intubated. Overall, he may be turning the corner, needing lower O2. Things can fluctuate with COVID. 02/10 Patient states he is slightly better, his dyspnea on exertion is the same, he has no phlegm production. He is currently on air bow 40 L, 74% with saturations 93%. White blood cell count 12.2, creatinine 0.8, chest x-ray with unchanged bibasilar interstitial alveolar infiltrates. Sputum is growing normal jeremy. CRP is 2.6. Day 7 Remdesivir, dexamethasone, day 6 ceftriaxone and azithromycin, will DC azithromycin today. 02/11 patient is minimally better. He did walk for the 1st time yesterday in the room. He remains with a dry cough and dyspnea on exertion. No phlegm no hemoptysis. He is afebrile. White blood cell count 11.5, creatinine 0.7. Currently he is on airvo 45 L 60% FiO2 with saturations 90%. day 8 Remdesivir and dexamethasone. Day 7 ceftriaxone and will discontinue after today's dose. 02/12 Patient states that he is slowly improving. He has dyspnea on exertion that is mildly improved since his admission. White blood cell count 11.1, creatinine 0.8. Tolerated hospital noninvasive ventilator last night on 40% FiO2. Currently is on 10 L nasal cannula saturations 95%. day 9. remdesivir and dexamethasone. 02/13 patient continues to slowly improve. He wore the hospital noninvasive ventilator with 40% last night. He is currently on 10 L nasal canula with saturation 92%. Day 10 remdesivir, last day. 02/14 patient states he continues to slowly improve. I stood him up at the bedside today. He is very weak. Currently he is wearing 10 L nasal cannula with saturations 93%. Day 10 dexamethasone, last dose. Decreased to 6 L nasal cannula through the day. 02/15 Patient is slowly improving. Walked 60 ft in the hospital room with physical therapy yesterday. Currently patient is on 6 L nasal cannula saturation 90%. (2) Acute on chronic respiratory failure with hypoxia and hypercapnia: Code(s): J96.21 - Acute and chronic respiratory failure with hypoxia; J96.22 - Acute and chronic respiratory failure with hypercapnia Status: Acute Assessment and Plan: Etiology of acute hypoxic respiratory failure is likely COVID pneumonia.? of note he does have COPD with chronic hypoxemic respiratory failure his last home O2 assessment on 04/29/2021 demonstrated he needed no oxygen with rest and 2 L with activity. ? CT angiogram is negative for PE.? He had a history of nonischemic cardiomyopathy but this had improved on echocardiogram previously and his current echocardiogram shows an EF of 60-70%, grade 1 diastolic dysfunction and normal RV function.? Unable to obtain a PASP. Patient has tolerated noninvasive ventilation with the AVAPS mode a rate of 20, tidal volume 500, EPAP 4, minimal inspiratory pressure 5, maximal inspiratory pressure 25, inspiratory time 1.2 seconds, rise of 5 which is our slow
--- NOTE | 2022-02-15 11:46 | PCOTNOTE ---
Attempted OT evaluation 11:42, patient is eating lunch and refuses evaluation right now. Will follow up.
--- NOTE | 2022-02-15 15:13 | PM.IMPN ---
Progress Note: A&P Assessment and Plan (1) COVID-19: Code(s): U07.1 - COVID-19 Status: Acute Assessment and Plan: patient with COVID-19 being treated with remdesivir 5/5 and dexamethasone /10 on 02/07 patient became more hypoxic and requiring 13 L of oxygen, patient was seen by pulmonology and agreed with plan is started the patient on BiPAP, in the past patient had difficulty with the BiPAP whoever he is tolerating, patient had completed 5 day course of remdesivir on 02/09 patient remains hypoxic extended another 5 days and continue dexamethasone, currently patient in on AIRVO, a repeat ABG on 02/09 showed, slight improvement in CO2 He does have a significant cough. He denies any chest pain, nausea, vomiting, diarrhea, constipation. He is not sure that he would be able to get get and walk to the bathroom. He did also stated that he feels that his appetite has returned. He was given IS and cornet, with proper education. He does have a pretty significant cough, but seems to be non productive. patient had a cardiac echo showed preserved LV function with EF 65-70 and grade 1 diastolic dysfunction. patient is on Entresto, on 02/06 increased Rocephin to 2 g q.day, CTA of the chest is negative for pulmonary emboli, patient is seen by his missile facilities repairer BiPAP setting are adjusted. NIV for discharge has been ordered. Still need high-level oxygen. Will wean oxygen as tolerated. PT OT to see. Still requiring high-flow oxygen continue taper. Physical therapy/pulmonary rehab (2) Acute exacerbation of chronic obstructive pulmonary disease: Code(s): J44.1 - Chronic obstructive pulmonary disease with (acute) exacerbation Status: Acute Assessment and Plan: scheduled breathing treatments systemic steroids Supplemental oxygen to maintain saturation >90% Could be in acute exacerbation with increased wheezes, shortness of breath Continue to trend respiratory status this is secondary to covid (3) Chronic respiratory failure with hypoxia: Code(s): J96.11 - Chronic respiratory failure with hypoxia Status: Acute Assessment and Plan: continue supplemental oxygen by nasal cannula (4) Acute and chronic respiratory failure: Code(s): J96.20 - Acute and chronic respiratory failure, unspecified whether with hypoxia or hypercapnia Status: Acute Assessment and Plan: Normally on 2 L at night Came in due to shortness of breath, tripoding, unable to complete sentences with worsening shortness of breath Currently on 10 L high-flow cannula, got to the floor on 13 L high-flow cannula Continue trend saturation Maintain saturation above 90% (5) Heart failure: Code(s): I50.9 - Heart failure, unspecified Status: Acute Assessment and Plan: Less echo of 2019 showed an EF of 55-60% Appears to be heart failure with preserved EF Chronic diastolic heart failure not in acute exacerbation Daily weights Strict I&Os Stable at this time Plan noninvasive ventilation at night which is ordered by Pulmonary. Awaiting his unit to be delivered Uses 2 L oxygen with exertion at home prior to this hospitalization Will need home oxygen evaluation at the time of discharge Oxygen 5 L bled in through the his noninvasive ventilator at night Discussed with pulmonary Subjective Date/time seen: 02/15/22 15:13 Interval history: 02/12/2022 feels about the same placed on nasal cannula high-flow this a.m.. Shortness of breath on exertion denies any chest very minimal cough. No leg swelling. 02/13/2022: Feels about the same. Oxygen requirement by the same. Does not ambulate much. Shortness of breath on exertion. Minimal cough. Denies any leg swelling. Discussed with the missile facilities repairer 02/14/2022: Feels well. Shortness of breath on exertion. Continues to require less oxygen down to 8 later this a.m.. Lowered i
[2022-02-16] VITALS (18 sets, daily range): BP systolic 94–120; BP diastolic 47–63; PULSE 59–91; RESP 16–28; TEMP 36.4–37.2; O2SAT 91–98
[2022-02-16 04:44] LABS: Hematocrit 42.2 % (42.0-52.0); Mean Corpuscular HGB Conc 33.2 g/dl (32-36); Mean Corpuscular Hemoglobin 30.1 pg (26-34); Mean Corpuscular Volume 90.8 fl (80-100); Mean Platelet Volume 10.4 fl (7.4-10.4); Platelet Count Result 222 k/mm3 (150-375); Red Blood Count 4.65 M/mm3 (4.6-6.20); Red Cell Distribution Width 12.4 % (11.5-14.5); White Blood Count 9.7 K/mm3 (4.5-10.0)
[2022-02-16 04:57] LABS: Alanine Aminotransferase 63 U/L (6-50); Albumin Level 3.2 g/dL (3.5-5.1); Alkaline Phosphatase 59 U/L (38-126); Anion Gap 0 mmol/L (8-16); Aspartate Amino Transferase 37 U/L (17-59); Bilirubin,Total 0.7 mg/dL (0.2-1.3); Blood Urea Nitrogen 24 mg/dL (9-20); Calcium 7.9 mg/dL (8.4-10.2); Carbon Dioxide 37 mmol/L (22-30); Chloride 98 mmol/L (98-107); Estimated CRCL calculation 68 ml/min; Estimated Glomerular Filt Rate > 60; Glucose 88 mg/dL (65-110); Magnesium 2.4 mg/dL (1.6-2.3); Potassium 4.7 mmol/L (3.4-5.0); Sodium 135 mmol/L (137-145)
[2022-02-16] MEDS: UMECLIDINIUM/VILANTEROL 62.5-25 MCG ELLIPTA 1 PUFF INHALATION (09:02)
--- NOTE | 2022-02-16 09:06 | PM.PNPUL ---
Progress Note: A&P Assessment and Plan (1) COVID-19: Code(s): U07.1 - COVID-19 Status: Acute Assessment and Plan: He tested positive for COVID-19 on 02/04/2022, started on remdesivir, dexamethasone on 02/04; tocilizumab on 02/05 as well as empiric ceftriaxone and azithromycin on 02/05. Negative influenza and RSV RT-PCR studies. Patient with COPD and hypoxic respiratory failure and at baseline required no oxygen at rest and 2 L with ambulation. Remdesivir for 10 days unless he should recover and baseline home O2 requirements with rest and ambulation and while sleeping. - Dexamethasone 6 mg IV for 10 days - Continuous pulse oximetry - Prone positioning as tolerated. - Avoid any fluid overload. - empiric azithromycin and ceftriaxone. ? - Albuterol and ipratropium nebs Q 4 for now. Keep saturations are 90-94% with Airvo high flow nasal cannula. 02/09 Alternate between Airvo and NIV with AVAPS mode. May be able to get through this without being intubated. Overall, he may be turning the corner, needing lower O2. Things can fluctuate with COVID. 02/10 Patient states he is slightly better, his dyspnea on exertion is the same, he has no phlegm production. He is currently on air bow 40 L, 74% with saturations 93%. White blood cell count 12.2, creatinine 0.8, chest x-ray with unchanged bibasilar interstitial alveolar infiltrates. Sputum is growing normal jeremy. CRP is 2.6. Day 7 Remdesivir, dexamethasone, day 6 ceftriaxone and azithromycin, will DC azithromycin today. 02/11 patient is minimally better. He did walk for the 1st time yesterday in the room. He remains with a dry cough and dyspnea on exertion. No phlegm no hemoptysis. He is afebrile. White blood cell count 11.5, creatinine 0.7. Currently he is on airvo 45 L 60% FiO2 with saturations 90%. day 8 Remdesivir and dexamethasone. Day 7 ceftriaxone and will discontinue after today's dose. 02/12 Patient states that he is slowly improving. He has dyspnea on exertion that is mildly improved since his admission. White blood cell count 11.1, creatinine 0.8. Tolerated hospital noninvasive ventilator last night on 40% FiO2. Currently is on 10 L nasal cannula saturations 95%. day 9. remdesivir and dexamethasone. 02/13 patient continues to slowly improve. He wore the hospital noninvasive ventilator with 40% last night. He is currently on 10 L nasal canula with saturation 92%. Day 10 remdesivir, last day. 02/14 patient states he continues to slowly improve. I stood him up at the bedside today. He is very weak. Currently he is wearing 10 L nasal cannula with saturations 93%. Day 10 dexamethasone, last dose. Decreased to 6 L nasal cannula through the day. 02/15 Patient is slowly improving. Walked 60 ft in the hospital room with physical therapy yesterday. Currently patient is on 6 L nasal cannula saturation 90%. 02/16 Patient is clinically unchanged. He remains with hypoxemia and dyspnea on exertion. Currently he is on 10 L eating breakfast with saturations 88%. White blood cell count 9.7, creatinine 0.9. (2) Acute on chronic respiratory failure with hypoxia and hypercapnia: Code(s): J96.21 - Acute and chronic respiratory failure with hypoxia; J96.22 - Acute and chronic respiratory failure with hypercapnia Status: Acute Assessment and Plan: Etiology of acute hypoxic respiratory failure is likely COVID pneumonia.? of note he does have COPD with chronic hypoxemic respiratory failure his last home O2 assessment on 04/29/2021 demonstrated he needed no oxygen with rest and 2 L with activity. ? CT angiogram is negative for PE.? He had a history of nonischemic cardiomyopathy but this had improved on echocardiogram previously and his current echocardiogram shows an EF of 60-70%, grade 1 diastolic dysfunction and normal RV function.? Unable to obtain a PASP. Patient has tolerated
[2022-02-16] MEDS: polyethylene glycoL 3350 17 GM POWD.PACK PO (10:33)
[2022-02-16] MEDS: DOCUSATE SODIUM 100 MG CAPSULE PO ×2 (10:33→20:41)
[2022-02-16] MEDS: ENOXAPARIN 40 MG/0.4 ML SYRINGE SUB-Q (10:33)
[2022-02-16] MEDS: SPIRONOLACTONE 12.5 MG TABLET PO (10:33)
[2022-02-16] MEDS: carvediloL 6.25 MG TABLET PO ×2 (10:33→20:41)
[2022-02-16] MEDS: SACUBITRIL/VALSARTAN 12-13 MG TABLET 1 TAB PO ×2 (10:33→20:41)
--- NOTE | 2022-02-16 13:28 | PM.IMPN ---
Progress Note: A&P Assessment and Plan (1) COVID-19: Code(s): U07.1 - COVID-19 Status: Acute Assessment and Plan: patient with COVID-19 being treated with remdesivir 5/5 and dexamethasone /10 on 02/07 patient became more hypoxic and requiring 13 L of oxygen, patient was seen by pulmonology and agreed with plan is started the patient on BiPAP, in the past patient had difficulty with the BiPAP whoever he is tolerating, patient had completed 5 day course of remdesivir on 02/09 patient remains hypoxic extended another 5 days and continue dexamethasone, currently patient in on AIRVO, a repeat ABG on 02/09 showed, slight improvement in CO2 He does have a significant cough. He denies any chest pain, nausea, vomiting, diarrhea, constipation. He is not sure that he would be able to get get and walk to the bathroom. He did also stated that he feels that his appetite has returned. He was given IS and cornet, with proper education. He does have a pretty significant cough, but seems to be non productive. patient had a cardiac echo showed preserved LV function with EF 65-70 and grade 1 diastolic dysfunction. patient is on Entresto, on 02/06 increased Rocephin to 2 g q.day, CTA of the chest is negative for pulmonary emboli, patient is seen by his pleating machine operator BiPAP setting are adjusted. NIV for discharge has been ordered. Still need high-level oxygen. Will wean oxygen as tolerated. PT OT to see. Still requiring high-flow oxygen continue taper. Physical therapy/pulmonary rehab (2) Acute exacerbation of chronic obstructive pulmonary disease: Code(s): J44.1 - Chronic obstructive pulmonary disease with (acute) exacerbation Status: Acute Assessment and Plan: scheduled breathing treatments systemic steroids Supplemental oxygen to maintain saturation >90% Could be in acute exacerbation with increased wheezes, shortness of breath Continue to trend respiratory status this is secondary to covid (3) Chronic respiratory failure with hypoxia: Code(s): J96.11 - Chronic respiratory failure with hypoxia Status: Acute Assessment and Plan: continue supplemental oxygen by nasal cannula (4) Acute and chronic respiratory failure: Code(s): J96.20 - Acute and chronic respiratory failure, unspecified whether with hypoxia or hypercapnia Status: Acute Assessment and Plan: Normally on 2 L at night Came in due to shortness of breath, tripoding, unable to complete sentences with worsening shortness of breath Currently on 10 L high-flow cannula, got to the floor on 13 L high-flow cannula Continue trend saturation Maintain saturation above 90% (5) Heart failure: Code(s): I50.9 - Heart failure, unspecified Status: Acute Assessment and Plan: Less echo of 2019 showed an EF of 55-60% Appears to be heart failure with preserved EF Chronic diastolic heart failure not in acute exacerbation Daily weights Strict I&Os Stable at this time Plan noninvasive ventilation at night which is ordered by Pulmonary. Awaiting his unit to be delivered Uses 2 L oxygen with exertion at home prior to this hospitalization Will need home oxygen evaluation at the time of discharge Oxygen 5 L bled in through the his noninvasive ventilator at night Discussed with pulmonary Subjective Date/time seen: 02/16/22 13:28 Interval history: 02/12/2022 feels about the same placed on nasal cannula high-flow this a.m.. Shortness of breath on exertion denies any chest very minimal cough. No leg swelling. 02/13/2022: Feels about the same. Oxygen requirement by the same. Does not ambulate much. Shortness of breath on exertion. Minimal cough. Denies any leg swelling. Discussed with the pleating machine operator 02/14/2022: Feels well. Shortness of breath on exertion. Continues to require less oxygen down to 8 later this a.m.. Lowered i
[2022-02-17] VITALS (27 sets, daily range): BP systolic 82–111; BP diastolic 53–69; PULSE 68–110; RESP 16–24; TEMP 36.4–36.8; O2SAT 84–99
[2022-02-17 04:12] LABS: Hematocrit 42.3 % (42.0-52.0); Hemoglobin 14.1 g/dL (14.0-18.0); Mean Corpuscular HGB Conc 33.3 g/dl (32-36); Mean Corpuscular Hemoglobin 30.7 pg (26-34); Mean Corpuscular Volume 92.2 fl (80-100); Mean Platelet Volume 10.9 fl (7.4-10.4); Platelet Count Result 215 k/mm3 (150-375); Red Blood Count 4.59 M/mm3 (4.6-6.20); Red Cell Distribution Width 12.4 % (11.5-14.5); White Blood Count 10.9 K/mm3 (4.5-10.0)
[2022-02-17 04:26] LABS: Alanine Aminotransferase 54 U/L (6-50); Albumin Level 3.2 g/dL (3.5-5.1); Alkaline Phosphatase 71 U/L (38-126); Anion Gap 1 mmol/L (8-16); Aspartate Amino Transferase 31 U/L (17-59); Bilirubin,Total 0.8 mg/dL (0.2-1.3); Blood Urea Nitrogen 21 mg/dL (9-20); Calcium 7.7 mg/dL (8.4-10.2); Carbon Dioxide 33 mmol/L (22-30); Chloride 99 mmol/L (98-107); Estimated CRCL calculation 76 ml/min; Estimated Glomerular Filt Rate > 60; Glucose 100 mg/dL (65-110); Magnesium 2.3 mg/dL (1.6-2.3); Potassium 4.3 mmol/L (3.4-5.0); Sodium 133 mmol/L (137-145)
[2022-02-17] MEDS: DOCUSATE SODIUM 100 MG CAPSULE PO ×2 (09:12→21:11)
[2022-02-17] MEDS: carvediloL 6.25 MG TABLET PO (09:12)
[2022-02-17] MEDS: SACUBITRIL/VALSARTAN 12-13 MG TABLET 1 TAB PO ×2 (09:12→21:11)
[2022-02-17] MEDS: polyethylene glycoL 3350 17 GM POWD.PACK PO (09:12)
[2022-02-17] MEDS: ENOXAPARIN 40 MG/0.4 ML SYRINGE SUB-Q (09:12)
[2022-02-17] MEDS: SPIRONOLACTONE 12.5 MG TABLET PO (09:13)
[2022-02-17] MEDS: UMECLIDINIUM/VILANTEROL 62.5-25 MCG ELLIPTA 1 PUFF INHALATION (10:01)
--- NOTE | 2022-02-17 10:27 | HOMEO2EVAL ---
Evaluation was performed at [facility] Home Oxygen Evaluation RC: Home Oxygen (O2) Evaluation Start: 02/17/22 09:32 Freq: ONCE Status: Active Protocol: RPE Activity Type Activity Date Activity User E-sign Co-sign Detail Recorded Client Recorded Date Recorded By Document 02/17/22 09:00 [email or web address] [email or web address] 02/17/22 10:27 DJO Document 02/17/22 09:05 [email or web address] [email or web address] 02/17/22 10:27 DJO Document 02/17/22 09:10 [email or web address] [email or web address] 02/17/22 10:27 DJO Document 02/17/22 09:15 [email or web address] [email or web address] 02/17/22 10:27 DJO Document 02/17/22 09:20 [email or web address] [email or web address] 02/17/22 10:27 DJO Document 02/17/22 09:25 [email or web address] [email or web address] 02/17/22 10:27 DJO Document 02/17/22 09:40 [email or web address] [email or web address] 02/17/22 10:27 DJO 02/17/22 02/17/22 02/17/22 09:00 09:05 09:10 Home O2 Evaluation [Oxygen] -Test Phase Resting Resting Resting -Oxygen Delivery Room Air Nasal Cannula Nasal Cannula -Oxygen Flow Rate (L/min) 1 2 [Pulse Oximetry] -Pulse Oximetry (90-100 %) 84 L 85 L 87 L [Pulse Rate] -Pulse Rate (60-100 beats/min) 92 93 95 [Charges] -Treatment Charges 02/17/22 02/17/22 02/17/22 09:15 09:20 09:25 Home O2 Evaluation [Oxygen] -Test Phase Resting Resting Exercise -Oxygen Delivery Nasal Cannula Nasal Cannula -Oxygen Flow Rate (L/min) 3 4 4 [Pulse Oximetry] -Pulse Oximetry (90-100 %) 88 L 91 90 [Pulse Rate] -Pulse Rate (60-100 beats/min) 98 99 100 [Charges] -Treatment Charges 02/17/22 09:40 Home O2 Evaluation [Oxygen] -Test Phase Resting -Oxygen Delivery Nasal Cannula -Oxygen Flow Rate (L/min) 4 [Pulse Oximetry] -Pulse Oximetry (90-100 %) 91 [Pulse Rate] -Pulse Rate (60-100 beats/min) 102 H [Charges] -Treatment Charges O2 Evaluation - Inpatient
--- NOTE | 2022-02-17 10:30 | PCRCNOTE ---
HOME O2 EVAL COMPLETE. PATIENT REQUIRES 4LPM WITH REST AND ACTIVITY.
--- NOTE | 2022-02-17 11:42 | PM.PNPUL ---
Progress Note: A&P Assessment and Plan (1) Acute on chronic respiratory failure with hypoxia and hypercapnia: Code(s): J96.21 - Acute and chronic respiratory failure with hypoxia; J96.22 - Acute and chronic respiratory failure with hypercapnia Status: Acute (2) COVID-19: Code(s): U07.1 - COVID-19 Status: Acute Assessment and Plan: this 71-year-old man with a history of COPD to chronic hypoxemia on supplemental oxygen at home, history of congestive heart failure with very low EF in the recent past presented with a few day history of shortness of breath. He tested positive for COVID-19 infection. The patient never had any vaccines for COVID-19. On admission he was found to have prolonged PT, and bilateral lung infiltrates specially the bases with also extensive tree in bud pattern on top of his centrilobular emphysema. Patient has been treated with remdesivir and dexamethasone for COVID 19 infection. In addition received antibiotics for possible coinfection. Respiratory status has improved but patient is still requiring relatively high FiO2. On physical exam he has just distant breath sounds related to COPD but no wheezing cor lower extremity edema or JVD. the patient's hypoxemia is related to extensive tree-in-bud pattern and and some mucus plugging especially the bases seen on the admission chest x-ray. New chest x-ray done today showed no new infiltrates. Patient has had mild cough but no sputum production. the patient will be discharged home on home ventilatory support and the patient used the new device last night. He slept well on the new home ventilator last night.. Plan: Will continue with aggressive pulmonary toilet as the persistent hypoxemia could be related to mucus plugging and possibly basal atelectasis. The patient will resume nebulized treatments q.4 hours. I added nebulized Mucomyst and nebulized Pulmicort b.i.d.. Out of bed to chair continue with incentive spirometry. Will be ready to be discharged as soon as FiO2 down to 3-4 liters/minute via nasal cannula. (3) Acute exacerbation of chronic obstructive pulmonary disease: Code(s): J44.1 - Chronic obstructive pulmonary disease with (acute) exacerbation Status: Acute (4) Nonischemic cardiomyopathy: Code(s): I42.8 - Other cardiomyopathies Status: Acute (5) COPD (chronic obstructive pulmonary disease): Code(s): J44.9 - Chronic obstructive pulmonary disease, unspecified Status: Acute Subjective Date/time seen: 02/17/22 11:42 Patient has no new respiratory symptoms. Used a trilogy home ventilator last night. He continues to require relatively high FiO2 with O2 sat ranging from 86% to 88%. No new shortness of breath. Unchanged cough. No fever or chills spent most of the day in bed. Off nebulized bronchodilators. Using incentive spirometry. Review of Systems Review of Systems: All systems reviewed & are unremarkable except as noted in HPI and below Exam Narrative: GENERAL APPEARANCE: Well developed, well nourished, alert and cooperative, and appears to be in no acute distress While on supplemental oxygen via nasal cannula SKIN: Inspection of the skin reveals no rashes, ulcerations or petechiae. HEENT: Sclerae anicteric and conjunctivae pink and moist. Extraocular movements were intact and pupils were equal, round, and reactive to light. The oral mucosa, hard and soft palate, tongue and posterior pharynx were normal. NECK: Supple. There was no thyroid enlargement, and no tenderness, or masses were felt. no JVD present LUNGS: Auscultation of the lungs revealed distant breath sounds bilaterally no wheezing CARDIAC: There was a regular rate and rhythm without any murmurs. ABDOMEN: Soft and nontender with normal bowel sounds. There was no organomegaly. LYMPH NODES: No lymphadenopathy was appreciated in the neck. EXTREMITIES: No cyanosis, clubbing or edema. NEUROLOGIC: Alert and oriented x 3. Normal a
[2022-02-17 12:41] LABS: INR 1.1; Prothrombin Time 13.8 Seconds (11.1-14.7)
[2022-02-17 12:52] LABS: D Dimer 0.34 ug/mL (<0.48)
--- NOTE | 2022-02-17 14:24 | PCOTNOTE ---
Per RN, patient's BP soft and MD requested patient stay in bed this afternoon. Due to lack of therapeutic value working from bed level, patient not seen today - plan to see tomorrow once BPs better to continue making functional progress with OT. Will continue plan of care for OT 02/18/22.
[2022-02-17] MEDS: ALBUTEROL SULFATE NEB 2.5 MG/3 ML INH INHALATION ×2 (15:59→21:54)
[2022-02-17] MEDS: IPRATROPIUM BR 0.02% INH SOLN 0.5 MG/2.5 ML VIAL INHALATION ×2 (15:59→21:55)
--- NOTE | 2022-02-17 18:30 | PM.IMPN ---
Progress Note: A&P Assessment and Plan (1) COVID-19: Code(s): U07.1 - COVID-19 Status: Acute Assessment and Plan: patient with COVID-19 being treated with remdesivir 5/5 and dexamethasone /10 on 02/07 patient became more hypoxic and requiring 13 L of oxygen, patient was seen by pulmonology and agreed with plan is started the patient on BiPAP, in the past patient had difficulty with the BiPAP whoever he is tolerating, patient had completed 5 day course of remdesivir on 02/09 patient remains hypoxic extended another 5 days and continue dexamethasone, currently patient in on AIRVO, a repeat ABG on 02/09 showed, slight improvement in CO2 He does have a significant cough. He denies any chest pain, nausea, vomiting, diarrhea, constipation. He is not sure that he would be able to get get and walk to the bathroom. He did also stated that he feels that his appetite has returned. He was given IS and cornet, with proper education. He does have a pretty significant cough, but seems to be non productive. patient had a cardiac echo showed preserved LV function with EF 65-70 and grade 1 diastolic dysfunction. patient is on Entresto, on 02/06 increased Rocephin to 2 g q.day, CTA of the chest is negative for pulmonary emboli, patient is seen by his voip engineer BiPAP setting are adjusted. NIV for discharge has been ordered. Still need high-level oxygen. Will wean oxygen as tolerated. PT OT to see. Still requiring high-flow oxygen continue taper. Physical therapy/pulmonary rehab Home oxygen evaluation (2) Acute exacerbation of chronic obstructive pulmonary disease: Code(s): J44.1 - Chronic obstructive pulmonary disease with (acute) exacerbation Status: Acute Assessment and Plan: scheduled breathing treatments systemic steroids Supplemental oxygen to maintain saturation >90% Could be in acute exacerbation with increased wheezes, shortness of breath Continue to trend respiratory status this is secondary to covid (3) Chronic respiratory failure with hypoxia: Code(s): J96.11 - Chronic respiratory failure with hypoxia Status: Acute Assessment and Plan: continue supplemental oxygen by nasal cannula (4) Acute and chronic respiratory failure: Code(s): J96.20 - Acute and chronic respiratory failure, unspecified whether with hypoxia or hypercapnia Status: Acute Assessment and Plan: Normally on 2 L at night Came in due to shortness of breath, tripoding, unable to complete sentences with worsening shortness of breath Currently on 10 L high-flow cannula, got to the floor on 13 L high-flow cannula Continue trend saturation Maintain saturation above 90% (5) Heart failure: Code(s): I50.9 - Heart failure, unspecified Status: Acute Assessment and Plan: Less echo of 2019 showed an EF of 55-60% Appears to be heart failure with preserved EF Chronic diastolic heart failure not in acute exacerbation Daily weights Strict I&Os Stable at this time Plan noninvasive ventilation at night which is ordered by Pulmonary. Awaiting his unit to be delivered Uses 2 L oxygen with exertion at home prior to this hospitalization Will need home oxygen evaluation at the time of discharge Oxygen 5 L bled in through the his noninvasive ventilator at night Discussed with pulmonary Subjective Date/time seen: 02/17/22 18:30 Interval history: 02/12/2022 feels about the same placed on nasal cannula high-flow this a.m.. Shortness of breath on exertion denies any chest very minimal cough. No leg swelling. 02/13/2022: Feels about the same. Oxygen requirement by the same. Does not ambulate much. Shortness of breath on exertion. Minimal cough. Denies any leg swelling. Discussed with the voip engineer 02/14/2022: Feels well. Shortness of breath on exertion. Continues to require less oxygen down to 8 lat
[2022-02-17] MEDS: carvediloL 3.125 MG TABLET PO (21:11)
[2022-02-17] MEDS: BUDESONIDE RESPULE NEB 0.5 MG/2 ML AMP INHALATION (21:54)
[2022-02-17] MEDS: ACETYLCYSTEINE 20% INHAL SOLN 800 MG/4 ML VIAL 200 MG INHALATION (21:55)
[2022-02-18] VITALS (28 sets, daily range): BP systolic 77–98; BP diastolic 41–58; PULSE 70–100; RESP 12–26; TEMP 36.1–36.5; O2SAT 91–100
[2022-02-18 05:03] LABS: Hematocrit 38.9 % (42.0-52.0); Hemoglobin 12.6 g/dL (14.0-18.0); Mean Corpuscular HGB Conc 32.4 g/dl (32-36); Mean Corpuscular Volume 92.6 fl (80-100); Mean Platelet Volume 10.7 fl (7.4-10.4); Platelet Count Result 174 k/mm3 (150-375); Red Cell Distribution Width 12.3 % (11.5-14.5); White Blood Count 10.6 K/mm3 (4.5-10.0)
[2022-02-18 05:12] LABS: Alanine Aminotransferase 39 U/L (6-50); Albumin Level 3.1 g/dL (3.5-5.1); Alkaline Phosphatase 66 U/L (38-126); Anion Gap 0 mmol/L (8-16); Aspartate Amino Transferase 26 U/L (17-59); Bilirubin,Total 0.8 mg/dL (0.2-1.3); Blood Urea Nitrogen 20 mg/dL (9-20); Calcium 7.6 mg/dL (8.4-10.2); Carbon Dioxide 34 mmol/L (22-30); Chloride 96 mmol/L (98-107); Estimated CRCL calculation 76 ml/min; Estimated Glomerular Filt Rate > 60; Glucose 106 mg/dL (65-110); Magnesium 2.3 mg/dL (1.6-2.3); Potassium 4.1 mmol/L (3.4-5.0); Sodium 130 mmol/L (137-145)
[2022-02-18] MEDS: IPRATROPIUM BR 0.02% INH SOLN 0.5 MG/2.5 ML VIAL INHALATION ×4 (07:58→22:38)
[2022-02-18] MEDS: UMECLIDINIUM/VILANTEROL 62.5-25 MCG ELLIPTA 1 PUFF INHALATION (07:58)
[2022-02-18] MEDS: ALBUTEROL SULFATE NEB 2.5 MG/3 ML INH INHALATION ×4 (07:58→22:37)
[2022-02-18] MEDS: ACETYLCYSTEINE 20% INHAL SOLN 800 MG/4 ML VIAL 200 MG INHALATION (07:58)
[2022-02-18] MEDS: BUDESONIDE RESPULE NEB 0.5 MG/2 ML AMP INHALATION ×2 (07:58→22:38)
[2022-02-18] MEDS: DOCUSATE SODIUM 100 MG CAPSULE PO ×2 (09:18→21:12)
[2022-02-18] MEDS: carvediloL 3.125 MG TABLET PO ×2 (09:18→21:12)
[2022-02-18] MEDS: SACUBITRIL/VALSARTAN 12-13 MG TABLET 1 TAB PO (09:18)
[2022-02-18] MEDS: ENOXAPARIN 40 MG/0.4 ML SYRINGE SUB-Q (09:19)
[2022-02-18] MEDS: polyethylene glycoL 3350 17 GM POWD.PACK PO (09:19)
--- NOTE | 2022-02-18 10:30 | PCNWS ---
Weekly nutritional screen. Patient is tolerating current heart healthy diet with adequate intake at 100%. No weight loss reported. No nutritional needs at this time.
--- NOTE | 2022-02-18 11:47 | PM.PNPUL ---
Progress Note: A&P Assessment and Plan (1) Acute on chronic respiratory failure with hypoxia and hypercapnia: Code(s): J96.21 - Acute and chronic respiratory failure with hypoxia; J96.22 - Acute and chronic respiratory failure with hypercapnia Status: Acute (2) COVID-19: Code(s): U07.1 - COVID-19 Status: Acute Assessment and Plan: this 71-year-old man with a history of COPD to chronic hypoxemia on supplemental oxygen at home, history of congestive heart failure with very low EF in the recent past presented with a few day history of shortness of breath. He tested positive for COVID-19 infection. The patient never had any vaccines for COVID-19. On admission he was found to have prolonged PT, and bilateral lung infiltrates specially the bases with also extensive tree in bud pattern on top of his centrilobular emphysema. Patient has been treated with remdesivir and dexamethasone for COVID 19 infection. In addition received antibiotics for possible coinfection. Respiratory status has improved but patient is still requiring relatively high FiO2. On physical exam he has just distant breath sounds related to COPD but no wheezing cor lower extremity edema or JVD. the patient's hypoxemia is likely related to extensive tree-in-bud pattern and some mucus plugging especially in the bases as seen on the admission chest x-ray. Last chest x-ray done today showed no new infiltrates. Patient has had mild cough but no sputum production. the patient will be discharged home on home ventilatory support and the patient has used the new device again last night. Plan: Will continue with aggressive pulmonary toilet as the persistent hypoxemia could be related to mucus plugging and possibly basal atelectasis. The patient will continue nebulized treatments q.4 hours, nebulized Mucomyst and nebulized Pulmicort b.i.d.. Out of bed to chair, continue with incentive spirometry. anticipate DC home in a.m. (3) Acute exacerbation of chronic obstructive pulmonary disease: Code(s): J44.1 - Chronic obstructive pulmonary disease with (acute) exacerbation Status: Acute (4) Nonischemic cardiomyopathy: Code(s): I42.8 - Other cardiomyopathies Status: Acute (5) COPD (chronic obstructive pulmonary disease): Code(s): J44.9 - Chronic obstructive pulmonary disease, unspecified Status: Acute Subjective Date/time seen: 02/18/22 11:47 patient doing better this a.m.. He has no new respiratory symptoms. Used home ventilator last night. Has been on nebulized short-acting bronchodilators mucolytic agents since yesterday. O2 saturation little better this a.m.. Review of Systems Review of Systems: All systems reviewed & are unremarkable except as noted in HPI and below Exam Narrative: GENERAL APPEARANCE: Well developed, well nourished, alert and cooperative, and appears to be in no acute distress While on supplemental oxygen via nasal cannula SKIN: Inspection of the skin reveals no rashes, ulcerations or petechiae. HEENT: Sclerae anicteric and conjunctivae pink and moist. Extraocular movements were intact and pupils were equal, round, and reactive to light. The oral mucosa, hard and soft palate, tongue and posterior pharynx were normal. NECK: Supple. There was no thyroid enlargement, and no tenderness, or masses were felt. no JVD present LUNGS: Auscultation of the lungs revealed distant breath sounds bilaterally no wheezing CARDIAC: There was a regular rate and rhythm without any murmurs. ABDOMEN: Soft and nontender with normal bowel sounds. There was no organomegaly. LYMPH NODES: No lymphadenopathy was appreciated in the neck. EXTREMITIES: No cyanosis, clubbing or edema. NEUROLOGIC: Alert and oriented x 3. Normal affect. Objective Data Vital Signs Vital Signs: Vital Signs - 24 hr 02/17/22 12:00 02/17/22 12:00 02/17/22 13:07 Temperature 36.6 C Pulse Rate 79 85 Respiratory Rate 18 Blood Pr
[2022-02-18] MEDS: MIDODRINE HCL 2.5 MG TABLET 5 MG PO (16:47)
--- NOTE | 2022-02-18 18:23 | PM.IMPN ---
Progress Note: A&P Assessment and Plan (1) COVID-19: Code(s): U07.1 - COVID-19 Status: Acute Assessment and Plan: patient with COVID-19 being treated with remdesivir 5/5 and dexamethasone /10 on 02/07 patient became more hypoxic and requiring 13 L of oxygen, patient was seen by pulmonology and agreed with plan is started the patient on BiPAP, in the past patient had difficulty with the BiPAP whoever he is tolerating, patient had completed 5 day course of remdesivir on 02/09 patient remains hypoxic extended another 5 days and continue dexamethasone, currently patient in on AIRVO, a repeat ABG on 02/09 showed, slight improvement in CO2 He does have a significant cough. He denies any chest pain, nausea, vomiting, diarrhea, constipation. He is not sure that he would be able to get get and walk to the bathroom. He did also stated that he feels that his appetite has returned. He was given IS and cornet, with proper education. He does have a pretty significant cough, but seems to be non productive. patient had a cardiac echo showed preserved LV function with EF 65-70 and grade 1 diastolic dysfunction. patient is on Entresto, on 02/06 increased Rocephin to 2 g q.day, CTA of the chest is negative for pulmonary emboli, patient is seen by his clinical pharmacy specialist BiPAP setting are adjusted. NIV for discharge has been ordered. Still need high-level oxygen. Will wean oxygen as tolerated. PT OT to see. Still requiring high-flow oxygen continue taper. Physical therapy/pulmonary rehab Home oxygen evaluation Requires 4 L with rest and activity done 02/17/2022. (2) Acute exacerbation of chronic obstructive pulmonary disease: Code(s): J44.1 - Chronic obstructive pulmonary disease with (acute) exacerbation Status: Acute Assessment and Plan: scheduled breathing treatments systemic steroids Supplemental oxygen to maintain saturation >90% Could be in acute exacerbation with increased wheezes, shortness of breath Continue to trend respiratory status this is secondary to covid (3) Chronic respiratory failure with hypoxia: Code(s): J96.11 - Chronic respiratory failure with hypoxia Status: Acute Assessment and Plan: continue supplemental oxygen by nasal cannula (4) Acute and chronic respiratory failure: Code(s): J96.20 - Acute and chronic respiratory failure, unspecified whether with hypoxia or hypercapnia Status: Acute Assessment and Plan: Normally on 2 L at night Came in due to shortness of breath, tripoding, unable to complete sentences with worsening shortness of breath Currently on 10 L high-flow cannula, got to the floor on 13 L high-flow cannula Continue trend saturation Maintain saturation above 90% (5) Heart failure: Code(s): I50.9 - Heart failure, unspecified Status: Acute Assessment and Plan: Less echo of 2019 showed an EF of 55-60% Appears to be heart failure with preserved EF Chronic diastolic heart failure not in acute exacerbation Daily weights Strict I&Os Stable at this time Plan hypotension: Will hold his Entresto carvedilol and spironolactone add midodrine restart those slowly. His blood pressure started to lower as we increased his physical activity. Could be related to physical deconditioning. noninvasive ventilation at night which is ordered by Pulmonary. Awaiting his unit to be delivered Uses 2 L oxygen with exertion at home prior to this hospitalization Will need home oxygen evaluation at the time of discharge . Performed 02/17/2022 require 4 L with rest and activity may need to do it again closer to discharge Oxygen 5 L bled in through the his noninvasive ventilator at night Discussed with pulmonary Subjective Date/time seen: 02/18/22 18:23 Interval history: 02/12/2022 feels about the same placed on nasal cannula high-flow this a.m.. Shortness of
[2022-02-19] VITALS (12 sets, daily range): BP systolic 95–107; BP diastolic 54–68; PULSE 72–104; RESP 12–20; TEMP 36.1–37; O2SAT 90–96
[2022-02-19 05:09] LABS: Hematocrit 36.8 % (42.0-52.0); Hemoglobin 12.1 g/dL (14.0-18.0); Mean Corpuscular HGB Conc 32.9 g/dl (32-36); Mean Corpuscular Volume 91.3 fl (80-100); Mean Platelet Volume 10.9 fl (7.4-10.4); Platelet Count Result 184 k/mm3 (150-375); Red Blood Count 4.03 M/mm3 (4.6-6.20); Red Cell Distribution Width 12.4 % (11.5-14.5); White Blood Count 10.4 K/mm3 (4.5-10.0)
[2022-02-19 05:22] LABS: Alanine Aminotransferase 48 U/L (6-50); Albumin Level 3.1 g/dL (3.5-5.1); Alkaline Phosphatase 66 U/L (38-126); Anion Gap 2 mmol/L (8-16); Aspartate Amino Transferase 38 U/L (17-59); Bilirubin,Total 0.8 mg/dL (0.2-1.3); Blood Urea Nitrogen 17 mg/dL (9-20); Calcium 7.9 mg/dL (8.4-10.2); Carbon Dioxide 35 mmol/L (22-30); Chloride 98 mmol/L (98-107); Estimated CRCL calculation 76 ml/min; Estimated Glomerular Filt Rate > 60; Glucose 97 mg/dL (65-110); Magnesium 2.4 mg/dL (1.6-2.3); Potassium 4.9 mmol/L (3.4-5.0); Sodium 135 mmol/L (137-145)
[2022-02-19] MEDS: ALBUTEROL SULFATE NEB 2.5 MG/3 ML INH INHALATION ×2 (08:33→13:28)
[2022-02-19] MEDS: BUDESONIDE RESPULE NEB 0.5 MG/2 ML AMP INHALATION (08:33)
[2022-02-19] MEDS: IPRATROPIUM BR 0.02% INH SOLN 0.5 MG/2.5 ML VIAL INHALATION ×2 (08:33→13:28)
--- NOTE | 2022-02-19 08:40 | PM.IMPN ---
Progress Note: A&P Assessment and Plan (1) COVID-19: Code(s): U07.1 - COVID-19 Status: Acute Assessment and Plan: patient with COVID-19 being treated with remdesivir 5/5 and dexamethasone /10 on 02/07 patient became more hypoxic and requiring 13 L of oxygen, patient was seen by pulmonology and agreed with plan is started the patient on BiPAP, in the past patient had difficulty with the BiPAP whoever he is tolerating, patient had completed 5 day course of remdesivir on 02/09 patient remains hypoxic extended another 5 days and continue dexamethasone, currently patient in on AIRVO, a repeat ABG on 02/09 showed, slight improvement in CO2 He does have a significant cough. He denies any chest pain, nausea, vomiting, diarrhea, constipation. He is not sure that he would be able to get get and walk to the bathroom. He did also stated that he feels that his appetite has returned. He was given IS and cornet, with proper education. He does have a pretty significant cough, but seems to be non productive. patient had a cardiac echo showed preserved LV function with EF 65-70 and grade 1 diastolic dysfunction. patient is on Entresto, on 02/06 increased Rocephin to 2 g q.day, CTA of the chest is negative for pulmonary emboli, patient is seen by his [place] supervisor BiPAP setting are adjusted. NIV for discharge has been ordered. Still need high-level oxygen. Will wean oxygen as tolerated. PT OT to see. Still requiring high-flow oxygen continue taper. Physical therapy/pulmonary rehab Home oxygen evaluation Requires 4 L with rest and activity done 02/17/2022. (2) Acute exacerbation of chronic obstructive pulmonary disease: Code(s): J44.1 - Chronic obstructive pulmonary disease with (acute) exacerbation Status: Acute Assessment and Plan: scheduled breathing treatments systemic steroids Supplemental oxygen to maintain saturation >90% Could be in acute exacerbation with increased wheezes, shortness of breath Continue to trend respiratory status this is secondary to covid (3) Chronic respiratory failure with hypoxia: Code(s): J96.11 - Chronic respiratory failure with hypoxia Status: Acute Assessment and Plan: continue supplemental oxygen by nasal cannula (4) Acute and chronic respiratory failure: Code(s): J96.20 - Acute and chronic respiratory failure, unspecified whether with hypoxia or hypercapnia Status: Acute Assessment and Plan: Normally on 2 L at night Came in due to shortness of breath, tripoding, unable to complete sentences with worsening shortness of breath Currently on 10 L high-flow cannula, got to the floor on 13 L high-flow cannula Continue trend saturation Maintain saturation above 90% (5) Heart failure: Code(s): I50.9 - Heart failure, unspecified Status: Acute Assessment and Plan: Less echo of 2019 showed an EF of 55-60% Appears to be heart failure with preserved EF Chronic diastolic heart failure not in acute exacerbation Daily weights Strict I&Os Stable at this time Plan hypotension: Will hold his Entresto carvedilol and spironolactone add midodrine restart those slowly. His blood pressure started to lower as we increased his physical activity. Could be related to physical deconditioning. noninvasive ventilation at night which is ordered by Pulmonary. Awaiting his unit to be delivered Uses 2 L oxygen with exertion at home prior to this hospitalization Will need home oxygen evaluation at the time of discharge . Performed 02/17/2022 require 4 L with rest and activity may need to do it again closer to discharge Oxygen 5 L bled in through the his noninvasive ventilator at night Discussed with pulmonary Subjective Date/time seen: 02/19/22 08:40 Objective Data Vital Signs Vital Signs: Vital Signs - 24 hr 02/18/22 09:18 02/18/22 12:00 02/18/22
[2022-02-19] MEDS: carvediloL 3.125 MG TABLET PO (09:53)
[2022-02-19] MEDS: ENOXAPARIN 40 MG/0.4 ML SYRINGE SUB-Q (09:53)
[2022-02-19] MEDS: MIDODRINE HCL 2.5 MG TABLET 5 MG PO (09:53)
[2022-02-19] MEDS: DOCUSATE SODIUM 100 MG CAPSULE PO (09:53)
[2022-02-19] MEDS: polyethylene glycoL 3350 17 GM POWD.PACK PO (09:53)
--- NOTE | 2022-02-19 10:10 | PM.PNPUL ---
Progress Note: A&P Assessment and Plan (1) Acute on chronic respiratory failure with hypoxia and hypercapnia: Code(s): J96.21 - Acute and chronic respiratory failure with hypoxia; J96.22 - Acute and chronic respiratory failure with hypercapnia Status: Acute (2) COVID-19: Code(s): U07.1 - COVID-19 Status: Acute Assessment and Plan: this 71-year-old man with a history of COPD, chronic hypoxemia on supplemental oxygen at home, history of congestive heart failure with very low EF in the recent past presented with a few day history of shortness of breath. He tested positive for COVID-19 infection. The patient never had any vaccines for COVID-19. On admission he was found to have prolonged PT, and bilateral lung infiltrates specially at bases with also extensive tree in bud pattern on top of his centrilobular emphysema. Patient has been treated with remdesivir and dexamethasone for COVID 19 infection. In addition received antibiotics for possible coinfection. Respiratory status has improved but patient is still requiring relatively high FiO2. On physical exam he has just distant breath sounds related to COPD but no wheezing or lower extremity edema or JVD. the patient's hypoxemia is likely related to extensive tree-in-bud pattern and some mucus plugging especially in the bases as seen on the admission chest x-ray. Last chest x-ray showed no new infiltrates. Plan: Okay to to DC patient home. patient to continue with his home ventilatory support, supplemental oxygen 4 liters/minute bleed in, also oxygen 4 liters/minute during the day. He will continue with his maintenance Anoro bronchodilator once daily and nebulized short-acting bronchodilators q.6 hours p.r.n.. Patient will call to make appointment with Pulmonary Clinic in approximately 3 weeks from today. (3) Acute exacerbation of chronic obstructive pulmonary disease: Code(s): J44.1 - Chronic obstructive pulmonary disease with (acute) exacerbation Status: Acute (4) Nonischemic cardiomyopathy: Code(s): I42.8 - Other cardiomyopathies Status: Acute (5) COPD (chronic obstructive pulmonary disease): Code(s): J44.9 - Chronic obstructive pulmonary disease, unspecified Status: Acute Subjective Date/time seen: 02/19/22 10:10 patient has no new respiratory symptoms. Shortness of breath unchanged. O2 saturation has improved over the last 48 hours. used home ventilator last night. Patient willing to be D/C home. Review of Systems Review of Systems: All systems reviewed & are unremarkable except as noted in HPI and below Exam Narrative: GENERAL APPEARANCE: Well developed, well nourished, alert and cooperative, and appears to be in no acute distress While on supplemental oxygen via nasal cannula SKIN: Inspection of the skin reveals no rashes, ulcerations or petechiae. HEENT: Sclerae anicteric and conjunctivae pink and moist. Extraocular movements were intact and pupils were equal, round, and reactive to light. The oral mucosa, hard and soft palate, tongue and posterior pharynx were normal. NECK: Supple. There was no thyroid enlargement, and no tenderness, or masses were felt. no JVD present LUNGS: Auscultation of the lungs revealed distant breath sounds bilaterally no wheezing, rare crackles at bases CARDIAC: There was a regular rate and rhythm without any murmurs. ABDOMEN: Soft and nontender with normal bowel sounds. There was no organomegaly. LYMPH NODES: No lymphadenopathy was appreciated in the neck. EXTREMITIES: No cyanosis, clubbing or edema. NEUROLOGIC: Alert and oriented x 3. Normal affect. Objective Data Vital Signs Vital Signs: Vital Signs - 24 hr 02/18/22 12:00 02/18/22 13:11 02/18/22 13:10 Temperature 36.4 C Pulse Rate 84 78 Respiratory Rate 16 Blood Pressure 89/50 L 84/45 L Pulse Oximetry 91 Oxygen Delivery Oxygen Flow Rate Fraction of Inspired Oxygen 02/18/22 12:45
--- NOTE | 2022-02-19 12:16 | PM.DS ---
DS: Admitting Diagnosis Discharge Date 02/19/22 Admitting Diagnosis Shortness of breath DS: Discharge Diagnosis Discharge Diagnosis (1) COVID-19: Code(s): U07.1 - COVID-19 Status: Acute Assessment and Plan: patient with COVID-19 being treated with remdesivir 5/5 and dexamethasone 5/10 on 02/07 patient became more hypoxic and requiring 13 L of oxygen, patient was seen by pulmonology and agreed with plan is started the patient on BiPAP, in the past patient had difficulty with the BiPAP whoever he is tolerating, patient had completed 5 day course of remdesivir on 02/09 patient remains hypoxic extended another 5 days and continue dexamethasone, currently patient in on AIRVO, a repeat ABG on 02/09 showed, slight improvement in CO2 He does have a significant cough. He denies any chest pain, nausea, vomiting, diarrhea, constipation. He is not sure that he would be able to get get and walk to the bathroom. He did also stated that he feels that his appetite has returned. He was given IS and cornet, with proper education. He does have a pretty significant cough, but seems to be non productive. patient had a cardiac echo showed preserved LV function with EF 65-70 and grade 1 diastolic dysfunction. 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 NIV for discharge has been ordered. Still need high-level oxygen. Will wean oxygen as tolerated. PT OT to see. Still requiring high-flow oxygen continue taper. Physical therapy/pulmonary rehab Home oxygen evaluation Requires 4 L with rest and activity done 02/17/2022. (2) Acute exacerbation of chronic obstructive pulmonary disease: Code(s): J44.1 - Chronic obstructive pulmonary disease with (acute) exacerbation Status: Acute Assessment and Plan: scheduled breathing treatments systemic steroids Supplemental oxygen to maintain saturation >90% Could be in acute exacerbation with increased wheezes, shortness of breath Continue to trend respiratory status this is secondary to covid (3) Chronic respiratory failure with hypoxia: Code(s): J96.11 - Chronic respiratory failure with hypoxia Status: Acute Assessment and Plan: continue supplemental oxygen by nasal cannula (4) Acute and chronic respiratory failure: Code(s): J96.20 - Acute and chronic respiratory failure, unspecified whether with hypoxia or hypercapnia Status: Acute Assessment and Plan: Normally on 2 L at night Came in due to shortness of breath, tripoding, unable to complete sentences with worsening shortness of breath Currently on 10 L high-flow cannula, got to the floor on 13 L high-flow cannula Continue trend saturation Maintain saturation above 90% (5) Heart failure: Code(s): I50.9 - Heart failure, unspecified Status: Acute Assessment and Plan: Less echo of 2019 showed an EF of 55-60% Appears to be heart failure with preserved EF Chronic diastolic heart failure not in acute exacerbation Daily weights Strict I&Os Stable at this time Plan hypotension: Will hold his Entresto carvedilol and spironolactone add midodrine restart those slowly. His blood pressure started to lower as we increased his physical activity. Could be related to physical deconditioning. noninvasive ventilation at night which is ordered by Pulmonary. Awaiting his unit to be delivered Uses 2 L oxygen with exertion at home prior to this hospitalization Will need home oxygen evaluation at the time of discharge . Performed 02/17/2022 require 4 L with rest and activity may need to do it again closer to discharge Oxygen 5 L bled in through the his noninvasive ventilator at night Discussed with pulmonary DS: Summary Hospital Course Hospital Course: 71-year-old
[2022-02-19] MEDS: UMECLIDINIUM/VILANTEROL 62.5-25 MCG ELLIPTA 1 PUFF INHALATION (13:30)
== END 2022-02-19 14:33 | disposition home or self-care (01) | DRG 177 ==
LOC: ANHED 23:22 → ANH3MEDSUR 02-05 09:57 → ANHIMU 02-12 07:23 → ANH3MEDSUR 02-20 10:35 → ANHIMU 02-20 10:35
PROVIDERS: Emergency Medicine; Family Medicine; Internal Medicine Critical Care Medicine; Internal Medicine Pulmonary Disease; Nurse Practitioner; Admitting Provider Internal Medicine; Emergency Provider Emergency Medicine; PCP Family Medicine Adolescent Medicine; Visit Provider Internal Medicine
DX: U07.1 COVID-19 (principal); J12.82 Pneumonia due to coronavirus disease 2019; J96.21 Acute and chronic respiratory failure with hypoxia; I42.8 Other cardiomyopathies; I50.22 Chronic systolic (congestive) heart failure; J96.12 Chronic respiratory failure with hypercapnia; J43.2 Centrilobular emphysema; Z99.81 Dependence on supplemental oxygen; Z87.891 Personal history of nicotine dependence; G47.33 Obstructive sleep apnea (adult) (pediatric); I95.9 Hypotension, unspecified; Z28.310 Unvaccinated for COVID-19; Z82.49 Family history of ischemic heart disease and other diseases of the circulatory system; Z80.42 Family history of malignant neoplasm of prostate; Z79.51 Long term (current) use of inhaled steroids; Z79.899 Other long term (current) drug therapy; Z91.030 Bee allergy status
CPT/HCPCS: 36415; 36600; 71045; 71046; 71275; 80053; 81001; 82565; 82728; 82805; 83605; 83735; 83880; 84145; 84460; 84484; 85025; 85027; 85380; 85610; 85730; 86140; 87040; 87070; 87205; 87637; 93005; 94002; 94003; 94618; 94640; 94762; 96375; 97110; 97161; 97162; 97165; 97530; 99285; A9270; C8929; J0248; J0456; J0696; J1100; J1650; J2930; Q0249; Q9957; Q9967

== ENCOUNTER 2022-04-08 06:59 | Outpatient (CLI) | payer MEDICARE, SELFPAY ==
--- NOTE | ~2022-04-08 | XR_ITS ---
Clinical Indication: Covid 19 PA and lateral views of the chest: Comparison: 02/17/2022 Findings: The lungs are clear, without evidence of focal consolidation or pleural effusion. Cardiome diastinal silhouette is within normal limits. Bones and soft tissues are unremarkable. Impression: Normal chest. Reviewed, dictated and finalized at [facility]. [facility] Impression: Normal chest.
== END 2022-04-08 07:00 | disposition home or self-care (01) ==
PROVIDERS: PCP Family Medicine Adolescent Medicine; Visit Provider Internal Medicine Pulmonary Disease
DX: Z09 Encounter for follow-up examination after completed treatment for conditions other than malignant neoplasm (principal); Z86.16 Personal history of COVID-19
CPT/HCPCS: 71046

== ENCOUNTER 2022-08-13 15:54 | Outpatient (CLI) | payer MEDICARE, SELFPAY ==
--- NOTE | ~2022-08-13 | CT_ITS ---
EXAMINATION:CT diagnostic chest wo con DATE: 08/13/2022 22:23 INDICATION: Solitary pulmonary nodule. TECHNIQUE: Computed tomography (CT) of the chest was performed without intravenous contrast. Automate d exposure control and iterative reconstruction technique were employed. The dose-length product (DLP ) was 104.49 mGy-cm. COMPARISON: Chest CT 02/06/2022 FINDINGS: There is mild scarring at the lung apices. There is a stable 7 mm nodule left major fissure , likely benign. There is severe emphysema. There is mild bronchiectasis in the inferior lungs. There is mild atelectasis bilaterally. No pleural effusion. The heart size is normal. There are coronary a rtery calcifications. No pericardial effusion. There are no pathologically enlarged lymph nodes. Aort ic atherosclerosis is noted. There is an 11 mm cyst in the liver. There is severe thoracic spondylosi s. IMPRESSION: 1. Stable pulmonary nodule, likely benign. 2. Severe emphysema. 3. Mild bronchiectasis in the inferior lungs. Reviewed, dictated and finalized at [facility].
== END 2022-08-13 15:55 | disposition home or self-care (01) ==
PROVIDERS: PCP Family Medicine Adolescent Medicine; Visit Provider Physician Assistant
DX: R91.1 Solitary pulmonary nodule (principal); R91.8 Other nonspecific abnormal finding of lung field; J43.9 Emphysema, unspecified
CPT/HCPCS: 71250

== ENCOUNTER 2023-01-12 07:12 | Outpatient (CLI) | payer MEDICARE, SELFPAY ==
[2023-01-12 08:03] LABS: Anion Gap 6 mmol/L (8-16); Blood Urea Nitrogen 13 mg/dL (9-20); Carbon Dioxide 34 mmol/L (22-30); Chloride 100 mmol/L (98-107); Estimated Glomerular Filt Rate > 60; Glucose 101 mg/dL (65-110); Potassium 4.2 mmol/L (3.4-5.0); Sodium 140 mmol/L (137-145)
== END 2023-01-12 07:13 | disposition home or self-care (01) ==
LOC: ANHLAB 07:14
PROVIDERS: PCP Family Medicine Adolescent Medicine; Visit Provider Physician Assistant
DX: J96.11 Chronic respiratory failure with hypoxia (principal)
CPT/HCPCS: 36415; 80048

== ENCOUNTER 2023-08-17 09:56 | Outpatient (CLI) | payer MEDICARE, SELFPAY ==
--- NOTE | ~2023-08-17 | CT_ITS ---
EXAMINATION: CT lung screening DATE: 08/17/2023 10:24 INDICATION: Z87.891 - Personal history of nicotine dependence TECHNIQUE: Computed tomography (CT) of the chest was performed without intravenous contrast. Addition al 3D reconstructions utilizing coronal maximum intensity projection (MIP) were performed. Automated exposure control and iterative reconstruction technique were employed. The dose-length product was 10 9.33 mGy-cm. COMPARISON: 08/13/2022 and 08/09/2021 FINDINGS: Severe emphysema. Mild bronchiectatic changes in the bilateral lower lobes. 7 x 2 mm flat lenticular intrafissural lymph node along the left major fissure. No appreciable interval change in a few scatte red <4 mm nodules in both lungs. No pneumonia, pulmonary edema or pleural effusion. Heart size normal . Atherosclerotic coronary artery calcification. Aortic valve calcification. No pericardial effusion. Thoracic aorta is normal in caliber. No pathologically enlarged thoracic lymphadenopathy. Unchanged 9 mm cyst in the left hepatic lobe. Severe thoracic spondylosis. IMPRESSION: 1. Lung-RADS category 2: Benign appearance or behavior. Continue annual screening with noncontrast lo w-dose chest CT in 12 months. 2. Severe emphysema with mild bronchiectasis in the bilateral lower lobes. Reviewed, dictated and finalized at location [facility]. IMPRESSION: 1. Lung-RADS category 2: Benign appearance or behavior. Continue annual screeni ng with noncontrast low-dose chest CT in 12 months. 2. Severe emphysema with mild bronchiectasis in the bilateral lower lobes.
== END 2023-08-17 09:57 | disposition home or self-care (01) ==
PROVIDERS: PCP Family Medicine Adolescent Medicine; Visit Provider Physician Assistant
DX: Z12.2 Encounter for screening for malignant neoplasm of respiratory organs (principal); Z87.891 Personal history of nicotine dependence; J43.9 Emphysema, unspecified
CPT/HCPCS: 71271

== ENCOUNTER 2024-08-22 10:52 | Outpatient (CLI) | payer MEDICARE, SELFPAY ==
--- NOTE | ~2024-08-22 | CT_ITS ---
CT Scan of the Chest without Contrast: Clinical Indication: Lung cancer screening, nicotine dependence Technique: Contiguous sections were acquired throughout the chest without intravenous contrast. Dose reduction technique was used on this scan by utilizing automated exposure control and iterative recon struction technique. The dose-length product (DLP) was 106.58 mGy-cm. COMPARISON: 08/17/2023 Findings: There is no evidence of any significant mediastinal, hilar or axillary lymphadenopathy. The mediastin al soft tissues appear normal. There is no evidence of pleural or pericardial effusion. There is moderate to advanced emphysema. There is mild bronchiectatic change. Stable 3 mm left apical pulmonary nodule. Images through the upper abdomen reveal no abnormalities. Impression: Lung RADS 2: Benign appearance. 12 month follow-up screening CT advised. Reviewed, dictated and finalized at [facility]. Impression: Lung RADS 2: Benign appearance. 12 month follow-up screening CT advised.
== END 2024-08-22 10:53 | disposition home or self-care (01) ==
PROVIDERS: PCP Family Medicine Adolescent Medicine; Visit Provider Physician Assistant
DX: Z12.2 Encounter for screening for malignant neoplasm of respiratory organs (principal); Z87.891 Personal history of nicotine dependence
CPT/HCPCS: 71271